=== PATIENT | male | born 1940 | race Caucasian/White ===

== ENCOUNTER 2018-11-19 20:01 | Outpatient (CLI) | payer MEDICARE, OTHER | END 2018-11-20 07:32 | disposition home or self-care (01) | LOC: SLEEP 20:01 | PROVIDERS: ATTEND Nurse Practitioner Family | DX: G47.10 Hypersomnia, unspecified (principal); M79.606 Pain in leg, unspecified; R06.00 Dyspnea, unspecified; R09.02 Hypoxemia | CPT/HCPCS: 95810 ==

== ENCOUNTER → 2018-11-28 | Outpatient (CLI) | payer MEDICARE, OTHER ==
[~2018-11-28] MED LIST: HOLD METFORMIN - RECEIVED CONTRAST 20 ML VIAL IV SCH; IOHEXOL 350 MG/ML 100 ML (OMNIPAQUE 350) VIAL IV ONE
[2018-11-28 14:39] LABS: CREATININE SERUM 1.18 MG/DL (0.60-1.30)
[2018-11-28 14:45] LABS: ABG BASE EXCESS 2.6 MMOL/L (-2.5-2.5); ABG OXYGEN SATURATION 98 % (94-100); ABG PCO2 44 MMHG (35-45); ABG PO2 84 MMHG (79-93); ABG TCO2 28.6 MMOL/L (21.0-31.0); ALLENS TEST YES-POS; INSPIRED O2 2L; PATIENT TEMP 96.8; VENTILATOR NO
--- NOTE | 2018-11-28 15:28 | Diagnostic Imaging Report ---
PROCEDURE: CT angiography of the chest with contrast. TECHNIQUE: Multiple contiguous axial images were obtained through the chest after uneventful bolus administration of intravenous contrast. 2D reconstructed CTA MIP acquisitions were also performed. Auto Exposure Controls were utilized during the CT exam to meet ALARA standards for radiation dose reduction. INDICATION: Shortness of air and cough as well as right-sided chest pain. No prior studies are available for comparison. Evaluation of the pulmonary arterial system is without evidence of thromboembolism. No filling defects are seen within the central, lobar or segmental branches. Thoracic aorta is normal caliber. No dissection is identified. There is a right chest wall cardiac pacemaker. The heart is enlarged. No pericardial fluid is seen. There is a very small left pleural effusion. No axillary lymphadenopathy is seen. No definite hilar or mediastinal lymphadenopathy is detected. The thyroid does appear to be enlarged but no discrete thyroid mass is detected. The lungs appear to be clear apart from minimal atelectasis or infiltrate in the lingula and left lower lobe. No discrete mass is identified. The upper abdomen is unremarkable. IMPRESSION: 1. Cardiomegaly and trace left pleural effusion. There is some minimal lingular and left lower lobe infiltrate/atelectasis. 2. No evidence of pulmonary embolism or thoracic aortic dissection. Dictated by: Dictated on workstation # [id number]
== END ==
LOC: RAD 13:54 → EDUNIT# 12-09 14:15
PROVIDERS: ATTEND Nurse Practitioner Family
DX: G47.10 Hypersomnia, unspecified (principal); R09.02 Hypoxemia; R06.02 Shortness of breath; I51.7 Cardiomegaly; M79.606 Pain in leg, unspecified; Z95.0 Presence of cardiac pacemaker
CPT/HCPCS: 36415; 36600; 71275; 82565; 82805; 84520

== ENCOUNTER → 2019-01-13 | Outpatient (CLI) | payer MEDICARE, OTHER ==
[~2019-01-13] MED LIST changes: -HOLD METFORMIN - RECEIVED CONTRAST 20 ML VIAL IV SCH; -IOHEXOL 350 MG/ML 100 ML (OMNIPAQUE 350) VIAL IV ONE; +RT-ALBUTEROL SULF 2.5 MG/3 ML PRE-MIX VIAL INH ONE; +RT-ALBUTEROL SULF 2.5 MG/3 ML PRE-MIX VIAL ONE
== END ==
LOC: RT 12:24
PROVIDERS: ATTEND Nurse Practitioner Family
DX: M79.606 Pain in leg, unspecified (principal); R06.00 Dyspnea, unspecified; G47.10 Hypersomnia, unspecified; R09.02 Hypoxemia
CPT/HCPCS: 94060; 94726; 94729

== ENCOUNTER 2019-03-13 10:25 | Outpatient (CLI) | payer MEDICARE, OTHER ==
[~2019-03-13] VITALS: Ht 172.7 cm; Wt 87.5 kg
[2019-03-13 10:33] VITALS: BP 114/68
[2019-03-13 12:01] LABS: BASOPHILS % (AUTO) 0 % (0-10); EOSINOPHILS # (AUTO) 0.1 10^3/uL (0.0-0.3); EOSINOPHILS % (AUTO) 2 % (0-10); HEMATOCRIT 38 % (40-54); HEMOGLOBIN 13.3 G/DL (13.3-17.7); LYMPHOCYTES # (AUTO) 1.4 X 10^3 (1.0-4.0); LYMPHOCYTES % (AUTO) 28 % (12-44); MEAN CORPUSCULAR HEMOGLOBIN 32 PG (25-34); MEAN CORPUSCULAR HGB CONC 35 G/DL (32-36); MEAN CORPUSCULAR VOLUME 92 FL (80-99); MEAN PLATELET VOLUME 11.3 FL (7.4-10.4); MONOCYTES # (AUTO) 0.6 X 10^3 (0.0-1.0); MONOCYTES % (AUTO) 12 % (0-12); NEUTROPHILS % (AUTO) 59 % (42-75); PLATELET COUNT 115 10^3/uL (130-400); RED CELL DISTRIBUTION WIDTH 13.8 % (10.0-14.5); WHITE BLOOD COUNT 5.1 10^3/uL (4.3-11.0)
[2019-03-13 12:21] LABS: ALBUMIN 3.5 GM/DL (3.2-4.5); BILIRUBIN,TOTAL 0.9 MG/DL (0.1-1.0); CALCIUM 8.9 MG/DL (8.5-10.1); CREATININE SERUM 1.41 MG/DL (0.60-1.30); POTASSIUM 3.9 MMOL/L (3.6-5.0); TOTAL PROTEIN 5.8 GM/DL (6.4-8.2)
[2019-03-14] MEDS ORDERED: CARV6.252 PO (11:03)
[2019-03-14] MEDS ORDERED: VITA1CAP PO (11:03)
[2019-03-14] MEDS ORDERED: ASPI-983 PO (11:03)
[2019-03-14] MEDS ORDERED: METO5TAB2 PO (11:03)
[2019-03-14] MEDS ORDERED: NPPH15OP OD (11:03)
[2019-03-14] MEDS ORDERED: POTA-51 PO (11:03)
[2019-03-14] MEDS ORDERED: BACL10TA PO (11:03)
[2019-03-14] MEDS ORDERED: FLUT9.9S NS (11:03)
[2019-03-14] MEDS ORDERED: HYDR25TA4 PO (11:03)
[2019-03-14] MEDS ORDERED: ACET-2267 PO (11:03)
[2019-03-14] MEDS ORDERED: FURO40TA4 PO (11:03)
[2019-03-14] MEDS ORDERED: PANT40TA2 PO (11:03)
[2019-03-14] MEDS ORDERED: FINA5TAB6 PO (11:03)
[2019-03-14] MEDS ORDERED: MAGN400T29 PO (11:03)
[2019-03-14] MEDS ORDERED: GABA-488 PO (11:03)
[2019-03-14] MEDS ORDERED: FURO80TA3 PO (14:06)
[2019-03-14] MEDS ORDERED: HYDR-3812 PO (14:06)
[2019-03-14] MEDS ORDERED: [UNRECOGNIZED DRUG - OTHER] PC (14:18)
== END 2019-03-13 11:55 | disposition home or self-care (01) ==
LOC: PREOP 10:25
PROVIDERS: ATTEND Orthopaedic Surgery
DX: Z01.810 Encounter for preprocedural cardiovascular examination (principal); Z01.812 Encounter for preprocedural laboratory examination; M48.062 Spinal stenosis, lumbar region with neurogenic claudication
CPT/HCPCS: 36415; 80053; 85025; 86850; 86900; 86901; 87081; 93005

== ENCOUNTER 2019-03-20 08:33 | Inpatient (IN) | payer MEDICARE, OTHER ==
--- NOTE | 2019-03-14 14:21 | NUR ---
[facility] FAXED OVER A MEDICATION LIST FOR THE PATIENT HOWEVER THERE WERE SEVERAL CHANGES TO THAT LIST AFTER I CALLED AND SPOKE WITH THE PATIENT. I HAD A LIST FAXED OVER FROM [facility]. [facility] FILLED: 03-07-19 FINASTERIDE 5MG DAILY #90 03-07-19 PROTONIX 40MG DAILY #90 02-06-19 HYDROCODONE 5-325MG Q6H PRN #45 (ONLY TAKES BID SCHEDULED) 01-19-19 BACLOFEN 10MG TID PRN #270 (TAKES BID) 01-14-19 POTASSIUM 20MEQ BID #180 01-08-19 TYLENOL W/ CODEINE #3 BID #60(NO LONGER TAKING, TAKES HYDROCODONE) 12-14-18 COREG 6.25MG BID #180 12-14-18 GABAPENTIN 300MG DAILY #90 (TAKES AT HS) 12-14-18 FUROSEMIDE 80MG BID #180 HE ALSO STATES HE TAKES REGLAN 5MG HS (HE STATES HIS BOTTLE SAYS TID PRN HOWEVER HE TAKES ONE AT HS, HE ALSO STATES IT IS A MUSCLE RELAXER) OTC MEDS: ASPIRIN 81MG DAILY FLONASE PRN NAPHCON A PRN B COMPLEX DAILY PREVAGEN (FOR BRAIN) DAILY HE STATES HE IS NOT TAKING THE MAG-OX, HCTZ, OR TYLENOL THAT IS ON THE LIST THAT WAS FAXED OVER. ALREADY MARKED OUT ON THAT LIST WAS CELEBREX AND ANORO WHICH HE VERIFIED HE IS NOT TAKING.
[~2019-03-20] VITALS: Ht 172.7 cm; Wt 87.5 kg
[2019-03-20] VITALS (24 sets, daily range): BP systolic 68–147; BP diastolic 32–68
[~2019-03-20 08:33] MED LIST changes: +ACET-2267 PO; +ASPI-983 PO; +BACL10TA PO; +CARV6.252 PO; +FINA5TAB6 PO; +FLUT9.9S NS; +FURO40TA4 PO; +FURO80TA3 PO; +GABA-488 PO; +HYDR-3812 PO; +HYDR25TA4 PO; +MAGN400T29 PO; +METO5TAB2 PO; +NPPH15OP OD; +PANT40TA2 PO; +POTA-51 PO; -RT-ALBUTEROL SULF 2.5 MG/3 ML PRE-MIX VIAL INH ONE; -RT-ALBUTEROL SULF 2.5 MG/3 ML PRE-MIX VIAL ONE; +VITA1CAP PO; +[UNRECOGNIZED DRUG - OTHER] PC
--- OUTSIDE RECORDS SUMMARY | 2019-03-20 08:59 | XMS REPORT ---
Author Author Hernandez Arroyo [facility] Address [address] [place], [place] [id number] Care Team Providers Care Body Service Team Member Name Role Phone Hernandez Arroyo PCP Hernandez Arroyo PreferredProvider Allergies and Adverse Reactions Name Reaction Notes Demerol codeine sulfate Plan of Treatment Planned Activity Comments Planned Date Planned Time Plan/Goal Chest X-ray, PA and lateral 04/26/2012 12:00 AM BMP 09/02/2017 12:00 AM CBC With Auto Differential 09/02/2017 12:00 AM Magnesium level 09/02/2017 12:00 AM Medications Active Name Start Date Estimated Completion Date SIG Comments Aspir-81 81 mg oral tablet,delayed release (DR/EC) take 1 tablet (81 mg) by oral route once daily Centrum Silver 0.4-300-250 mg-mcg-mcg oral tablet take 1 tablet by oral route daily Naphcon-A 0.025-0.3 % ophthalmic drops instill 1 drop in affected eye daily carvedilol 6.25 mg oral tablet 06/11/2015 TAKE 1 TABLET TWICE A DAY WITH FOOD Prevagen oral take 1 tablet daily, OTC Anoro Ellipta 62.5-25 mcg/actuation inhalation blister with device 12/18/2015 inhale 1 puff by inhalation route once daily at the same time each day Breo Ellipta 200-25 mcg/dose inhalation blister with device 08/07/2016 inhale 1 puff by inhalation route once daily at the same time each day metoclopramide HCl 5 mg oral tablet portable oxygen 11/16/2017 2 litres per nc Zofran ODT 4 mg oral tablet,disintegrating 12/15/2017 dissolve 1-2 tablets by oral route every 8 hours as needed gabapentin 300 mg oral capsule 12/17/2017 03/12/2019 take 1 capsule by oral route daily for 90 days portable oxygen unit 12/20/2017 2 liters per NC potassium chloride 20 mEq oral tablet extended release 02/14/2018 TAKE 1 TABLET BY MOUTH TWICE A DAY WITH FOOD Uloric 40 mg oral tablet 05/28/2018 take 1 tablet (40 mg) by oral route once daily magnesium oxide 400 mg (241.3 mg magnesium) oral tablet 06/02/2018 TAKE 1 TABLET BY MOUTH EVERY DAY furosemide 80 mg oral tablet 06/14/2018 06/09/2019 TAKE 1 TABLET BY MOUTH TWICE A DAY for 90 days fluticasone 50 mcg/actuation nasal spray,suspension 07/14/2018 INHALE 1 SPRAY (50 MCG) IN EACH NOSTRIL BY INTRANASAL ROUTE ONCE DAILY clotrimazole-betamethasone 1-0.05 % topical cream 08/17/2018 APPLY TO AFFECTED AND SURROUNDING AREAS OF SKIN 2 TIMES PER DAY, MORNING AND EVENING FOR 2 WEEKS pantoprazole 40 mg oral tablet,delayed release (DR/EC) 12/01/2018 TAKE 1 TABLET DAILY Proscar 5 mg oral tablet 12/01/2018 02/24/2020 take 1 tablet (5 mg) by oral route once daily for 90 days acetaminophen-codeine 300-30 mg oral tablet 12/05/2018 TAKE 1 TABLET BY MOUTH TWICE A DAY Lewis 5-325 mg oral tablet 02/06/2019 take 1 tablet by oral route every 6 hours as needed for pain Name Start Date Expiration Date SIG Comments Lotrisone 1-0.05 % topical cream 02/16/2013 03/02/2013 apply to the affected and surrounding areas of skin by topical route 2 times per day in the morning and evening for 14 days prednisone 20 mg oral tablet 02/16/2013 02/23/2013 take 3 tablets by oral route daily for 7 days prednisone 20 mg oral tablet 10/05/2013 10/12/2013 take 3 tablets by oral route daily for 7 days amoxicillin 500 mg oral capsule 10/05/2013 10/12/2013 take 1 capsule (500 mg) by oral route every 8 hours for 7 days Lamisil 250 mg oral tablet 10/23/2013 11/22/2013 take 1 tablet (250 mg) by oral route once daily for 30 days Valtrex 1 gram oral tablet 10/23/2013 10/27/2013 take 1 tablet (1,000 mg) by oral route 2 times per day for 2 days Cipro 500 mg oral tablet 10/30/2013 11/04/2013 take 1 tablet (500 mg) by oral route every 12 hours for 5 days albuterol sulfate 90 mcg/actuation inhalation HFA aerosol inhaler 10/30/2013 11/09/2013 inhale 2 puffs by inhalation route every 6 hours as needed for 10 days cyclobenzaprine 10 mg oral tablet 01/08/2014 03/09/2014 take 1 tablet by oral route every 12 hours as needed for 30 days muscle pain Augmentin 875-125 mg oral tablet 03/06/2014 03/13/2014 take 1 tablet by oral route every 12 hours for 7 days Levaquin 500 mg oral tablet 10/03/2014 10/10/2014 take 1 tablet (500 mg) by oral route once daily for 7 days amoxicillin 500 mg oral capsule 10/17/2014 10/27/2014 take 2 capsules by oral route 3 times a day for 5 days Zofran ODT 4 mg oral tablet,disintegrating 09/10/2015 09/22/2015 dissolve 1 tablet by oral route every 8 hours for 3 days amoxicillin 500 mg oral capsule 10/07/2015 10/17/2015 take 2 capsules by oral route 3 times a day for 5 days nitroglycerin 0.4 mg sublingual tablet, sublingual 10/21/2015 10/22/2015 place 1 tablet under tongue by translingual route once NEEDED FOR ESOPHAGEAL SPASM Myrbetriq 25 mg oral tablet extended release 24 hr 12/18/2015 12/12/2016 take 1 tablet (25 mg) by oral route once daily swallowing whole with water. Do not crush, chew and/or divide. for 30 days Lasix 40 mg oral tablet 12/18/2015 01/17/2016 take 1 tablet by oral route daily as needed for 30 days Lewis 10-325 mg oral tablet 01/29/2016 02/28/2016 take 1 tablet by oral route 4 times a day as needed for 30 days back pain propranolol 40 mg oral tablet 03/03/2016 07/01/2016 take 1 tablet (40 mg) by oral route 2 times per day for 30 days terbinafine HCl 250 mg oral tablet 06/26/2016 07/26/2016 take 1 tablet (250 mg) by oral route once daily for 30 days Lotrisone 1-0.05 % topical cream 07/23/2016 08/06/2016 apply to the affected and surrounding areas of skin by topical route 2 times per day in the morning and evening for 2 weeks Levaquin 500 mg oral tablet 10/05/2016 10/12/2016 take 1 tablet (500 mg) by oral route once daily for 7 days Reglan 5 mg oral tablet 12/01/2016 11/26/2017 take 1 tablet by oral route 3 times a for 90 days MagOx 400 mg oral tablet 12/10/2016 03/05/2018 take 1 tablet by oral route daily for 90 days amoxicillin 500 mg oral capsule 02/18/2017 02/28/2017 take 2 capsules by oral route 3 times a day for 5 days Zofran ODT 4 mg oral tablet,disintegrating 07/12/2017 07/18/2017 DISSOLVE 1 TABLET BY ORAL ROUTE 3 TIMES A DAY NEEDED celecoxib 200 mg oral capsule 07/21/2017 07/16/2018 take 1 capsule (200 mg) by oral route once daily for 90 days Lotrisone 1-0.05 % topical cream 08/04/2017 08/18/2017 APPLY TO AFFECTED AND SURROUNDING AREAS OF SKIN 2 TIMES PER DAY, MORNING AND EVENING FOR 2 WEEKS Lasix 40 mg oral tablet 09/02/2017 08/28/2018 take 1 tablet (40 mg) by oral route once daily for 90 days Cipro 500 mg oral tablet 12/15/2017 12/22/2017 take 1 tablet (500 mg) by oral route every 12 hours for 7 days prednisone 20 mg oral tablet 12/15/2017 12/22/2017 take 1 tablet (20 mg) by oral route once daily for 7 days Bactrim DS 800-160 mg oral tablet 03/07/2018 03/17/2018 take 1 tablet by oral route every 12 hours for 10 days ciprofloxacin HCl 500 mg oral tablet 05/24/2018 05/31/2018 take 1 tablet (500 mg) by oral route every 12 hours for 7 days metronidazole 500 mg oral tablet 05/24/2018 05/31/2018 take 1 tablet by oral route 2 times a day for 7 days Tylenol-Codeine #3 300-30 mg oral tablet 05/24/2018 02/18/2019 take 1 tablet by oral route 2 times a day for 90 days Medrol (Thong) 4 mg oral tablets,dose pack 02/06/2019 02/18/2019 take as directed for 6 days Discontinued Name Start Date Discontinued Date SIG Comments acetaminophen 500 mg oral tablet 11/30/2012 takes 2 tab bid finasteride 5 mg oral tablet 03/10/2012 05/30/2012 take 1 tablet (5 mg) by oral route once daily lisinopril 10 mg oral tablet 05/30/2012 09/05/2012 take 1 tablet (10 mg) by oral route once daily for 90 days Medrol (Thong) 4 mg oral tablets,dose pack 07/01/2012 07/12/2012 take as directed for 6 days meloxicam 7.5 mg oral tablet 05/17/2013 01/08/2014 take 1 tablet (7.5 mg) by oral route once daily for 90 days Tylenol-Codeine #3 300-30 mg oral tablet 08/01/2013 01/08/2014 take 1 - 2 tablets by oral route every 6 hours as needed Medrol (Thong) 4 mg oral tablets,dose pack 10/23/2013 01/08/2014 take as directed for 6 days Medrol (Thong) 4 mg oral tablets,dose pack 03/06/2014 05/29/2014 take as directed WelChol 625 mg oral tablet 07/16/2014 12/24/2014 take 3 tablets by oral route 2 times a day for 30 days not taking cephalexin 500 mg oral capsule 08/07/2015 take 1 capsule (500 mg) by oral route every 6 hours meloxicam 7.5 mg oral tablet 06/11/2015 08/06/2015 TAKE 1 TABLET ONCE DAILY Lyrica 75 mg oral capsule 06/24/2015 08/06/2015 take 1 capsule (75 mg) by oral route 2 times per day for 7 days Celebrex 100 mg oral capsule 08/06/2015 08/07/2015 take 1 capsule by oral route daily for 30 days meloxicam 7.5 mg oral tablet 09/10/2015 take 1 tablet (7.5 mg) by oral route once daily Lyrica 75 mg oral capsule 09/10/2015 take 1 cap daily Viibryd 10 mg (7)- 20 mg (23) oral tablets,dose pack 08/07/2015 08/07/2015 take as directed ondansetron 4 mg oral tablet,disintegrating 11/03/2017 take 1 tab every 8hr prn nausea hydrocodone-acetaminophen 7.5-325 mg oral tablet 10/08/2015 take 1 tablet every 8hr for pain Tylenol-Codeine #3 300-30 mg oral tablet 12/18/2015 02/26/2016 take 1 tablet by oral route every 6 hours as needed primidone 50 mg oral tablet 02/26/2016 07/06/2016 take 1 tablet by oral route daily for 90 days Lyrica 150 mg oral capsule 06/26/2016 07/06/2016 take 1 capsule (150 mg) by oral route 2 times per day for 30 days hydrochlorothiazide 25 mg oral tablet 12/10/2016 07/21/2017 TAKE 1 TABLET BY MOUTH ONCE DAILY amoxicillin 875 mg oral tablet 07/08/2017 08/05/2017 take 1 tablet (875 mg) by oral route every 12 hours for 7 days baclofen 10 mg oral tablet 01/27/2018 03/03/2019 TAKE 1 TABLET BY ORAL ROUTE 3 TIMES A DAY NEEDED Problem List Description Status Onset Gastroesophageal Reflux Active Hypertension Active pacemaker Active Back pain Active Traumatic Injury Active age 8 yrs old Cervical Whiplash/Strain Active 07/04/2014 Lumbar spondylolysis Active 07/04/2014 Trochanteric bursitis Active 10/15/2014 Trochanteric bursitis, right hip Active 07/01/2015 Vital Signs Date Time BP-Sys(mm[Hg] BP-Aysha(mm[Hg]) HR(bpm) RR(rpm) Temp WT HT HC BMI BSA BMI Percentile O2 Sat(%) 03/03/2019 10:45:00 AM 130 mmHg 64 mmHg 83 bpm 16 rpm 98.1 F 193 lbs 68 in 29.3452 kg/m 2.0494 m 97 % 02/06/2019 10:32:00 AM 146 mmHg 82 mmHg 16 rpm 97.8 F 194 lbs 68 in 29.50 kg/m2 2.05 m2 98 % 12/01/2018 10:59:00 AM 122 mmHg 70 mmHg 83 bpm 18 rpm 97.9 F 192.25 lbs 68 in 29.2312 kg/m 2.0454 m 96 % 08/17/2018 10:25:00 AM 110 mmHg 74 mmHg 75 bpm 16 rpm 98.8 F 191 lbs 68 in 29.04 kg/m2 2.04 m2 95 % 05/28/2018 11:44:00 AM 120 mmHg 70 mmHg 78 bpm 20 rpm 97.9 F 189.25 lbs 68 in 28.7751 kg/m 2.0294 m 98 % 05/24/2018 1:54:00 PM 108 mmHg 64 mmHg 95 bpm 20 rpm 98.1 F 180.25 lbs 68 in 27.41 kg/m2 1.98 m2 97 % 04/12/2018 10:00:00 AM 122 mmHg 78 mmHg 82 bpm 18 rpm 98.1 F 188.375 lbs 68 in 28.642 kg/m 2.0247 m 97 % 03/23/2018 9:48:00 AM 122 mmHg 64 mmHg 78 bpm 16 rpm 98.1 F 190 lbs 68 in 28.89 kg/m2 2.03 m2 96 % 03/14/2018 10:46:00 AM 88 mmHg 50 mmHg 81 bpm 18 rpm 97.7 F 191.375 lbs 68 in 29.0982 kg/m 2.0408 m 95 % 03/07/2018 2:41:00 PM 116 mmHg 64 mmHg 82 bpm 18 rpm 98.6 F 189.5 lbs 68 in 28.81 kg/m2 2.03 m2 95 % 01/07/2018 10:45:00 AM 88 bpm 18 rpm 97.5 F 197.375 lbs 68 in 30.0105 kg/m 2.0725 m 94 % 12/20/2017 10:22:00 AM 120 mmHg 66 mmHg 80 bpm 16 rpm 98.1 F 188 lbs 68 in 28.59 kg/m2 2.02 m2 88 % 12/15/2017 9:57:00 AM 102 mmHg 68 mmHg 82 bpm 18 rpm 97.5 F 182.125 lbs 68 in 27.6917 kg/m 1.9909 m 95 % 11/16/2017 2:25:00 PM 113 mmHg 74 mmHg 68 bpm 20 rpm 98 F 189.25 lbs 68 in 28.78 kg/m2 2.03 m2 95 % 11/03/2017 10:46:00 AM 108 mmHg 62 mmHg 72 bpm 16 rpm 97.1 F 197 lbs 68 in 29.9534 kg/m 2.0706 m 96 % 09/13/2017 9:35:00 AM 110 mmHg 64 mmHg 80 bpm 16 rpm 96.7 F 192 lbs 68 in 29.19 kg/m2 2.04 m2 96 % 09/02/2017 10:56:00 AM 130 mmHg 84 mmHg 80 bpm 20 rpm 98 F 190.5 lbs 68 in 28.9651 kg/m 2.0361 m 96 % 08/05/2017 10:54:00 AM 110 mmHg 62 mmHg 88 bpm 16 rpm 96.9 F 185 lbs 68 in 28.13 kg/m2 2.01 m2 96 % 07/21/2017 10:00:00 AM 104 mmHg 62 mmHg 88 bpm 20 rpm 97.8 F 185.375 lbs 68 in 28.1859 kg/m 2.0085 m 94 % 07/08/2017 10:00:00 AM 122 mmHg 74 mmHg 86 bpm 20 rpm 97.8 F 189.375 lbs 68 in 28.79 kg/m2 2.03 m2 95 % 07/05/2017 3:11:00 PM 120 mmHg 74 mmHg 79 bpm 20 rpm 98 F 198 lbs 68 in 30.1055 kg/m 2.0758 m 95 % 05/20/2017 11:05:00 AM 132 mmHg 74 mmHg 82 bpm 18 rpm 97.3 F 193.25 lbs 68 in 29.38 kg/m2 2.05 m2 96 % 05/04/2017 10:17:00 AM 132 mmHg 78 mmHg 56 bpm 14 rpm 96.2 F 194 lbs 68 in 29.4973 kg/m 2.0547 m 96 % 04/27/2017 9:57:00 AM 126 mmHg 68 mmHg 84 bpm 18 rpm 97.6 F 196.187 lbs 68 in 29.83 kg/m2 2.07 m2 95 % 02/18/2017 10:43:00 AM 126 mmHg 67 mmHg 82 bpm 18 rpm 97.2 F 192 lbs 68 in 29.1932 kg/m 2.0441 m 95 % 12/10/2016 11:23:00 AM 123 mmHg 63 mmHg 78 bpm 18 rpm 98.2 F 190.25 lbs 68 in 28.93 kg/m2 2.03 m2 94 % 12/01/2016 1:51:00 PM 141 mmHg 74 mmHg 91 bpm 18 rpm 97.5 F 197.125 lbs 68 in 29.9724 kg/m 2.0712 m 95 % 10/26/2016 9:57:00 AM 150 mmHg 86 mmHg 87 bpm 16 rpm 97.2 F 186 lbs 68 in 28.28 kg/m2 2.01 m2 96 % 10/05/2016 9:30:00 AM 138 mmHg 74 mmHg 80 bpm 18 rpm 96.6 F 183 lbs 68 in 27.8248 kg/m 1.9956 m 94 % 08/10/2016 10:59:00 AM 162 mmHg 86 mmHg 85 bpm 20 rpm 96.5 F 193 lbs 68 in 29.35 kg/m2 2.05 m2 97 % 08/04/2016 10:22:00 AM 124 mmHg 80 mmHg 85 bpm 18 rpm 98.2 F 194.5 lbs 68 in 29.5733 kg/m 2.0574 m 96 % 07/23/2016 11:04:00 AM 128 mmHg 74 mmHg 81 bpm 18 rpm 98.2 F 191.4 lbs 68 in 29.10 kg/m2 2.04 m2 95 % 07/06/2016 10:06:00 AM 138 mmHg 80 mmHg 90 bpm 18 rpm 98.2 F 197.125 lbs 68 in 29.9724 kg/m 2.0712 m 94 % 06/26/2016 10:31:00 AM 112 mmHg 74 mmHg 86 bpm 18 rpm 97.4 F 191.25 lbs 68 in 29.08 kg/m2 2.04 m2 96 % 04/06/2016 2:03:00 PM 110 mmHg 70 mmHg 84 bpm 16 rpm 97.6 F 195.5 lbs 68 in 29.7254 kg/m 2.0627 m 95 % 03/03/2016 10:32:00 AM 118 mmHg 76 mmHg 83 bpm 18 rpm 96.6 F 191 lbs 68 in 29.04 kg/m2 2.04 m2 96 % 02/26/2016 9:42:00 AM 130 mmHg 80 mmHg 72 bpm 18 rpm 97.3 F 190 lbs 68 in 28.8891 kg/m 2.0334 m 97 % 01/30/2016 2:26:00 PM 142 mmHg 82 mmHg 82 bpm 18 rpm 97.9 F 194.125 lbs 68 in 29.52 kg/m2 2.06 m2 95 % 01/29/2016 10:51:00 AM 120 mmHg 72 mmHg 79 bpm 16 rpm 97.5 F 194 lbs 68 in 29.4973 kg/m 2.0547 m 98 % 12/18/2015 10:44:00 AM 130 mmHg 74 mmHg 85 bpm 16 rpm 96.1 F 197 lbs 68 in 29.95 kg/m2 2.07 m2 96 % 11/05/2015 3:26:00 PM 120 mmHg 84 mmHg 79 bpm 19 rpm 98.4 F 193 lbs 68 in 29.3452 kg/m 2.0494 m 95 % 10/16/2015 11:22:00 AM 126 mmHg 82 mmHg 81 bpm 17 rpm 98 F 195 lbs 68 in 29.65 kg/m2 2.06 m2 96 % 10/07/2015 10:41:00 AM 114 mmHg 72 mmHg 84 bpm 18 rpm 97.8 F 191 lbs 68 in 29.0412 kg/m 2.0388 m 96 % 09/25/2015 10:52:00 AM 134 mmHg 82 mmHg 84 bpm 18 rpm 99.8 F 188 lbs 68 in 28.59 kg/m2 2.02 m2 96 % 09/10/2015 1:27:00 PM 134 mmHg 86 mmHg 80 bpm 18 rpm 97.4 F 197 lbs 68 in 29.9534 kg/m 2.0706 m 96 % 08/07/2015 10:33:00 AM 124 mmHg 76 mmHg 78 bpm 18 rpm 98.1 F 197 lbs 68 in 29.95 kg/m2 2.07 m2 08/06/2015 3:18:00 PM 118 mmHg 64 mmHg 84 bpm 16 rpm 99.1 F 196 lbs 07/01/2015 10:03:00 AM 112 mmHg 58 mmHg 88 bpm 18 rpm 97.1 F 199 lbs 68 in 30.2575 kg/m 2.081 m 06/24/2015 10:43:00 AM 116 mmHg 82 mmHg 80 bpm 16 rpm 97.5 F 195 lbs 68 in 29.65 kg/m2 2.06 m2 06/14/2015 5:07:00 PM 76 bpm 20 rpm 97.4 F 193 lbs 96 % 06/10/2015 1:53:00 PM 114 mmHg 62 mmHg 93 bpm 18 rpm 98.5 F 197.125 lbs 68 in 29.9724 kg/m 2.0712 m 66 % 05/07/2015 9:31:00 AM 132 mmHg 80 mmHg 80 bpm 18 rpm 97.7 F 198.25 lbs 68 in 30.14 kg/m2 2.08 m2 03/28/2015 3:19:00 PM 110 mmHg 66 mmHg 76 bpm 18 rpm 97.9 F 195 lbs 68 in 29.6493 kg/m 2.06 m 12/31/2014 9:47:00 AM 148 mmHg 90 mmHg 88 bpm 18 rpm 97.7 F 193 lbs 68 in 29.35 kg/m2 2.05 m2 12/24/2014 1:45:00 PM 136 mmHg 82 mmHg 65 bpm 20 rpm 96.8 F 191 lbs 68 in 29.0412 kg/m 2.0388 m 12/12/2014 8:26:00 AM 128 mmHg 82 mmHg 82 bpm 18 rpm 97.3 F 188 lbs 68 in 28.59 kg/m2 2.02 m2 12/10/2014 1:08:00 PM 138 mmHg 84 mmHg 80 bpm 18 rpm 98.4 F 189 lbs 68 in 28.7371 kg/m 2.0281 m 10/17/2014 10:03:00 AM 154 mmHg 82 mmHg 72 bpm 18 rpm 98.9 F 190 lbs 68 in 28.89 kg/m2 2.03 m2 10/15/2014 11:02:00 AM 132 mmHg 84 mmHg 73 bpm 18 rpm 97 F 192 lbs 68 in 29.1932 kg/m 2.0441 m 10/03/2014 10:39:00 AM 132 mmHg 78 mmHg 88 bpm 18 rpm 97.5 F 190 lbs 68 in 28.89 kg/m2 2.03 m2 10/01/2014 4:05:00 PM 122 mmHg 64 mmHg 90 bpm 16 rpm 97.6 F 189 lbs 08/23/2014 9:20:00 AM 148 mmHg 88 mmHg 84 bpm 16 rpm 98.9 F 197 lbs 68 in 29.9534 kg/m 2.0706 m 07/27/2014 9:32:00 AM 124 mmHg 74 mmHg 74 bpm 16 rpm 98.5 F 199 lbs 68 in 30.26 kg/m2 2.08 m2 07/16/2014 10:08:00 AM 140 mmHg 78 mmHg 82 bpm 18 rpm 98.7 F 198.5 lbs 68 in 30.1815 kg/m 2.0784 m 97 % 06/25/2014 10:16:00 AM 150 mmHg 88 mmHg 80 bpm 18 rpm 96.9 F 197 lbs 68 in 29.95 kg/m2 2.07 m2 96 % 05/29/2014 9:52:00 AM 142 mmHg 80 mmHg 88 bpm 18 rpm 97.4 F 197 lbs 68 in 29.9534 kg/m 2.0706 m 04/23/2014 10:49:00 AM 110 mmHg 70 mmHg 70 bpm 16 rpm 97.8 F 192 lbs 68 in 29.19 kg/m2 2.04 m2 03/26/2014 4:04:00 PM 108 mmHg 70 mmHg 66 bpm 16 rpm 98.2 F 195 lbs 68 in 29.6493 kg/m 2.06 m 03/06/2014 11:02:00 AM 140 mmHg 80 mmHg 70 bpm 16 rpm 97.9 F 195 lbs 68 in 29.65 kg/m2 2.06 m2 02/06/2014 10:24:00 AM 122 mmHg 70 mmHg 72 bpm 16 rpm 97.6 F 193.25 lbs 68 in 29.3833 kg/m 2.0508 m 01/08/2014 2:20:00 PM 124 mmHg 82 mmHg 66 bpm 16 rpm 97.2 F 193.375 lbs 68 in 29.40 kg/m2 2.05 m2 12/18/2013 9:24:00 AM 140 mmHg 90 mmHg 78 bpm 18 rpm 97.1 F 199 lbs 65 in 33.115 kg/m 2.0346 m 10/30/2013 8:30:00 AM 131 mmHg 67 mmHg 61 bpm 20 rpm 97.6 F 195.2 lbs 65 in 32.48 kg/m2 2.02 m2 96 % 10/23/2013 8:44:00 AM 144 mmHg 78 mmHg 82 bpm 18 rpm 98 F 195.375 lbs 65 in 32.5118 kg/m 2.016 m 96 % 10/05/2013 3:00:00 PM 156 mmHg 82 mmHg 80 bpm 18 rpm 97.5 F 199 lbs 68 in 30.26 kg/m2 2.08 m2 08/01/2013 10:30:00 AM 152 mmHg 90 mmHg 80 bpm 18 rpm 98.1 F 193 lbs 68 in 29.3452 kg/m 2.0494 m 07/26/2013 10:42:00 AM 138 mmHg 70 mmHg 84 bpm 18 rpm 98.6 F 191 lbs 68 in 29.04 kg/m2 2.04 m2 07/17/2013 2:08:00 PM 136 mmHg 80 mmHg 74 bpm 20 rpm 96.3 F 194 lbs 68 in 29.4973 kg/m 2.0547 m 97 % 05/17/2013 11:17:00 AM 146 mmHg 82 mmHg 80 bpm 18 rpm 97.4 F 187 lbs 68 in 28.43 kg/m2 2.02 m2 05/02/2013 11:37:00 AM 144 mmHg 80 mmHg 70 bpm 16 rpm 96 F 188 lbs 68 in 28.585 kg/m 2.0227 m 98 % 04/26/2013 10:56:00 AM 140 mmHg 80 mmHg 68 bpm 18 rpm 97.2 F 185 lbs 68 in 28.13 kg/m2 2.01 m2 03/01/2013 9:43:00 AM 136 mmHg 90 mmHg 82 bpm 16 rpm 97.4 F 187 lbs 68 in 28.433 kg/m 2.0173 m 02/16/2013 10:59:00 AM 138 mmHg 76 mmHg 78 bpm 18 rpm 97.8 F 187 lbs 68 in 28.43 kg/m2 2.02 m2 01/27/2013 9:35:00 AM 142 mmHg 84 mmHg 72 bpm 18 rpm 97.4 F 186.375 lbs 68 in 28.3379 kg/m 2.0139 m 12/15/2012 3:57:00 PM 130 mmHg 82 mmHg 74 bpm 18 rpm 98.6 F 188.375 lbs 68 in 28.64 kg/m2 2.02 m2 12/07/2012 9:07:00 AM 142 mmHg 72 mmHg 70 bpm 18 rpm 97.1 F 190 lbs 68 in 28.8891 kg/m 2.0334 m 11/30/2012 9:12:00 AM 132 mmHg 70 mmHg 64 bpm 16 rpm 98.7 F 189 lbs 68 in 28.74 kg/m2 2.03 m2 11/18/2012 9:40:00 AM 138 mmHg 80 mmHg 80 bpm 18 rpm 97.6 F 192 lbs 09/02/2012 10:32:00 AM 114 mmHg 72 mmHg 84 bpm 18 rpm 98.2 F 183 lbs 68 in 27.8248 kg/m 1.9956 m 08/10/2012 1:40:00 PM 130 mmHg 80 mmHg 80 bpm 18 rpm 98.2 F 184 lbs 68 in 27.98 kg/m2 2.00 m2 95 % 07/12/2012 1:45:00 PM 130 mmHg 80 mmHg 72 bpm 18 rpm 96.8 F 184 lbs 68 in 27.9768 kg/m 2.0011 m 97 % 07/01/2012 10:12:00 AM 136 mmHg 82 mmHg 82 bpm 18 rpm 97.4 F 184 lbs 68 in 27.98 kg/m2 2.00 m2 05/30/2012 9:49:00 AM 132 mmHg 88 mmHg 80 bpm 18 rpm 97 F 184 lbs 68 in 27.9768 kg/m 2.0011 m 05/10/2012 10:34:00 AM 110 mmHg 60 mmHg 67 bpm 18 rpm 96 F 182 lbs 68 in 27.67 kg/m2 1.99 m2 97 % 04/26/2012 11:43:00 AM 130 mmHg 78 mmHg 80 bpm 18 rpm 97.1 F 182 lbs 68 in 27.6727 kg/m 1.9902 m 04/26/2012 10:55:00 AM 130 mmHg 78 mmHg 80 bpm 18 rpm 97.1 F 182 lbs 68 in 27.67 kg/m2 1.99 m2 03/10/2012 10:59:00 AM 128 mmHg 72 mmHg 80 bpm 18 rpm 97.2 F 180 lbs 68 in 27.3686 kg/m 1.9792 m Social History Name Description Comments Tobacco Never smoker lives with family member 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 Children x2 Alcohol Use - Rare Denies illicit substance abuse History of Procedures Date Ordered Description Order Status 06/14/2015 12:00 AM RADEX ABDOMEN COMPL W/DCBTS&/ERC VIEWS Reviewed 07/01/2015 12:00 AM DRAIN/INJ JOINT/BURSA W/O US Reviewed 07/01/2015 12:00 AM Kenalog, Per 10 Mg [facility]#1392-6327-81 Reviewed 10/07/2015 12:00 AM CHEST X-RAY 2VW FRONTAL&LATL Reviewed 10/08/2015 12:00 AM CONTRAST X-RAY ESOPHAGUS Reviewed 10/16/2015 12:00 AM Decadron, Per 1 Mg [facility]# [address]-47 Reviewed 10/16/2015 12:00 AM Depo-Medrol, Per 80 Mg [facility]#[address]-55 Reviewed 12/18/2015 12:00 AM BIOPSY SKIN LESION Reviewed 01/29/2016 12:00 AM Decadron, Per 1 Mg [facility]# [address]-37 Reviewed 01/29/2016 12:00 AM Depo-Medrol, Per 80 Mg [facility]#[address]-88 Reviewed 02/26/2016 12:00 AM COMPLETE CBC W/AUTO DIFF WBC Reviewed 02/26/2016 12:00 AM COMPREHEN METABOLIC PANEL Reviewed 07/06/2016 12:00 AM COMPLETE CBC W/AUTO DIFF WBC Reviewed 07/06/2016 12:00 AM COMPREHEN METABOLIC PANEL Reviewed 07/06/2016 12:00 AM ASSAY OF MAGNESIUM Reviewed 04/27/2017 12:00 AM COMPLETE CBC W/AUTO DIFF WBC Returned 04/27/2017 12:00 AM COMPREHEN METABOLIC PANEL Returned 04/27/2017 12:00 AM CHEST X-RAY 2VW FRONTAL&LATL Returned 05/20/2017 12:00 AM RADEX FOOT COMPLETE MINIMUM 3 VIEWS Returned 07/01/2012 12:00 AM X-RAY EXAM L-S SPINE 2/3 VWS Reviewed 07/12/2012 12:00 AM COMPLETE CBC W/AUTO DIFF WBC Reviewed 07/12/2012 12:00 AM COMPREHEN METABOLIC PANEL Reviewed 07/12/2012 12:00 AM ELECTROCARDIOGRAM COMPLETE Reviewed 07/12/2012 5:35 PM COMPREHEN METABOLIC PANEL Reviewed 07/12/2012 5:35 PM COMPLETE CBC W/AUTO DIFF WBC Reviewed 09/13/2017 12:00 AM Rocephin 1 gram Injection Reviewed 09/13/2017 12:00 AM Depo Medrol 40mg Injection, [facility] Medicare Reviewed 09/13/2017 12:00 AM Decadron 4mg Injection, [facility] Medicaid Reviewed 11/03/2017 12:00 AM Rocephin 1 gram Injection Reviewed 11/03/2017 12:00 AM Depo Medrol 40mg Injection, [facility] Medicare Reviewed 11/03/2017 12:00 AM Decadron 4mg Injection, [facility] Medicaid Reviewed 12/15/2017 12:00 AM COMPLETE CBC W/AUTO DIFF WBC Returned 12/15/2017 12:00 AM COMPREHEN METABOLIC PANEL Returned 12/20/2017 12:00 AM Decadron 8mg Injection Reviewed 12/20/2017 12:00 AM Depo-Medrol 80mg Injection Reviewed 01/07/2018 12:00 AM Rocephin 1 gram Injection Reviewed 11/18/2012 12:00 AM METABOLIC PANEL TOTAL CA Reviewed 11/18/2012 12:00 AM COMPLETE CBC W/AUTO DIFF WBC Reviewed 11/18/2012 12:00 AM GLYCOSYLATED HEMOGLOBIN TEST Reviewed 11/18/2012 12:00 AM ASSAY OF BLOOD/URIC ACID Reviewed 11/18/2012 12:00 AM Prostate Cancer Screening Reviewed 12/07/2012 12:00 AM GLUCOSE BLOOD TEST Reviewed 11/30/2012 12:00 AM DRAIN/INJ JOINT/BURSA W/O US Reviewed 11/30/2012 12:00 AM Kenalog, Per 10 Mg [facility]#7010-4243-25 Reviewed 12/15/2012 12:00 AM DRAIN/INJ JOINT/BURSA W/O US Reviewed 12/15/2012 12:00 AM Kenalog, Per 10 Mg [facility]#9893-4909-22 Reviewed 03/14/2018 12:00 AM COMPLETE CBC W/AUTO DIFF WBC Returned 03/14/2018 12:00 AM COMPREHEN METABOLIC PANEL Returned 03/14/2018 12:00 AM ASSAY OF BLOOD/URIC ACID Returned 03/14/2018 12:00 AM ASSAY OF URINE/URIC ACID Returned 03/14/2018 12:00 AM C-REACTIVE PROTEIN Returned 03/14/2018 12:00 AM X-RAY EXAM OF ELBOW Returned 03/23/2018 12:00 AM Decadron 8mg Injection Reviewed 03/23/2018 12:00 AM Depo-Medrol 80mg Injection Reviewed 01/27/2013 12:00 AM INJ TRIGGER POINT 1/2 MUSCL Reviewed 01/27/2013 12:00 AM Kenalog, Per 10 Mg [facility]#[id number] Reviewed 04/26/2013 12:00 AM Depo-Medrol, Per 80 Mg [facility]#[id number] Reviewed 04/26/2013 12:00 AM Decadron, Per 1 Mg [facility]# [id number] Reviewed 12/01/2018 12:00 AM BIOPSY SKIN LESION Reviewed 12/01/2018 12:00 AM SPECIMEN HANDLING OFFICE-LAB Reviewed 12/01/2018 12:00 AM EXTRACRANIAL BILAT STUDY Returned 07/26/2013 12:00 AM X-RAY EXAM OF HIP Reviewed 07/26/2013 12:00 AM Depo-Medrol, Per 80 Mg [facility]#[id number] Reviewed 07/26/2013 12:00 AM Decadron, Per 1 Mg [facility]# [address]-69 Reviewed 10/05/2013 12:00 AM Depo-Medrol 80 Mg Im/C'padmini Reviewed 10/05/2013 12:00 AM Decadron, Per 1 Mg [facility]# [address]-36 Reviewed 12/18/2013 12:00 AM X-RAY EXAM NECK SPINE 2-3 VW Reviewed 02/06/2014 12:[address] HEAD/BRAIN W/O & W/DYE Reviewed 02/06/2014 12:[address] NECK SPINE W/O DYE Reviewed 02/06/2014 12:00 AM COMPREHEN METABOLIC PANEL Reviewed 02/06/2014 12:00 AM COMPLETE CBC W/AUTO DIFF WBC Reviewed 02/06/2014 12:00 AM RBC SED RATE AUTOMATED Reviewed 06/25/2014 12:00 AM COMPLETE CBC W/AUTO DIFF WBC Reviewed 06/25/2014 12:00 AM COMPREHEN METABOLIC PANEL Reviewed 06/25/2014 12:00 AM LIPID PANEL Reviewed 06/25/2014 12:00 AM GLYCOSYLATED HEMOGLOBIN TEST Reviewed 06/25/2014 12:00 AM Prostate Cancer Screening Reviewed 10/15/2014 12:00 AM DRAIN/INJ JOINT/BURSA W/O US Reviewed 10/15/2014 12:00 AM Kenalog, Per 10 Mg [facility]#5101-9452-65 Reviewed 12/12/2014 12:00 AM COMPLETE CBC W/AUTO DIFF WBC Reviewed 12/12/2014 12:00 AM COMPREHEN METABOLIC PANEL Reviewed 12/12/2014 12:00 AM LIPID PANEL Reviewed 12/12/2014 12:00 AM GLYCOSYLATED HEMOGLOBIN TEST Reviewed 12/24/2014 12:00 AM DRAIN/INJ JOINT/BURSA W/O US Reviewed 12/24/2014 12:00 AM Kenalog, Per 10 Mg [facility]#2885-4711-63 Reviewed 03/28/2015 12:00 AM DRAIN/INJ JOINT/BURSA W/O US Reviewed 03/28/2015 12:00 AM Kenalog, Per 10 Mg [facility]#4093-1879-36 Reviewed Results Summary Date and Description Results 07/12/2012 2:45 PM WBC 5.1 RBC 4.62 HGB 14.60 g/dLHCT 40.80 %MCV 88.0 fLMCH 31.60 pgMCHC 35.80 g/dLRDW SD 43 RDW CV 13.50 %MPV 12.80 fLPLT 109 NRBC# 0.00 NRBC% 0.0 %NEUT 56.20 %%LYMP 31.40 %%MONO 9.80 %%EOS 2.0 %%BASO 0.60 %#NEUT 2.87 #LYMP 1.60 #MONO 0.50 #EOS 0.10 #BASO 0.03 MANUAL DIFF NOT IND GLUCOSE 118.0 mg/dLSODIUM 138.0 mmol/LPOTASSIUM 4.0 mmol/LCHLORIDE 107.0 mmol/LCO2 24.0 mmol/LBUN 17.0 mg/dLCREATININE 1.10 mg/dLSGOT/AST 13.0 IU/LSGPT/ALT 7.0 IU/LALK PHOS 64.0 IU/LTOTAL PROTEIN 6.90 g/dLALBUMIN 3.60 g/dLTOTAL BILI 0.60 mg/dLCALCIUM 9.0 mg/dLAGE 71 GFR NonAA 66 GFR AA 80 eGFR 60 eGFR AA* 60 11/18/2012 10:30 AM WBC 4.7 RBC 4.96 HGB 15.50 g/dLHCT 42.60 %MCV 86.0 fLMCH 31.30 pgMCHC 36.40 g/dLRDW SD 42 RDW CV 13.40 %MPV 11.50 fLPLT 117 NRBC# 0.00 NRBC% 0.0 %NEUT 58.80 %%LYMP 30.20 %%MONO 8.50 %%EOS 2.30 %%BASO 0.20 %#NEUT 2.78 #LYMP 1.43 #MONO 0.40 #EOS 0.11 #BASO 0.01 MANUAL DIFF NOT IND GLUCOSE 93.0 mg/dLSODIUM 142.0 mmol/LPOTASSIUM 3.90 mmol/LCHLORIDE 107.0 mmol/LCO2 27.0 mmol/LBUN 14.0 mg/dLCREATININE 1.0 mg/dLCALCIUM 9.30 mg/dLAGE 72 GFR NonAA 74 GFR AA 90 eGFR 60 eGFR AA* 60 URIC ACID 7.4 mg/dLPSA TOTAL 1.870 ng/mLGLYCOHEMOGLOBIN A1C 5.30 % 02/06/2014 12:15 PM GLUCOSE 93.0 mg/dLSODIUM 142.0 mmol/LPOTASSIUM 4.20 mmol/LCHLORIDE 107.0 mmol/LCO2 28.0 mmol/LBUN 10.0 mg/dLCREATININE 1.0 mg/dLSGOT/AST 16.0 IU/LSGPT/ALT 9.0 IU/LALK PHOS 72.0 IU/LTOTAL PROTEIN 6.0 g/dLALBUMIN 3.60 g/dLTOTAL BILI 0.90 mg/dLCALCIUM 9.0 mg/dLAGE 73 GFR NonAA 73 GFR AA 88 eGFR 60 eGFR AA* 60 SEDRATE 15.0 mm/hrWBC 6.4 RBC 4.81 HGB 14.50 g/dLHCT 41.30 %MCV 86.0 fLMCH 30.10 pgMCHC 35.10 g/dLRDW SD 40 RDW CV 12.60 %MPV 11.20 fLPLT 136 NRBC# 0.00 NRBC% 0.0 %NEUT 54.60 %%LYMP 34.30 %%MONO 9.40 %%EOS 1.20 %%BASO 0.50 %#NEUT 3.50 #LYMP 2.20 #MONO 0.60 #EOS 0.08 #BASO 0.03 MANUAL DIFF NOT IND 06/04/2014 12:00 AM Treatment/Therapy LESI - L4-5 paramedial translaminar Response to treatment effective 06/25/2014 11:48 AM WBC 5.9 RBC 5.01 HGB 16.0 g/dLHCT 44.40 %MCV 89.0 fLMCH 31.90 pgMCHC 36.0 g/dLRDW SD 43 RDW CV 13.40 %MPV 12.20 fLPLT 94 NRBC# 0.00 NRBC% 0.0 %NEUT 54.30 %%LYMP 34.50 %%MONO 8.70 %%EOS 2.20 %%BASO 0.30 %#NEUT 3.19 #LYMP 2.03 #MONO 0.51 #EOS 0.13 #BASO 0.02 MANUAL DIFF NOT IND PSA TOTAL 3.620 ng/mLGLUCOSE 98.0 mg/dLSODIUM 143.0 mmol/LPOTASSIUM 4.0 mmol/LCHLORIDE 103.0 mmol/LCO2 29.0 mmol/LBUN 13.0 mg/dLCREATININE 1.20 mg/dLSGOT/AST 20.0 IU/LSGPT/ALT 27.0 IU/LALK PHOS 77.0 IU/LTOTAL PROTEIN 6.70 g/dLALBUMIN 3.90 g/dLTOTAL BILI 1.60 mg/dLCALCIUM 9.70 mg/dLAGE 73 GFR NonAA 60 GFR AA 73 eGFR 60 eGFR AA* 60 TRIGLYCERIDES 138.0 mg/dLCHOLESTEROL 241.0 mg/dLHDL 50.0 mg/dLTOT CHOL/HDL 4.8 LDL (CALC) 163.0 mg/dLHGB A1C 5.40 %Est Avg Glucose 108.3 mg/dL 08/01/2014 12:00 AM Treatment/Therapy LESI - L4-5 paramedial translaminar Response to treatment effective 10/01/2014 12:00 AM Treatment/Therapy Right greater troch bursa injection Response to treatment Effective 12/12/2014 9:38 AM WBC 4.8 RBC 4.89 HGB 15.60 g/dLHCT 44.10 %MCV 90.0 fLMCH 31.90 pgMCHC 35.40 g/dLRDW SD 47 RDW CV 14.20 %MPV 11.70 fLPLT 117 NRBC# 0.00 NRBC% 0.0 %NEUT 54.10 %%LYMP 34.90 %%MONO 7.90 %%EOS 2.70 %%BASO 0.40 %#NEUT 2.62 #LYMP 1.69 #MONO 0.38 #EOS 0.13 #BASO 0.02 MANUAL DIFF NOT IND GLUCOSE 98.0 mg/dLSODIUM 147.0 mmol/LPOTASSIUM 4.30 mmol/LCHLORIDE 109.0 mmol/LCO2 29.0 mmol/LBUN 15.0 mg/dLCREATININE 1.0 mg/dLSGOT/AST 17.0 IU/LSGPT/ALT 12.0 IU/LALK PHOS 72.0 IU/LTOTAL PROTEIN 6.40 g/dLALBUMIN 4.10 g/dLTOTAL BILI 1.10 mg/dLCALCIUM 9.40 mg/dLAGE 74 GFR NonAA 73 GFR AA 88 eGFR >60 mL/min/1.73 m2eGFR AA* >60 TRIGLYCERIDES 145.0 mg/dLCHOLESTEROL 208.0 mg/dLHDL 37.0 mg/dLTOT CHOL/HDL 5.6 LDL (CALC) 142.0 mg/dLHGB A1C 5.0 %Est Avg Glucose 96.8 mg/dL 02/26/2016 10:50 AM WBC 5.3 RBC 4.95 HGB 15.90 g/dLHCT 45.30 %MCV 92.0 fLMCH 32.10 pgMCHC 35.10 g/dLRDW SD 43 RDW CV 12.70 %MPV 10.80 fLPLT 107 NRBC# 0.00 NRBC% 0.0 %NEUT 53.30 %%LYMP 34.80 %%MONO 8.70 %%EOS 2.60 %%BASO 0.40 %#NEUT 2.82 #LYMP 1.84 #MONO 0.46 #EOS 0.14 #BASO 0.02 MANUAL DIFF NOT IND GLUCOSE 100.0 mg/dLSODIUM 142.0 mmol/LPOTASSIUM 3.90 mmol/LCHLORIDE 105.0 mmol/LCO2 31.0 mmol/LBUN 20.0 mg/dLCREATININE 1.20 mg/dLSGOT/AST 19.0 IU/LSGPT/ALT 23.0 IU/LALK PHOS 74.0 IU/LTOTAL PROTEIN 5.90 g/dLALBUMIN 3.90 g/dLTOTAL BILI 0.90 mg/dLCALCIUM 9.30 mg/dLAGE 75 GFR NonAA 59 GFR AA 72 eGFR 59 eGFR AA* >60 07/06/2016 10:42 AM WBC 4.5 RBC 4.62 HGB 14.70 g/dLHCT 42.0 %MCV 91.0 fLMCH 31.80 pgMCHC 35.0 g/dLRDW SD 44 RDW CV 13.40 %MPV 10.90 fLPLT 120 NRBC# 0.00 NRBC% 0.0 %NEUT 56.80 %%LYMP 30.0 %%MONO 8.50 %%EOS 3.60 %%BASO 0.90 %#NEUT 2.53 #LYMP 1.34 #MONO 0.38 #EOS 0.16 #BASO 0.04 MANUAL DIFF NOT IND GLUCOSE 89.0 mg/dLSODIUM 145.0 mmol/LPOTASSIUM 4.20 mmol/LCHLORIDE 107.0 mmol/LCO2 30.0 mmol/LBUN 14.0 mg/dLCREATININE 1.10 mg/dLSGOT/AST 17.0 IU/LSGPT/ALT 16.0 IU/LALK PHOS 75.0 IU/LTOTAL PROTEIN 5.70 g/dLALBUMIN 3.70 g/dLTOTAL BILI 0.80 mg/dLCALCIUM 9.0 mg/dLAGE 75 GFR NonAA 65 GFR AA 79 eGFR >60 mL/min/1.73meGFR AA* >60 MAGNESIUM 1.90 mg/dL History Of Immunizations Not available. History of Past Illness Name Date of Onset Comments pacemaker Hypertension Gastroesophageal Reflux BPH Back pain Traumatic Injury age 8 yrs old fractured skull Cervical Whiplash/Strain 07/04/2014 Lumbar spondylolysis 07/04/2014 Trochanteric bursitis 10/15/2014 Trochanteric bursitis, right hip 07/01/2015 Hypertension Mar 10 2012 11:09AM Low Back Pain Mar 10 2012 11:09AM Dysphagia Apr 26 2012 11:02AM Cough Apr 26 2012 11:02AM Dysphagia Apr 26 2012 11:47AM Esophageal Reflux May 10 2012 10:38AM Hypertension May 30 2012 9:54AM Low Back Pain Jul 01 2012 10:14AM pre-operative examination, unspecified Jul 12 2012 2:04PM Cholelithiasis Jul 12 2012 1:49PM Chronic Cholecystitis Jul 12 2012 1:49PM Postoperative Follow-up: Cholecystectomy Aug 10 2012 1:43PM Low Back Pain Sep 02 2012 10:36AM Hypertension Nov 18 2012 9:44AM Esophageal Reflux Nov 18 2012 9:44AM Low Back Pain Nov 18 2012 9:44AM Hyperglycemia Nov 18 2012 9:44AM Pain in joint; Nov 18 2012 9:44AM Spondylosis, lumbar Nov 30 2012 9:15AM Pain in joint; shoulder region Nov 30 2012 9:15AM Trochanteric bursitis Nov 30 2012 9:15AM Resolved Gastroenteritis Dec 07 2012 9:09AM Trochanteric Bursitis Nov 30 2012 10:22AM Subacromial Bursitis Dec 15 2012 4:45PM Spondylosis, lumbar Dec 15 2012 4:03PM Pain in joint; shoulder region Dec 15 2012 4:03PM Trochanteric bursitis Dec 15 2012 4:03PM Spondylosis, lumbar Jan 27 2013 9:48AM Pain in joint; shoulder region Jan 27 2013 9:48AM Trochanteric bursitis Jan 27 2013 9:48AM Tinea Pedis Feb 16 2013 11:04AM Pain in foot Feb 16 2013 11:04AM Myofascial pain Jan 27 2013 10:10AM Spondylosis, lumbar Mar 01 2013 9:45AM Pain in joint; shoulder region Mar 01 2013 9:45AM Trochanteric bursitis Mar 01 2013 9:45AM Hernia, Umibilical May 02 2013 11:41AM Abdominal pain; epigastric May 02 2013 11:41AM Eczema Apr 26 2013 11:01AM Diarrhea May 17 2013 11:20AM Hypertension May 17 2013 11:20AM Colon Cancer Screening Jul 17 2013 2:13PM Personal history of colonic polyps Jul 17 2013 2:13PM Pain in joint; Hip Jul 26 2013 10:48AM Osteoarthritis Aug 01 2013 10:34AM Psoriasis Oct 05 2013 3:06PM Tinea Corporis Oct 23 2013 8:49AM Stomatitis and mucositis, unspecified Oct 23 2013 8:49AM Sinusitis, Acute Oct 30 2013 8:32AM Neck Sprain/Strain Dec 18 2013 9:31AM Fall on same level Dec 18 2013 9:31AM Cervical spondylosis without myelopathy Jan 08 2014 2:22PM Cervical Whiplash/Strain Jan 08 2014 2:22PM Cervical Radiculitis Feb 06 2014 10:30AM Cervical spondylosis without myelopathy Feb 06 2014 10:30AM Cervical Whiplash/Strain Feb 06 2014 10:30AM Headache Feb 06 2014 10:30AM Cervical Whiplash/Strain Mar 06 2014 11:04AM Headache Mar 06 2014 11:04AM Cervical Whiplash/Strain Mar 26 2014 4:10PM Headache Mar 26 2014 4:10PM Hypertension May 29 2014 9:58AM Hyperglycemia Jun 25 2014 10:22AM Hypertension Jun 25 2014 10:22AM Screening For Prostate Cancer Jun 25 2014 10:22AM Resolved Headache Apr 23 2014 11:01AM Lumbar spondylolysis Apr 23 2014 11:01AM Hypertension Jul 16 2014 10:10AM Hyperlipidemia, unspecified Jul 16 2014 10:10AM Irritable bowel syndrome Jul 16 2014 10:10AM Sinusitis Oct 03 2014 10:41AM Spondylosis, lumbar Jul 27 2014 9:34AM Spondylosis, lumbar Aug 23 2014 9:26AM Trochanteric bursitis Aug 23 2014 9:26AM Spondylosis, lumbar Oct 01 2014 4:10PM Trochanteric bursitis Oct 01 2014 4:10PM Trochanteric Bursitis Oct 15 2014 11:04AM Spondylosis, lumbar Oct 15 2014 4:29PM Trochanteric bursitis Oct 15 2014 4:29PM Hypertension Oct 17 2014 10:10AM Sinusitis Oct 17 2014 10:10AM BPH (benign prostatic hyperplasia) Oct 17 2014 10:10AM Hypertension Dec 12 2014 8:29AM Hyperglycemia Dec 12 2014 8:29AM Chronic Right Trochanteric Bursitis Dec 24 2014 1:48PM Hyperlipidemia, unspecified Dec 31 2014 9:52AM Vision changes Dec 31 2014 9:52AM Spondylosis, lumbar Dec 10 2014 1:11PM Trochanteric bursitis Dec 10 2014 1:11PM Chronic Right Trochanteric Bursitis Mar 28 2015 3:21PM Spondylosis, lumbar May 07 2015 9:36AM Trochanteric bursitis May 07 2015 9:36AM BPH (benign prostatic hyperplasia) Jun 10 2015 1:55PM Essential tremor Jun 10 2015 1:55PM Myalgia Jun 10 2015 1:55PM Nausea Jun 14 2015 5:08PM Essential tremor Jun 24 2015 10:47AM Trochanteric bursitis, right hip Jul 01 2015 10:59AM Trochanteric bursitis, right hip Jul 01 2015 10:06AM Mood disorder Aug 07 2015 10:41AM BPH (benign prostatic hypertrophy) Aug 07 2015 10:41AM Spondylosis, lumbar Jul 01 2015 10:06AM Spondylosis, lumbar Aug 06 2015 3:24PM Trochanteric bursitis, right hip Aug 06 2015 3:24PM Low Back Pain Sep 10 2015 1:41PM Sinusitis Sep 25 2015 10:56AM Esophageal abnormality Sep 25 2015 10:56AM Bronchitis, Acute Oct 07 2015 10:45AM Dysphagia Oct 08 2015 10:35AM Hip pain, chronic, right Feb 2015 11:25AM Hip pain, chronic, left Feb 2015 11:25AM Lumbar spondylolysis Fe2015 11:25AM BPH (benign prostatic hyperplasia) Nov 05 2015 3:29PM Cough Nov 05 2015 3:29PM Dysphagia, cricopharyngeal b 2015 11:03AM Presbyesophagus Feb 2015 11:03AM Seborrheic keratoses, inflamed Dec 18 2015 11:50AM Chronic Obstructive Pulmonary Disease Dec 18 2015 10:51AM Low Back Pain Dec 18 2015 10:51AM OAB (overactive bladder) Dec 18 2015 10:51AM Spinal stenosis, lumbar region Jan 29 2016 10:56AM Esophageal Reflux Jan 30 2016 2:30PM Low Back Pain Feb 26 2016 9:53AM Abdominal distention Feb 26 2016 9:53AM Hypertension Feb 26 2016 9:53AM Essential tremor Feb 26 2016 9:53AM Essential tremor Mar 03 2016 10:36AM Hypertension Apr 06 2016 2:09PM Low Back Pain Apr 06 2016 2:09PM Tinea Jun 26 2016 10:33AM Hypertension Jul 06 2016 10:10AM Myalgia Jul 06 2016 10:10AM Tinea cruris Jul 23 2016 11:09AM Edema Jul 23 2016 11:09AM BPH (benign prostatic hyperplasia) Jul 23 2016 11:09AM Chronic Obstructive Pulmonary Disease Aug 04 2016 10:26AM Tremor Aug 04 2016 10:26AM Gastroesophageal Reflux Aug 10 2016 11:00AM Bronchitis Oct 05 2016 9:37AM Myalgia Oct 26 2016 10:03AM Low Back Pain Oct 26 2016 10:03AM Essential Hypertension Dec 01 2016 1:53PM Lumbago Dec 01 2016 1:53PM Hypertension Dec 10 2016 11:23AM Low Back Pain Dec 10 2016 11:23AM BPH (benign prostatic hyperplasia) Dec 10 2016 11:23AM Sinusitis Feb 18 2017 10:45AM Tinea cruris Feb 18 2017 10:45AM Tremor Feb 18 2017 10:45AM Hypertension Apr 27 2017 9:59AM Right upper quadrant abdominal pain Apr 27 2017 9:59AM Chronic Obstructive Pulmonary Disease Apr 27 2017 9:59AM Dysphagia Apr 27 2017 9:59AM Dyspnea Apr 27 2017 9:59AM Chronic Obstructive Pulmonary Disease May 04 2017 10:20AM Skin tear of left lower leg without complication, sequela May 04 2017 10:20AM Foot pain, left May 20 2017 11:07AM Constipation, slow transit Jul 05 2017 3:12PM Cellulitis of right lower extremity Jul 08 2017 10:01AM Low Back Pain Jul 21 2017 10:02AM Hypokalemia Jul 21 2017 10:02AM Low Back Pain Aug 05 2017 10:59AM Edema Sep 02 2017 10:58AM Hypokalemia Sep 02 2017 10:58AM Sinusitis Sep 13 2017 9:38AM Sinusitis Nov 03 2017 10:49AM Chronic Obstructive Pulmonary Disease Nov 16 2017 2:30PM Hypoxia Nov 16 2017 2:30PM Gastroenteritis Dec 15 2017 10:03AM Nausea & vomiting Dec 15 2017 10:03AM Chronic Obstructive Pulmonary Disease Dec 20 2017 10:36AM Low Back Pain Dec 20 2017 10:36AM Bronchitis Jan 07 2018 10:47AM Cellulitis Mar 07 2018 2:43PM Elbow swelling, left Mar 14 2018 10:51AM Cellulitis Mar 14 2018 10:51AM Olecranon bursitis of left elbow Mar 23 2018 9:53AM Gout Mar 23 2018 9:53AM Low Back Pain Apr 12 2018 10:02AM Allergic rhinitis Apr 12 2018 10:02AM Gastroenteritis May 24 2018 2:00PM Gout attack May 28 2018 11:47AM Chronic Obstructive Pulmonary Disease Aug 17 2018 10:30AM Hypoxia Aug 17 2018 10:30AM Near syncope Dec 01 2018 11:02AM Skin lesion of chest wall Dec 01 2018 12:04PM BPH (benign prostatic hyperplasia) Dec 01 2018 11:02AM Low Back Pain Feb 06 2019 10:38AM Chronic Obstructive Pulmonary Disease Mar 03 2019 10:49AM Skull deformity Mar 03 2019 10:49AM Payers Insurance Name Company Name Plan Name Plan Number Policy Number Policy Group Number Start Date Medicare RHC Medicare RHC [id number] N/A Chris Perez [id number] N/A Medicare Part B Medicare Of [place] [id number] November Medicare Part A Medicare Part A [id number] N/A Medicare RHC Medicare RHC [id number] N/A Medicare Part A Medicare - Lab/Xray [id number] N/A History of Encounters Visit Date Visit Type Provider 03/03/2019 Office visit Hernandez Arroyo MD 02/06/2019 Office visit Hernandez Arroyo MD 12/01/2018 Office visit Hernandez Arroyo MD 08/17/2018 Office visit Hernandez Arroyo MD 05/28/2018 Office visit Melia Franco APRN 05/24/2018 Office visit Hernandez Arroyo MD 04/12/2018 Office visit Hernandez Arroyo MD 03/23/2018 Office visit Hernanedz Arroyo MD 03/14/2018 Office visit Hernandez Arroyo MD 03/07/2018 Office visit Hernandez Arroyo MD 01/07/2018 Office visit Hernandez Arroyo MD 12/20/2017 Office visit Hernandez Arroyo MD 12/15/2017 Office visit Hernandez Arroyo MD 11/16/2017 Office visit Hernandez Arroyo MD 11/03/2017 Office visit Hernandez Arroyo MD 09/13/2017 Office visit Hernandez Arroyo MD 09/02/2017 Office visit Hernandez Arroyo MD 08/05/2017 Office visit Hernandez Arroyo MD 07/21/2017 Office visit Hernandez Arroyo MD 07/16/2017 Hospital Jo Paris MD 07/16/2017 Hospital Luis Mcgovern DO 07/08/2017 Office visit Hernandez Arroyo MD 07/05/2017 Office visit Refugio Austin MD 05/20/2017 Office visit Hernandez Arroyo MD 05/04/2017 Office visit Hernandez Arroyo MD 04/27/2017 Office visit Hernandez Arroyo MD 02/18/2017 Office visit Hernandez Arroyo MD 12/10/2016 Office visit Hernandez Arroyo MD 12/01/2016 Office visit Hernandez Arroyo MD 10/26/2016 Office visit Hernandez Arroyo MD 10/05/2016 Office visit Hernandez Arroyo MD 08/10/2016 Office visit Refugio Austin MD 08/04/2016 Office visit Hernandez Arroyo MD 07/23/2016 Office visit Hernandez Arroyo MD 07/06/2016 Office visit Hernandez Arroyo MD 06/26/2016 Office visit Hernandez Arroyo MD 04/06/2016 Office visit Hernandez Arroyo MD 03/05/2016 Hospital Jo Paris MD 03/03/2016 Office visit Hernandez Arroyo MD 02/26/2016 Office visit Hernandez Arroyo MD 01/30/2016 Office visit Hernandez Arroyo MD 01/29/2016 Office visit Hernandez Arroyo MD 12/18/2015 Office visit Hernandez Arroyo MD 11/05/2015 Office visit Hernandez Arroyo MD 10/21/2015 Office visit Refugio Austin MD 10/16/2015 Office visit Hernandez Arroyo MD 10/11/2015 Hospital Refugio Austin MD 10/08/2015 Office visit Refugio Austin MD 10/07/2015 Office visit Hernandez Arroyo MD 09/25/2015 Office visit Hernandez Arroyo MD 09/10/2015 Office visit Hernandez Arroyo MD 08/07/2015 Office visit Hernandez Arroyo MD 08/06/2015 Office visit Camryn JOSHI 07/01/2015 Office visit Camryn JOSHI 06/24/2015 Office visit Hernandez Arroyo MD 06/14/2015 Office visit Salinas Gamble APRN 06/10/2015 Office visit Hernandez Arroyo MD 05/07/2015 Office visit Camryn JOSHI 03/28/2015 Office visit Camryn JOSHI 12/31/2014 Office visit Hernandez Arryoo MD 12/24/2014 Procedures Camryn JOSHI 12/12/2014 Office visit Hernandez Arroyo MD 12/10/2014 Office visit Camryn JOSHI 10/17/2014 Office visit Hernandez Arroyo MD 10/15/2014 Office visit Camryn JOSHI 10/03/2014 Office visit Hernandez Arroyo MD 10/01/2014 Office visit Camryn JOSHI 08/23/2014 Office visit Camryn JOSHI 07/27/2014 Office visit Camryn JOSHI 07/16/2014 Office visit Hernandez Arroyo MD 06/25/2014 Office visit Hernandez Arroyo MD 05/29/2014 Office visit Hernandez Arroyo MD 04/23/2014 Office visit Camryn MitzyMaricarmen BAKERP 03/26/2014 Office visit Camryn MMaricarmen Miguel Ángel RN INFORMATICS 03/06/2014 Office visit Camryn MitzyMaricarmen JOSHI 02/06/2014 Office visit Camryn JOSHI 01/08/2014 Office visit Camryn JOSHI 12/18/2013 Office visit Hernandez Arroyo MD 10/30/2013 Office visit RAJMIRLANDE ZARATE MADELYN 10/23/2013 Office visit Hernandez Arryoo MD 10/05/2013 Office visit Hernandez Arroyo MD 08/01/2013 Office visit Hernandez Arroyo MD 07/26/2013 Office visit Hernandez Arroyo MD 07/21/2013 [facility] Refugio Austin MD 07/17/2013 Office visit Refugio Austin MD 05/17/2013 Office visit Hernandez Arroyo MD 05/02/2013 Office visit Refugio Austin MD 04/26/2013 Office visit Hernandez Arroyo MD 03/16/2013 Hospital Chapincito Steele MD 03/01/2013 Office visit Chapincito Steele MD 02/16/2013 Office visit Hernandez Arroyo MD 01/27/2013 Office visit Chapincito Steele MD 01/13/2013 Hospital Chapincito Steele MD 12/15/2012 Office visit Chapincito Steele MD 12/07/2012 Office visit Nica Cratwright APRN 11/30/2012 Office visit Chapincito Steele MD 11/18/2012 Office visit Hernandez Arroyo MD 09/02/2012 Office visit Hernandez Arroyo MD 08/10/2012 Office visit Refugio Austin MD 08/04/2012 Hospital Refugio Austin MD 07/12/2012 Office visit Refugio Austin MD 07/12/2012 Hospital Jo Paris MD 07/01/2012 Office visit Hernandez Arroyo MD 05/30/2012 Office visit Hernandez Arroyo MD 05/10/2012 Office visit Refugio Austin MD 05/02/2012 Hospital Refugio Austin MD 04/26/2012 Office visit Refugio Austin MD 04/26/2012 Office visit Hernandez Arroyo MD 03/10/2012 Office visit Hernandez Arroyo MD
[2019-03-20] MEDS ORDERED: BACITRACIN 100,000 UNIT/NS 1000 ML POUR BOTTLE IR ONE ×2 (09:00)
--- OUTSIDE RECORDS SUMMARY | 2019-03-20 09:01 | XMS REPORT ---
Author Author Hernandez Arroyo [facility] Address [address] [place], [place] [id number] Care Team Providers Care Teleservices Representative Name Role Phone Hernandez Arroyo PCP Hernandez [...] oxygen unit 12/20/2017 2 liters per [place] baclofen 10 mg oral tablet 01/27/2018 TAKE 1 TABLET BY ORAL ROUTE 3 TIMES A DAY NEEDED potassium chloride 20 mEq oral tablet extended release 02/14/2018 TAKE 1 TABLET BY MOUTH TWICE A DAY WITH FOOD Tylenol-Codeine #3 300-30 mg oral tablet 05/24/2018 02/18/2019 take 1 tablet by oral route 2 times a day for 90 days Uloric 40 mg oral tablet 05/28/2018 take [...] 1 TABLET BY MOUTH TWICE A DAY Medrol (Thong) 4 mg oral tablets,dose pack 02/06/2019 02/18/2019 take as directed for 6 days [place] 5-325 mg oral tablet 02/06/2019 take 1 [...] route daily as needed for 30 days [place] 10-325 mg oral tablet 01/29/2016 02/28/2016 take [...] 2 times a day for 7 days Discontinued Name Start Date Discontinued Date [...] route every 12 hours for 7 days Problem List Description Status Onset Gastroesophageal Reflux Active Hypertension Active pacemaker Active Back pain Active Traumatic Injury Active age 8 yrs old Cervical Whiplash/Strain Active 07/04/2014 Lumbar spondylolysis Active 07/04/2014 Trochanteric bursitis Active 10/15/2014 Trochanteric bursitis, right hip Active 07/01/2015 Vital Signs Date Time BP-Sys(mm[Hg] BP-Aysha(mm[Hg]) HR(bpm) RR(rpm) Temp WT HT HC BMI BSA BMI Percentile O2 Sat(%) 02/06/2019 10:32:00 AM 146 mmHg 82 mmHg 16 rpm 97.8 F 194 lbs 68 in 29.4973 kg/m 2.0547 m 98 % 12/01/2018 10:59:00 AM 122 mmHg 70 mmHg 83 bpm 18 rpm 97.9 F 192.25 lbs 68 in 29.23 kg/m2 2.05 m2 96 % 08/17/2018 10:25:00 AM 110 mmHg 74 mmHg 75 bpm 16 rpm 98.8 F 191 lbs 68 in 29.0412 kg/m 2.0388 m 95 % 05/28/2018 11:44:00 AM 120 mmHg 70 mmHg 78 bpm 20 rpm 97.9 F 189.25 lbs 68 in 28.78 kg/m2 2.03 m2 98 % 05/24/2018 1:54:00 PM 108 mmHg 64 mmHg 95 bpm 20 rpm 98.1 F 180.25 lbs 68 in 27.4066 kg/m 1.9806 m 97 % 04/12/2018 10:00:00 AM 122 mmHg 78 mmHg 82 bpm 18 rpm 98.1 F 188.375 lbs 68 in 28.64 kg/m2 2.02 m2 97 % 03/23/2018 9:48:00 AM 122 mmHg 64 mmHg 78 bpm 16 rpm 98.1 F 190 lbs 68 in 28.8891 kg/m 2.0334 m 96 % 03/14/2018 10:46:00 AM 88 mmHg 50 mmHg 81 bpm 18 rpm 97.7 F 191.375 lbs 68 in 29.10 kg/m2 2.04 m2 95 % 03/07/2018 2:41:00 PM 116 mmHg 64 mmHg 82 bpm 18 rpm 98.6 F 189.5 lbs 68 in 28.8131 kg/m 2.0308 m 95 % 01/07/2018 10:45:00 AM 88 bpm 18 rpm 97.5 F 197.375 lbs 68 in 30.01 kg/m2 2.07 m2 94 % 12/20/2017 10:22:00 AM 120 mmHg 66 mmHg 80 bpm 16 rpm 98.1 F 188 lbs 68 in 28.585 kg/m 2.0227 m 88 % 12/15/2017 9:57:00 AM 102 mmHg 68 mmHg 82 bpm 18 rpm 97.5 F 182.125 lbs 68 in 27.69 kg/m2 1.99 m2 95 % 11/16/2017 2:25:00 PM 113 mmHg 74 mmHg 68 bpm 20 rpm 98 F 189.25 lbs 68 in 28.7751 kg/m 2.0294 m 95 % 11/03/2017 10:46:00 AM 108 mmHg 62 mmHg 72 bpm 16 rpm 97.1 F 197 lbs 68 in 29.95 kg/m2 2.07 m2 96 % 09/13/2017 9:35:00 AM 110 mmHg 64 mmHg 80 bpm 16 rpm 96.7 F 192 lbs 68 in 29.1932 kg/m 2.0441 m 96 % 09/02/2017 10:56:00 AM 130 mmHg 84 mmHg 80 bpm 20 rpm 98 F 190.5 lbs 68 in 28.97 kg/m2 2.04 m2 96 % 08/05/2017 10:54:00 AM 110 mmHg 62 mmHg 88 bpm 16 rpm 96.9 F 185 lbs 68 in 28.1289 kg/m 2.0065 m 96 % 07/21/2017 10:00:00 AM 104 mmHg 62 mmHg 88 bpm 20 rpm 97.8 F 185.375 lbs 68 in 28.19 kg/m2 2.01 m2 94 % 07/08/2017 10:00:00 AM 122 mmHg 74 mmHg 86 bpm 20 rpm 97.8 F 189.375 lbs 68 in 28.7941 kg/m 2.0301 m 95 % 07/05/2017 3:11:00 PM 120 mmHg 74 mmHg 79 bpm 20 rpm 98 F 198 lbs 68 in 30.11 kg/m2 2.08 m2 95 % 05/20/2017 11:05:00 AM 132 mmHg 74 mmHg 82 bpm 18 rpm 97.3 F 193.25 lbs 68 in 29.3833 kg/m 2.0508 m 96 % 05/04/2017 10:17:00 AM 132 mmHg 78 mmHg 56 bpm 14 rpm 96.2 F 194 lbs 68 in 29.50 kg/m2 2.05 m2 96 % 04/27/2017 9:57:00 AM 126 mmHg 68 mmHg 84 bpm 18 rpm 97.6 F 196.187 lbs 68 in 29.8299 kg/m 2.0663 m 95 % 02/18/2017 10:43:00 AM 126 mmHg 67 mmHg 82 bpm 18 rpm 97.2 F 192 lbs 68 in 29.19 kg/m2 2.04 m2 95 % 12/10/2016 11:23:00 AM 123 mmHg 63 mmHg 78 bpm 18 rpm 98.2 F 190.25 lbs 68 in 28.9271 kg/m 2.0348 m 94 % 12/01/2016 1:51:00 PM 141 mmHg 74 mmHg 91 bpm 18 rpm 97.5 F 197.125 lbs 68 in 29.97 kg/m2 2.07 m2 95 % 10/26/2016 9:57:00 AM 150 mmHg 86 mmHg 87 bpm 16 rpm 97.2 F 186 lbs 68 in 28.2809 kg/m 2.0119 m 96 % 10/05/2016 9:30:00 AM 138 mmHg 74 mmHg 80 bpm 18 rpm 96.6 F 183 lbs 68 in 27.82 kg/m2 2.00 m2 94 % 08/10/2016 10:59:00 AM 162 mmHg 86 mmHg 85 bpm 20 rpm 96.5 F 193 lbs 68 in 29.3452 kg/m 2.0494 m 97 % 08/04/2016 10:22:00 AM 124 mmHg 80 mmHg 85 bpm 18 rpm 98.2 F 194.5 lbs 68 in 29.57 kg/m2 2.06 m2 96 % 07/23/2016 11:04:00 AM 128 mmHg [...] 07/01/2015 12:00 AM Kenalog, Per 10 Mg [facility]#6066-6759-10 Reviewed 10/07/2015 12:00 AM CHEST X-RAY 2VW FRONTAL&LATL Reviewed 10/08/2015 12:00 AM CONTRAST X-RAY ESOPHAGUS Reviewed 10/16/2015 12:00 AM Decadron, Per 1 Mg [facility]# [address]-99 Reviewed 10/16/2015 12:00 AM Depo-Medrol, Per 80 Mg [facility]#[address]-20 Reviewed 12/18/2015 12:00 AM BIOPSY SKIN LESION Reviewed 01/29/2016 12:00 AM Decadron, Per 1 Mg [facility]# [address]-86 Reviewed 01/29/2016 12:00 AM Depo-Medrol, Per 80 Mg [facility]#[address]-71 Reviewed 02/26/2016 12:00 AM COMPLETE CBC W/AUTO [...] 09/13/2017 12:00 AM Depo Medrol 40mg Injection, [facility] Medicare Reviewed 09/13/2017 12:00 AM Decadron 4mg Injection, [facility] Medicaid Reviewed 11/03/2017 12:00 AM Rocephin 1 gram Injection Reviewed 11/03/2017 12:00 AM Depo Medrol 40mg Injection, [facility] Medicare Reviewed 11/03/2017 12:00 AM Decadron 4mg Injection, [facility] Medicaid Reviewed 12/15/2017 12:00 AM COMPLETE CBC [...] 11/30/2012 12:00 AM Kenalog, Per 10 Mg [facility]#6761-2447-85 Reviewed 12/15/2012 12:00 AM DRAIN/INJ JOINT/BURSA W/O US Reviewed 12/15/2012 12:00 AM Kenalog, Per 10 Mg [facility]#3421-9992-61 Reviewed 03/14/2018 12:00 AM COMPLETE CBC W/AUTO [...] 01/27/2013 12:00 AM Kenalog, Per 10 Mg [facility]#0349-4890-25 Reviewed 04/26/2013 12:00 AM Depo-Medrol, Per 80 Mg [facility]#5497-6751-91 Reviewed 04/26/2013 12:00 AM Decadron, Per 1 Mg [facility]# [address]-77 Reviewed 12/01/2018 12:00 AM BIOPSY SKIN LESION Reviewed 12/01/2018 12:00 AM SPECIMEN HANDLING OFFICE-LAB Reviewed 12/01/2018 12:00 AM EXTRACRANIAL BILAT STUDY Returned 07/26/2013 12:00 AM X-RAY EXAM OF HIP Reviewed 07/26/2013 12:00 AM Depo-Medrol, Per 80 Mg [facility]#9577-9364-91 Reviewed 07/26/2013 12:00 AM Decadron, Per 1 Mg [facility]# [address]-87 Reviewed 10/05/2013 12:00 AM Depo-Medrol 80 Mg Im/C'padmini Reviewed 10/05/2013 12:00 AM Decadron, Per 1 Mg [facility]# [address]-49 Reviewed 12/18/2013 12:00 AM X-RAY EXAM NECK [...] 10/15/2014 12:00 AM Kenalog, Per 10 Mg [facility]#5521-7142-91 Reviewed 12/12/2014 12:00 AM COMPLETE CBC W/AUTO DIFF WBC Reviewed 12/12/2014 12:00 AM COMPREHEN METABOLIC PANEL Reviewed 12/12/2014 12:00 AM LIPID PANEL Reviewed 12/12/2014 12:00 AM GLYCOSYLATED HEMOGLOBIN TEST Reviewed 12/24/2014 12:00 AM DRAIN/INJ JOINT/BURSA W/O US Reviewed 12/24/2014 12:00 AM Kenalog, Per 10 Mg [facility]#7779-5932-70 Reviewed 03/28/2015 12:00 AM DRAIN/INJ JOINT/BURSA W/O US Reviewed 03/28/2015 12:00 AM Kenalog, Per 10 Mg [facility]#4861-1531-08 Reviewed Results Summary Date and Description Results [...] bursitis Oct 01 2014 4:10PM Trochanteric Bursitis Feb 2014 11:04AM Spondylosis, lumbar Oct 15 2014 4:29PM Trochanteric bursitis b 2014 4:29PM Hypertension Oct 17 2014 10:10AM [...] chronic, left Feb 2015 11:25AM Lumbar spondylolysis Oct 16 2015 11:25AM BPH (benign prostatic hyperplasia) Nov 05 2015 3:29PM Cough Nov 05 2015 3:29PM Dysphagia, cricopharyngeal Oct 21 2015 11:03AM Presbyesophagus Oct 21 2015 11:03AM Seborrheic keratoses, inflamed Dec 18 [...] Low Back Pain Feb 06 2019 10:38AM Payers Insurance Name Company Name Plan Name Plan Number Policy Number Policy Group Number Start Date Medicare [facility] Medicare [facility] [id number] N/A Cigna Cigna [id number] N/A Medicare Part B Medicare Of [place] [id number] November Medicare Part A Medicare Part A [id number] N/A Medicare RHC Medicare RHC [id number] N/A Medicare Part A Medicare - Lab/Xray [id number] N/A History of Encounters Visit Date Visit Type Provider 02/06/2019 Office visit Hernandez Arroyo MD 12/01/2018 Office visit Hernandez Arroyo MD 08/17/2018 Office visit Hernandez Arroyo MD 05/28/2018 Office visit Melia Franco OFFICIAL COURT REPORTER 05/24/2018 Office visit Hernandez Arroyo MD 04/12/2018 Office visit Hernandez Arroyo MD 03/23/2018 Office visit Hernandez Arroyo MD 03/14/2018 Office visit Hernandez Arroyo MD 03/07/2018 Office visit Hernandez Arroyo MD 01/07/2018 Office visit Hernandez Arroyo MD 12/20/2017 Office visit Hernandez Arroyo MD 12/15/2017 Office visit Hernandez Arroyo MD 11/16/2017 Office visit Hernandez Arroyo MD 11/03/2017 Office visit Hernandez Arroyo MD 09/13/2017 Office visit Hernandez Arroyo MD 09/02/2017 Office visit eHrnandez Arroyo MD 08/05/2017 Office visit Hernandez Arroyo MD 07/21/2017 Office visit Hernandez Arroyo MD 07/16/2017 Hospital Jo Paris MD 07/16/2017 [facility] Luis Mcgovern DO 07/08/2017 Office visit Hernandez [...] visit Camryn JOSHI 12/31/2014 Office visit Hernandez Arroyo MD 12/24/2014 Procedures Camryn JOSHI 12/12/2014 Office [...] Hernandez Arroyo MD 04/23/2014 Office visit Camryn JOSHI 03/26/2014 Office visit Camryn JOSHI 03/06/2014 Office visit Camryn JOSHI 02/06/2014 Office visit Camryn JOSHI 01/08/2014 Office visit Camryn JOSHI 12/18/2013 Office visit Hernandez Arroyo MD 10/30/2013 Office visit RAJMIRLANDE ZARATE MADELYN 10/23/2013 Office visit Hernandez Arroyo MD 10/05/2013 Office visit Hernandez Arroyo MD 08/01/2013 Office visit Hernandez Arroyo MD 07/26/2013 Office visit Hernandez Arroyo MD 07/21/2013 Hospital Refugio Austin MD 07/17/2013 Office visit Refugio Austin MD 05/17/2013 Office visit Hernandez Arroyo MD 05/02/2013 Office visit Refugio Austin MD 04/26/2013 Office visit Hernandez Arroyo MD 03/16/2013 Hospital Chapincito Steele MD 03/01/2013 Office visit Chapincito Steele MD 02/16/2013 Office visit Hernandez Arroyo MD 01/27/2013 Office visit Chapincito Steele MD 01/13/2013 [facility] Chapincito Steele MD 12/15/2012 Office visit Chapincito Steele MD 12/07/2012 Office visit Nica Cartwright APRN 11/30/2012 Office visit Chapincito Steele MD 11/18/2012 Office visit Hernandez Arroyo MD 09/02/2012 Office visit Hernandez Arroyo MD 08/10/2012 Office visit Refugio Austin MD 08/04/2012 [facility] Refugio Austin MD 07/12/2012 Office visit Refugio Austin MD 07/12/2012 [facility] Jo Paris MD 07/01/2012 Office visit Hernandez Arroyo MD 05/30/2012 Office visit Hernandez Arroyo MD 05/10/2012 Office visit Refugio Austin MD 05/02/2012 [facility] Refugio Austin MD 04/26/2012 Office visit Refugio Austin MD 04/26/2012 Office visit Hernandez Arroyo MD 03/10/2012 Office visit Hernandez Arroyo MD
--- OUTSIDE RECORDS SUMMARY | 2019-03-20 09:04 | XMS REPORT ---
Author Author Hernandez Arroyo [facility] Address [address] [place], [place] [id number] Care Team Providers Care Auto Mechanic Name Role Phone Hernandez Arroyo PCP Hernandez Arroyo PreferredProvider Allergies and Adverse Reactions Name Reaction Notes Demerol codeine sulfate Plan of Treatment Planned Activity Comments Planned Date Planned Time Plan/Goal Chest X-ray, PA and lateral 04/26/2012 12:00 AM BMP 09/02/2017 12:00 AM CBC With Auto Differential 09/02/2017 12:00 AM Magnesium level 09/02/2017 12:00 AM US CAROTID DUPLEX COMP/DANI 12/01/2018 12:00 AM Medications Active Name Start Date [...] oral route once daily for 90 days Name Start Date Expiration Date SIG Comments [...] route daily as needed for 30 days [place] 10-325 mg oral tablet 01/29/2016 02/28/2016 take [...] HC BMI BSA BMI Percentile O2 Sat(%) 12/01/2018 10:59:00 AM 122 mmHg 70 mmHg [...] 07/01/2015 12:00 AM Kenalog, Per 10 Mg [facility]#7300-4113-83 Reviewed 10/07/2015 12:00 AM CHEST X-RAY 2VW FRONTAL&LATL Reviewed 10/08/2015 12:00 AM CONTRAST X-RAY ESOPHAGUS Reviewed 10/16/2015 12:00 AM Decadron, Per 1 Mg [facility]# [address]-39 Reviewed 10/16/2015 12:00 AM Depo-Medrol, Per 80 Mg [facility]#[address]-31 Reviewed 12/18/2015 12:00 AM BIOPSY SKIN LESION Reviewed 01/29/2016 12:00 AM Decadron, Per 1 Mg [facility]# [address]-80 Reviewed 01/29/2016 12:00 AM Depo-Medrol, Per 80 Mg [facility]#[address]-71 Reviewed 02/26/2016 12:00 AM COMPLETE CBC W/AUTO [...] 09/13/2017 12:00 AM Depo Medrol 40mg Injection, [facility] Medicare Reviewed 09/13/2017 12:00 AM Decadron 4mg Injection, [facility] Medicaid Reviewed 11/03/2017 12:00 AM Rocephin 1 gram Injection Reviewed 11/03/2017 12:00 AM Depo Medrol 40mg Injection, [facility] Medicare Reviewed 11/03/2017 12:00 AM Decadron 4mg Injection, [facility] Medicaid Reviewed 12/15/2017 12:00 AM COMPLETE [...] 11/30/2012 12:00 AM Kenalog, Per 10 Mg [facility]#4373-4366-06 Reviewed 12/15/2012 12:00 AM DRAIN/INJ JOINT/BURSA W/O US Reviewed 12/15/2012 12:00 AM Kenalog, Per 10 Mg [facility]#1795-5210-27 Reviewed 03/14/2018 12:00 AM COMPLETE CBC W/AUTO [...] 01/27/2013 12:00 AM Kenalog, Per 10 Mg [facility]#5740-9081-19 Reviewed 04/26/2013 12:00 AM Depo-Medrol, Per 80 Mg [facility]#9875-8808-50 Reviewed 04/26/2013 12:00 AM Decadron, Per 1 Mg [facility]# [address]-72 Reviewed 12/01/2018 12:00 AM SPECIMEN HANDLING OFFICE-LAB Reviewed 07/26/2013 12:00 AM X-RAY EXAM OF HIP Reviewed 07/26/2013 12:00 AM Depo-Medrol, Per 80 Mg [facility]#8070-3660-93 Reviewed 07/26/2013 12:00 AM Decadron, Per 1 Mg [facility]# [address]-36 Reviewed 10/05/2013 12:00 AM Depo-Medrol 80 Mg Im/C'padmini Reviewed 10/05/2013 12:00 AM Decadron, Per 1 Mg [facility]# [address]-66 Reviewed 12/18/2013 12:00 AM X-RAY EXAM NECK [...] 10/15/2014 12:00 AM Kenalog, Per 10 Mg [facility]#4662-9798-63 Reviewed 12/12/2014 12:00 AM COMPLETE CBC W/AUTO DIFF WBC Reviewed 12/12/2014 12:00 AM COMPREHEN METABOLIC PANEL Reviewed 12/12/2014 12:00 AM LIPID PANEL Reviewed 12/12/2014 12:00 AM GLYCOSYLATED HEMOGLOBIN TEST Reviewed 12/24/2014 12:00 AM DRAIN/INJ JOINT/BURSA W/O US Reviewed 12/24/2014 12:00 AM Kenalog, Per 10 Mg [facility]#7693-2983-95 Reviewed 03/28/2015 12:00 AM DRAIN/INJ JOINT/BURSA W/O US Reviewed 03/28/2015 12:00 AM Kenalog, Per 10 Mg [facility]#4223-3116-47 Reviewed Results Summary Date and Description Results [...] Feb 2015 11:25AM Hip pain, chronic, left b 2015 11:25AM Lumbar spondylolysis Oct 16 2015 [...] (benign prostatic hyperplasia) Dec 01 2018 11:02AM Payers Insurance Name Company Name Plan Name Plan Number Policy Number Policy Group Number Start Date Medicare RHC Medicare RHC [id number] N/A Cigna Cigna [id number] N/A Medicare Part B Medicare Of [place] [id number] November Medicare Part A Medicare Part A [id number] N/A Medicare RHC Medicare RHC [id number] N/A Medicare Part A Medicare - Lab/Xray [id number] N/A History of Encounters Visit Date Visit Type Provider 12/01/2018 Office visit Hernandez Arroyo MD 08/17/2018 Office visit Hernandez Arroyo MD 05/28/2018 Office visit Melia Franco [employer] SALES DIRECTOR 05/24/2018 Office visit Hernandez Arroyo MD 04/12/2018 [...] visit Hernandez Arroyo MD 03/05/2016 Hospital Jo Parsi MD 03/03/2016 Office visit Hernandez Arroyo MD [...] Hernandez Arroyo MD 08/06/2015 Office visit Camryn BAKERP 07/01/2015 Office visit Camryn BAKERP 06/24/2015 Office visit Hernandez Arroyo MD 06/14/2015 Office visit Salinas Gamble APRN 06/10/2015 Office visit Hernandez Arroyo MD 05/07/2015 Office visit Camryn BAKERP 03/28/2015 Office visit Camryn BAKERP 12/31/2014 Office visit Hernandez Arroyo MD 12/24/2014 Procedures Camryn BAKERP 12/12/2014 Office visit Hernandez Arroyo MD 12/10/2014 Office visit Camryn BAKERP 10/17/2014 Office visit Hernandez Arroyo MD 10/15/2014 Office visit Camryn BAKERP 10/03/2014 Office visit Hernandez Arroyo MD 10/01/2014 Office visit Camryn BAKERP 08/23/2014 Office visit Camryn BAKERP 07/27/2014 Office visit Camryn BAKERP 07/16/2014 Office visit Hernandez Arroyo MD 06/25/2014 Office visit Hernandez Arroyo MD 05/29/2014 Office visit Hernandez Arroyo MD 04/23/2014 Office visit Camryn BAKERP 03/26/2014 Office visit Camryn BAKERP 03/06/2014 Office visit Camryn JOSHI 02/06/2014 Office visit Camryn JOSHI 01/08/2014 Office visit Camryn BAKERP 12/18/2013 Office visit Hernandez Arroyo MD 10/30/2013 Office visit RAJ JOSHI 10/23/2013 Office visit Hernandez Arroyo MD 10/05/2013 Office visit Hernandez Arroyo MD 08/01/2013 Office visit Hernandez Arroyo MD 07/26/2013 Office visit Hernandez Arroyo MD 07/21/2013 [facility] Refugio Austin MD 07/17/2013 Office visit Refugio Austin MD 05/17/2013 Office visit Hernandez Arroyo MD 05/02/2013 Office visit Refugio Austin MD 04/26/2013 Office visit Hernandez Arroyo MD 03/16/2013 Hospital Chapincito Steele MD 03/01/2013 Office visit Chapincito Steele MD 02/16/2013 Office visit Hernandez Arroyo MD 01/27/2013 Office visit Chapincito Steele MD 01/13/2013 [facility] Chapincito Steele MD 12/15/2012 Office visit Chapincito Steele MD 12/07/2012 Office visit Nica Cartwright APRN 11/30/2012 Office visit Chapincito Steele MD 11/18/2012 Office visit Hernandez Arroyo MD 09/02/2012 Office visit Hernandez Arroyo MD 08/10/2012 Office visit Refugio Austin MD 08/04/2012 [facility] Refugio Austin MD 07/12/2012 Office visit Refugio Austin MD 07/12/2012 [facility] Jo Paris MD 07/01/2012 Office visit Hernandez Arroyo MD 05/30/2012 Office visit Hernandez Arroyo MD 05/10/2012 Office visit Refugio Austin MD 05/02/2012 [facility] Refugio Austin MD 04/26/2012 Office visit Refugio Austin MD 04/26/2012 Office visit Hernandez Arroyo MD 03/10/2012 Office visit Hernandez Arroyo MD
--- OUTSIDE RECORDS SUMMARY | 2019-03-20 09:06 | XMS REPORT ---
Author Author Hernandez Arroyo [facility] Address [address] [place], [place] [id number] Care Team Providers Care Director Enterprise Sales Name Role Phone Hernandez Arroyo PCP Hernandez [...] daily at the same time each day pantoprazole 40 mg oral tablet,delayed release (DR/EC) 12/10/2016 TAKE 1 TABLET DAILY metoclopramide HCl 5 mg oral tablet Lasix 40 mg oral tablet 09/02/2017 08/28/2018 take 1 tablet (40 mg) by oral route once daily for 90 days portable oxygen 11/16/2017 2 litres per nc [...] DAY, MORNING AND EVENING FOR 2 WEEKS Name Start Date Expiration Date SIG Comments Lotrisone 1-0.05 % topical cream 02/16/2013 03/02/2013 apply to the affected and surrounding areas of skin by topical route 2 times per day in the morning and evening for 14 days prednisone 20 mg oral tablet 02/16/2013 02/23/2013 take 3 tablets by oral route daily for 7 days carvedilol 6.25 mg oral tablet 05/17/2013 05/12/2014 take 1 tablet (6.25 mg) by oral route 2 times per day with food for 90 days pantoprazole 40 mg oral tablet,delayed release (DR/EC) 05/17/2013 05/12/2014 take 1 tablet by oral route daily for 90 days prednisone 20 mg oral tablet 10/05/2013 [...] oral route once daily for 7 days hydrochlorothiazide 25 mg oral tablet 10/17/2014 10/12/2015 take 1 tablet (25 mg) by oral route once daily for 90 days amoxicillin 500 mg oral capsule 10/17/2014 10/27/2014 take 2 capsules by oral route 3 times a day for 5 days celecoxib 100 mg oral capsule 09/10/2015 12/03/2016 take 1 cap daily for 90 days Zofran ODT 4 mg oral tablet,disintegrating [...] route daily as needed for 30 days Talihina 10-325 mg oral tablet 01/29/2016 02/28/2016 take [...] DAY, MORNING AND EVENING FOR 2 WEEKS Cipro 500 mg oral tablet 12/15/2017 12/22/2017 take 1 tablet (500 mg) by oral route every 12 hours for 7 days prednisone 20 mg oral tablet 12/15/2017 12/22/2017 take 1 tablet (20 mg) by oral route once daily for 7 days Proscar 5 mg oral tablet 01/27/2018 04/27/2018 take 1 tablet (5 mg) by oral route once daily for 90 days Bactrim DS 800-160 mg oral tablet [...] daily Viibryd 10 mg (7)- 20 mg () oral tablets,dose pack 08/07/2015 08/07/2015 take as [...] HC BMI BSA BMI Percentile O2 Sat(%) 08/17/2018 10:25:00 AM 110 mmHg 74 mmHg [...] 07/01/2015 12:00 AM Kenalog, Per 10 Mg [facility]#8277-3493-27 Reviewed 10/07/2015 12:00 AM CHEST X-RAY 2VW FRONTAL&LATL Reviewed 10/08/2015 12:00 AM CONTRAST X-RAY ESOPHAGUS Reviewed 10/16/2015 12:00 AM Decadron, Per 1 Mg [facility]# [address]-12 Reviewed 10/16/2015 12:00 AM Depo-Medrol, Per 80 Mg [facility]#[address]-73 Reviewed 12/18/2015 12:00 AM BIOPSY SKIN LESION Reviewed 01/29/2016 12:00 AM Decadron, Per 1 Mg [facility]# [address]-05 Reviewed 01/29/2016 12:00 AM Depo-Medrol, Per 80 Mg [facility]#[address]-84 Reviewed 02/26/2016 12:00 AM COMPLETE CBC W/AUTO [...] 09/13/2017 12:00 AM Depo Medrol 40mg Injection, [facility] Medicare Reviewed 09/13/2017 12:00 AM Decadron 4mg Injection, [facility] Medicaid Reviewed 11/03/2017 12:00 AM Rocephin 1 gram Injection Reviewed 11/03/2017 12:00 AM Depo Medrol 40mg Injection, [facility] Medicare Reviewed 11/03/2017 12:00 AM Decadron 4mg Injection, [facility] Medicaid Reviewed 12/15/2017 12:00 AM COMPLETE CBC [...] 11/30/2012 12:00 AM Kenalog, Per 10 Mg [facility]#1640-0754-73 Reviewed 12/15/2012 12:00 AM DRAIN/INJ JOINT/BURSA W/O US Reviewed 12/15/2012 12:00 AM Kenalog, Per 10 Mg [place]#5851-8925-24 Reviewed 03/14/2018 12:00 AM COMPLETE CBC W/AUTO [...] 01/27/2013 12:00 AM Kenalog, Per 10 Mg [facility]#9064-8124-58 Reviewed 04/26/2013 12:00 AM Depo-Medrol, Per 80 Mg [facility]#5260-9993-54 Reviewed 04/26/2013 12:00 AM Decadron, Per 1 Mg [facility]# [address]-50 Reviewed 07/26/2013 12:00 AM X-RAY EXAM OF HIP Reviewed 07/26/2013 12:00 AM Depo-Medrol, Per 80 Mg [facility]#7247-9640-14 Reviewed 07/26/2013 12:00 AM Decadron, Per 1 Mg [facility]# [address]-52 Reviewed 10/05/2013 12:00 AM Depo-Medrol 80 Mg Im/C'padmini Reviewed 10/05/2013 12:00 AM Decadron, Per 1 Mg [facility]# [address]-93 Reviewed 12/18/2013 12:00 AM X-RAY EXAM NECK [...] 06/25/2014 12:00 AM Prostate Cancer Screening Reviewed 12/12/2014 12:00 AM COMPLETE CBC W/AUTO DIFF WBC Reviewed 12/12/2014 12:00 AM COMPREHEN METABOLIC PANEL Reviewed 12/12/2014 12:00 AM LIPID PANEL Reviewed 12/12/2014 12:00 AM GLYCOSYLATED HEMOGLOBIN TEST Reviewed 03/28/2015 12:00 AM DRAIN/INJ JOINT/BURSA W/O US Reviewed 03/28/2015 12:00 AM Kenalog, Per 10 Mg [facility]#8618-1983-07 Reviewed Results Summary Date and Description Results [...] bursitis Oct 01 2014 4:10PM Trochanteric Bursitis b 2014 11:04AM Spondylosis, lumbar b 2014 4:29PM Trochanteric bursitis b 2014 4:29PM [...] Feb 2015 11:25AM Hip pain, chronic, left Oct 16 2015 11:25AM Lumbar spondylolysis Oct 16 2015 [...] 2018 10:30AM Hypoxia Aug 17 2018 10:30AM Payers Insurance Name Company Name Plan Name Plan Number Policy Number Policy Group Number Start Date Medicare RHC Medicare RHC [id number] N/A Cigna Cigna [id number] N/A Medicare Part B Medicare Of [place] [id number] November Medicare Part A Medicare Part A [id number] N/A Medicare RHC Medicare RHC [id number] N/A Medicare Part A Medicare - Lab/Xray [id number] N/A History of Encounters Visit Date Visit Type Provider 08/17/2018 Office visit Hernandez Arroyo MD 05/28/2018 Office visit Melia Khloe Franco METER MAINTENANCE PERSON 05/24/2018 Office visit Hernandez Arroyo MD 04/12/2018 [...] Jo Paris MD 07/16/2017 Hospital Luis Mcgovern MD 07/08/2017 Office visit Hernandez Arroyo MD 07/05/2017 [...] visit Camryn BAKERP 08/23/2014 Office visit Camryn JOSHI 07/27/2014 Office visit Camryn JOSHI 07/16/2014 Office visit Hernandez Arroyo MD 06/25/2014 Office visit Hernandez Arroyo MD 05/29/2014 Office visit Hernandez Arryoo MD 04/23/2014 Office visit Camryn JOSHI 03/26/2014 Office visit Camryn JOSHI 03/06/2014 Office visit Camryn JOSHI 02/06/2014 Office visit Camryn JOSHI 01/08/2014 Office visit Camryn JOSHI 12/18/2013 Office visit Hernandez Arroyo MD 10/30/2013 Office visit RAJ JOSHI 10/23/2013 Office visit Hernandez Arroyo MD 10/05/2013 Office visit Hernandez Arroyo MD 08/01/2013 Office visit Hernandez Arroyo MD 07/26/2013 Office visit Hernandez Arroyo MD 07/21/2013 [facility] Refugio Austin MD 07/17/2013 Office visit Refugio Austin MD 05/17/2013 Office visit Hernandez Arroyo MD 05/02/2013 Office visit Refugio Austin MD 04/26/2013 Office visit Hernandez Arroyo MD 03/16/2013 [facility] Chapincito Steele MD 03/01/2013 Office visit Chapincito Steele MD 02/16/2013 Office visit Hernandez Arroyo MD 01/27/2013 Office visit Chapincito Steele MD 01/13/2013 [facility] Chapincito Steele MD 12/15/2012 Office visit Chapincito Steele MD 12/07/2012 Office visit Nica Cartwright LEONARD 11/30/2012 Office visit Chapincito Steele MD 11/18/2012 Office visit Hernandez Arroyo MD 09/02/2012 Office visit Hernandez Arroyo MD 08/10/2012 Office visit Refugio Austin MD 08/04/2012 [facility] Refugio Austin MD 07/12/2012 Office visit Refugio Austin MD 07/12/2012 [facility] Jo Paris MD 07/01/2012 Office visit Hernandez Arroyo MD 05/30/2012 Office visit Hernandez Arroyo MD 05/10/2012 Office visit Refugio Austin MD 05/02/2012 [facility] Refugio Austin MD 04/26/2012 Office visit Refugio Austin MD 04/26/2012 Office visit Hernandez Arroyo MD 03/10/2012 Office visit Hernandez Arroyo MD
--- OUTSIDE RECORDS SUMMARY | 2019-03-20 09:09 | XMS REPORT ---
Author Author Melia Franco Organization [facility] Address [address] [place], [place] [id number] Care Team Providers Care Bead Picker Name Role Phone Melia Franco PCP Hernandez Arroyo PreferredProvider Allergies and Adverse [...] EACH NOSTRIL BY INTRANASAL ROUTE ONCE DAILY Name Start Date Expiration Date SIG Comments [...] route daily as needed for 30 days Ferguson 10-325 mg oral tablet 01/29/2016 02/28/2016 take [...] Active 07/04/2014 Lumbar spondylolysis Active 07/04/2014 Trochanteric Bursitis Active 10/15/2014 Trochanteric bursitis, right hip Active 07/01/2015 Vital Signs Date Time BP-Sys(mm[Hg] BP-Aysha(mm[Hg]) HR(bpm) RR(rpm) Temp WT HT HC BMI BSA BMI Percentile O2 Sat(%) 05/28/2018 11:44:00 AM 120 mmHg 70 mmHg [...] 07/01/2015 12:00 AM Kenalog, Per 10 Mg [facility]#0986-4695-07 Reviewed 10/07/2015 12:00 AM CHEST X-RAY 2VW FRONTAL&LATL Reviewed 10/08/2015 12:00 AM CONTRAST X-RAY ESOPHAGUS Reviewed 10/16/2015 12:00 AM Decadron, Per 1 Mg [facility]# [address]-01 Reviewed 10/16/2015 12:00 AM Depo-Medrol, Per 80 Mg [facility]#[address]-26 Reviewed 12/18/2015 12:00 AM BIOPSY SKIN LESION Reviewed 01/29/2016 12:00 AM Decadron, Per 1 Mg [facility]# [address]-19 Reviewed 01/29/2016 12:00 AM Depo-Medrol, Per 80 Mg [facility]#[address]-86 Reviewed 02/26/2016 12:00 AM COMPLETE CBC W/AUTO [...] 09/13/2017 12:00 AM Depo Medrol 40mg Injection, [facility] Medicare Reviewed 09/13/2017 12:00 AM Decadron 4mg Injection, [facility] Medicaid Reviewed 11/03/2017 12:00 AM Rocephin 1 gram Injection Reviewed 11/03/2017 12:00 AM Depo Medrol 40mg Injection, [facility] Medicare Reviewed 11/03/2017 12:00 AM Decadron 4mg Injection, [facility] Medicaid Reviewed 12/15/2017 12:00 AM COMPLETE [...] 11/30/2012 12:00 AM Kenalog, Per 10 Mg [facility]#5809-8562-19 Reviewed 12/15/2012 12:00 AM DRAIN/INJ JOINT/BURSA W/O US Reviewed 12/15/2012 12:00 AM Kenalog, Per 10 Mg [facility]#2735-2283-75 Reviewed 03/14/2018 12:00 AM COMPLETE CBC W/AUTO [...] 01/27/2013 12:00 AM Kenalog, Per 10 Mg [facility]#2444-0047-76 Reviewed 04/26/2013 12:00 AM Depo-Medrol, Per 80 Mg [facility]#2895-4539-66 Reviewed 04/26/2013 12:00 AM Decadron, Per 1 Mg [facility]# [address]-73 Reviewed 07/26/2013 12:00 AM X-RAY EXAM OF HIP Reviewed 07/26/2013 12:00 AM Depo-Medrol, Per 80 Mg [facility]#0408-0006-30 Reviewed 07/26/2013 12:00 AM Decadron, Per 1 Mg [facility]# [address]-48 Reviewed 10/05/2013 12:00 AM Depo-Medrol 80 Mg Im/C'padmini Reviewed 10/05/2013 12:00 AM Decadron, Per 1 Mg [facility]# [address]-62 Reviewed 12/18/2013 12:00 AM X-RAY EXAM NECK [...] 03/28/2015 12:00 AM Kenalog, Per 10 Mg [facility]#3151-3189-69 Reviewed Results Summary Date and Description Results [...] Cervical Whiplash/Strain 07/04/2014 Lumbar spondylolysis 07/04/2014 Trochanteric Bursitis 10/15/2014 Trochanteric bursitis, right hip 07/01/2015 Hypertension [...] lumbar Oct 15 2014 4:29PM Trochanteric bursitis Feb 2014 4:29PM Hypertension Oct 17 2014 10:10AM [...] 2:00PM Gout attack May 28 2018 11:47AM Payers Insurance Name Company Name Plan Name Plan Number Policy Number Policy Group Number Start Date Medicare RHC Medicare RHC [id number] N/A Cigna Cigna [id number] N/A Medicare Part B Medicare Of [place] [id number] November Medicare Part A Medicare Part A [id number] N/A Medicare RHC Medicare RHC [id number] N/A Medicare Part A Medicare - Lab/Xray [id number] N/A History of Encounters Visit Date Visit Type Provider 05/28/2018 Office visit Melia CardozoMaricarmen Franco DRAGLINE OPERATOR HELPER 05/24/2018 Office visit Hernandez Arroyo MD 04/12/2018 [...] 07/21/2017 Office visit Hernandez Arroyo MD 07/16/2017 [facility] Jo Paris MD 07/16/2017 [facility] Luis Mcgovern MD 07/08/2017 Office visit Hernandez [...] Office visit Hernandez Arroyo MD 03/05/2016 Hospital Vitaly Paris MD 03/03/2016 Office visit Hernandez Arroyo [...] visit Camryn BAKERP 03/06/2014 Office visit Camryn BAKERP 02/06/2014 Office visit Camryn JOSHI 01/08/2014 Office [...] Hospital Jo Paris MD 07/01/2012 Office visit Hrenandez Arroyo MD 05/30/2012 Office visit Hernandez Arroyo MD 05/10/2012 Office visit Refugio Austin MD 05/02/2012 [facility] Refugio Austin MD 04/26/2012 Office visit Refugio Austin MD 04/26/2012 Office visit Hernandez Arroyo MD 03/10/2012 Office visit Hernandez Arroyo MD
--- OUTSIDE RECORDS SUMMARY | 2019-03-20 09:11 | XMS REPORT ---
Author Author Hernandez Arroyo [facility] Address [address] [place], [place] [address] Care Team Providers Care Coding Manager Name Role Phone Hernandez Arroyo PCP Hernandez [...] DAILY metoclopramide HCl 5 mg oral tablet celecoxib 200 mg oral capsule 07/21/2017 07/16/2018 take 1 capsule (200 mg) by oral route once daily for 90 days Lasix 40 mg oral tablet 09/02/2017 08/28/2018 [...] BY MOUTH TWICE A DAY WITH FOOD furosemide 80 mg oral tablet 04/04/2018 TAKE 1 TABLET BY MOUTH TWICE A DAY fluticasone 50 mcg/actuation nasal spray,suspension 04/12/2018 inhale 1 spray (50 mcg) in each nostril by intranasal route once daily ciprofloxacin HCl 500 mg oral tablet 05/24/2018 05/31/2018 take 1 tablet (500 mg) by oral route every 12 hours for 7 days metronidazole 500 mg oral tablet 05/24/2018 05/31/2018 take 1 tablet by oral route 2 times a day for 7 days Tylenol-Codeine #3 300-30 mg oral tablet 05/24/2018 02/18/2019 take 1 tablet by oral route 2 times a day for 90 days Name Start Date Expiration [...] route daily as needed for 30 days [place] 10-325 mg oral tablet 01/29/2016 02/28/2016 take [...] ORAL ROUTE 3 TIMES A DAY NEEDED Lotrisone 1-0.05 % topical cream 08/04/2017 08/18/2017 [...] route every 12 hours for 10 days Discontinued Name Start Date Discontinued Date [...] HC BMI BSA BMI Percentile O2 Sat(%) 05/24/2018 1:54:00 PM 108 mmHg 64 mmHg [...] 12:00 AM Kenalog, Per [address] [facility]#7221-3570-25 Reviewed 10/07/2015 12:00 AM CHEST X-RAY 2VW FRONTAL&LATL Reviewed 10/08/2015 12:00 AM CONTRAST X-RAY ESOPHAGUS Reviewed 10/16/2015 12:00 AM Decadron, Per [address] [facility]# [address]-35 Reviewed 10/16/2015 12:00 AM Depo-Medrol, Per [address] [facility]#[address]-82 Reviewed 12/18/2015 12:00 AM BIOPSY SKIN LESION Reviewed 01/29/2016 12:00 AM Decadron, Per [address] [facility]# [address]-19 Reviewed 01/29/2016 12:00 AM Depo-Medrol, Per [address] [facility]#[address]-85 Reviewed 02/26/2016 12:00 AM COMPLETE CBC W/AUTO [...] 09/13/2017 12:00 AM Depo Medrol 40mg Injection, [facility] Medicare Reviewed 09/13/2017 12:00 AM Decadron 4mg Injection, [facility] Medicaid Reviewed 11/03/2017 12:00 AM Rocephin 1 gram Injection Reviewed 11/03/2017 12:00 AM Depo Medrol 40mg Injection, [facility] Medicare Reviewed 11/03/2017 12:00 AM Decadron 4mg Injection, [facility] Medicaid Reviewed 12/15/2017 12:00 AM COMPLETE [...] 12:00 AM Kenalog, Per [address] [facility]#6113-0927-51 Reviewed 12/15/2012 12:00 AM DRAIN/INJ JOINT/BURSA W/O US Reviewed 12/15/2012 12:00 AM Kenalog, Per [address] [facility]#5783-3085-09 Reviewed 03/14/2018 12:00 AM COMPLETE CBC W/AUTO [...] 12:00 AM Kenalog, Per [address] [facility]#9969-3197-43 Reviewed 04/26/2013 12:00 AM Depo-Medrol, Per [address] [facility]#6710-9535-96 Reviewed 04/26/2013 12:00 AM Decadron, Per [address] [facility]# [address]-08 Reviewed 07/26/2013 12:00 AM X-RAY EXAM OF HIP Reviewed 07/26/2013 12:00 AM Depo-Medrol, Per [address] [facility]#9881-7287-96 Reviewed 07/26/2013 12:00 AM Decadron, Per [address] [facility]# [address]-86 Reviewed 10/05/2013 12:00 AM Depo-Medrol 80 Mg Im/C'padmini Reviewed 10/05/2013 12:00 AM Decadron, Per [address] [facility]# [address]-35 Reviewed 12/18/2013 12:00 AM X-RAY EXAM NECK [...] 12:00 AM Kenalog, Per [address] [facility]#9189-0145-52 Reviewed Results Summary Date and Description Results [...] 2018 10:02AM Gastroenteritis May 24 2018 2:00PM Payers Insurance Name Company Name Plan Name Plan Number Policy Number Policy Group Number Start Date Medicare RHC Medicare RHC [id number] N/A Cigna Cigna [id number] N/A Medicare Part B Medicare Of [place] [id number] November Medicare Part A Medicare Part A [id number] N/A Medicare RHC Medicare RHC [id number] N/A Medicare Part A Medicare - Lab/Xray [id number] N/A History of Encounters Visit Date Visit Type Provider 05/24/2018 Office visit Hernandez Arroyo MD 04/12/2018 [...] MD 07/16/2017 Hospital Jo Paris MD 07/16/2017 [facility] Luis Mcgovern MD 07/08/2017 Office visit Hernandez [...] visit Camryn JOSHI 03/26/2014 Office visit Camryn MMaricarmen JOSHI 03/06/2014 Office visit Camryn MMaricarmen JOSHI 02/06/2014 Office visit Camryn JOSHI 01/08/2014 [...] 04/26/2013 Office visit Hernandez Arroyo MD 03/16/2013 [facility] Chapincito Steele MD 03/01/2013 Office visit Chapincito Steele MD 02/16/2013 Office visit Hernandez Arroyo MD 01/27/2013 Office visit Chapincito Steele MD 01/13/2013 [facility] Chapincito Steele MD 12/15/2012 Office visit Chapincito Steele MD 12/07/2012 Office visit Nica Cartwright APRN 11/30/2012 Office visit Chapincito Steele MD 11/18/2012 Office visit Hernandez Arroyo MD 09/02/2012 Office visit Hernandez Arroyo MD 08/10/2012 Office visit Refugio Austin MD 08/04/2012 Hospital Refugio Austin MD 07/12/2012 Office visit Refugio Austin MD 07/12/2012 [facility] Jo Paris MD 07/01/2012 Office visit Hernandez Arroyo MD 05/30/2012 Office visit Hernandez Arroyo MD 05/10/2012 Office visit Refugio Austin MD 05/02/2012 Hospital Refugio Austin MD 04/26/2012 Office visit Refugio Austin MD 04/26/2012 Office visit Hernandez Arroyo MD 03/10/2012 Office visit Hernandez Arroyo MD
--- OUTSIDE RECORDS SUMMARY | 2019-03-20 09:13 | XMS REPORT ---
Author Author Hernandez Arroyo [facility] Address [address] [place], [place] [id number] Care Team Providers Care Inspector Floor Sub Assembly Name Role Phone Hernandez Arroyo PCP Hernandez [...] ORAL ROUTE 3 TIMES A DAY NEEDED Proscar 5 mg oral tablet 01/27/2018 04/27/2018 take 1 tablet (5 mg) by oral route once daily for 90 days potassium chloride 20 mEq oral tablet extended release 02/14/2018 TAKE 1 TABLET BY MOUTH TWICE A DAY WITH FOOD furosemide 80 mg oral tablet 04/04/2018 TAKE 1 TABLET BY MOUTH TWICE A DAY fluticasone 50 mcg/actuation nasal spray,suspension 04/12/2018 inhale 1 spray (50 mcg) in each nostril by intranasal route once daily Tylenol-Codeine #3 300-30 mg oral tablet 04/12/2018 01/07/2019 take 1 tablet by oral route 2 [...] route daily as needed for 30 days [place] 10-325 mg oral tablet 01/29/2016 02/28/2016 take [...] route once daily for 90 days Medrol (Htong) 4 mg oral tablets,dose pack 07/01/2012 07/12/2012 [...] HC BMI BSA BMI Percentile O2 Sat(%) 04/12/2018 10:00:00 AM 122 mmHg 78 mmHg [...] 07/01/2015 12:00 AM Kenalog, Per 10 Mg [facility]#8192-8077-91 Reviewed 10/07/2015 12:00 AM CHEST X-RAY 2VW FRONTAL&LATL Reviewed 10/08/2015 12:00 AM CONTRAST X-RAY ESOPHAGUS Reviewed 10/16/2015 12:00 AM Decadron, Per 1 Mg ND# [address]-13 Reviewed 10/16/2015 12:00 AM Depo-Medrol, Per 80 Mg [facility]#[address]-68 Reviewed 12/18/2015 12:00 AM BIOPSY SKIN LESION Reviewed 01/29/2016 12:00 AM Decadron, Per 1 Mg [facility]# [address]-51 Reviewed 01/29/2016 12:00 AM Depo-Medrol, Per 80 Mg [facility]#[address]-01 Reviewed 02/26/2016 12:00 AM COMPLETE CBC W/AUTO [...] 09/13/2017 12:00 AM Depo Medrol 40mg Injection, [facility] Medicare Reviewed 09/13/2017 12:00 AM Decadron 4mg Injection, [facility] Medicaid Reviewed 11/03/2017 12:00 AM Rocephin 1 gram Injection Reviewed 11/03/2017 12:00 AM Depo Medrol 40mg Injection, [facility] Medicare Reviewed 11/03/2017 12:00 AM Decadron 4mg Injection, [facility] Medicaid Reviewed 12/15/2017 12:00 AM COMPLETE [...] 11/30/2012 12:00 AM Kenalog, Per 10 Mg [facility]#8122-3800-77 Reviewed 12/15/2012 12:00 AM DRAIN/INJ JOINT/BURSA W/O US Reviewed 12/15/2012 12:00 AM Kenalog, Per 10 Mg [place]#0843-7125-08 Reviewed 03/14/2018 12:00 AM COMPLETE CBC W/AUTO [...] 01/27/2013 12:00 AM Kenalog, Per 10 Mg [facility]#3027-2257-78 Reviewed 04/26/2013 12:00 AM Depo-Medrol, Per 80 Mg [facility]#4127-7524-22 Reviewed 04/26/2013 12:00 AM Decadron, Per 1 Mg [facility]# [address]-90 Reviewed 07/26/2013 12:00 AM X-RAY EXAM OF HIP Reviewed 07/26/2013 12:00 AM Depo-Medrol, Per 80 Mg [facility]#0923-7265-70 Reviewed 07/26/2013 12:00 AM Decadron, Per 1 Mg [facility]# [address]-90 Reviewed 10/05/2013 12:00 AM Depo-Medrol 80 Mg Im/C'padmini Reviewed 10/05/2013 12:00 AM Decadron, Per 1 Mg [facility]# [address]-87 Reviewed 12/18/2013 12:00 AM X-RAY EXAM NECK [...] 03/28/2015 12:00 AM Kenalog, Per 10 Mg [facility]#3912-1147-92 Reviewed Results Summary Date and Description Results [...] abnormality Sep 25 2015 10:56AM Bronchitis, Acute b 2015 10:45AM Dysphagia b 2015 10:35AM Hip pain, chronic, right Feb 10 2015 11:25AM Hip pain, chronic, left Feb 10 2015 11:25AM Lumbar spondylolysis Feb 2015 11:25AM BPH (benign prostatic hyperplasia) Nov 05 2015 3:29PM Cough Nov 05 2015 3:29PM Dysphagia, cricopharyngeal Feb 2015 11:03AM Presbyesophagus Feb 2015 11:03AM Seborrheic [...] 10:02AM Allergic rhinitis Apr 12 2018 10:02AM Payers Insurance Name Company Name Plan Name Plan Number Policy Number Policy Group Number Start Date Medicare RHC Medicare [facility] [id number] N/A Cigna Cigna [id number] N/A Medicare Part B Medicare Of [place] [id number] November Medicare Part A Medicare Part A [id number] N/A Medicare RHC Medicare RHC [id number] N/A Medicare Part A Medicare - Lab/Xray [id number] N/A History of Encounters Visit Date Visit Type Provider 04/12/2018 Office visit Hernandez Arroyo MD 03/23/2018 [...] 10/16/2015 Office visit Hernandez Arroyo MD 10/11/2015 [facility] Refugio Austin MD 10/08/2015 Office visit Refugio Austin MD 10/07/2015 Office visit Hernandez Arroyo MD 09/25/2015 Office visit Hernandez Arroyo MD 09/10/2015 Office visit Hernandez Arroyo MD 08/07/2015 Office visit Hernandez Arroyo MD 08/06/2015 Office visit Camryn BAKERP 07/01/2015 Office visit Camryn BAKREP 06/24/2015 Office visit Hernandez Arroyo MD 06/14/2015 Office visit Salinas Gamble APRN 06/10/2015 Office visit Hernandez Arroyo MD 05/07/2015 Office visit Camryn BAKERP 03/28/2015 Office visit Camryn BAKERP 12/31/2014 Office visit Hernandez Arroyo MD 12/24/2014 Procedures Cmaryn BAKERP 12/12/2014 Office visit Hernandez Arroyo MD [...] visit Camryn JOSHI 03/26/2014 Office visit Camryn BAKERP 03/06/2014 Office visit Camryn JOSHI 02/06/2014 Office visit Camryn JOSHI 01/08/2014 Office visit Camryn BAKERP 12/18/2013 Office visit Hernandez Arroyo MD 10/30/2013 Office visit RAJ BAKERP 10/23/2013 Office visit Hernandez Arroyo MD 10/05/2013 Office visit Hernandez Arroyo MD 08/01/2013 Office visit Hernandez Arroyo MD 07/26/2013 Office visit Hernandez Arroyo MD 07/21/2013 [facility] Refugio Austin MD 07/17/2013 Office visit Refugio Austin MD 05/17/2013 Office visit Hernandez Arroyo MD 05/02/2013 Office visit Refugio Austin MD 04/26/2013 Office visit Hernandez Arroyo MD 03/16/2013 [facility] Chapincito Steele MD 03/01/2013 Office visit Chapincito Steele MD 02/16/2013 Office visit Hernandez Arroyo MD 01/27/2013 Office visit Chapincito Steele MD 01/13/2013 [facility] Chapincito Steele MD 12/15/2012 Office visit Chapincito Steele MD 12/07/2012 Office visit Nica Cartwright APRN 11/30/2012 Office visit Chapincito Steele MD 11/18/2012 Office visit Hernandez Arroyo MD 09/02/2012 Office visit Hernandez Arroyo MD 08/10/2012 Office visit Refugio Austin MD 08/04/2012 [facility] Refugio Austin MD 07/12/2012 Office visit Reufgio Austin MD 07/12/2012 [facility] Jo Paris MD 07/01/2012 Office visit Hernandez Arroyo MD 05/30/2012 Office visit Hernandez Arroyo MD 05/10/2012 Office visit Refugio Austin MD 05/02/2012 [facility] Refugio Austin MD 04/26/2012 Office visit Refugio Austin MD 04/26/2012 Office visit Hernandez Arroyo MD 03/10/2012 Office visit Hernandez Arroyo MD
[2019-03-20] MEDS ORDERED: ceFAZolin 2 GM/50 ML NS 50 ML IV ONE (09:15)
--- OUTSIDE RECORDS SUMMARY | 2019-03-20 09:15 | XMS REPORT ---
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 Name Role Phone Hernandez Arroyo PCP Hernandez [...] (81 mg) by oral route once daily Flonase 50 mcg/actuation nasal spray,suspension 10/17/2014 inhale 1 spray (50 mcg) in each nostril by intranasal route once daily Centrum Silver 0.4-300-250 mg-mcg-mcg [...] oral route once daily for 90 days furosemide 80 mg oral tablet 10/04/2017 06/26/2019 TAKE 1 TABLET BY MOUTH TWICE A DAY portable oxygen 11/16/2017 2 litres per nc Tylenol-Codeine #3 300-30 mg oral tablet 12/09/2017 take 1 tablet by oral route every 6 hours as needed Zofran ODT 4 mg oral tablet,disintegrating 12/15/2017 [...] BY MOUTH TWICE A DAY WITH FOOD Name Start Date Expiration Date SIG Comments [...] route daily as needed for 30 days [place] 10-325 mg oral tablet 01/29/2016 02/28/2016 take [...] HC BMI BSA BMI Percentile O2 Sat(%) 03/23/2018 9:48:00 AM 122 mmHg 64 mmHg [...] F 183 lbs 68 in 27.8248 kg/m 2.00 m2 94 % 08/10/2016 10:59:00 AM 162 mmHg 86 mmHg 85 bpm 20 rpm 96.5 F 193 lbs 68 in 29.35 kg/m2 2.0494 m 97 % 08/04/2016 10:22:00 AM 124 mmHg 80 mmHg 85 bpm 18 rpm 98.2 F 194.5 lbs 68 in 29.5733 kg/m 2.06 m2 96 % 07/23/2016 11:04:00 AM [...] 07/01/2015 12:00 AM Kenalog, Per 10 Mg [facility]#9262-4463-24 Reviewed 10/07/2015 12:00 AM CHEST X-RAY 2VW FRONTAL&LATL Reviewed 10/08/2015 12:00 AM CONTRAST X-RAY ESOPHAGUS Reviewed 10/16/2015 12:00 AM Decadron, Per 1 Mg ND# [address]-23 Reviewed 10/16/2015 12:00 AM Depo-Medrol, Per 80 Mg [facility]#[address]-99 Reviewed 12/18/2015 12:00 AM BIOPSY SKIN LESION Reviewed 01/29/2016 12:00 AM Decadron, Per 1 Mg ND# [address]-52 Reviewed 01/29/2016 12:00 AM Depo-Medrol, Per 80 Mg [facility]#[address]-86 Reviewed 02/26/2016 12:00 AM COMPLETE CBC W/AUTO [...] 09/13/2017 12:00 AM Depo Medrol 40mg Injection, [facility] Medicare Reviewed 09/13/2017 12:00 AM Decadron 4mg Injection, [facility] Medicaid Reviewed 11/03/2017 12:00 AM Rocephin 1 gram Injection Reviewed 11/03/2017 12:00 AM Depo Medrol 40mg Injection, [facility] Medicare Reviewed 11/03/2017 12:00 AM Decadron 4mg Injection, [facility] Medicaid Reviewed 12/15/2017 12:00 AM COMPLETE [...] 11/30/2012 12:00 AM Kenalog, Per 10 Mg [facility]#5625-3123-40 Reviewed 12/15/2012 12:00 AM DRAIN/INJ JOINT/BURSA W/O US Reviewed 12/15/2012 12:00 AM Kenalog, Per 10 Mg [facility]#9874-9956-65 Reviewed 03/14/2018 12:00 AM COMPLETE CBC W/AUTO DIFF WBC Returned 03/14/2018 12:00 AM COMPREHEN METABOLIC PANEL Returned 03/14/2018 12:00 AM ASSAY OF BLOOD/URIC ACID Returned 03/14/2018 12:00 AM ASSAY OF URINE/URIC ACID Returned 03/14/2018 12:00 AM C-REACTIVE PROTEIN Returned 03/14/2018 12:00 AM X-RAY EXAM OF ELBOW Returned 01/27/2013 12:00 AM INJ TRIGGER POINT 1/2 MUSCL Reviewed 01/27/2013 12:00 AM Kenalog, Per 10 Mg [facility]#4351-4328-66 Reviewed 04/26/2013 12:00 AM Depo-Medrol, Per 80 Mg [facility]#9618-2218-15 Reviewed 04/26/2013 12:00 AM Decadron, Per 1 Mg [facility]# [address]-37 Reviewed 07/26/2013 12:00 AM X-RAY EXAM OF HIP Reviewed 07/26/2013 12:00 AM Depo-Medrol, Per 80 Mg [facility]#0747-3437-69 Reviewed 07/26/2013 12:00 AM Decadron, Per 1 Mg [facility]# [address]-72 Reviewed 10/05/2013 12:00 AM Depo-Medrol 80 Mg Im/C'padmini Reviewed 10/05/2013 12:00 AM Decadron, Per 1 Mg [facility]# [address]-87 Reviewed 12/18/2013 12:00 AM X-RAY EXAM NECK [...] 03/28/2015 12:00 AM Kenalog, Per 10 Mg [facility]#5495-7546-19 Reviewed Results Summary Date and Description Results [...] 15.90 g/dLHCT 45.30 %MCV 92.0 fLMCH 32.10 pgHC 35.10 g/dLRDW SD 43 RDW CV 12.70 [...] Oct 01 2014 4:10PM Trochanteric Bursitis Feb 9 2014 11:04AM Spondylosis, lumbar Feb 2014 4:29PM Trochanteric bursitis Feb 2014 4:29PM [...] 2018 9:53AM Gout Mar 23 2018 9:53AM Payers Insurance Name Company Name Plan Name Plan Number Policy Number Policy Group Number Start Date Medicare [facility] Medicare [facility] [id number] N/A Cigna Cigna [id number] N/A Medicare Part B Medicare Of [place] [id number] November Medicare Part A Medicare Part A [id number] N/A Medicare Part A Medicare - Lab/Xray [id number] N/A History of Encounters Visit Date Visit Type Provider 03/23/2018 Office visit Hernandez Arroyo MD 03/14/2018 [...] visit Hernandez Arroyo MD 06/26/2016 Office visit Hernnadez Arroyo MD 04/06/2016 Office visit Hernandez Arroyo MD 03/05/2016 [facility] Jo Paris MD 03/03/2016 Office visit Hernandez [...] visit Camryn JOSHI 07/01/2015 Office visit Camryn BAKERP 06/24/2015 Office [...] Office visit Camryn BAKERP 07/27/2014 Office visit Camyrn BAKERP 07/16/2014 Office visit Hernandez Arroyo MD [...] 04/26/2013 Office visit Hernandez Arroyo MD 03/16/2013 [facility] Chapincito Steele MD 03/01/2013 Office [...] 08/10/2012 Office visit Refugio Austin MD 08/04/2012 [facility] Refugio Austin MD 07/12/2012 Office visit Refugio Austin MD 07/12/2012 [facility] Jo Paris MD 07/01/2012 Office visit Hernandez Arroyo MD 05/30/2012 Office visit Hernandez Arroyo MD 05/10/2012 Office visit Refugio Austin MD 05/02/2012 [facility] Refugio Austin MD 04/26/2012 Office visit Refugio Austin MD 04/26/2012 Office visit Hernandez Arroyo MD 03/10/2012 Office visit Hernandez Arroyo MD
--- OUTSIDE RECORDS SUMMARY | 2019-03-20 09:16 | XMS REPORT ---
Author Author Hernandez Arroyo [facility] Address [address] [place], [place] [id number] Care Team Providers Care Nursing Services Manager Name Role Phone Hernandez Arroyo PCP Unavailable Allergies and Adverse Reactions Name Reaction Notes Demerol codeine sulfate Plan of Treatment Planned Activity Comments Planned Date Planned Time Plan/Goal CHEST X-RAY 2VW FRONTAL&LATL 04/26/2012 12:00 AM Medications Active Name Start Date [...] instill 1 drop in affected eye daily Proscar 5 mg oral tablet 06/10/2015 06/04/2016 take 1 tablet (5 mg) by oral route once daily for 90 days pantoprazole 40 mg oral tablet,delayed release (DR/EC) 07/18/2015 TAKE 1 TABLET DAILY carvedilol 6.25 mg oral tablet 06/11/2015 TAKE 1 TABLET TWICE A DAY WITH FOOD Prevagen oral take 1 tablet daily, OTC ondansetron 4 mg oral tablet,disintegrating take 1 tab every 8hr prn nausea celecoxib 100 mg oral capsule 09/10/2015 12/03/2016 take 1 cap daily for 90 days MagOx 400 mg oral tablet 09/10/2015 12/03/2016 take 1 tablet by oral route daily for 90 days Lyrica 150 mg oral capsule 09/10/2015 01/08/2016 take 1 capsule (150 mg) by oral route 2 times per day for 30 days Reglan 5 mg oral tablet take 1 tablet by oral route 3 times a day (before meals) Anoro Ellipta 62.5-25 mcg/actuation inhalation blister with device 11/05/2015 inhale 1 puff by inhalation route once daily at the same time each day Myrbetriq 25 mg oral tablet extended release 24 hr 11/05/2015 take 1 tablet (25 mg) by oral route once daily swallowing whole with water. Do not crush, chew and/or divide. Name Start Date Expiration Date SIG Comments [...] route every 8 hours for 3 days Combes 10-325 mg oral tablet 09/10/2015 10/10/2015 take 1 tablet by oral route 4 times a day as needed for 30 days back pain amoxicillin 500 mg oral capsule 10/07/2015 10/17/2015 take 2 capsules by oral route 3 times a day for 5 days nitroglycerin 0.4 mg sublingual tablet, sublingual 10/21/2015 10/22/2015 place 1 tablet under tongue by translingual route once NEEDED FOR ESOPHAGEAL SPASM Discontinued Name Start Date Discontinued Date SIG [...] tablets,dose pack 08/07/2015 08/07/2015 take as directed hydrocodone-acetaminophen 7.5-325 mg oral tablet 10/08/2015 take 1 tablet every 8hr for pain Problem List Description Status Onset Gastroesophageal Reflux Active Hypertension Active pacemaker Active Back pain Active Traumatic Injury Active age 8 yrs old Cervical Whiplash/Strain Active 07/04/2014 Lumbar spondylolysis Active 07/04/2014 Trochanteric Bursitis Active 10/15/2014 Trochanteric bursitis, right hip Active 07/01/2015 Vital Signs Date Time BP-Sys(mm[Hg] BP-Aysha(mm[Hg]) HR(bpm) RR(rpm) Temp WT HT HC BMI BSA BMI Percentile O2 Sat(%) 11/05/2015 3:26:00 PM 120 mmHg 84 mmHg 79 bpm 19 rpm 98.4 F 193 lbs 68 in 29.35 kg/m2 2.05 m2 95 % 10/16/2015 11:22:00 AM 126 mmHg 82 mmHg 81 bpm 17 rpm 98 F 195 lbs 68 in 29.6493 kg/m 2.06 m 96 % 10/07/2015 10:41:00 AM 114 mmHg 72 mmHg 84 bpm 18 rpm 97.8 F 191 lbs 68 in 29.04 kg/m2 2.04 m2 96 % 09/25/2015 10:52:00 AM 134 mmHg 82 mmHg 84 bpm 18 rpm 99.8 F 188 lbs 68 in 28.585 kg/m 2.0227 m 96 % 09/10/2015 1:27:00 PM 134 mmHg 86 mmHg 80 bpm 18 rpm 97.4 F 197 lbs 68 in 29.95 kg/m2 2.07 m2 96 % 08/07/2015 10:33:00 AM 124 mmHg 76 mmHg 78 bpm 18 rpm 98.1 F 197 lbs 68 in 29.9534 kg/m 2.0706 m 08/06/2015 3:18:00 PM 118 mmHg 64 mmHg [...] F 197 lbs 68 in 29.9534 kg/m 2.07 m2 07/27/2014 9:32:00 AM 124 mmHg 74 mmHg 74 bpm 16 rpm 98.5 F 199 lbs 68 in 30.26 kg/m2 2.081 m 07/16/2014 10:08:00 AM 140 mmHg 78 mmHg 82 bpm 18 rpm 98.7 F 198.5 lbs 68 in 30.1815 kg/m 2.08 m2 97 % 06/25/2014 10:16:00 AM 150 mmHg 88 mmHg 80 bpm 18 rpm 96.9 F 197 lbs 68 in 29.95 kg/m2 2.0706 m 96 % 05/29/2014 9:52:00 AM 142 mmHg 80 mmHg 88 bpm 18 rpm 97.4 F 197 lbs 68 in 29.9534 kg/m 2.07 m2 04/23/2014 10:49:00 AM 110 mmHg 70 mmHg 70 bpm 16 rpm 97.8 F 192 lbs 68 in 29.19 kg/m2 2.0441 m 03/26/2014 4:04:00 PM 108 mmHg 70 mmHg 66 bpm 16 rpm 98.2 F 195 lbs 68 in 29.6493 kg/m 2.06 m2 03/06/2014 11:02:00 AM 140 mmHg 80 mmHg 70 bpm 16 rpm 97.9 F 195 lbs 68 in 29.65 kg/m2 2.06 m 02/06/2014 10:24:00 AM 122 mmHg 70 mmHg 72 bpm 16 rpm 97.6 F 193.25 lbs 68 in 29.3833 kg/m 2.05 m2 01/08/2014 2:20:00 PM 124 mmHg 82 mmHg 66 bpm 16 rpm 97.2 F 193.375 lbs 68 in 29.40 kg/m2 2.0514 m 12/18/2013 9:24:00 AM 140 mmHg 90 mmHg 78 bpm 18 rpm 97.1 F 199 lbs 65 in 33.115 kg/m 2.03 m2 10/30/2013 8:30:00 AM 131 mmHg 67 mmHg 61 bpm 20 rpm 97.6 F 195.2 lbs 65 in 32.48 kg/m2 2.0151 m 96 % 10/23/2013 8:44:00 AM 144 mmHg 78 mmHg 82 bpm 18 rpm 98 F 195.375 lbs 65 in 32.5118 kg/m 2.02 m2 96 % 10/05/2013 3:00:00 PM 156 mmHg 82 mmHg 80 bpm 18 rpm 97.5 F 199 lbs 68 in 30.26 kg/m2 2.081 m 08/01/2013 10:30:00 AM 152 mmHg 90 mmHg 80 bpm 18 rpm 98.1 F 193 lbs 68 in 29.3452 kg/m 2.05 m2 07/26/2013 10:42:00 AM 138 mmHg 70 mmHg 84 bpm 18 rpm 98.6 F 191 lbs 68 in 29.04 kg/m2 2.0388 m 07/17/2013 2:08:00 PM 136 mmHg 80 mmHg 74 bpm 20 rpm 96.3 F 194 lbs 68 in 29.4973 kg/m 2.05 m2 97 % 05/17/2013 11:17:00 AM 146 mmHg 82 mmHg 80 bpm 18 rpm 97.4 F 187 lbs 68 in 28.43 kg/m2 2.0173 m 05/02/2013 11:37:00 AM 144 mmHg 80 mmHg 70 bpm 16 rpm 96 F 188 lbs 68 in 28.585 kg/m 2.02 m2 98 % 04/26/2013 10:56:00 AM 140 mmHg 80 mmHg 68 bpm 18 rpm 97.2 F 185 lbs 68 in 28.13 kg/m2 2.0065 m 03/01/2013 9:43:00 AM 136 mmHg 90 mmHg 82 bpm 16 rpm 97.4 F 187 lbs 68 in 28.433 kg/m 2.02 m2 02/16/2013 10:59:00 AM 138 mmHg 76 mmHg 78 bpm 18 rpm 97.8 F 187 lbs 68 in 28.43 kg/m2 2.0173 m 01/27/2013 9:35:00 AM 142 mmHg 84 mmHg 72 bpm 18 rpm 97.4 F 186.375 lbs 68 in 28.3379 kg/m 2.01 m2 12/15/2012 3:57:00 PM 130 mmHg 82 mmHg 74 bpm 18 rpm 98.6 F 188.375 lbs 68 in 28.64 kg/m2 2.0247 m 12/07/2012 9:07:00 AM 142 mmHg 72 mmHg 70 bpm 18 rpm 97.1 F 190 lbs 68 in 28.8891 kg/m 2.03 m2 11/30/2012 9:12:00 AM 132 mmHg 70 mmHg 64 bpm 16 rpm 98.7 F 189 lbs 68 in 28.74 kg/m2 2.0281 m 11/18/2012 9:40:00 AM 138 mmHg 80 mmHg 80 bpm 18 rpm 97.6 F 192 lbs 09/02/2012 10:32:00 AM 114 mmHg 72 mmHg 84 bpm 18 rpm 98.2 F 183 lbs 68 in 27.82 kg/m2 1.9956 m 08/10/2012 1:40:00 PM 130 mmHg 80 mmHg 80 bpm 18 rpm 98.2 F 184 lbs 68 in 27.9768 kg/m 2.00 m2 95 % 07/12/2012 1:45:00 PM 130 mmHg 80 mmHg 72 bpm 18 rpm 96.8 F 184 lbs 68 in 27.98 kg/m2 2.0011 m 97 % 07/01/2012 10:12:00 AM 136 mmHg 82 mmHg 82 bpm 18 rpm 97.4 F 184 lbs 68 in 27.9768 kg/m 2.00 m2 05/30/2012 9:49:00 AM 132 mmHg 88 mmHg 80 bpm 18 rpm 97 F 184 lbs 68 in 27.98 kg/m2 2.0011 m 05/10/2012 10:34:00 AM 110 mmHg 60 mmHg 67 bpm 18 rpm 96 F 182 lbs 68 in 27.6727 kg/m 1.99 m2 97 % 04/26/2012 11:43:00 AM 130 mmHg 78 mmHg 80 bpm 18 rpm 97.1 F 182 lbs 68 in 27.67 kg/m2 1.9902 m 04/26/2012 10:55:00 AM 130 mmHg 78 mmHg 80 bpm 18 rpm 97.1 F 182 lbs 68 in 27.6727 kg/m 1.99 m2 03/10/2012 10:59:00 AM 128 mmHg 72 mmHg 80 bpm 18 rpm 97.2 F 180 lbs 68 in 27.37 kg/m2 1.9792 m Social History Name Description Comments Tobacco Never smoker lives with family member 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 Children x2 Alcohol Use - Rare Denies illicit substance abuse History of Procedures Date Ordered Description Order Status 06/14/2015 12:00 AM RADEX ABDOMEN COMPL W/DCBTS&/ERC VIEWS Returned 07/01/2015 12:00 AM DRAIN/INJ JOINT/BURSA W/O US Reviewed 07/01/2015 12:00 AM Kenalog, Per 10 Mg [facility]#0991-7299-94 Reviewed 10/07/2015 12:00 AM CHEST X-RAY 2VW FRONTAL&LATL Reviewed 10/08/2015 12:00 AM CONTRAST X-RAY ESOPHAGUS Returned 10/16/2015 12:00 AM Decadron, Per 1 Mg [facility]# [address]-95 Reviewed 10/16/2015 12:00 AM Depo-Medrol, Per 80 Mg [facility]#[address]-52 Reviewed 07/01/2012 12:00 AM X-RAY EXAM L-S SPINE 2/3 VWS Reviewed 07/12/2012 12:00 AM COMPLETE CBC W/AUTO DIFF WBC Reviewed 07/12/2012 12:00 AM COMPREHEN METABOLIC PANEL Reviewed 07/12/2012 12:00 AM ELECTROCARDIOGRAM COMPLETE Reviewed 07/12/2012 5:35 PM COMPREHEN METABOLIC PANEL Reviewed 07/12/2012 5:35 PM COMPLETE CBC W/AUTO DIFF WBC Reviewed 11/18/2012 12:00 AM METABOLIC PANEL TOTAL CA Reviewed 11/18/2012 12:00 AM COMPLETE CBC W/AUTO DIFF WBC Reviewed 11/18/2012 12:00 AM GLYCOSYLATED HEMOGLOBIN TEST Reviewed 11/18/2012 12:00 AM ASSAY OF BLOOD/URIC ACID Reviewed 11/18/2012 12:00 AM Prostate Cancer Screening Reviewed 12/07/2012 12:00 AM GLUCOSE BLOOD TEST Reviewed 11/30/2012 12:00 AM DRAIN/INJ JOINT/BURSA W/O US Reviewed 11/30/2012 12:00 AM Kenalog, Per 10 Mg [facility]#4015-3701-47 Reviewed 12/15/2012 12:00 AM DRAIN/INJ JOINT/BURSA W/O US Reviewed 12/15/2012 12:00 AM Kenalog, Per 10 Mg [facility]#1712-0869-77 Reviewed 01/27/2013 12:00 AM INJ TRIGGER POINT 1/2 MUSCL Reviewed 01/27/2013 12:00 AM Kenalog, Per 10 Mg [facility]#7082-6689-20 Reviewed 04/26/2013 12:00 AM Depo-Medrol, Per 80 Mg [facility]#2960-6996-39 Reviewed 04/26/2013 12:00 AM Decadron, Per 1 Mg [facility]# [address]-69 Reviewed 07/26/2013 12:00 AM X-RAY EXAM OF HIP Reviewed 07/26/2013 12:00 AM Depo-Medrol, Per 80 Mg [facility]#9745-6111-69 Reviewed 07/26/2013 12:00 AM Decadron, Per 1 Mg [facility]# [address]-21 Reviewed 10/05/2013 12:00 AM Depo-Medrol 80 Mg Im/C'padmini Reviewed 10/05/2013 12:00 AM Decadron, Per 1 Mg [facility]# [address]-44 Reviewed 12/18/2013 12:00 AM X-RAY EXAM NECK SPINE 2-3 VW Reviewed 02/06/2014 12:[address] HEAD/BRAIN W/O & W/DYE Returned 02/06/2014 12:[address] NECK SPINE W/O DYE Reviewed 02/06/2014 12:00 AM COMPREHEN METABOLIC PANEL Returned 02/06/2014 12:00 AM COMPLETE CBC W/AUTO DIFF WBC Returned 02/06/2014 12:00 AM RBC SED RATE AUTOMATED Returned 06/25/2014 12:00 AM COMPLETE CBC W/AUTO DIFF [...] 03/28/2015 12:00 AM Kenalog, Per 10 Mg [facility]#3873-8557-20 Reviewed Results Summary Data and Description Results 07/12/2012 2:45 PM WBC 5.1 RBC 4.62 HGB 14.60 g/dLHCT 40.80 %MCV 88.0 fLMCH 31.60 pgMCHC 35.80 g/dLRDW CV 13.50 %MPV 12.80 fLPLT 109 %NEUT 56.20 %%LYMP 31.40 %%MONO 9.80 %%EOS 2.0 %%BASO 0.60 %#NEUT 2.87 #LYMP 1.60 #MONO 0.50 #EOS 0.10 #BASO 0.03 GLUCOSE 118.0 mg/dLSODIUM 138.0 mmol/LPOTASSIUM 4.0 mmol/LCHLORIDE 107.0 mmol/LCO2 24.0 mmol/LBUN 17.0 mg/dLCREATININE 1.10 mg/dLSGOT/AST 13.0 IU/LSGPT/ALT 7.0 IU/LALK PHOS 64.0 IU/LTOTAL PROTEIN 6.90 g/dLALBUMIN 3.60 g/dLTOTAL BILI 0.60 mg/dLCALCIUM 9.0 mg/dLeGFR 60 11/18/2012 10:30 AM WBC 4.7 RBC 4.96 HGB 15.50 g/dLHCT 42.60 %MCV 86.0 fLMCH 31.30 pgMCHC 36.40 g/dLRDW CV 13.40 %MPV 11.50 fLPLT 117 %NEUT 58.80 %%LYMP 30.20 %%MONO 8.50 %%EOS 2.30 %%BASO 0.20 %#NEUT 2.78 #LYMP 1.43 #MONO 0.40 #EOS 0.11 #BASO 0.01 GLUCOSE 93.0 mg/dLSODIUM 142.0 mmol/LPOTASSIUM 3.90 mmol/LCHLORIDE 107.0 mmol/LCO2 27.0 mmol/LBUN 14.0 mg/dLCREATININE 1.0 mg/dLCALCIUM 9.30 mg/dLeGFR 60 URIC ACID 7.4 mg/dLPSA TOTAL 1.870 ng/mL 02/06/2014 12:15 PM GLUCOSE 93.0 mg/dLSODIUM 142.0 mmol/LPOTASSIUM 4.20 mmol/LCHLORIDE 107.0 mmol/LCO2 28.0 mmol/LBUN 10.0 mg/dLCREATININE 1.0 mg/dLSGOT/AST 16.0 IU/LSGPT/ALT 9.0 IU/LALK PHOS 72.0 IU/LTOTAL PROTEIN 6.0 g/dLALBUMIN 3.60 g/dLTOTAL BILI 0.90 mg/dLCALCIUM 9.0 mg/dLeGFR 60 SEDRATE 15.0 mm/hrWBC 6.4 RBC 4.81 HGB 14.50 g/dLHCT 41.30 %MCV 86.0 fLMCH 30.10 pgMCHC 35.10 g/dLRDW CV 12.60 %MPV 11.20 fLPLT 136 %NEUT 54.60 %%LYMP 34.30 %%MONO 9.40 %%EOS 1.20 %%BASO 0.50 %#NEUT 3.50 #LYMP 2.20 #MONO 0.60 #EOS 0.08 #BASO 0.03 06/04/2014 12:00 AM Treatment/Therapy LESI - L4-5 paramedial translaminar Response to treatment effective 06/25/2014 11:48 AM WBC 5.9 RBC 5.01 HGB 16.0 g/dLHCT 44.40 %MCV 89.0 fLMCH 31.90 pgMCHC 36.0 g/dLRDW CV 13.40 %MPV 12.20 fLPLT 94 %NEUT 54.30 %%LYMP 34.50 %%MONO 8.70 %%EOS 2.20 %%BASO 0.30 %#NEUT 3.19 #LYMP 2.03 #MONO 0.51 #EOS 0.13 #BASO 0.02 PSA TOTAL 3.620 ng/mLGLUCOSE 98.0 mg/dLSODIUM 143.0 mmol/LPOTASSIUM 4.0 mmol/LCHLORIDE 103.0 mmol/LCO2 29.0 mmol/LBUN 13.0 mg/dLCREATININE 1.20 mg/dLSGOT/AST 20.0 IU/LSGPT/ALT 27.0 IU/LALK PHOS 77.0 IU/LTOTAL PROTEIN 6.70 g/dLALBUMIN 3.90 g/dLTOTAL BILI 1.60 mg/dLCALCIUM 9.70 mg/dLeGFR 60 TRIGLYCERIDES 138.0 mg/dLCHOLESTEROL 241.0 mg/dLHDL 50.0 mg/dLLDL (CALC) 163.0 mg/dLEst Avg Glucose 108.3 mg/dL 08/01/2014 12:00 AM Treatment/Therapy LESI - L4-5 paramedial translaminar Response to treatment effective 10/01/2014 12:00 AM Treatment/Therapy Right greater troch bursa injection Response to treatment Effective 12/12/2014 9:38 AM WBC 4.8 RBC 4.89 HGB 15.60 g/dLHCT 44.10 %MCV 90.0 fLMCH 31.90 pgMCHC 35.40 g/dLRDW CV 14.20 %MPV 11.70 fLPLT 117 %NEUT 54.10 %%LYMP 34.90 %%MONO 7.90 %%EOS 2.70 %%BASO 0.40 %#NEUT 2.62 #LYMP 1.69 #MONO 0.38 #EOS 0.13 #BASO 0.02 GLUCOSE 98.0 mg/dLSODIUM 147.0 mmol/LPOTASSIUM 4.30 mmol/LCHLORIDE 109.0 mmol/LCO2 29.0 mmol/LBUN 15.0 mg/dLCREATININE 1.0 mg/dLSGOT/AST 17.0 IU/LSGPT/ALT 12.0 IU/LALK PHOS 72.0 IU/LTOTAL PROTEIN 6.40 g/dLALBUMIN 4.10 g/dLTOTAL BILI 1.10 mg/dLCALCIUM 9.40 mg/dLeGFR >60 mL/min/1.73 [id number] 145.0 mg/dLCHOLESTEROL 208.0 mg/dLHDL 37.0 mg/dLLDL (CALC) 142.0 mg/dLEst Avg Glucose 96.8 mg/dL History Of Immunizations Not available. History [...] Trochanteric Bursitis Feb 2014 11:04AM Spondylosis, lumbar Feb 2014 4:29PM Trochanteric bursitis b 2014 4:29PM [...] 2015 11:03AM Presbyesophagus Oct 21 2015 11:03AM Payers Insurance Name Company Name Plan Name Plan Number Policy Number Policy Group Number Start Date Medicare Part A Medicare Part A [id number] N/A [employer] C[employer]a [id number] N/A Medicare Part B Medicare Of [place] [id number] November History of Encounters Visit Date Visit Type Provider 11/05/2015 Office visit Hernandez Arroyo MD 10/21/2015 Office visit Refugio Austin MD 10/16/2015 Office visit Hernandez Arroyo MD 10/11/2015 [facility] Refugio Austin MD 10/08/2015 Office visit Refugio Austni MD 10/07/2015 Office visit Hernandez Arroyo MD [...] 07/26/2013 Office visit Hernandez Arroyo MD 07/21/2013 [facility] Refugio Austin MD 07/17/2013 Office visit Refugio Austin MD 05/17/2013 Office visit Hernandez Arroyo MD 05/02/2013 Office visit Refugio Austin MD 04/26/2013 Office visit Hernandez Arroyo MD 03/16/2013 [facility] Chapincito Steele MD 03/01/2013 Office visit Chapincito Steele MD 02/16/2013 Office visit Hernandez Arroyo MD 01/27/2013 Office visit Chapincito Steele MD 01/13/2013 [facility] Chap[facility]ito Steele MD 12/15/2012 Office visit Chapincito Steele MD 12/07/2012 Office visit Nica Cartwright APRN 11/30/2012 Office visit Chapincito Steele MD 11/18/2012 Office visit Hernandez Arroyo MD 09/02/2012 Office visit Hernandez Arroyo MD 08/10/2012 Office visit Refugio Austin MD 08/04/2012 [facility] Refugio Austin MD 07/12/2012 Office visit Refugio Austin MD 07/12/2012 [facility] Jo Paris MD 07/01/2012 Office visit Hernandez Arroyo MD 05/30/2012 Office visit Hernandez Arroyo MD 05/10/2012 Office visit Refugio Austin MD 05/02/2012 [facility] Refugio Austin MD 04/26/2012 Office visit Refugio Austin MD 04/26/2012 Office visit Hernandez Arroyo MD 03/10/2012 Office visit Hernandez Arroyo MD
--- OUTSIDE RECORDS SUMMARY | 2019-03-20 09:18 | XMS REPORT ---
Author Author Hernandez Arroyo [facility] Address [address] [facility] [address] [place], [place] [id number] Care Team Providers Care Seismology Teacher Name Role Phone Hernandez Arroyo PCP Unavailable Allergies and Adverse Reactions Name Reaction Notes Demerol codeine sulfate Plan of Treatment Planned Activity Comments Planned Date Planned Time Plan/Goal CHEST X-RAY 2VW FRONTAL&LATL 04/26/2012 12:00 AM Medications Active Name Start Date Estimated Completion Date SIG Comments Aspir-81 Oral tablet,delayed release (DR/EC) 81 mg take 1 tablet (81 mg) by oral route once daily meloxicam oral tablet 7.5 mg take 1 tablet (7.5 mg) by oral route once daily Flonase nasal spray,suspension 50 mcg/actuation 10/17/2014 inhale 1 spray (50 mcg) in each nostril by intranasal route once daily Flomax oral capsule,extended release 24hr 0.4 mg 10/17/2014 10/12/2015 take 1 capsule (0.4 mg) by oral route once daily 1/2 hour following the same meal each day for 90 days hydrochlorothiazide oral tablet 25 mg 10/17/2014 10/12/2015 take 1 tablet (25 mg) by oral route once daily for 90 days Name Start Date Expiration Date SIG Comments Lotrisone Topical Cream 1-0.05 % 02/16/2013 03/02/2013 apply to the affected and surrounding areas of skin by topical route 2 times per day in the morning and evening for 14 days prednisone Oral tablet 20 mg 02/16/2013 02/23/2013 take 3 tablets by oral route daily for 7 days carvedilol Oral tablet 6.25 mg 05/17/2013 05/12/2014 take 1 tablet (6.25 mg) by oral route 2 times per day with food for 90 days pantoprazole Oral tablet,delayed release (DR/EC) 40 mg 05/17/2013 05/12/2014 take 1 tablet by oral route daily for 90 days prednisone oral tablet 20 mg 10/05/2013 10/12/2013 take 3 tablets by oral route daily for 7 days amoxicillin oral capsule 500 mg 10/05/2013 10/12/2013 take 1 capsule (500 mg) by oral route every 8 hours for 7 days Lamisil oral tablet 250 mg 10/23/2013 11/22/2013 take 1 tablet (250 mg) by oral route once daily for 30 days Valtrex oral tablet 1 g 10/23/2013 10/27/2013 take 1 tablet (1,000 mg) by oral route 2 times per day for 2 days Cipro oral tablet 500 mg 10/30/2013 11/04/2013 take 1 tablet (500 mg) by oral route every 12 hours for 5 days albuterol sulfate inhalation HFA aerosol inhaler 90 mcg/actuation 10/30/2013 11/09/2013 inhale 2 puffs by inhalation route every 6 hours as needed for 10 days cyclobenzaprine oral tablet 10 mg 01/08/2014 03/09/2014 take 1 tablet by oral route every 12 hours as needed for 30 days muscle pain Augmentin oral tablet 875-125 mg 03/06/2014 03/13/2014 take 1 tablet by oral route every 12 hours for 7 days Levaquin oral tablet 500 mg 10/03/2014 10/10/2014 take 1 tablet (500 mg) by oral route once daily for 7 days [place] oral tablet 5-325 mg 10/15/2014 11/14/2014 take 1 tablet by oral route every 8 hours as needed for 30 days back pain amoxicillin oral capsule 500 mg 10/17/2014 10/27/2014 take 2 capsules by oral route 3 times a day for 5 days Discontinued Name Start Date Discontinued Date SIG Comments acetaminophen Oral Tablet 500 mg 11/30/2012 takes 2 tab bid finasteride Oral Tablet 5 mg 03/10/2012 05/30/2012 take 1 tablet (5 mg) by oral route once daily lisinopril Oral tablet 10 mg 05/30/2012 09/05/2012 take 1 tablet (10 mg) by oral route once daily for 90 days Medrol (Thong) Oral tablets,dose pack 4 mg 07/01/2012 07/12/2012 take as directed for 6 days meloxicam Oral tablet 7.5 mg 05/17/2013 01/08/2014 take 1 tablet (7.5 mg) by oral route once daily for 90 days Tylenol-Codeine #3 oral tablet 300-30 mg 08/01/2013 01/08/2014 take 1 - 2 tablets by oral route every 6 hours as needed Medrol (Thong) Oral tablets,dose pack 4 mg 10/23/2013 01/08/2014 take as directed for 6 days Medrol (Thong) oral tablets,dose pack 4 mg 03/06/2014 05/29/2014 take as directed WelChol oral tablet 625 mg 07/16/2014 12/24/2014 take 3 tablets by oral route 2 times a day for 30 days not taking Problem List Description Status Onset Gastroesophageal Reflux Active Hypertension Active pacemaker Active Back Pain Active Traumatic Injury Active age 8 yrs old Cervical Whiplash/Strain Active 07/04/2014 Lumbar spondylolysis Active 07/04/2014 Trochanteric Bursitis Active 10/15/2014 Vital Signs Date Time BP-Sys(mm[Hg] BP-Aysha(mm[Hg]) HR(bpm) RR(rpm) Temp WT HT HC BMI BSA BMI Percentile O2 Sat(%) 03/28/2015 3:19:00 PM 110 mmHg 66 mmHg 76 bpm 18 rpm 97.9 F 195 lbs 68 in 29.65 kg/m2 2.06 m2 12/31/2014 9:47:00 AM 148 mmHg 90 mmHg 88 bpm 18 rpm 97.7 F 193 lbs 68 in 29.3452 kg/m 2.0494 m 12/24/2014 1:45:00 PM 136 mmHg 82 mmHg 65 bpm 20 rpm 96.8 F 191 lbs 68 in 29.04 kg/m2 2.04 m2 12/12/2014 8:26:00 AM 128 mmHg 82 mmHg 82 bpm 18 rpm 97.3 F 188 lbs 68 in 28.585 kg/m 2.0227 m 12/10/2014 1:08:00 PM 138 mmHg 84 mmHg 80 bpm 18 rpm 98.4 F 189 lbs 68 in 28.74 kg/m2 2.03 m2 10/17/2014 10:03:00 AM 154 mmHg 82 mmHg 72 bpm 18 rpm 98.9 F 190 lbs 68 in 28.8891 kg/m 2.0334 m 10/15/2014 11:02:00 AM 132 mmHg 84 mmHg 73 bpm 18 rpm 97 F 192 lbs 68 in 29.19 kg/m2 2.04 m2 10/03/2014 10:39:00 AM 132 mmHg 78 mmHg 88 bpm 18 rpm 97.5 F 190 lbs 68 in 28.8891 kg/m 2.0334 m 10/01/2014 4:05:00 PM 122 mmHg 64 mmHg [...] lbs 68 in 27.82 kg/m2 2.00 m2 08/10/2012 1:40:00 PM 130 mmHg 80 mmHg 80 bpm 18 rpm 98.2 F 184 lbs 68 in 27.9768 kg/m 2.0011 m 95 % 07/12/2012 1:45:00 PM 130 mmHg 80 mmHg 72 bpm 18 rpm 96.8 F 184 lbs 68 in 27.98 kg/m2 2.00 m2 97 % 07/01/2012 10:12:00 AM 136 mmHg 82 mmHg 82 bpm 18 rpm 97.4 F 184 lbs 68 in 27.9768 kg/m 2.0011 m 05/30/2012 9:49:00 AM 132 mmHg 88 mmHg 80 bpm 18 rpm 97 F 184 lbs 68 in 27.98 kg/m2 2.00 m2 05/10/2012 10:34:00 AM 110 mmHg 60 mmHg 67 bpm 18 rpm 96 F 182 lbs 68 in 27.6727 kg/m 1.9902 m 97 % 04/26/2012 11:43:00 AM 130 mmHg 78 mmHg 80 bpm 18 rpm 97.1 F 182 lbs 68 in 27.67 kg/m2 1.99 m2 04/26/2012 10:55:00 AM 130 mmHg 78 mmHg 80 bpm 18 rpm 97.1 F 182 lbs 68 in 27.6727 kg/m 1.9902 m 03/10/2012 10:59:00 AM 128 mmHg 72 mmHg 80 bpm 18 rpm 97.2 F 180 lbs 68 in 27.37 kg/m2 1.98 m2 Social History Name Description Comments Tobacco Never smoker lives with family member 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 Children x2 Alcohol Use - Rare Denies illicit substance abuse History of Procedures Date Ordered Description Order Status 07/01/2012 12:00 AM X-RAY EXAM L-S SPINE [...] 12:00 AM ASSAY OF BLOOD/URIC ACID Reviewed 12/07/2012 12:00 AM GLUCOSE BLOOD TEST Reviewed 11/30/2012 12:00 AM DRAIN/INJ JOINT/BURSA W/O US Reviewed 12/15/2012 12:00 AM DRAIN/INJ JOINT/BURSA W/O US Reviewed 01/27/2013 12:00 AM INJ TRIGGER POINT 1/2 MUSCL Reviewed 07/26/2013 12:00 AM X-RAY EXAM OF HIP Reviewed 12/18/2013 12:00 AM X-RAY EXAM NECK [...] 06/25/2014 12:00 AM GLYCOSYLATED HEMOGLOBIN TEST Reviewed 12/12/2014 12:00 AM COMPLETE CBC W/AUTO DIFF WBC Reviewed 12/12/2014 12:00 AM COMPREHEN METABOLIC PANEL Reviewed 12/12/2014 12:00 AM LIPID PANEL Reviewed 12/12/2014 12:00 AM GLYCOSYLATED HEMOGLOBIN TEST Reviewed Results Summary Data and Description Results [...] mg/dLCHOLESTEROL 241.0 mg/dLHDL 50.0 mg/dLLDL (CALC) 163.0 mg/dLHGB A1C 5.40 %Est Avg [...] BILI 1.10 mg/dLCALCIUM 9.40 mg/dLeGFR >60 mL/min/1.73 [id number] 145.0 mg/dLCHOLESTEROL 208.0 mg/dLHDL 37.0 mg/dLLDL (CALC) 142.0 mg/dLHGB A1C 5.0 %Est Avg Glucose 96.8 mg/dL History Of Immunizations Not available. History of Past Illness Name Date of Onset Comments pacemaker Hypertension Gastroesophageal Reflux BPH Back Pain Traumatic Injury age 8 yrs old fractured skull Cervical Whiplash/Strain 07/04/2014 Lumbar spondylolysis 07/04/2014 Trochanteric Bursitis 10/15/2014 Hypertension Mar 10 2012 11:09AM Low Back [...] Right Trochanteric Bursitis Mar 28 2015 3:21PM Payers Insurance Name Company Name Plan Name Plan Number Policy Number Policy Group Number Start Date Medicare Part A Medicare Part A [id number] N/A Cigna Cigna [id number] N/A Medicare Part B Medicare Of [place] [id number] November History of Encounters Visit Date Visit Type Provider 03/28/2015 Office visit Camryn JOSHI 12/31/2014 Office [...] 07/26/2013 Office visit Hernandez Arroyo MD 07/21/2013 [facility] Refugio Austin MD 07/17/2013 Office visit Refugio Austin MD 05/17/2013 Office visit Hernandez Arroyo MD 05/02/2013 Office visit Refugio Austin MD 04/26/2013 Office visit Hernandez Arroyo MD 03/16/2013 [facility] Chapincito Steele MD 03/01/2013 Office visit Chapincito Steele MD 02/16/2013 Office visit Hernandez Arroyo MD 01/27/2013 Office visit Chapincito Steele MD 01/13/2013 Hospital Chapincito Steele MD 12/15/2012 Office visit Chapincito Steele MD 12/07/2012 Office visit Nica Cartwright APRN 11/30/2012 Office visit Chapincito Steele MD 11/18/2012 Office visit Hernandez Arroyo MD 09/02/2012 Office visit Hernandez Arroyo MD 08/10/2012 Office visit Refugio Austin MD 08/04/2012 [facility] Refugio Austin MD 07/12/2012 Office visit Refugio Austin MD 07/12/2012 [facility] Jo Paris MD 07/01/2012 Office visit Hernandez Arroyo MD 05/30/2012 Office visit Hernandez Arroyo MD 05/10/2012 Office visit Refugio Austin MD 05/02/2012 [facility] Refugio Austin MD 04/26/2012 Office visit Hernandez Arroyo MD 04/26/2012 Office visit Refugio Austin MD 03/10/2012 Office visit Hernandez Arroyo MD
--- OUTSIDE RECORDS SUMMARY | 2019-03-20 09:19 | XMS REPORT ---
Author Author Hernandez Arroyo [facility] Address [address] [facility] [address] [place], [place] [id number] Care Team Providers Care Sander Portable Machine Name Role Phone Hernandez Arroyo PCP Unavailable Hernandez Arroyo PreferredProvider Unavailable Allergies and Adverse Reactions Name Reaction Notes Demerol codeine sulfate Plan of Treatment Planned Activity Comments Planned Date Planned Time Plan/Goal Chest X-ray, PA and lateral 04/26/2012 12:00 AM Medications Active Name Start [...] take 1 tab every 8hr prn nausea Anoro Ellipta 62.5-25 mcg/actuation inhalation blister with device 12/18/2015 inhale 1 puff by inhalation route once daily at the same time each day Breo Ellipta 200-25 mcg/dose inhalation blister with device 08/07/2016 inhale 1 puff by inhalation route once daily at the same time each day Reglan 5 mg oral tablet 12/01/2016 11/26/2017 take 1 tablet by oral route 3 times a for 90 days celecoxib 100 mg oral capsule 12/10/2016 TAKE 1 CAP DAILY FOR 90 DAYS hydrochlorothiazide 25 mg oral tablet 12/10/2016 TAKE 1 TABLET BY MOUTH ONCE DAILY MagOx 400 mg oral tablet 12/10/2016 03/05/2018 take 1 tablet by oral route daily for 90 days pantoprazole 40 mg oral tablet,delayed release (DR/EC) 12/10/2016 TAKE 1 TABLET DAILY Proscar 5 mg oral tablet 12/10/2016 12/05/2017 take 1 tablet (5 mg) by oral route once daily for 90 days baclofen 10 mg oral tablet 12/15/2016 take 1 tablet by oral route 3 times a day as needed metoclopramide HCl 5 mg oral tablet Tylenol-Codeine #3 300-30 mg oral tablet 06/15/2017 take 1 tablet by oral route every 6 hours as needed Lasix 80 mg oral tablet 07/08/2017 take 1 tablet (80 mg) by oral route 2 times per day for 30 days amoxicillin 875 mg oral tablet 07/08/2017 take 1 tablet (875 mg) by oral route every 12 hours for 7 days Name Start Date Expiration Date SIG [...] route daily as needed for 30 days [place] 10-325 mg oral tablet 01/29/2016 02/28/2016 take [...] oral route once daily for 7 days Lotrisone 1-0.05 % topical cream 02/18/2017 04/15/2017 apply to the affected and surrounding areas of skin by topical route 2 times per day in the morning and evening for 2 weeks amoxicillin 500 mg oral capsule 02/18/2017 02/28/2017 take 2 capsules by oral route 3 times a day for 5 days Zofran ODT 4 mg oral tablet,disintegrating 07/12/2017 07/18/2017 DISSOLVE 1 TABLET BY ORAL ROUTE 3 TIMES A DAY NEEDED Discontinued Name Start Date Discontinued Date SIG [...] 2 times per day for 30 days Problem List Description Status Onset Gastroesophageal Reflux Active Hypertension Active pacemaker Active Back pain Active Traumatic Injury Active age 8 yrs old Cervical Whiplash/Strain Active 07/04/2014 Lumbar spondylolysis Active 07/04/2014 Trochanteric Bursitis Active 10/15/2014 Trochanteric bursitis, right hip Active 07/01/2015 Vital Signs Date Time BP-Sys(mm[Hg] BP-Aysha(mm[Hg]) HR(bpm) RR(rpm) Temp WT HT HC BMI BSA BMI Percentile O2 Sat(%) 07/21/2017 10:00:00 AM 104 mmHg 62 mmHg [...] rpm 98.2 F 191.4 lbs 68 in 29.102 kg/m 2.0409 m 95 % 07/06/2016 10:06:00 AM 138 mmHg 80 mmHg 90 bpm 18 rpm 98.2 F 197.125 lbs 68 in 29.97 kg/m2 2.07 m2 94 % 06/26/2016 10:31:00 AM 112 mmHg 74 mmHg 86 bpm 18 rpm 97.4 F 191.25 lbs 68 in 29.0792 kg/m 2.0401 m 96 % 04/06/2016 2:03:00 PM 110 mmHg 70 mmHg 84 bpm 16 rpm 97.6 F 195.5 lbs 68 in 29.73 kg/m2 2.06 m2 95 % 03/03/2016 10:32:00 AM 118 mmHg 76 mmHg 83 bpm 18 rpm 96.6 F 191 lbs 68 in 29.0412 kg/m 2.0388 m 96 % 02/26/2016 9:42:00 AM 130 mmHg 80 mmHg 72 bpm 18 rpm 97.3 F 190 lbs 68 in 28.89 kg/m2 2.03 m2 97 % 01/30/2016 2:26:00 PM 142 mmHg 82 mmHg 82 bpm 18 rpm 97.9 F 194.125 lbs 68 in 29.5163 kg/m 2.0554 m 95 % 01/29/2016 10:51:00 AM 120 mmHg 72 mmHg 79 bpm 16 rpm 97.5 F 194 lbs 68 in 29.50 kg/m2 2.05 m2 98 % 12/18/2015 10:44:00 AM 130 mmHg 74 mmHg 85 bpm 16 rpm 96.1 F 197 lbs 68 in 29.9534 kg/m 2.0706 m 96 % 11/05/2015 3:26:00 PM 120 mmHg [...] rpm 98.9 F 197 lbs 68 in 29.95 kg/m2 2.07 m2 07/27/2014 9:32:00 AM 124 mmHg 74 mmHg 74 bpm 16 rpm 98.5 F 199 lbs 68 in 30.2575 kg/m 2.081 m 07/16/2014 10:08:00 AM 140 mmHg 78 mmHg 82 bpm 18 rpm 98.7 F 198.5 lbs 68 in 30.18 kg/m2 2.08 m2 97 % 06/25/2014 10:16:00 AM 150 mmHg 88 mmHg 80 bpm 18 rpm 96.9 F 197 lbs 68 in 29.9534 kg/m 2.0706 m 96 % 05/29/2014 9:52:00 AM 142 mmHg 80 mmHg 88 bpm 18 rpm 97.4 F 197 lbs 68 in 29.95 kg/m2 2.07 m2 04/23/2014 10:49:00 AM 110 mmHg 70 mmHg 70 bpm 16 rpm 97.8 F 192 lbs 68 in 29.1932 kg/m 2.0441 m 03/26/2014 4:04:00 PM 108 mmHg 70 mmHg 66 bpm 16 rpm 98.2 F 195 lbs 68 in 29.65 kg/m2 2.06 m2 03/06/2014 11:02:00 AM 140 mmHg 80 mmHg 70 bpm 16 rpm 97.9 F 195 lbs 68 in 29.6493 kg/m 2.06 m 02/06/2014 10:24:00 AM 122 mmHg 70 mmHg 72 bpm 16 rpm 97.6 F 193.25 lbs 68 in 29.38 kg/m2 2.05 m2 01/08/2014 2:20:00 PM 124 mmHg 82 mmHg 66 bpm 16 rpm 97.2 F 193.375 lbs 68 in 29.4023 kg/m 2.0514 m 12/18/2013 9:24:00 AM 140 mmHg 90 mmHg 78 bpm 18 rpm 97.1 F 199 lbs 65 in 33.11 kg/m2 2.03 m2 10/30/2013 8:30:00 AM 131 mmHg 67 mmHg 61 bpm 20 rpm 97.6 F 195.2 lbs 65 in 32.4826 kg/m 2.0151 m 96 % 10/23/2013 8:44:00 AM 144 mmHg 78 mmHg 82 bpm 18 rpm 98 F 195.375 lbs 65 in 32.51 kg/m2 2.02 m2 96 % 10/05/2013 3:00:00 PM 156 mmHg 82 mmHg 80 bpm 18 rpm 97.5 F 199 lbs 68 in 30.2575 kg/m 2.081 m 08/01/2013 10:30:00 AM 152 mmHg 90 mmHg 80 bpm 18 rpm 98.1 F 193 lbs 68 in 29.35 kg/m2 2.05 m2 07/26/2013 10:42:00 AM 138 mmHg 70 mmHg 84 bpm 18 rpm 98.6 F 191 lbs 68 in 29.0412 kg/m 2.0388 m 07/17/2013 2:08:00 PM 136 mmHg 80 mmHg 74 bpm 20 rpm 96.3 F 194 lbs 68 in 29.50 kg/m2 2.05 m2 97 % 05/17/2013 11:17:00 AM 146 mmHg 82 mmHg 80 bpm 18 rpm 97.4 F 187 lbs 68 in 28.433 kg/m 2.0173 m 05/02/2013 11:37:00 AM 144 mmHg 80 mmHg 70 bpm 16 rpm 96 F 188 lbs 68 in 28.59 kg/m2 2.02 m2 98 % 04/26/2013 10:56:00 AM 140 mmHg 80 mmHg 68 bpm 18 rpm 97.2 F 185 lbs 68 in 28.1289 kg/m 2.0065 m 03/01/2013 9:43:00 AM 136 mmHg 90 mmHg 82 bpm 16 rpm 97.4 F 187 lbs 68 in 28.43 kg/m2 2.02 m2 02/16/2013 10:59:00 AM 138 mmHg 76 mmHg 78 bpm 18 rpm 97.8 F 187 lbs 68 in 28.433 kg/m 2.0173 m 01/27/2013 9:35:00 AM 142 mmHg 84 mmHg 72 bpm 18 rpm 97.4 F 186.375 lbs 68 in 28.34 kg/m2 2.01 m2 12/15/2012 3:57:00 PM 130 mmHg 82 mmHg 74 bpm 18 rpm 98.6 F 188.375 lbs 68 in 28.642 kg/m 2.0247 m 12/07/2012 9:07:00 AM 142 mmHg 72 mmHg 70 bpm 18 rpm 97.1 F 190 lbs 68 in 28.89 kg/m2 2.03 m2 11/30/2012 9:12:00 AM 132 mmHg 70 mmHg 64 bpm 16 rpm 98.7 F 189 lbs 68 in 28.7371 kg/m 2.0281 m 11/18/2012 9:40:00 AM 138 mmHg [...] Per 10 Mg [facility]#1946-6361-32 Reviewed 10/07/2015 12:00 AM CHEST X-RAY 2VW FRONTAL&LATL Reviewed 10/08/2015 12:00 AM CONTRAST X-RAY ESOPHAGUS Reviewed 10/16/2015 12:00 AM Decadron, Per 1 Mg [facility]# [address]-65 Reviewed 10/16/2015 12:00 AM Depo-Medrol, Per 80 Mg [facility]#[address]-66 Reviewed 12/18/2015 12:00 AM BIOPSY SKIN LESION Reviewed 01/29/2016 12:00 AM Decadron, Per 1 Mg [facility]# [address]-65 Reviewed 01/29/2016 12:00 AM Depo-Medrol, Per 80 Mg [facility]#[address]-69 Reviewed 02/26/2016 12:00 AM COMPLETE CBC W/AUTO [...] 11/30/2012 12:00 AM Kenalog, Per 10 Mg [facility]#3766-0691-66 Reviewed 12/15/2012 12:00 AM DRAIN/INJ JOINT/BURSA W/O US Reviewed 12/15/2012 12:00 AM Kenalog, Per 10 Mg [facility]#5822-4665-23 Reviewed 01/27/2013 12:00 AM INJ TRIGGER POINT 1/2 MUSCL Reviewed 01/27/2013 12:00 AM Kenalog, Per 10 Mg [facility]#8188-4335-83 Reviewed 04/26/2013 12:00 AM Depo-Medrol, Per 80 Mg [facility]#4127-7196-58 Reviewed 04/26/2013 12:00 AM Decadron, Per 1 Mg [facility]# [address]-58 Reviewed 07/26/2013 12:00 AM X-RAY EXAM OF HIP Reviewed 07/26/2013 12:00 AM Depo-Medrol, Per 80 Mg [facility]#5762-6458-71 Reviewed 07/26/2013 12:00 AM Decadron, Per 1 Mg [facility]# [address]-74 Reviewed 10/05/2013 12:00 AM Depo-Medrol 80 Mg Im/C'padmini Reviewed 10/05/2013 12:00 AM Decadron, Per 1 Mg [facility]# [address]-80 Reviewed 12/18/2013 12:00 AM X-RAY EXAM NECK [...] Per 10 Mg [facility]#3071-8571-09 Reviewed Results Summary Date and Description Results [...] 0.08 #BASO 0.03 MANUAL DIFF NOT IND 06/25/2014 11:48 AM WBC 5.9 RBC 5.01 [...] A1C 5.40 %Est Avg Glucose 108.3 mg/dL 12/12/2014 9:38 AM WBC 4.8 RBC 4.89 [...] Spondylosis, lumbar Feb 2014 4:29PM Trochanteric bursitis Oct 15 2014 [...] 08 2015 10:35AM Hip pain, chronic, right b 2015 11:25AM Hip pain, chronic, left b [...] right lower extremity Jul 08 2017 10:01AM Payers Insurance Name Company Name Plan Name Plan Number Policy Number Policy Group Number Start Date Medicare RHC Medicare RHC [id number] N/A Chris Perez [id number] N/A Medicare Part B Medicare Of [place] [id number] November Medicare Part A Medicare Part A [id number] N/A Medicare Part A Medicare - Lab/Xray [id number] N/A History of Encounters Visit Date Visit Type Provider 07/21/2017 Office visit Hernandez Arroyo MD 07/08/2017 Office visit Hernandez Arroyo MD [...] 10/16/2015 Office visit Hernandez Arroyo MD 10/11/2015 [facility] Refugio Austin MD 10/08/2015 Office visit Refugio [...] Chapincito Steele MD 12/07/2012 Office visit Nica Chay VALLE 11/30/2012 Office visit Chapincito Steele MD 11/18/2012 Office visit Hernandez Arroyo MD 09/02/2012 Office visit Hernandez Arroyo MD 08/10/2012 Office visit Refugio Austin MD 08/04/2012 [facility] Refugio Austin MD 07/12/2012 Office visit Refugio Austin MD 07/12/2012 [facility] Jo Paris MD 07/01/2012 Office visit Hernandez Arroyo MD 05/30/2012 Office visit Hernandez Arroyo MD 05/10/2012 Office visit Refugio Austin MD 05/02/2012 [facility] Refugio Austin MD 04/26/2012 Office visit Refugio Austin MD 04/26/2012 Office visit Hernandez Arroyo MD 03/10/2012 Office visit Hernandez Arroyo MD
--- OUTSIDE RECORDS SUMMARY | 2019-03-20 09:22 | XMS REPORT ---
Author Author Hernandez Arroyo [facility] Address [address] [place], [place] [id number] Care Team Providers Care Labor Relations Consultant Name Role Phone Hernandez Arroyo PCP Hernandez [...] oral route once daily for 90 days metoclopramide HCl 5 mg oral tablet Tylenol-Codeine #3 300-30 mg oral tablet 06/15/2017 take 1 tablet by oral route every 6 hours as needed celecoxib 200 mg oral capsule 07/21/2017 07/16/2018 take 1 capsule (200 mg) by oral route once daily for 90 days potassium chloride 20 mEq oral tablet extended release 08/05/2017 take 1 tablet (20 meq) by oral route once daily with food for 90 days Lasix 40 mg oral tablet 09/02/2017 08/28/2018 take 1 tablet (40 mg) by oral route once daily for 90 days gabapentin 300 mg oral capsule 09/13/2017 take 1 capsule by oral route daily for 90 days furosemide 80 mg oral tablet 10/04/2017 06/26/2019 TAKE 1 TABLET BY MOUTH TWICE A DAY baclofen 10 mg oral tablet 10/22/2017 02/19/2018 TAKE 1 TABLET BY ORAL ROUTE 3 TIMES A DAY NEEDED Name Start Date Expiration Date SIG Comments [...] route daily as needed for 30 days [place] 10-325 mg oral tablet 01/29/2016 02/28/2016 take [...] 7 days amoxicillin 500 mg oral capsule 02/18/2017 [...] DAY, MORNING AND EVENING FOR 2 WEEKS Discontinued Name Start Date Discontinued Date SIG [...] HC BMI BSA BMI Percentile O2 Sat(%) 11/03/2017 10:46:00 AM 108 mmHg 62 mmHg [...] 07/01/2015 12:00 AM Kenalog, Per 10 Mg [facility] [place]#4070-4907-31 Reviewed 10/07/2015 12:00 AM CHEST X-RAY 2VW FRONTAL&LATL Reviewed 10/08/2015 12:00 AM CONTRAST X-RAY ESOPHAGUS Reviewed 10/16/2015 12:00 AM Decadron, Per 1 Mg ND# [address]-18 Reviewed 10/16/2015 12:00 AM Depo-Medrol, Per 80 Mg ND#[address]-94 Reviewed 12/18/2015 12:00 AM BIOPSY SKIN LESION Reviewed 01/29/2016 12:00 AM Decadron, Per 1 Mg [facility] [place]# [address]-47 Reviewed 01/29/2016 12:00 AM Depo-Medrol, Per 80 Mg [facility] [place]#[address]-68 Reviewed 02/26/2016 12:00 AM COMPLETE CBC W/AUTO [...] 12:00 AM Depo Medrol 40mg Injection, [facility] Medicare Reviewed 09/13/2017 12:00 AM Decadron 4mg Injection, [facility] Medicaid Reviewed 11/18/2012 12:00 AM METABOLIC PANEL TOTAL CA Reviewed 11/18/2012 12:00 AM COMPLETE CBC W/AUTO DIFF WBC Reviewed 11/18/2012 12:00 AM GLYCOSYLATED HEMOGLOBIN TEST Reviewed 11/18/2012 12:00 AM ASSAY OF BLOOD/URIC ACID Reviewed 11/18/2012 12:00 AM Prostate Cancer Screening Reviewed 12/07/2012 12:00 AM GLUCOSE BLOOD TEST Reviewed 11/30/2012 12:00 AM DRAIN/INJ JOINT/BURSA W/O US Reviewed 11/30/2012 12:00 AM Kenalog, Per 10 Mg [facility] [place]#2465-5922-67 Reviewed 12/15/2012 12:00 AM DRAIN/INJ JOINT/BURSA W/O US Reviewed 12/15/2012 12:00 AM Kenalog, Per 10 Mg [facility]#9611-5600-46 Reviewed 01/27/2013 12:00 AM INJ TRIGGER POINT 1/2 MUSCL Reviewed 01/27/2013 12:00 AM Kenalog, Per 10 Mg [facility]#5266-4267-74 Reviewed 04/26/2013 12:00 AM Depo-Medrol, Per 80 Mg [facility]#3667-1098-24 Reviewed 04/26/2013 12:00 AM Decadron, Per 1 Mg [facility]# [address]-63 Reviewed 07/26/2013 12:00 AM X-RAY EXAM OF HIP Reviewed 07/26/2013 12:00 AM Depo-Medrol, Per 80 Mg [facility]#3232-4930-17 Reviewed 07/26/2013 12:00 AM Decadron, Per 1 Mg [facility] [place]# [address]-62 Reviewed 10/05/2013 12:00 AM Depo-Medrol 80 Mg Im/C'padmini Reviewed 10/05/2013 12:00 AM Decadron, Per 1 Mg [facility] [place]# [address]-13 Reviewed 12/18/2013 12:00 AM X-RAY EXAM NECK [...] JOINT/BURSA W/O US Reviewed 03/28/2015 12:00 AM Yahir, Per 10 Mg [facility] [place]#8359-0855-30 Reviewed Results Summary Date and Description Results [...] Trochanteric Bursitis b 2014 11:04AM Spondylosis, lumbar Feb 2014 4:29PM [...] 2017 9:38AM Sinusitis Nov 03 2017 10:49AM Payers Insurance Name Company Name Plan Name Plan Number Policy Number Policy Group Number Start Date Medicare RHC Medicare RHC [id number] N/A Cigvelasquez Perez [id number] N/A Medicare Part B Medicare Of [place] [id number] November Medicare Part A Medicare Part A [id number] N/A Medicare Part A Medicare - Lab/Xray [id number] N/A History of Encounters Visit Date Visit Type Provider 11/03/2017 Office visit Hernandez Arroyo MD 09/13/2017 [...] Hernandez Arroyo MD 04/27/2017 Office visit Hernandez Arrooy MD 02/18/2017 Office visit Hernandez Arroyo MD [...] visit Camryn JOSHI 03/28/2015 Office visit Camryn BAKERP 12/31/2014 Office visit Hernandez Arroyo MD 12/24/2014 Procedures Camryn BAKERP 12/12/2014 Office visit Hernandez Arroyo MD 12/10/2014 Office visit Camryn JOSIH 10/17/2014 Office visit Hernandez Arroyo MD 10/15/2014 [...] 04/26/2013 Office visit Hernandez Arroyo MD 03/16/2013 [facility] Chapincito Steele MD 03/01/2013 Office visit Chapincito Steele MD 02/16/2013 Office visit Hernandez Arroyo MD 01/27/2013 Office visit Chapincito Steele MD 01/13/2013 [facility] Chapincito Steele MD 12/15/2012 Office visit Chapincito Steele MD 12/07/2012 Office visit Nica Cartwright LEONARD 11/30/2012 Office visit Chapincito Steele MD 11/18/2012 Office visit Hernandez Arroyo MD 09/02/2012 Office visit Hernandez Arroyo MD 08/10/2012 Office visit Refugio Austin MD 08/04/2012 [facility] Refugio Austin MD 07/12/2012 Office visit Refugio Austin MD 07/12/2012 [facility] Jo Paris MD 07/01/2012 Office visit Hernandez Arroyo MD 05/30/2012 Office visit Hernandez Arroyo MD 05/10/2012 Office visit Refugio Austin MD 05/02/2012 [facility] Refugio Austin MD 04/26/2012 Office visit Refugio Austin MD 04/26/2012 Office visit Hernandez Arroyo MD 03/10/2012 Office visit Hernandez Arroyo MD
--- OUTSIDE RECORDS SUMMARY | 2019-03-20 09:23 | XMS REPORT ---
Author Author Hernandez Arroyo [facility] Address [address] [place], [place] [id number] Care Team Providers Care Animal Biologist Name Role Phone Hernandez Arroyo PCP Unavailable [...] oral route once daily for 90 days carvedilol 6.25 mg oral tablet 06/11/2015 TAKE [...] by oral route daily for 90 days Reglan 5 mg oral tablet take [...] crush, chew and/or divide. for 30 days Tylenol-Codeine #3 300-30 mg oral tablet 12/18/2015 take 1 tablet by oral route every 6 hours as needed furosemide 40 mg oral tablet 01/16/2016 TAKE 1 TABLET BY ORAL ROUTE DAILY NEEDED FOR 30 DAYS [place] 10-325 mg oral tablet 01/29/2016 02/28/2016 take 1 tablet by oral route 4 times a day as needed for 30 days back pain pantoprazole 40 mg oral tablet,delayed release (DR/EC) 01/30/2016 TAKE 1 TABLET DAILY Name Start Date Expiration Date SIG [...] route every 8 hours for 3 days Lyrica 150 mg oral capsule 09/10/2015 01/08/2016 take 1 capsule (150 mg) by oral route 2 times per day for 30 days amoxicillin 500 mg oral capsule 10/07/2015 10/17/2015 take 2 capsules by oral route 3 times a day for 5 days nitroglycerin 0.4 mg sublingual tablet, sublingual 10/21/2015 10/22/2015 place 1 tablet under tongue by translingual route once NEEDED FOR ESOPHAGEAL SPASM Lasix 40 mg oral tablet 12/18/2015 01/17/2016 take 1 tablet by oral route daily as needed for 30 days Discontinued Name Start Date Discontinued Date [...] HC BMI BSA BMI Percentile O2 Sat(%) 01/30/2016 2:26:00 PM 142 mmHg 82 mmHg [...] rpm 97.1 F 199 lbs 68 in 30.26 kg/m2 2.08 m2 06/24/2015 10:43:00 AM 116 mmHg 82 mmHg 80 bpm 16 rpm 97.5 F 195 lbs 68 in 29.6493 kg/m 2.06 m 06/14/2015 5:07:00 PM 76 bpm 20 rpm [...] 07/01/2015 12:00 AM Kenalog, Per 10 Mg [facility]#2982-3540-96 Reviewed 10/07/2015 12:00 AM CHEST X-RAY 2VW FRONTAL&LATL Reviewed 10/08/2015 12:00 AM CONTRAST X-RAY ESOPHAGUS Returned 10/16/2015 12:00 AM Decadron, Per 1 Mg [facility]# [address]-22 Reviewed 10/16/2015 12:00 AM Depo-Medrol, Per 80 Mg [facility]#[address]-08 Reviewed 12/18/2015 12:00 AM BIOPSY SKIN LESION Reviewed 07/01/2012 12:00 AM X-RAY EXAM L-S [...] 11/30/2012 12:00 AM Kenalog, Per 10 Mg [facility]#3449-1877-35 Reviewed 12/15/2012 12:00 AM DRAIN/INJ JOINT/BURSA W/O US Reviewed 12/15/2012 12:00 AM Kenalog, Per 10 Mg [facility]#0634-8239-64 Reviewed 01/27/2013 12:00 AM INJ TRIGGER POINT 1/2 MUSCL Reviewed 01/27/2013 12:00 AM Kenalog, Per 10 Mg [facility]#0536-7719-38 Reviewed 04/26/2013 12:00 AM Depo-Medrol, Per 80 Mg [facility]#7148-5325-07 Reviewed 04/26/2013 12:00 AM Decadron, Per 1 Mg [facility]# [address]-51 Reviewed 07/26/2013 12:00 AM X-RAY EXAM OF HIP Reviewed 07/26/2013 12:00 AM Depo-Medrol, Per 80 Mg [facility]#6155-5381-38 Reviewed 07/26/2013 12:00 AM Decadron, Per 1 Mg [facility]# [address]-45 Reviewed 10/05/2013 12:00 AM Depo-Medrol 80 Mg Im/C'padmini Reviewed 10/05/2013 12:00 AM Decadron, Per 1 Mg [facility]# [address]-26 Reviewed 12/18/2013 12:00 AM X-RAY EXAM NECK [...] 03/28/2015 12:00 AM Kenalog, Per 10 Mg [facility]#6996-5427-08 Reviewed Results Summary Data and Description Results [...] BILI 1.10 mg/dLCALCIUM 9.40 mg/dLeGFR >60 mL/min/1.73 [id number] 145.0 mg/dLCHOLESTEROL 208.0 mg/dLHDL 37.0 mg/dLLDL (CALC) [...] 01 2014 4:10PM Trochanteric Bursitis Feb 9 2015 11:04AM Spondylosis, lumbar Feb 2014 4:29PM Trochanteric [...] 10:56AM Esophageal Reflux Jan 30 2016 2:30PM Payers Insurance Name Company Name Plan Name Plan Number Policy Number Policy Group Number Start Date Medicare Part A Medicare RHC [id number] N/A Cigvelasquez Perez [id number] N/A Medicare Part B Medicare Of [place] [id number] November Medicare Part A Medicare Part A [id number] N/A Medicare Part A Medicare - Lab/Xray [id number] N/A History of Encounters Visit Date Visit Type Provider 01/30/2016 Office visit Hernandez Arroyo MD 01/29/2016 Office visit Hernandez Arroyo MD 12/18/2015 Office visit Hernandez Arroyo MD 11/05/2015 Office visit Hernandez Arroyo MD 10/21/2015 Office visit Refugio Austin MD 10/16/2015 Office visit Hernandez Arroyo MD 10/11/2015 [facility] Refugio Austin MD 10/08/2015 Office [...] visit Hernandez Arroyo MD 10/30/2013 Office visit RAJShane JOSHI 10/23/2013 Office visit Hernandez Arroyo MD [...] 07/12/2012 Office visit Refugio Austin MD 07/12/2012 [facility] Jo Paris MD 07/01/2012 Office visit Hernandez Arroyo MD 05/30/2012 Office visit Hernandez Arroyo MD 05/10/2012 Office visit Refugio Austin MD 05/02/2012 Hospital Refugio Austin MD 04/26/2012 Office visit Refugio Austin MD 04/26/2012 Office visit Hernandez Arroyo MD 03/10/2012 Office visit Hernandez Arroyo MD
--- OUTSIDE RECORDS SUMMARY | 2019-03-20 09:26 | XMS REPORT ---
Author Author Hernandez Arroyo [facility] Address [address] [facility] [address] [place], [place] [address] Care Team Providers Care Underpresser Hand Name Role Phone Hernandez Arroyo PCP Unavailable [...] crush, chew and/or divide. for 30 days furosemide 40 mg oral tablet 07/23/2016 07/18/2017 take 1 tablet by oral route 2 times a day for 30 days Breo Ellipta 200-25 mcg/dose inhalation blister with device 08/07/2016 inhale 1 puff by inhalation route once daily at the same time each day Zofran ODT 4 mg oral tablet,disintegrating 10/05/2016 dissolve 1 tablet by oral route 3 times a day as needed Reglan 5 mg oral tablet 12/01/2016 11/26/2017 take 1 tablet by oral route 3 times a for 90 days baclofen 10 mg oral tablet 12/10/2016 take 1 tablet by oral route 3 times a day as needed celecoxib 100 mg oral capsule 12/10/2016 TAKE [...] days Tylenol-Codeine #3 300-30 mg oral tablet 12/10/2016 take 1 tablet by oral route every 6 hours as needed Name Start Date Expiration Date SIG Comments [...] route daily as needed for 30 days [place] 10-325 mg oral tablet 01/29/2016 02/28/2016 take [...] oral route once daily for 7 days Discontinued Name Start Date [...] HC BMI BSA BMI Percentile O2 Sat(%) 12/10/2016 11:23:00 AM 123 mmHg 63 mmHg [...] 07/01/2015 12:00 AM Kenalog, Per 10 Mg [facility]#1539-6561-98 Reviewed 10/07/2015 12:00 AM CHEST X-RAY 2VW FRONTAL&LATL Reviewed 10/08/2015 12:00 AM CONTRAST X-RAY ESOPHAGUS Reviewed 10/16/2015 12:00 AM Decadron, Per 1 Mg [facility]# [address]-28 Reviewed 10/16/2015 12:00 AM Depo-Medrol, Per 80 Mg [facility]#[address]-51 Reviewed 12/18/2015 12:00 AM BIOPSY SKIN LESION Reviewed 01/29/2016 12:00 AM Decadron, Per 1 Mg [facility]# [address]-77 Reviewed 01/29/2016 12:00 AM Depo-Medrol, Per 80 Mg [facility]#[address]-16 Reviewed 02/26/2016 12:00 AM COMPLETE CBC W/AUTO DIFF WBC Reviewed 02/26/2016 12:00 AM COMPREHEN METABOLIC PANEL Reviewed 07/06/2016 12:00 AM COMPLETE CBC W/AUTO DIFF WBC Reviewed 07/06/2016 12:00 AM COMPREHEN METABOLIC PANEL Reviewed 07/06/2016 12:00 AM ASSAY OF MAGNESIUM Reviewed 07/01/2012 12:00 AM X-RAY EXAM L-S [...] 11/30/2012 12:00 AM Kenalog, Per 10 Mg [facility]#1551-8879-12 Reviewed 12/15/2012 12:00 AM DRAIN/INJ JOINT/BURSA W/O US Reviewed 12/15/2012 12:00 AM Kenalog, Per 10 Mg [facility]#6883-8026-44 Reviewed 01/27/2013 12:00 AM INJ TRIGGER POINT 1/2 MUSCL Reviewed 01/27/2013 12:00 AM Kenalog, Per 10 Mg [facility]#9418-1236-94 Reviewed 04/26/2013 12:00 AM Depo-Medrol, Per 80 Mg [facility]#9581-0285-85 Reviewed 04/26/2013 12:00 AM Decadron, Per 1 Mg [facility]# [address]-96 Reviewed 07/26/2013 12:00 AM X-RAY EXAM OF HIP Reviewed 07/26/2013 12:00 AM Depo-Medrol, Per 80 Mg [facility]#3036-9640-58 Reviewed 07/26/2013 12:00 AM Decadron, Per 1 Mg [facility]# [address]-91 Reviewed 10/05/2013 12:00 AM Depo-Medrol 80 Mg Im/C'padmini Reviewed 10/05/2013 12:00 AM Decadron, Per 1 Mg [facility]# [address]-75 Reviewed 12/18/2013 12:00 AM X-RAY EXAM NECK [...] 03/28/2015 12:00 AM Kenalog, Per 10 Mg [facility]#0248-7747-12 Reviewed Results Summary Data and Description Results [...] (benign prostatic hyperplasia) Dec 10 2016 11:23AM Payers Insurance Name Company Name Plan Name Plan Number Policy Number Policy Group Number Start Date Medicare RHC Medicare RHC [id number] N/A Cigna Cigna [id number] N/A Medicare Part B Medicare Of [place] [id number] November Medicare Part A Medicare Part A [id number] N/A Medicare Part A Medicare - Lab/Xray [id number] N/A History of Encounters Visit Date Visit Type Provider 12/10/2016 Office visit Hernandez Arroyo MD 12/01/2016 [...] 07/26/2013 Office visit Hernandez Arroyo MD 07/21/2013 [facility] Refugio Austin MD 07/17/2013 Office visit Refugio Austin MD 05/17/2013 Office visit Hernandez Arroyo MD 05/02/2013 Office visit Refugio Austin MD 04/26/2013 Office visit Hernandez Arroyo MD 03/16/2013 [facility] Chapincito Steele MD 03/01/2013 Office visit Chapincito Steele MD 02/16/2013 Office visit Hernandez Arroyo MD 01/27/2013 Office visit Chapincito Steele MD 01/13/2013 Hospital Chapincito Steele MD 12/15/2012 Office visit Chapincito Steele MD 12/07/2012 Office visit Nica Cartwright APRN 11/30/2012 Office visit Chapincito Steele MD 11/18/2012 Office visit Hernandez Arroyo MD 09/02/2012 Office visit Hernandez Arroyo MD 08/10/2012 Office visit Refugio Austin MD 08/04/2012 [facility] Refugio Austin MD 07/12/2012 Office visit Refugio Austin MD 07/12/2012 Hospital Jo Paris MD 07/01/2012 Office visit Hernandez Arroyo MD 05/30/2012 Office visit Hernandez Arroyo MD 05/10/2012 Office visit Refugio Austin MD 05/02/2012 [facility] Refugio Austin MD 04/26/2012 Office visit Refugio Austin MD 04/26/2012 Office visit Hernandez Arroyo MD 03/10/2012 Office visit Hernandez Arroyo MD
--- OUTSIDE RECORDS SUMMARY | 2019-03-20 09:27 | XMS REPORT ---
Author Author Refugio Austin [facility] Address [address] [place], [place] [address] Care Team Providers Care Adobe Layer Name Role Phone Refugio Austin PCP Unavailable Allergies and Adverse Reactions Name Reaction Notes Demerol codeine sulfate Plan of Treatment Planned Activity Comments Planned Date Planned Time Plan/Goal CONTRAST X-RAY ESOPHAGUS 10/08/2015 12:00 AM CHEST X-RAY 2VW FRONTAL&LATL 04/26/2012 12:00 AM Medications Active Name Start Date Estimated Completion Date SIG Comments Aspir-81 81 mg oral tablet,delayed release (DR/EC) take 1 tablet (81 mg) by oral route once daily Flonase 50 mcg/actuation nasal spray,suspension 10/17/2014 inhale 1 spray (50 mcg) in each nostril by intranasal route once daily hydrochlorothiazide 25 mg oral tablet 10/17/2014 10/12/2015 take 1 tablet (25 mg) by oral route once daily for 90 days Centrum Silver 0.4-300-250 mg-mcg-mcg oral tablet take [...] by oral route daily for 90 days [place] 10-325 mg oral tablet 09/10/2015 10/10/2015 take 1 tablet by oral route 4 times a day as needed for 30 days back pain Lyrica 150 mg oral capsule 09/10/2015 01/08/2016 take 1 capsule (150 mg) by oral route 2 times per day for 30 days amoxicillin 500 mg oral capsule 10/07/2015 10/17/2015 take 2 capsules by oral route 3 times a day for 5 days Name Start Date Expiration Date SIG [...] route every 8 hours for 3 days Discontinued Name Start Date Discontinued Date [...] HC BMI BSA BMI Percentile O2 Sat(%) 10/07/2015 10:41:00 AM 114 mmHg 72 mmHg [...] 183 lbs 68 in 27.82 kg/m2 1.9956 08/10/2012 1:40:00 PM 130 mmHg 80 mmHg [...] 07/01/2015 12:00 AM Kenalog, Per 10 Mg [facility]#5001-6436-92 Reviewed 10/07/2015 12:00 AM CHEST X-RAY 2VW FRONTAL&LATL Returned 07/01/2012 12:00 AM X-RAY EXAM L-S [...] 11/30/2012 12:00 AM Kenalog, Per 10 Mg [facility]#8533-3027-56 Reviewed 12/15/2012 12:00 AM DRAIN/INJ JOINT/BURSA W/O US Reviewed 12/15/2012 12:00 AM Kenalog, Per 10 Mg [facility]#7900-8326-13 Reviewed 01/27/2013 12:00 AM INJ TRIGGER POINT 1/2 MUSCL Reviewed 01/27/2013 12:00 AM Kenalog, Per 10 Mg [facility]#5761-5637-82 Reviewed 04/26/2013 12:00 AM Depo-Medrol, Per 80 Mg [facility]#3505-2785-44 Reviewed 04/26/2013 12:00 AM Decadron, Per 1 Mg [facility]# [address]-22 Reviewed 07/26/2013 12:00 AM X-RAY EXAM OF HIP Reviewed 07/26/2013 12:00 AM Depo-Medrol, Per 80 Mg [facility]#8079-1164-02 Reviewed 07/26/2013 12:00 AM Decadron, Per 1 Mg [facility]# [address]-23 Reviewed 10/05/2013 12:00 AM Depo-Medrol 80 Mg Im/C'padmini Reviewed 10/05/2013 12:00 AM Decadron, Per 1 Mg ND# [address]-16 Reviewed 12/18/2013 12:00 AM X-RAY EXAM NECK [...] 03/28/2015 12:00 AM Yahir, Per 10 Mg [facility]#3997-3227-55 Reviewed Results Summary Data and Description Results [...] BILI 1.10 mg/dLCALCIUM 9.40 mg/dLeGFR >60 mL/min/1.73 [id number] 145.0 mg/dLCHOLESTEROL 208.0 mg/dLHDL 37.0 mg/dLLDL (CALC) [...] 2015 10:45AM Dysphagia Oct 08 2015 10:35AM Payers Insurance Name Company Name Plan Name Plan Number Policy Number Policy Group Number Start Date Medicare Part B Medicare Of [place] [id number] November Cigna Cigna [id number] N/A Medicare Part A Medicare Part A [id number] N/A History of Encounters Visit Date Visit Type Provider 10/08/2015 Office visit Refugio Austin MD 10/07/2015 [...] visit Camryn JOSHI 08/23/2014 Office visit Camryn BAKERP 07/27/2014 Office visit Camryn JOSHI 07/16/2014 Office [...] 07/26/2013 Office visit Hernandez Arroyo MD 07/21/2013 [facility] Refugio Austin MD 07/17/2013 Office visit Refugio Austin MD 05/17/2013 Office visit Hernandez Arroyo MD 05/02/2013 Office visit Refugio Austin MD 04/26/2013 Office visit Hernandez Arroyo MD 03/16/2013 [facility] Chapincito Steele MD 03/01/2013 Office visit Chapincito Steele MD 02/16/2013 Office visit Hernandez Arroyo MD 01/27/2013 Office visit Chapincito Steele MD 01/13/2013 [facility] Chapincito Steele MD 12/15/2012 Office visit Chapincito Steele MD 12/07/2012 Office visit Nica Cartwright LEONARD 11/30/2012 Office visit Chapincito Steele MD 11/18/2012 Office visit Hernandez Arroyo MD 09/02/2012 Office visit Hernandez Arroyo MD 08/10/2012 Office visit Refugio Austin MD 08/04/2012 [facility] Refugio Austin MD 07/12/2012 Office visit Refugio Austin MD 07/12/2012 [facility] Jo Paris MD 07/01/2012 Office visit Hernadnez Arroyo MD 05/30/2012 Office visit Hernandez Arroyo MD 05/10/2012 Office visit Refugio Austin MD 05/02/2012 [facility] Refugio Austin MD 04/26/2012 Office visit Refugio Austin MD 04/26/2012 Office visit Hernandez Arroyo MD 03/10/2012 Office visit Hernandez Arroyo MD
--- OUTSIDE RECORDS SUMMARY | 2019-03-20 09:29 | XMS REPORT ---
Author Author Hernandez Arroyo [facility] Address [address] [place], [place] [id number] Care Team Providers Care Slate Roofer Name Role Phone Hernandez Arroyo PCP Unavailable [...] by oral route daily for 90 days Anoro Ellipta 62.5-25 mcg/actuation inhalation blister with device 12/18/2015 inhale 1 puff by inhalation route once daily at the same time each day Myrbetriq 25 mg oral tablet extended release 24 hr 12/18/2015 12/12/2016 take 1 tablet (25 mg) by oral route once daily swallowing whole with water. Do not crush, chew and/or divide. for 30 days furosemide 40 mg oral tablet 01/16/2016 TAKE 1 TABLET BY ORAL ROUTE DAILY NEEDED FOR 30 DAYS pantoprazole 40 mg oral tablet,delayed release (DR/EC) 01/30/2016 TAKE 1 TABLET DAILY Reglan 5 mg oral tablet 02/11/2016 05/11/2016 take 1 tablet by oral route 3 times a for 30 days primidone 50 mg oral tablet 02/26/2016 02/20/2017 take 1 tablet by oral route daily for 90 days propranolol 40 mg oral tablet 03/03/2016 07/01/2016 take 1 tablet (40 mg) by oral route 2 times per day for 30 days Name Start Date Expiration Date SIG [...] route daily as needed for 30 days [place] 10-325 mg oral tablet 01/29/2016 02/28/2016 take 1 tablet by oral route 4 times a day as needed for 30 days back pain Discontinued Name Start Date Discontinued Date SIG [...] oral route every 6 hours as needed Problem List Description Status Onset Gastroesophageal Reflux Active Hypertension Active pacemaker Active Back pain Active Traumatic Injury Active age 8 yrs old Cervical Whiplash/Strain Active 07/04/2014 Lumbar spondylolysis Active 07/04/2014 Trochanteric Bursitis Active 10/15/2014 Trochanteric bursitis, right hip Active 07/01/2015 Vital Signs Date Time BP-Sys(mm[Hg] BP-Aysha(mm[Hg]) HR(bpm) RR(rpm) Temp WT HT HC BMI BSA BMI Percentile O2 Sat(%) 03/03/2016 10:32:00 AM 118 mmHg 76 mmHg [...] AM Kenalog, Per 10 Mg [facility]#4618-1930-89 Reviewed 10/07/2015 12:00 AM CHEST X-RAY 2VW FRONTAL&LATL Reviewed 10/08/2015 12:00 AM CONTRAST X-RAY ESOPHAGUS Returned 10/16/2015 12:00 AM Decadron, Per 1 Mg NDC# [address]-92 Reviewed 10/16/2015 12:00 AM Depo-Medrol, Per 80 Mg NDC#[address]-76 Reviewed 12/18/2015 12:00 AM BIOPSY SKIN LESION Reviewed 01/29/2016 12:00 AM Decadron, Per 1 Mg NDC# [address]-48 Reviewed 01/29/2016 12:00 AM Depo-Medrol, Per 80 Mg NDC#[address]-80 Reviewed 02/26/2016 12:00 AM COMPLETE CBC W/AUTO DIFF WBC Returned 02/26/2016 12:00 AM COMPREHEN METABOLIC PANEL Returned 07/01/2012 12:00 AM X-RAY EXAM L-S [...] 11/30/2012 12:00 AM Kenalog, Per 10 Mg NDC#6877-0837-29 Reviewed 12/15/2012 12:00 AM DRAIN/INJ JOINT/BURSA W/O US Reviewed 12/15/2012 12:00 AM Kenalog, Per 10 Mg NDC#6504-6022-75 Reviewed 01/27/2013 12:00 AM INJ TRIGGER POINT 1/2 MUSCL Reviewed 01/27/2013 12:00 AM Kenalog, Per 10 Mg NDC#4517-5251-93 Reviewed 04/26/2013 12:00 AM Depo-Medrol, Per 80 Mg [facility]#9133-2290-96 Reviewed 04/26/2013 12:00 AM Decadron, Per 1 Mg [facility]# [address]-33 Reviewed 07/26/2013 12:00 AM X-RAY EXAM OF HIP Reviewed 07/26/2013 12:00 AM Depo-Medrol, Per 80 Mg [facility]#3462-0338-42 Reviewed 07/26/2013 12:00 AM Decadron, Per 1 Mg [facility]# [address]-01 Reviewed 10/05/2013 12:00 AM Depo-Medrol 80 Mg Im/C'padmini Reviewed 10/05/2013 12:00 AM Decadron, Per 1 Mg [facility]# [address]-35 Reviewed 12/18/2013 12:00 AM X-RAY EXAM NECK [...] AM Kenalog, Per 10 Mg [facility]#4679-3031-34 Reviewed Results Summary Data and Description Results [...] 4.96 HGB 15.50 g/dLHCT 42.60 %MCV 86.0 [facility] 31.30 [facility] 36.[facility] g/dLRDW CV 13.40 %MPV 11.50 fLPLT [...] BILI 1.10 mg/dLCALCIUM 9.40 mg/dLeGFR >60 mL/min/1.73 [id number] 145.0 mg/dLCHOLESTEROL 208.0 mg/dLHDL 37.0 mg/dLLDL (CALC) 142.0 mg/dLHGB A1C 5.0 %Est Avg Glucose 96.8 mg/dL 02/26/2016 10:50 AM WBC 5.3 RBC 4.95 HGB 15.90 g/dLHCT 45.30 %MCV 92.0 fLMCH 32.10 pgMCHC 35.10 g/dLRDW CV 12.70 %MPV 10.80 fLPLT 107 %NEUT 53.30 %%LYMP 34.80 %%MONO 8.70 %%EOS 2.60 %%BASO 0.40 %#NEUT 2.82 #LYMP 1.84 #MONO 0.46 #EOS 0.14 #BASO 0.02 GLUCOSE 100.0 mg/dLSODIUM 142.0 mmol/LPOTASSIUM 3.90 mmol/LCHLORIDE 105.0 mmol/LCO2 31.0 mmol/LBUN 20.0 mg/dLCREATININE 1.20 mg/dLSGOT/AST 19.0 IU/LSGPT/ALT 23.0 IU/LALK PHOS 74.0 IU/LTOTAL PROTEIN 5.90 g/dLALBUMIN 3.90 g/dLTOTAL BILI 0.90 mg/dLCALCIUM 9.30 mg/dLeGFR 59 History Of Immunizations Not available. History of [...] Bursitis Oct 15 2014 11:04AM Spondylosis, lumbar Feb 2014 4:29PM [...] 9:53AM Essential tremor Mar 03 2016 10:36AM Payers Insurance Name Company Name Plan Name Plan Number Policy Number Policy Group Number Start Date Medicare Part A Medicare [facility] [id number] N/A Cigna Cigna [id number] N/A Medicare Part B Medicare Of [place] [id number] November Medicare Part A Medicare Part A [id number] N/A Medicare Part A Medicare - Lab/Xray [id number] N/A History of Encounters Visit Date Visit Type Provider 03/03/2016 Office visit Hernandez Arroyo MD 02/26/2016 [...] Office visit Chapincito Steele MD 01/13/2013 Hospital Chapicnito Steele MD 12/15/2012 Office visit Chapincito Steele MD 12/07/2012 Office visit Nica Cartwright DIRECTOR OF STUDENT AID 11/30/2012 Office visit Chapincito Steele MD 11/18/2012 Office visit Hernandez Arroyo MD 09/02/2012 Office visit Hernandez Arroyo MD 08/10/2012 Office visit Refugio Austin MD 08/04/2012 Hospital Refugio Austin MD 07/12/2012 Office visit Refugio Austin MD 07/12/2012 [facility] Jo Paris MD 07/01/2012 Office visit Hernandez Arroyo MD 05/30/2012 Office visit Hernandez Arroyo MD 05/10/2012 Office visit Refugio Austin MD 05/02/2012 [facility] Refugio Austin MD 04/26/2012 Office visit Refugio Austin MD 04/26/2012 Office visit Hernandez Arroyo MD 03/10/2012 Office visit Hernandez Arroyo MD
[2019-03-20] MEDS ORDERED: CATHETER FLUSH 10 ML SYR IV PRN (09:30)
--- OUTSIDE RECORDS SUMMARY | 2019-03-20 09:31 | XMS REPORT ---
Author Author Hernandez Arroyo [facility] Address [address] [place], [place] [address] Care Team Providers Care Special Education Resource Teacher Name Role Phone Hernandez Arroyo PCP [...] crush, chew and/or divide. for 30 days pantoprazole 40 mg oral tablet,delayed release (DR/EC) 01/30/2016 TAKE 1 TABLET DAILY hydrochlorothiazide 25 mg oral tablet 03/10/2016 TAKE 1 TABLET BY MOUTH ONCE DAILY Tylenol-Codeine #3 300-30 mg oral tablet 04/06/2016 take 1 tablet by oral route every 6 hours as needed terbinafine HCl 250 mg oral tablet 06/26/2016 07/26/2016 take 1 tablet (250 mg) by oral route once daily for 30 days Lotrisone 1-0.05 % topical cream 07/23/2016 08/06/2016 apply to the affected and surrounding areas of skin by topical route 2 times per day in the morning and evening for 2 weeks furosemide 40 mg oral tablet 07/23/2016 07/18/2017 take 1 tablet by oral route 2 times a day for 30 days Proscar 5 mg oral tablet 07/23/2016 07/18/2017 take 1 tablet (5 mg) by oral [...] route daily as needed for 30 days [place] 10-325 mg oral tablet 01/29/2016 02/28/2016 take 1 tablet by oral route 4 times a day as needed for 30 days back pain Reglan 5 mg oral tablet 02/11/2016 05/11/2016 take 1 tablet by oral route 3 times a for 30 days propranolol 40 mg oral tablet 03/03/2016 07/01/2016 take 1 tablet (40 mg) by oral route 2 times per day for 30 days Discontinued Name Start Date [...] HC BMI BSA BMI Percentile O2 Sat(%) 07/23/2016 11:04:00 AM 128 mmHg 74 mmHg [...] 07/01/2015 12:00 AM Kenalog, Per 10 Mg NDC#4440-4039-63 Reviewed 10/07/2015 12:00 AM CHEST X-RAY 2VW FRONTAL&LATL Reviewed 10/08/2015 12:00 AM CONTRAST X-RAY ESOPHAGUS Returned 10/16/2015 12:00 AM Decadron, Per 1 Mg ND# [address]-49 Reviewed 10/16/2015 12:00 AM Depo-Medrol, Per 80 Mg NDC#[address]-07 Reviewed 12/18/2015 12:00 AM BIOPSY SKIN LESION Reviewed 01/29/2016 12:00 AM Decadron, Per 1 Mg NDC# [address]-75 Reviewed 01/29/2016 12:00 AM Depo-Medrol, Per 80 Mg NDC#[address]-72 Reviewed 02/26/2016 12:00 AM COMPLETE CBC W/AUTO DIFF WBC Returned 02/26/2016 12:00 AM COMPREHEN METABOLIC PANEL Returned 07/06/2016 12:00 AM COMPLETE CBC W/AUTO DIFF WBC Returned 07/06/2016 12:00 AM COMPREHEN METABOLIC PANEL Returned 07/06/2016 12:00 AM ASSAY OF MAGNESIUM Returned 07/01/2012 12:00 AM X-RAY EXAM L-S [...] 11/30/2012 12:00 AM Kenalog, Per 10 Mg NDC#3994-5491-21 Reviewed 12/15/2012 12:00 AM DRAIN/INJ JOINT/BURSA W/O US Reviewed 12/15/2012 12:00 AM Kenalog, Per 10 Mg NDC#0885-3022-09 Reviewed 01/27/2013 12:00 AM INJ TRIGGER POINT 1/2 MUSCL Reviewed 01/27/2013 12:00 AM Kenalog, Per 10 Mg NDC#2480-6233-41 Reviewed 04/26/2013 12:00 AM Depo-Medrol, Per 80 Mg NDC#2726-1647-92 Reviewed 04/26/2013 12:00 AM Decadron, Per 1 Mg NDC# [address]-63 Reviewed 07/26/2013 12:00 AM X-RAY EXAM OF HIP Reviewed 07/26/2013 12:00 AM Depo-Medrol, Per 80 Mg NDC#0610-0019-53 Reviewed 07/26/2013 12:00 AM Decadron, Per 1 Mg NDC# [address]-71 Reviewed 10/05/2013 12:00 AM Depo-Medrol 80 Mg Im/C'padmini Reviewed 10/05/2013 12:00 AM Decadron, Per 1 Mg [facility]# [address]-43 Reviewed 12/18/2013 12:00 AM X-RAY EXAM NECK [...] 10 Mg [facility]#5955-2699-66 Reviewed Results Summary Data and Description Results [...] 3:29PM Dysphagia, cricopharyngeal Feb 2015 11:03AM Presbyesophagus b 2015 11:03AM Seborrheic keratoses, inflamed Dec 18 [...] (benign prostatic hyperplasia) Jul 23 2016 11:09AM Payers Insurance Name Company Name Plan Name Plan Number Policy Number Policy Group Number Start Date Medicare Part A Medicare [facility] [id number] N/A Cigna Chris [id number] N/A Medicare Part B Medicare Of [place] [id number] November Medicare Part A Medicare Part A [id number] N/A Medicare Part A Medicare - Lab/Xray [id number] N/A History of Encounters Visit Date Visit Type Provider 07/23/2016 Office visit Hernandez Arroyo MD 07/06/2016 [...] Refugio Austin MD 10/08/2015 Office visit Refugio uAstin MD 10/07/2015 Office visit Hernandez Arroyo MD [...] visit Camryn BAKERP 02/06/2014 Office visit Camryn BAKERP 01/08/2014 Office visit Camryn BAKERP 12/18/2013 Office [...] 07/12/2012 Office visit Refugio Austin MD 07/12/2012 [facility] Jo Paris MD 07/01/2012 Office visit Hernandez Arroyo MD 05/30/2012 Office visit Hernandez Arroyo MD 05/10/2012 Office visit Refugio Austin MD 05/02/2012 [facility] Refugio Austin MD 04/26/2012 Office visit Refugio Austin MD 04/26/2012 Office visit Hernandez Arroyo MD 03/10/2012 Office visit Hernandez Arroyo MD
--- OUTSIDE RECORDS SUMMARY | 2019-03-20 09:33 | XMS REPORT ---
Author Author Hernandez Arroyo [facility] Address [address] [place], [place] [address] Care Team Providers Care State Farm Agent Team Member Name Role Phone Hernandez Arroyo PCP Unavailable [...] route daily as needed for 30 days [place] 10-325 mg oral tablet 01/29/2016 02/28/2016 take [...] 10 Mg [facility]#9204-9047-72 Reviewed 10/07/2015 12:00 AM CHEST X-RAY 2VW FRONTAL&LATL Reviewed 10/08/2015 12:00 AM CONTRAST X-RAY ESOPHAGUS Returned 10/16/2015 12:00 AM Decadron, Per 1 Mg NDC# [address]-44 Reviewed 10/16/2015 12:00 AM Depo-Medrol, Per 80 Mg NDC#[address]-89 Reviewed 12/18/2015 12:00 AM BIOPSY SKIN LESION Reviewed 01/29/2016 12:00 AM Decadron, Per 1 Mg NDC# [address]-35 Reviewed 01/29/2016 12:00 AM Depo-Medrol, Per 80 Mg NDC#[address]-88 Reviewed 02/26/2016 12:00 AM COMPLETE CBC W/AUTO [...] 11/30/2012 12:00 AM Kenalog, Per 10 Mg NDC#3073-8721-36 Reviewed 12/15/2012 12:00 AM DRAIN/INJ JOINT/BURSA W/O US Reviewed 12/15/2012 12:00 AM Kenalog, Per 10 Mg NDC#4323-3510-04 Reviewed 01/27/2013 12:00 AM INJ TRIGGER POINT 1/2 MUSCL Reviewed 01/27/2013 12:00 AM Kenalog, Per 10 Mg NDC#4490-9614-87 Reviewed 04/26/2013 12:00 AM Depo-Medrol, Per 80 Mg [facility]#7502-1047-66 Reviewed 04/26/2013 12:00 AM Decadron, Per 1 Mg [facility]# [address]-12 Reviewed 07/26/2013 12:00 AM X-RAY EXAM OF HIP Reviewed 07/26/2013 12:00 AM Depo-Medrol, Per 80 Mg [facility]#4662-5202-97 Reviewed 07/26/2013 12:00 AM Decadron, Per 1 Mg [facility]# [address]-52 Reviewed 10/05/2013 12:00 AM Depo-Medrol 80 Mg Im/C'padmini Reviewed 10/05/2013 12:00 AM Decadron, Per 1 Mg [facility]# [address]-06 Reviewed 12/18/2013 12:00 AM X-RAY EXAM NECK [...] 03/28/2015 12:00 AM Kenalog, Per 10 Mg [facility]#3344-6457-79 Reviewed Results Summary Data and Description Results [...] 4.96 HGB 15.50 g/dLHCT 42.60 %MCV 86.0 [facility] 31.30 [facility] 36.40 g/dLRDW CV 13.40 [...] BILI 1.10 mg/dLCALCIUM 9.40 mg/dLeGFR >60 mL/min/1.73 [id number] 145.0 mg/dLCHOLESTEROL 208.0 mg/dLHDL 37.0 mg/dLLDL (CALC) [...] Number Start Date Medicare Part A Medicare [facility] [id number] N/A Cigna Cigna [id number] N/A Medicare Part B Medicare Of [place] [id number] November Medicare Part A Medicare Part A [id number] N/A Medicare Part A Medicare - Lab/Xray [id number] N/A History of Encounters Visit Date Visit Type Provider 03/03/2016 Office visit Hernandez Arroyo MD 02/26/2016 Office visit Hernandez Arroyo MD 01/30/2016 Office visit Hernandez Arroyo MD 01/29/2016 Office visit Hernandez Arroyo MD 12/18/2015 Office visit Hernandez Arroyo MD 11/05/2015 Office visit Hernandez Arroyo MD 10/21/2015 Office visit Refugio Austin MD 10/16/2015 Office visit Hernandez Arroyo MD 10/11/2015 [facility] Refugio Austin MD 10/08/2015 Office visit Refugio Austin MD 10/07/2015 Office visit Hernandez Arroyo MD 09/25/2015 Office visit Hernandez Arroyo MD 09/10/2015 Office visit Hernandez Arroyo MD 08/07/2015 Office visit Hernandez Arroyo MD 08/06/2015 Office visit Carmyn JOSHI 07/01/2015 Office visit Camryn JOSHI 06/24/2015 [...] Steele MD 12/07/2012 Office visit Nica Cartwright THROUGH OPERATOR 11/30/2012 Office visit Chapincito Steele MD 11/18/2012 Office visit Hernandez Arroyo MD 09/02/2012 Office visit Hernandez Arroyo MD 08/10/2012 Office visit Refugio Austin MD 08/04/2012 Hospital Refugio Austin MD 07/12/2012 Office visit Refugio Austin MD 07/12/2012 [facility] Jo Paris MD 07/01/2012 Office visit Hernandez Arroyo MD 05/30/2012 Office visit Hernandez Arroyo MD 05/10/2012 Office visit Refugio Austin MD 05/02/2012 [facility] Refugio Austin MD 04/26/2012 Office visit Refugio Austin MD 04/26/2012 Office visit Hernandez Arroyo MD 03/10/2012 Office visit Hernandez Arroyo MD
--- OUTSIDE RECORDS SUMMARY | 2019-03-20 09:34 | XMS REPORT ---
Author Author Hernandez Arroyo [facility] Address [address] [facility] [address] [place], [place] [address] Care Team Providers Care Mathematics Teacher Name Role Phone Hernandez Arroyo PCP [...] ORAL ROUTE DAILY NEEDED FOR 30 DAYS [place] 10-325 mg oral tablet 01/29/2016 02/28/2016 take 1 tablet by oral route 4 times a day as needed for 30 days back pain Name Start Date Expiration Date SIG [...] HC BMI BSA BMI Percentile O2 Sat(%) 01/29/2016 10:51:00 AM 120 mmHg 72 mmHg [...] 12:00 AM Kenalog, Per 10 Mg [facility]#7618-1096-77 Reviewed 10/07/2015 12:00 AM CHEST X-RAY 2VW FRONTAL&LATL Reviewed 10/08/2015 12:00 AM CONTRAST X-RAY ESOPHAGUS Returned 10/16/2015 12:00 AM Decadron, Per 1 Mg [facility]# [address]-49 Reviewed 10/16/2015 12:00 AM Depo-Medrol, Per 80 Mg [facility]#[address]-38 Reviewed 12/18/2015 12:00 AM BIOPSY SKIN LESION [...] 11/30/2012 12:00 AM Kenalog, Per 10 Mg NDC#0108-2095-32 Reviewed 12/15/2012 12:00 AM DRAIN/INJ JOINT/BURSA W/O US Reviewed 12/15/2012 12:00 AM Kenalog, Per 10 Mg NDC#3156-0248-70 Reviewed 01/27/2013 12:00 AM INJ TRIGGER POINT 1/2 MUSCL Reviewed 01/27/2013 12:00 AM Kenalog, Per 10 Mg NDC#2968-0507-16 Reviewed 04/26/2013 12:00 AM Depo-Medrol, Per 80 Mg NDC#0028-[address]-39 Reviewed 04/26/2013 12:00 AM Decadron, Per 1 Mg NDC# [address]-41 Reviewed 07/26/2013 12:00 AM X-RAY EXAM OF HIP Reviewed 07/26/2013 12:00 AM Depo-Medrol, Per 80 Mg NDC#0733-7059-12 Reviewed 07/26/2013 12:00 AM Decadron, Per 1 Mg NDC# [address]-02 Reviewed 10/05/2013 12:00 AM Depo-Medrol 80 Mg Im/C'padmini Reviewed 10/05/2013 12:00 AM Decadron, Per 1 Mg NDC# [address]-77 Reviewed 12/18/2013 12:00 AM X-RAY EXAM NECK [...] JOINT/BURSA W/O US Reviewed 03/28/2015 12:00 AM Kensha, Per 10 Mg [facility]#7895-8928-93 Reviewed Results Summary Data and Description Results [...] BILI 1.10 mg/dLCALCIUM 9.40 mg/dLeGFR >60 mL/min/1.73 [id number] 145.0 mg/dLCHOLESTEROL 208.0 mg/dLHDL 37.0 mg/dLLDL (CALC) [...] 08 2015 10:35AM Hip pain, chronic, right Oct 16 2015 11:25AM Hip pain, chronic, left Oct [...] stenosis, lumbar region Jan 29 2016 10:56AM Payers Insurance Name Company Name Plan Name Plan Number Policy Number Policy Group Number Start Date Medicare Part A Medicare RHC [id number] N/A Chris Perez [id number] N/A Medicare Part B Medicare Of [place] [id number] November Medicare Part A Medicare Part A [id number] N/A Medicare Part A Medicare - Lab/Xray [id number] N/A History of Encounters Visit Date Visit Type Provider 01/29/2016 Office visit Hernandez Arroyo MD 12/18/2015 Office visit Hernandez Arroyo MD 11/05/2015 Office visit Hernandez Arroyo MD 10/21/2015 Office visit Refugio Austin MD 10/16/2015 Office visit Hernandez Arroyo MD 10/11/2015 [facility] Refugio Austin MD 10/08/2015 Office visit Refugio [...] Hernandez Arroyo MD 10/30/2013 Office visit RAJ TESSA JOSHI 10/23/2013 Office visit Hernandez Arroyo MD 10/05/2013 Office visit Hernandez Arroyo MD 08/01/2013 Office visit Hernandez Arroyo MD 07/26/2013 Office visit Hernandez Arroyo MD 07/21/2013 Hospital Refugio Austin MD 07/17/2013 Office visit Refugio Autsin MD 05/17/2013 Office visit Hernandez Arroyo MD [...] 07/12/2012 Office visit Refugio Austin MD 07/12/2012 [facility] Jo Paris MD 07/01/2012 Office visit Hernandez Arroyo MD 05/30/2012 Office visit Hernandez Arroyo MD 05/10/2012 Office visit Refugio Austin MD 05/02/2012 Hospital Refugio Austin MD 04/26/2012 Office visit Refugio Austin MD 04/26/2012 Office visit Hernandez Arroyo MD 03/10/2012 Office visit Hernandez Arroyo MD
--- OUTSIDE RECORDS SUMMARY | 2019-03-20 09:35 | XMS REPORT ---
Author Author Hernandez Arroyo [facility] Address [address] [place], [place] [address] Care Team Providers Care Lumber Checker Name Role Phone Hernandez Arroyo PCP Unavailable Allergies and Adverse Reactions Name Reaction Notes Demerol codeine sulfate Plan of Treatment Planned Activity Comments Planned Date Planned Time Plan/Goal CHEST X-RAY 2VW FRONTAL&LATL 10/07/2015 12:00 AM CHEST X-RAY 2VW FRONTAL&LATL 04/26/2012 [...] prn nausea hydrocodone-acetaminophen 7.5-325 mg oral tablet take 1 tablet every 8hr for pain celecoxib 100 mg oral capsule 09/10/2015 12/03/2016 take 1 cap daily for 90 days MagOx 400 mg oral tablet 09/10/2015 12/03/2016 take 1 tablet by oral route daily for 90 days [place] 10-325 mg oral tablet 09/10/2015 10/10/2015 take [...] tablets,dose pack 08/07/2015 08/07/2015 take as directed Problem List Description Status Onset Gastroesophageal Reflux [...] AM Kenalog, Per 10 Mg [facility]#7200-6178-03 Reviewed 07/01/2012 12:00 AM X-RAY EXAM L-S [...] 11/30/2012 12:00 AM Kenalog, Per 10 Mg NDC#0616-1026-89 Reviewed 12/15/2012 12:00 AM DRAIN/INJ JOINT/BURSA W/O US Reviewed 12/15/2012 12:00 AM Kenalog, Per 10 Mg N[facility]#9986-7572-73 Reviewed 01/27/2013 12:00 AM INJ TRIGGER POINT 1/2 MUSCL Reviewed 01/27/2013 12:00 AM Kenalog, Per 10 Mg NDC#9966-7888-84 Reviewed 04/26/2013 12:00 AM Depo-Medrol, Per 80 Mg NDC#7410-8286-13 Reviewed 04/26/2013 12:00 AM Decadron, Per 1 Mg NDC# [address]-94 Reviewed 07/26/2013 12:00 AM X-RAY EXAM OF HIP Reviewed 07/26/2013 12:00 AM Depo-Medrol, Per 80 Mg NDC#1167-5891-85 Reviewed 07/26/2013 12:00 AM Decadron, Per 1 Mg NDC# [address]-46 Reviewed 10/05/2013 12:00 AM Depo-Medrol 80 Mg Im/C'padmini Reviewed 10/05/2013 12:00 AM Decadron, Per 1 Mg NDC# [address]-57 Reviewed 12/18/2013 12:00 AM X-RAY EXAM NECK [...] JOINT/BURSA W/O US Reviewed 03/28/2015 12:00 AM Yahir Per 10 Mg [facility]#[address]-55 Reviewed Results Summary Data and Description Results [...] BILI 1.10 mg/dLCALCIUM 9.40 mg/dLeGFR >60 mL/min/1.73 [id number] 145.0 mg/dLCHOLESTEROL 208.0 mg/dLHDL 37.0 mg/dLLDL (CALC) [...] 10:56AM Bronchitis, Acute Oct 07 2015 10:45AM Payers Insurance Name Company Name Plan Name Plan Number Policy Number Policy Group Number Start Date Medicare Part A Medicare Part A [id number] N/A Cigna Cigna [id number] N/A Medicare Part B Medicare Of [place] [id number] November History of Encounters Visit Date Visit Type Provider 10/07/2015 Office visit Hernandez Arroyo MD 09/25/2015 [...] 07/26/2013 Office visit Hernandez Arroyo MD 07/21/2013 [facility] Refugio Austin MD 07/17/2013 Office visit Refugio Austin MD 05/17/2013 Office visit Hernandez Arroyo MD 05/02/2013 Office visit Refugio Austin MD 04/26/2013 Office visit Hernandez Arroyo MD 03/16/2013 [facility] Chapincito Steele MD 03/01/2013 Office visit Chapincito Steele MD 02/16/2013 Office visit Hernandez Arroyo MD 01/27/2013 Office visit Chapincito Steele MD 01/13/2013 [facility] Chapincito Steele MD 12/15/2012 Office visit Chapincito Steele MD 12/07/2012 Office visit Nica Cartwright APRN 11/30/2012 Office visit Chapincito Steele MD 11/18/2012 Office visit Hernandez Arroyo MD 09/02/2012 Office visit Hernandez Arroyo MD 08/10/2012 Office visit Refugio Austin MD 08/04/2012 Hospital Refugio Austin MD 07/12/2012 Office visit Refugio Austin MD 07/12/2012 [facility] Jo Paris MD 07/01/2012 Office visit Hernandez Arroyo MD 05/30/2012 Office visit Hernandez Arroyo MD 05/10/2012 Office visit Refugio Austin MD 05/02/2012 [facility] Refugio Austin MD 04/26/2012 Office visit Refugio Austin MD 04/26/2012 Office visit Hernandez Arroyo MD 03/10/2012 Office visit Hernandez Arroyo MD
--- OUTSIDE RECORDS SUMMARY | 2019-03-20 09:38 | XMS REPORT ---
Author Author Hernandez Arroyo [facility] Address [address] [place], [place] [id number] Care Team Providers Care Binding Bench Worker Name Role Phone Hernandez Arroyo PCP Hernandez [...] 90 days Lasix 40 mg oral tablet 07/21/2017 11/18/2017 take 1 tablet (40 mg) by oral route once daily for 30 days Lotrisone 1-0.05 % topical cream 08/04/2017 08/18/2017 APPLY TO AFFECTED AND SURROUNDING AREAS OF SKIN 2 TIMES PER DAY, MORNING AND EVENING FOR 2 WEEKS potassium chloride 20 mEq oral tablet extended release 08/05/2017 take 1 tablet (20 meq) by oral route once daily with food for 90 days gabapentin 300 mg oral capsule 08/05/2017 11/03/2017 take 2 capsules by oral route 2 times a day [...] route daily as needed for 30 days [place] 10-325 mg oral tablet 01/29/2016 02/28/2016 take [...] HC BMI BSA BMI Percentile O2 Sat(%) 08/05/2017 10:54:00 AM 110 mmHg 62 mmHg [...] 12:00 AM Kenalog, Per 10 Mg [facility]#4986-7923-76 Reviewed 10/07/2015 12:00 AM CHEST X-RAY 2VW FRONTAL&LATL Reviewed 10/08/2015 12:00 AM CONTRAST X-RAY ESOPHAGUS Reviewed 10/16/2015 12:00 AM Decadron, Per 1 Mg [facility]# [address]-93 Reviewed 10/16/2015 12:00 AM Depo-Medrol, Per 80 Mg ND#[address]-44 Reviewed 12/18/2015 12:00 AM BIOPSY SKIN LESION Reviewed 01/29/2016 12:00 AM Decadron, Per 1 Mg [facility]# [address]-73 Reviewed 01/29/2016 12:00 AM Depo-Medrol, Per 80 Mg ND#[address]-70 Reviewed 02/26/2016 12:00 AM COMPLETE CBC W/AUTO [...] 11/30/2012 12:00 AM Kenalog, Per 10 Mg N[facility]#9157-5392-21 Reviewed 12/15/2012 12:00 AM DRAIN/INJ JOINT/BURSA W/O US Reviewed 12/15/2012 12:00 AM Kenalog, Per 10 Mg [facility]#0569-3976-26 Reviewed 01/27/2013 12:00 AM INJ TRIGGER POINT 1/2 MUSCL Reviewed 01/27/2013 12:00 AM Kenalog, Per 10 Mg [facility]#9065-5316-57 Reviewed 04/26/2013 12:00 AM Depo-Medrol, Per 80 Mg [facility]#7099-2805-06 Reviewed 04/26/2013 12:00 AM Decadron, Per 1 Mg [facility]# [address]-24 Reviewed 07/26/2013 12:00 AM X-RAY EXAM OF HIP Reviewed 07/26/2013 12:00 AM Depo-Medrol, Per 80 Mg [facility]#5680-9739-57 Reviewed 07/26/2013 12:00 AM Decadron, Per 1 Mg [facility]# [address]-73 Reviewed 10/05/2013 12:00 AM Depo-Medrol 80 Mg Im/C'padmini Reviewed 10/05/2013 12:00 AM Decadron, Per 1 Mg [facility]# [address]-25 Reviewed 12/18/2013 12:00 AM X-RAY EXAM NECK [...] 03/28/2015 12:00 AM Kenalog, Per 10 Mg [facility]#6302-9533-56 Reviewed Results Summary Date and Description Results [...] 4:29PM Hypertension Oct 17 2014 10:10AM Sinusitis b 2014 10:10AM BPH (benign prostatic hyperplasia) Oct [...] Low Back Pain Aug 05 2017 10:59AM Payers Insurance Name Company Name Plan Name Plan Number Policy Number Policy Group Number Start Date Medicare RHC Medicare RHC [id number] N/A Cigna Cigna [id number] N/A Medicare Part B Medicare Of [place] [id number] November Medicare Part A Medicare Part A [id number] N/A Medicare Part A Medicare - Lab/Xray [id number] N/A History of Encounters Visit Date Visit Type Provider 08/05/2017 Office visit Hernandez Arroyo MD 07/21/2017 Office visit Hernandez Arroyo MD 07/16/2017 Hospital Jo Paris MD 07/16/2017 [facility] Luis Mcgovern MD 07/08/2017 Office [...] 04/26/2013 Office visit Hernandez Arroyo MD 03/16/2013 [facility] Chapincito Steele MD 03/01/2013 [...]
--- OUTSIDE RECORDS SUMMARY | 2019-03-20 09:40 | XMS REPORT ---
Author Author Hernandez Arroyo [facility] Address [address] [place], [place] [id number] Care Team Providers Care Family And Consumer Sciences Professor Name Role Phone Hernandez Arroyo PCP Unavailable [...] crush, chew and/or divide. for 30 days hydrochlorothiazide 25 mg oral tablet 03/10/2016 TAKE 1 TABLET BY MOUTH ONCE DAILY Tylenol-Codeine #3 300-30 mg oral tablet 08/07/2016 take 1 tablet by oral route every 6 hours as needed furosemide 40 mg oral tablet 07/23/2016 07/18/2017 take 1 tablet by oral route 2 times a day for 30 days Proscar 5 mg oral tablet 07/23/2016 07/18/2017 take 1 tablet (5 mg) by oral route once daily for 90 days Breo Ellipta 200-25 mcg/dose inhalation blister with device 08/07/2016 inhale 1 puff by inhalation route once daily at the same time each day pantoprazole 40 mg oral tablet,delayed release (DR/EC) 08/10/2016 TAKE 1 TABLET DAILY Reglan 5 mg oral tablet 08/10/2016 12/08/2016 take 1 tablet by oral route 3 times a for 30 days celecoxib 100 mg oral capsule 09/21/2016 TAKE 1 CAP DAILY FOR 90 DAYS Zofran ODT 4 mg oral tablet,disintegrating 10/05/2016 dissolve 1 tablet by oral route 3 times a day as needed baclofen 10 mg oral tablet 10/26/2016 take 1 tablet by oral route 3 times a day as needed Name Start Date Expiration Date [...] route daily as needed for 30 days [place] 10-325 mg oral tablet 01/29/2016 02/28/2016 take [...] HC BMI BSA BMI Percentile O2 Sat(%) 10/26/2016 9:57:00 AM 150 mmHg 86 mmHg [...] Mg [facility]#3702-6658-60 Reviewed 10/07/2015 12:00 AM CHEST X-RAY 2VW FRONTAL&LATL Reviewed 10/08/2015 12:00 AM CONTRAST X-RAY ESOPHAGUS Reviewed 10/16/2015 12:00 AM Decadron, Per 1 Mg [facility]# [address]-09 Reviewed 10/16/2015 12:00 AM Depo-Medrol, Per 80 Mg [facility]#[address]-44 Reviewed 12/18/2015 12:00 AM BIOPSY SKIN LESION Reviewed 01/29/2016 12:00 AM Decadron, Per 1 Mg [facility]# [address]-50 Reviewed 01/29/2016 12:00 AM Depo-Medrol, Per 80 Mg [facility]#[address]-50 Reviewed 02/26/2016 12:00 AM COMPLETE CBC W/AUTO [...] 11/30/2012 12:00 AM Kenalog, Per 10 Mg NDC#6922-0532-60 Reviewed 12/15/2012 12:00 AM DRAIN/INJ JOINT/BURSA W/O US Reviewed 12/15/2012 12:00 AM Kenalog, Per 10 Mg [facility]#1283-5989-54 Reviewed 01/27/2013 12:00 AM INJ TRIGGER POINT 1/2 MUSCL Reviewed 01/27/2013 12:00 AM Kenalog, Per 10 Mg [facility]#9005-0836-76 Reviewed 04/26/2013 12:00 AM Depo-Medrol, Per 80 Mg [facility]#1457-4545-53 Reviewed 04/26/2013 12:00 AM Decadron, Per 1 Mg [facility]# [address]-14 Reviewed 07/26/2013 12:00 AM X-RAY EXAM OF HIP Reviewed 07/26/2013 12:00 AM Depo-Medrol, Per 80 Mg [facility]#4790-4992-75 Reviewed 07/26/2013 12:00 AM Decadron, Per 1 Mg ND# [address]-10 Reviewed 10/05/2013 12:00 AM Depo-Medrol 80 Mg Im/C'padmini Reviewed 10/05/2013 12:00 AM Decadron, Per 1 Mg [facility]# [address]-20 Reviewed 12/18/2013 12:00 AM X-RAY EXAM NECK [...] 03/28/2015 12:00 AM Kensha, Per 10 Mg [facility]#1492-2570-15 Reviewed Results Summary Data and Description Results [...] 4.89 HGB 15.60 g/dLHCT 44.10 %MCV 90.0 fLH 31.90 pgHC 35.40 g/dLRDW SD 47 RDW CV 14.20 [...] Low Back Pain Oct 26 2016 10:03AM Payers Insurance Name Company Name Plan Name Plan Number Policy Number Policy Group Number Start Date Medicare [facility] Medicare [facility] [id number] N/A Cigna Cigna [id number] N/A Medicare Part B Medicare Of [place] [id number] November Medicare Part A Medicare Part A [id number] N/A Medicare Part A Medicare - Lab/Xray [id number] N/A History of Encounters Visit Date Visit Type Provider 10/26/2016 Office visit Hernandez Arroyo MD 10/05/2016 [...] visit Hernandez Arroyo MD 12/24/2014 Procedures Camryn OJSHI 12/12/2014 Office visit Hernandez Arroyo MD 12/10/2014 [...] 04/26/2013 Office visit Hernandez Arroyo MD 03/16/2013 [facility] Chapincito Steele MD 03/01/2013 Office visit Chapincito Steele MD 02/16/2013 Office visit Hernandez Arroyo MD 01/27/2013 Office visit Chapincito Steele MD 01/13/2013 [facility] Chapincito Steele MD 12/15/2012 Office visit Chapincito Steele MD 12/07/2012 Office visit Nica Cartwright APRN 11/30/2012 Office visit Chapincito Steele MD 11/18/2012 Office visit Hernandez Arroyo MD 09/02/2012 Office visit Hernandez Arroyo MD 08/10/2012 Office visit Refugio Austin MD 08/04/2012 Hospital Refugio Austin MD 07/12/2012 Office visit Refugio Austin MD 07/12/2012 [facility] Jo Paris MD 07/01/2012 Office visit Hernandez Arroyo MD 05/30/2012 Office visit Hernandez Arroyo MD 05/10/2012 Office visit Refugio Austin MD 05/02/2012 Hospital Refugio Austin MD 04/26/2012 Office visit Refugio Austin MD 04/26/2012 Office visit Hernandez Arroyo MD 03/10/2012 Office visit Hernandez Arroyo MD
[2019-03-20] MEDS ORDERED: proPOfol 200 MG/20 ML (DIPRIVAN) VIAL IV ONE (09:41)
[2019-03-20] MEDS ORDERED: SUCCINYLCHOLINE INJ 100 MG/5 ML SYR ONE (09:41)
[2019-03-20] MEDS ORDERED: ROCURONIUM 10 MG/ML 5 ML SYRINGE IV ONE (09:41)
[2019-03-20] MEDS ORDERED: LIDOCAINE PF 2% 5 ML (XYLOCAINE) VIAL ONE (09:41)
[2019-03-20] MEDS ORDERED: fentaNYL INJECTION 100 MCG/2 ML AMP ONE (09:41)
[2019-03-20] MEDS ORDERED: ONDANSETRON 4 MG/2 ML (SDV) Z0FRAN ONE (09:41)
--- OUTSIDE RECORDS SUMMARY | 2019-03-20 09:41 | XMS REPORT ---
Author Author Camryn Del Rosario [facility] Address [address] [place], [place] [address] Care Team Providers Care Yard Switcher Name Role Phone Camryn Del Rosario PCP Allergies and Adverse Reactions Name Reaction Notes Demerol codeine sulfate Plan of Treatment Planned Activity Comments Planned Date Planned Time Plan/Goal CHEST X-RAY 2VW FRONTAL&LATL 04/26/2012 12:00 AM Medications Active Name Start Date Estimated Completion Date SIG Comments Aspir-81 81 mg oral tablet,delayed release (DR/EC) take 1 tablet (81 mg) by oral route once daily meloxicam 7.5 mg oral tablet take 1 tablet (7.5 mg) by oral route once daily Flonase 50 mcg/actuation nasal spray,suspension 10/17/2014 inhale 1 spray (50 mcg) in each nostril by intranasal route once daily hydrochlorothiazide 25 mg oral tablet 10/17/2014 10/12/2015 take 1 tablet (25 mg) by oral route once daily for 90 days cephalexin 500 mg oral capsule take 1 capsule (500 mg) by oral route every 6 hours Centrum Silver 0.4-300-250 mg-mcg-mcg oral tablet take 1 tablet by oral route daily Naphcon-A 0.025-0.3 % ophthalmic drops instill 1 drop in affected eye daily MagOx 400 mg oral tablet 06/10/2015 06/04/2016 take 1 tablet by oral route daily for 30 days Proscar 5 mg oral tablet 06/10/2015 06/04/2016 take 1 tablet (5 mg) by oral route once daily for 90 days pantoprazole 40 mg oral tablet,delayed release (DR/EC) 06/11/2015 TAKE 1 TABLET DAILY carvedilol 6.25 mg oral tablet 06/11/2015 TAKE 1 TABLET TWICE A DAY WITH FOOD meloxicam 7.5 mg oral tablet 06/11/2015 TAKE 1 TABLET ONCE DAILY Lyrica 75 mg oral capsule 06/24/2015 07/01/2015 take 1 capsule (75 mg) by oral route 2 times per day for 7 days Name Start Date Expiration [...] 3 times a day for 5 days [place] 7.5-325 mg oral tablet 05/07/2015 06/06/2015 take 1 tablet by oral route every 8 hours for 30 days back pain Zofran ODT 4 mg oral tablet,disintegrating 06/14/2015 06/17/2015 dissolve 1 tablet by oral route every [...] HC BMI BSA BMI Percentile O2 Sat(%) 07/01/2015 10:03:00 AM 112 mmHg 58 mmHg [...] rpm 98.5 F 197.125 lbs 68 in 29.97 kg/m2 2.0712 m 66 % 05/07/2015 9:31:00 AM 132 mmHg 80 mmHg 80 bpm 18 rpm 97.7 F 198.25 lbs 68 in 30.1435 kg/m 2.08 m2 03/28/2015 3:19:00 PM 110 mmHg 66 mmHg 76 bpm 18 rpm 97.9 F 195 lbs 68 in 29.65 kg/m2 2.06 m 12/31/2014 9:47:00 AM 148 mmHg 90 mmHg 88 bpm 18 rpm 97.7 F 193 lbs 68 in 29.3452 kg/m 2.05 m2 12/24/2014 1:45:00 PM 136 mmHg 82 mmHg 65 bpm 20 rpm 96.8 F 191 lbs 68 in 29.04 kg/m2 2.0388 m 12/12/2014 8:26:00 AM 128 mmHg 82 mmHg 82 bpm 18 rpm 97.3 F 188 lbs 68 in 28.585 kg/m 2.02 m2 12/10/2014 1:08:00 PM 138 mmHg 84 mmHg 80 bpm 18 rpm 98.4 F 189 lbs 68 in 28.74 kg/m2 2.0281 m 10/17/2014 10:03:00 AM 154 mmHg 82 mmHg 72 bpm 18 rpm 98.9 F 190 lbs 68 in 28.8891 kg/m 2.03 m2 10/15/2014 11:02:00 AM 132 mmHg 84 mmHg 73 bpm 18 rpm 97 F 192 lbs 68 in 29.19 kg/m2 2.0441 m 10/03/2014 10:39:00 AM 132 mmHg 78 mmHg 88 bpm 18 rpm 97.5 F 190 lbs 68 in 28.8891 kg/m 2.03 m2 10/01/2014 4:05:00 PM 122 mmHg [...] AM RADEX ABDOMEN COMPL W/DCBTS&/ERC VIEWS Returned 07/01/2012 12:00 AM X-RAY EXAM [...] 11/30/2012 12:00 AM Kenalog, Per 10 Mg [facility]#8152-7560-05 Reviewed 12/15/2012 12:00 AM DRAIN/INJ JOINT/BURSA W/O US Reviewed 12/15/2012 12:00 AM Kenalog, Per 10 Mg [facility]#9313-9305-23 Reviewed 01/27/2013 12:00 AM INJ TRIGGER POINT 1/2 MUSCL Reviewed 01/27/2013 12:00 AM Kenalog, Per 10 Mg [facility]#6948-8145-56 Reviewed 04/26/2013 12:00 AM Depo-Medrol, Per 80 Mg [facility]#7074-8227-44 Reviewed 04/26/2013 12:00 AM Decadron, Per 1 Mg [facility]# [address]-69 Reviewed 07/26/2013 12:00 AM X-RAY EXAM OF HIP Reviewed 07/26/2013 12:00 AM Depo-Medrol, Per 80 Mg N[facility]#9797-2308-35 Reviewed 07/26/2013 12:00 AM Decadron, Per 1 Mg [facility]# [address]-09 Reviewed 10/05/2013 12:00 AM Depo-Medrol 80 Mg Im/C'padmini Reviewed 10/05/2013 12:00 AM Decadron, Per 1 Mg NDC# [address]-29 Reviewed 12/18/2013 12:00 AM X-RAY EXAM NECK [...] 03/28/2015 12:00 AM Kenalog, Per 10 Mg [facility]#0414-4425-35 Reviewed Results Summary Data and Description Results [...] 4.89 HGB 15.60 g/dLHCT 44.10 %MCV 90.0 [facility] 31.90 [facility] 35.[facility] g/dLRDW CV 14.20 %MPV 11.70 fLPLT 117 %NEUT 54.10 %%LYMP 34.90 %%MONO 7.90 %%EOS 2.70 %%BASO 0.40 %#NEUT 2.62 #LYMP 1.69 #MONO 0.38 #EOS 0.13 #BASO 0.02 GLUCOSE 98.0 mg/dLSODIUM 147.0 mmol/LPOTASSIUM 4.30 mmol/LCHLORIDE 109.0 mmol/LCO2 29.0 mmol/LBUN 15.0 mg/dLCREATININE 1.0 mg/dLSGOT/AST 17.0 IU/LSGPT/ALT 12.0 IU/LALK PHOS 72.0 IU/LTOTAL PROTEIN 6.40 g/dLALBUMIN 4.10 g/dLTOTAL BILI 1.10 mg/dLCALCIUM 9.40 mg/dLeGFR >60 mL/min/1.73 [id number] 145.0 mg/dLCHOLESTEROL 208.0 mg/dLHDL 37.0 mg/dLLDL (CALC) [...] bursitis, right hip Jul 01 2015 10:06AM Payers Insurance Name Company Name Plan Name Plan Number Policy Number Policy Group Number Start Date Medicare Part A Medicare Part A [id number] N/A Cigna Cigna [id number] N/A Medicare Part B Medicare Of [place] [id number] November History of Encounters Visit Date Visit Type Provider 07/01/2015 Office visit Camryn JOSHI 06/24/2015 Office [...] visit Hernandez Arroyo MD 10/30/2013 Office visit RJA JOSHI 10/23/2013 Office visit Hernandez Arroyo MD [...]
[2019-03-20] MEDS ORDERED: MIDAZOLAM 2 MG/2 ML (VERSED) VIAL ONE (09:42)
[2019-03-20] MEDS ORDERED: SEVOFLURANE (ULTANE) 15 ML INHAL SOLN ONE ×13 (09:42→14:29)
--- OUTSIDE RECORDS SUMMARY | 2019-03-20 09:42 | XMS REPORT ---
Author Author Hernandez Arroyo [facility] Address [address] [place], [place] [address] Care Team Providers Care Welding Machine Tender Name Role Phone Hernandez Arroyo PCP Unavailable [...] oral route once daily for 7 days [place] oral tablet 5-325 mg 10/15/2014 11/14/2014 take [...] HC BMI BSA BMI Percentile O2 Sat(%) 12/31/2014 9:47:00 AM 148 mmHg 90 mmHg [...] 07/01/2012 12:00 AM X-RAY EXAM L-S SPINE /3 VWS Reviewed 07/12/2012 12:00 AM COMPLETE CBC [...] 50.0 mg/dLLDL (CALC) 163.0 mg/dLHGB A1C 5.40 % 08/01/2014 12:00 AM Treatment/Therapy LESI - L4-5 [...] BILI 1.10 mg/dLCALCIUM 9.40 mg/dLeGFR >60 mL/min/1.73 [id number] 145.0 mg/dLCHOLESTEROL 208.0 mg/dLHDL 37.0 mg/dLLDL (CALC) 142.0 mg/dLHGB A1C 5.0 % History Of Immunizations Not available. History of [...] Trochanteric Bursitis Feb 2014 11:04AM Spondylosis, lumbar b 2014 4:29PM Trochanteric bursitis Oct 15 2014 4:29PM Hypertension Oct 17 2014 10:10AM Sinusitis Oct 17 2014 10:10AM BPH (benign prostatic hyperplasia) Oct 17 2014 10:10AM Hypertension Dec 12 2014 8:29AM Hyperglycemia Dec 12 2014 8:29AM Chronic Right Trochanteric Bursitis Dec 24 2014 1:48PM Hyperlipidemia, unspecified Dec 31 2014 9:52AM Vision changes Dec 31 2014 9:52AM Payers Insurance Name Company Name Plan Name Plan Number Policy Number Policy Group Number Start Date Medicare Part A Medicare Part A [id number] N/A Cigna Cigna [id number] N/A Medicare Part B Medicare Of [place] [id number] November History of Encounters Visit Date Visit Type Provider 12/31/2014 Office visit Hernandez Arroyo MD 12/24/2014 Procedures Camryn JOSHI 12/12/2014 Office visit Hernandez Arroyo MD 12/10/2014 Office visit Camryn JOSHI 10/17/2014 Office visit Hernandez Arroyo MD 10/15/2014 Office visit Camryn JOSHI 10/03/2014 Office visit Hernandez Arroyo MD 10/01/2014 Office visit Camryn JOSHI 08/23/2014 Office visit Camryn BAKERP 07/27/2014 Office visit Camryn M. Miugel Ángel BAKERP 07/16/2014 Office visit Hernandez Arroyo MD 06/25/2014 Office visit Hernandez Arroyo MD 05/29/2014 Office visit Hernandez Arroyo MD 04/23/2014 Office visit Camryn M. Miguel Ángel BAKERP 03/26/2014 Office visit Camryn Del Rosario FITTING ROOM ATTENDANT 03/06/2014 Office visit Camryn MitzyMaricarmen BAKERP 02/06/2014 Office visit Camryn MitzyMaricarmen BAKERP 01/08/2014 Office visit Camryn M. Miguel Ángel BAKERP 12/18/2013 Office visit Hernandez Arroyo MD 10/30/2013 Office visit RAJ TESSA BAKERP 10/23/2013 Office visit Hernandez Arroyo MD [...] 01/27/2013 Office visit Chapincito Steele MD 01/13/2013 [facility] Chapincito Steele MD 12/15/2012 Office visit Chapincito Steele MD 12/07/2012 Office visit Ncia Cartwright APRN 11/30/2012 Office visit Chapincito Steele [...] Hospital Refugio Austin MD 04/26/2012 Office visit Hernandez Arroyo MD 04/26/2012 Office visit Refugio Austin MD 03/10/2012 Office visit Hernandez Arroyo MD
--- OUTSIDE RECORDS SUMMARY | 2019-03-20 09:44 | XMS REPORT ---
Author Author Hernandez Arroyo [facility] Address [address] [place], [place] [address] Care Team Providers Care Gunner'S Mate Name Role Phone Hernandez Arroyo PCP Unavailable Allergies and Adverse Reactions Name Reaction Notes Demerol codeine sulfate Plan of Treatment Planned Activity Comments Planned Date Planned Time Plan/Goal COMPLETE CBC W/AUTO DIFF WBC 02/26/2016 12:00 AM COMPREHEN METABOLIC PANEL 02/26/2016 12:00 AM CHEST X-RAY 2VW FRONTAL&LATL 04/26/2012 [...] ORAL ROUTE DAILY NEEDED FOR 30 DAYS [place] 10-325 mg oral tablet 01/29/2016 02/28/2016 take [...] by oral route daily for 90 days Name Start Date [...] HC BMI BSA BMI Percentile O2 Sat(%) 02/26/2016 9:42:00 AM 130 mmHg 80 mmHg [...] 07/01/2015 12:00 AM Kenalog, Per 10 Mg [facility]#8696-6294-07 Reviewed 10/07/2015 12:00 AM CHEST X-RAY 2VW FRONTAL&LATL Reviewed 10/08/2015 12:00 AM CONTRAST X-RAY ESOPHAGUS Returned 10/16/2015 12:00 AM Decadron, Per 1 Mg [facility]# [address]-91 Reviewed 10/16/2015 12:00 AM Depo-Medrol, Per 80 Mg [facility]#[address]-41 Reviewed 12/18/2015 12:00 AM BIOPSY SKIN LESION Reviewed 01/29/2016 12:00 AM Decadron, Per 1 Mg [facility]# [address]-21 Reviewed 01/29/2016 12:00 AM Depo-Medrol, Per 80 Mg [facility]#[address]-45 Reviewed 07/01/2012 12:00 AM X-RAY EXAM L-S [...] 11/30/2012 12:00 AM Kenalog, Per 10 Mg [facility]#6505-6695-70 Reviewed 12/15/2012 12:00 AM DRAIN/INJ JOINT/BURSA W/O US Reviewed 12/15/2012 12:00 AM Kenalog, Per 10 Mg [facility]#8268-3954-71 Reviewed 01/27/2013 12:00 AM INJ TRIGGER POINT 1/2 MUSCL Reviewed 01/27/2013 12:00 AM Kenalog, Per 10 Mg [facility]#6949-5421-41 Reviewed 04/26/2013 12:00 AM Depo-Medrol, Per 80 Mg [facility]#0582-1201-93 Reviewed 04/26/2013 12:00 AM Decadron, Per 1 Mg [facility]# [address]-30 Reviewed 07/26/2013 12:00 AM X-RAY EXAM OF HIP Reviewed 07/26/2013 12:00 AM Depo-Medrol, Per [address] [facility]#7633-5975-12 Reviewed 07/26/2013 12:00 AM Decadron, Per [address] [facility]# [address]-20 Reviewed 10/05/2013 12:00 AM Depo-Medrol 80 Mg Im/C'padmini Reviewed 10/05/2013 12:00 AM Decadron, Per [address] [facility]# [address]-08 Reviewed 12/18/2013 12:00 AM X-RAY EXAM NECK [...] 12:00 AM Kenalog, Per [address] [facility]#5461-6738-52 Reviewed Results Summary Data and Description Results [...] BILI 1.10 mg/dLCALCIUM 9.40 mg/dLeGFR >60 mL/min/1.73 [id number] 145.0 mg/dLCHOLESTEROL 208.0 mg/dLHDL 37.0 mg/dLLDL (CALC) [...] lumbar Feb 2014 4:29PM Trochanteric bursitis Feb 9 2014 4:29PM Hypertension Oct 17 2014 10:10AM [...] 9:53AM Essential tremor Feb 26 2016 9:53AM Payers Insurance Name Company Name Plan Name Plan Number Policy Number Policy Group Number Start Date Medicare Part A Medicare [facility] [id number] N/A Cigna Cigna [id number] N/A Medicare Part B Medicare Of [place] [id number] November Medicare Part A Medicare Part A [id number] N/A Medicare Part A Medicare - Lab/Xray [id number] N/A History of Encounters Visit Date Visit Type Provider 02/26/2016 Office visit Hernandez Arroyo MD 01/30/2016 Office visit Hernandez Arroyo MD 01/29/2016 Office visit Hernandez Arroyo MD 12/18/2015 Office visit Hernandez Arroyo MD 11/05/2015 Office visit Hernandez Arroyo MD 10/21/2015 Office visit Refugio Austin MD 10/16/2015 Office visit Hernandez Arroyo MD 10/11/2015 [facility] Refugio Austin MD 10/08/2015 Office visit [...] visit Camryn BAKERP 03/26/2014 Office visit Camryn JOSHI 03/06/2014 Office [...] 04/26/2013 Office visit Hernandez Arroyo MD 03/16/2013 [facility] Chapincito Steele MD 03/01/2013 Office visit Chapincito Steele MD 02/16/2013 Office visit Hernandez Arroyo MD 01/27/2013 Office visit Chapincito Steele MD 01/13/2013 [facility] Chapincito Steeel MD 12/15/2012 Office visit Chapincito Steele MD 12/07/2012 Office visit Nica Cartwright APRN 11/30/2012 Office visit Chapincito Steele MD 11/18/2012 Office visit Hernandez Arroyo MD 09/02/2012 Office visit Hernandez Arroyo MD 08/10/2012 Office visit Refugio Austin MD 08/04/2012 [facility] Refugio Austin MD 07/12/2012 Office visit Refugio Austin MD 07/12/2012 [facility] Jo Paris MD 07/01/2012 Office visit Hernandez Arroyo MD 05/30/2012 Office visit Hernandez Arroyo MD 05/10/2012 Office visit Refugio Austin MD 05/02/2012 [facility] Refugio Austin MD 04/26/2012 Office visit Refugio Austin MD 04/26/2012 Office visit Hernandez Arroyo MD 03/10/2012 Office visit Hernandez Arroyo MD
--- OUTSIDE RECORDS SUMMARY | 2019-03-20 09:46 | XMS REPORT ---
Author Author Hernandez Arroyo Organization [facility] Address [address] [place], [place] [address] Care Team Providers Care Linen Clerk Name Role Phone Hernandez Arroyo PCP Unavailable [...] daily at the same time each day furosemide 40 mg oral tablet 07/23/2016 07/18/2017 [...] oral route every 6 hours as needed baclofen 10 mg oral tablet 12/15/2016 take 1 tablet by oral route 3 times a day as needed Lotrisone 1-0.05 % topical cream 02/18/2017 04/15/2017 [...] route daily as needed for 30 days [place] 10-325 mg oral tablet 01/29/2016 02/28/2016 take [...] HC BMI BSA BMI Percentile O2 Sat(%) 02/18/2017 10:43:00 AM 126 mmHg 67 mmHg [...] AM Kenalog, Per 10 Mg [facility]#1232-2718-90 Reviewed 10/07/2015 12:00 AM CHEST X-RAY 2VW FRONTAL&LATL Reviewed 10/08/2015 12:00 AM CONTRAST X-RAY ESOPHAGUS Reviewed 10/16/2015 12:00 AM Decadron, Per 1 Mg ND# [address]-78 Reviewed 10/16/2015 12:00 AM Depo-Medrol, Per 80 Mg NDC#[address]-21 Reviewed 12/18/2015 12:00 AM BIOPSY SKIN LESION Reviewed 01/29/2016 12:00 AM Decadron, Per 1 Mg ND# [address]-57 Reviewed 01/29/2016 12:00 AM Depo-Medrol, Per 80 Mg NDC#[address]-54 Reviewed 02/26/2016 12:00 AM COMPLETE CBC W/AUTO [...] 11/30/2012 12:00 AM Kenalog, Per 10 Mg NDC#2162-0986-63 Reviewed 12/15/2012 12:00 AM DRAIN/INJ JOINT/BURSA W/O US Reviewed 12/15/2012 12:00 AM Kenalog, Per 10 Mg NDC#1184-2177-13 Reviewed 01/27/2013 12:00 AM INJ TRIGGER POINT 1/2 MUSCL Reviewed 01/27/2013 12:00 AM Kenalog, Per 10 Mg NDC#3280-5159-79 Reviewed 04/26/2013 12:00 AM Depo-Medrol, Per 80 Mg NDC#6070-9487-16 Reviewed 04/26/2013 12:00 AM Decadron, Per 1 Mg NDC# [address]-37 Reviewed 07/26/2013 12:00 AM X-RAY EXAM OF HIP Reviewed 07/26/2013 12:00 AM Depo-Medrol, Per 80 Mg NDC#9174-2942-97 Reviewed 07/26/2013 12:00 AM Decadron, Per 1 Mg NDC# [address]-96 Reviewed 10/05/2013 12:00 AM Depo-Medrol 80 Mg Im/C'padmini Reviewed 10/05/2013 12:00 AM Decadron, Per 1 Mg [facility]# [address]-48 Reviewed 12/18/2013 12:00 AM X-RAY EXAM NECK [...] AM Kenalog, Per 10 Mg [facility]#0914-2018-93 Reviewed Results Summary Date and Description Results [...] 2017 10:45AM Tremor Feb 18 2017 10:45AM Payers Insurance Name Company Name Plan Name Plan Number Policy Number Policy Group Number Start Date Medicare RHC Medicare RHC [id number] N/A Cigna Cigna [id number] N/A Medicare Part B Medicare Of [place] [id number] November Medicare Part A Medicare Part A [id number] N/A Medicare Part A Medicare - Lab/Xray [id number] N/A History of Encounters Visit Date Visit Type Provider 02/18/2017 Office visit Hernandez Arroyo MD 12/10/2016 [...] 04/06/2016 Office visit Hernandez Arroyo MD 03/05/2016 [facility] Jo Paris MD 03/03/2016 Office visit Hernandez Arroyo MD 02/26/2016 Office visit Hernandez Arroyo MD 01/30/2016 Office visit Hernandez Arroyo MD 01/29/2016 Office visit Hernandez Arroyo MD 12/18/2015 Office visit Hernandez Arryoo MD 11/05/2015 Office visit Hernandez Arroyo MD [...] 07/26/2013 Office visit Hernandez Arroyo MD 07/21/2013 [facility] Refugio Austin MD 07/17/2013 Office visit Refugio Austin MD 05/17/2013 Office visit Hernandez Arroyo MD 05/02/2013 Office visit Refugio Austin MD 04/26/2013 Office visit Hernandez Arroyo MD 03/16/2013 Hospital Chapincito Steele MD 03/01/2013 Office visit Chapincito Steele MD 02/16/2013 Office visit Hernandez Arroyo MD 01/27/2013 Office visit Chapincito Steele MD 01/13/2013 [facility] Chapincito Steele MD 12/15/2012 Office visit Chapincito Steele MD 12/07/2012 Office visit Nica Cartwright APRN 11/30/2012 Office visit Chapincito Steele MD 11/18/2012 Office visit Hernandez Arroyo MD 09/02/2012 Office visit Hernandez Arroyo MD 08/10/2012 Office visit Refugio Austin MD 08/04/2012 [facility] Refugio Austin MD 07/12/2012 Office visit Reufgio Austin MD 07/12/2012 [facility] Jo Paris MD 07/01/2012 Office visit Hernandez Arroyo MD 05/30/2012 Office visit Hernandez Arroyo MD 05/10/2012 Office visit Refugio Austin MD 05/02/2012 [facility] Refugio Austin MD 04/26/2012 Office visit Refugio Austin MD 04/26/2012 Office visit Hernandez Arroyo MD 03/10/2012 Office visit Hernandez Arrooy MD
[2019-03-20] MEDS ORDERED: NS (IVPB) 250 ML ONE (09:47)
--- OUTSIDE RECORDS SUMMARY | 2019-03-20 09:48 | XMS REPORT ---
Author Author Hernandez Arroyo [facility] Address [address] [facility] [address] [place], [place] [address] Care Team Providers Care Metal Fabricating Supervisor Name Role Phone Hernandez Arroyo PCP Unavailable [...] 3 times a day for 5 days [place] 7.5-325 mg oral tablet 05/07/2015 06/06/2015 take 1 tablet by oral route every 8 hours for 30 days back pain Zoalice ODT 4 mg oral tablet,disintegrating 06/14/2015 06/17/2015 [...] HC BMI BSA BMI Percentile O2 Sat(%) 06/24/2015 10:43:00 AM 116 mmHg 82 mmHg [...] 11/30/2012 12:00 AM Kenalog, Per 10 Mg NDC#0617-2324-74 Reviewed 12/15/2012 12:00 AM DRAIN/INJ JOINT/BURSA W/O US Reviewed 12/15/2012 12:00 AM Kenalog, Per 10 Mg NDC#1984-8884-16 Reviewed 01/27/2013 12:00 AM INJ TRIGGER POINT 1/2 MUSCL Reviewed 01/27/2013 12:00 AM Kenalog, Per 10 Mg NDC#0472-7577-61 Reviewed 04/26/2013 12:00 AM Depo-Medrol, Per 80 Mg NDC#4368-5208-95 Reviewed 04/26/2013 12:00 AM Decadron, Per 1 Mg NDC# [address]-40 Reviewed 07/26/2013 12:00 AM X-RAY EXAM OF HIP Reviewed 07/26/2013 12:00 AM Depo-Medrol, Per 80 Mg NDC#7117-0078-95 Reviewed 07/26/2013 12:00 AM Decadron, Per 1 Mg NDC# [address]-31 Reviewed 10/05/2013 12:00 AM Depo-Medrol 80 Mg Im/C'padmini Reviewed 10/05/2013 12:00 AM Decadron, Per 1 Mg NDC# [address]-31 Reviewed 12/18/2013 12:00 AM X-RAY EXAM NECK [...] AM Kenalog, Per 10 Mg [facility]#6235-4347-48 Reviewed Results Summary Data and Description Results [...] BILI 1.10 mg/dLCALCIUM 9.40 mg/dLeGFR >60 mL/min/1.73 [id number] 145.0 mg/dLCHOLESTEROL 208.0 mg/dLHDL 37.0 mg/dLLDL (CALC) [...] 5:08PM Essential tremor Jun 24 2015 10:47AM Payers Insurance Name Company Name Plan Name Plan Number Policy Number Policy Group Number Start Date Medicare Part A Medicare Part A [id number] N/A Cigna Cigna [id number] N/A Medicare Part B Medicare Of [place] [id number] November History of Encounters Visit Date Visit Type Provider 06/24/2015 Office visit Hernandez Arroyo MD 06/14/2015 [...] 01/27/2013 Office visit Chapincito Steele MD 01/13/2013 [facility] Chapincito Steele MD 12/15/2012 Office visit Chapincito Steele MD 12/07/2012 Office visit Nica Cartwright APRN 11/30/2012 Office visit Chapincito Steele MD 11/18/2012 Office visit Hernandez Arroyo MD 09/02/2012 Office visit Hernandez Arroyo MD 08/10/2012 Office visit Refugio Austin MD 08/04/2012 [facility] Refugio Austin MD 07/12/2012 Office visit Refugio Austin MD 07/12/2012 [facility] Jo Paris MD 07/01/2012 Office visit Hernandez Arroyo MD 05/30/2012 Office visit Hernandez Arroyo MD 05/10/2012 Office visit Refugio Austin MD 05/02/2012 Hospital Refugio Austin MD 04/26/2012 Office visit Refugio Austin MD 04/26/2012 Office visit Hernandez Arroyo MD 03/10/2012 Office visit Hernandez Arroyo MD
--- OUTSIDE RECORDS SUMMARY | 2019-03-20 09:49 | XMS REPORT ---
Author Author Hernandez Arroyo [facility] Address [address] [facility] [address] [place], [place] [address] Care Team Providers Care Reel Cutter Name Role Phone Hernandez Arroyo PCP Unavailable [...] WITH FOOD meloxicam 7.5 mg oral tablet take 1 tablet (7.5 mg) by oral route once daily Lyrica 75 mg oral capsule take 1 cap daily Name Start Date Expiration Date SIG Comments [...] 3 times a day for 5 days [place] 7.5-325 mg oral tablet 05/07/2015 06/06/2015 take [...] by oral route daily for 30 days Viibryd 10 mg (7)- 20 mg (23) [...] HC BMI BSA BMI Percentile O2 Sat(%) 08/07/2015 10:33:00 AM 124 mmHg 76 mmHg 78 bpm 18 rpm 98.1 F 197 lbs 68 in 29.95 kg/m2 2.07 m2 08/06/2015 3:18:00 PM 118 mmHg 64 mmHg 84 bpm 16 rpm 99.1 F 196 lbs 07/01/2015 10:03:00 AM 112 mmHg 58 mmHg 88 bpm 18 rpm 97.1 F 199 lbs 68 in 30.2575 kg/m 2.08 m2 06/24/2015 10:43:00 AM 116 mmHg 82 mmHg 80 bpm 16 rpm 97.5 F 195 lbs 68 in 29.65 kg/m2 2.06 m 06/14/2015 5:07:00 PM 76 bpm [...] 07/01/2015 12:00 AM Kenalog, Per 10 Mg ND#2032-3659-57 Reviewed 07/01/2012 12:00 AM X-RAY EXAM L-S [...] 11/30/2012 12:00 AM Kenalog, Per 10 Mg NDC#2987-5963-92 Reviewed 12/15/2012 12:00 AM DRAIN/INJ JOINT/BURSA W/O US Reviewed 12/15/2012 12:00 AM Kenalog, Per 10 Mg NDC#2532-8832-47 Reviewed 01/27/2013 12:00 AM INJ TRIGGER POINT 1/2 MUSCL Reviewed 01/27/2013 12:00 AM Kenalog, Per 10 Mg NDC#5657-4720-18 Reviewed 04/26/2013 12:00 AM Depo-Medrol, Per 80 Mg ND#2615-3026-99 Reviewed 04/26/2013 12:00 AM Decadron, Per 1 Mg [facility]# [address]-40 Reviewed 07/26/2013 12:00 AM X-RAY EXAM OF HIP Reviewed 07/26/2013 12:00 AM Depo-Medrol, Per 80 Mg [facility]#2584-3079-81 Reviewed 07/26/2013 12:00 AM Decadron, Per 1 Mg [facility]# [address]-02 Reviewed 10/05/2013 12:00 AM Depo-Medrol 80 Mg Im/C'padmini Reviewed 10/05/2013 12:00 AM Decadron, Per 1 Mg [facility]# [address]-64 Reviewed 12/18/2013 12:00 AM X-RAY EXAM NECK [...] 03/28/2015 12:00 AM Kenalog, Per 10 Mg [facility]#2475-8988-60 Reviewed Results Summary Data and Description Results [...] BILI 1.10 mg/dLCALCIUM 9.40 mg/dLeGFR >60 mL/min/1.73 [id number] 145.0 mg/dLCHOLESTEROL 208.0 mg/dLHDL 37.0 mg/dLLDL (CALC) [...] bursitis, right hip Aug 06 2015 3:24PM Payers Insurance Name Company Name Plan Name Plan Number Policy Number Policy Group Number Start Date Medicare Part A Medicare Part A [id number] N/A Chris Perez [id number] N/A Medicare Part B Medicare Of [place] [id number] November History of Encounters Visit Date Visit Type Provider 08/07/2015 Office visit Hernandez Arroyo MD 08/06/2015 [...] 08/10/2012 Office visit Refugio Austin MD 08/04/2012 [facility] Refugio Austin MD 07/12/2012 Office visit [...]
--- OUTSIDE RECORDS SUMMARY | 2019-03-20 09:51 | XMS REPORT ---
Author Author Hernandez Arroyo [facility] Address [address] [facility] [address] [place], [place] [address] Care Team Providers Care Cyber Security Analyst Name Role Phone Hernandez Arroyo PCP Unavailable [...] 3 times a day for 5 days [place] 7.5-325 mg oral tablet 05/07/2015 06/06/2015 take [...] 11/30/2012 12:00 AM Kenalog, Per 10 Mg NDC#5901-2527-84 Reviewed 12/15/2012 12:00 AM DRAIN/INJ JOINT/BURSA W/O US Reviewed 12/15/2012 12:00 AM Kenalog, Per 10 Mg NDC#6761-5469-18 Reviewed 01/27/2013 12:00 AM INJ TRIGGER POINT 1/2 MUSCL Reviewed 01/27/2013 12:00 AM Kenalog, Per 10 Mg NDC#3627-9855-90 Reviewed 04/26/2013 12:00 AM Depo-Medrol, Per 80 Mg NDC#4905-1871-06 Reviewed 04/26/2013 12:00 AM Decadron, Per 1 Mg NDC# [address]-29 Reviewed 07/26/2013 12:00 AM X-RAY EXAM OF HIP Reviewed 07/26/2013 12:00 AM Depo-Medrol, Per 80 Mg NDC#2190-0964-16 Reviewed 07/26/2013 12:00 AM Decadron, Per 1 Mg NDC# [address]-76 Reviewed 10/05/2013 12:00 AM Depo-Medrol 80 Mg Im/C'padmini Reviewed 10/05/2013 12:00 AM Decadron, Per 1 Mg NDC# [address]-75 Reviewed 12/18/2013 12:00 AM X-RAY EXAM NECK [...] 03/28/2015 12:00 AM Kenalog, Per 10 Mg [facility]#2262-3858-86 Reviewed Results Summary Data and Description Results [...] BILI 1.10 mg/dLCALCIUM 9.40 mg/dLeGFR >60 mL/min/1.73 [id number] 145.0 mg/dLCHOLESTEROL 208.0 mg/dLHDL 37.0 mg/dLLDL (CALC) [...] Date Medicare Part A Medicare Part A [id number] N/A Cigna Cigna [id number] N/A Medicare Part B Medicare Of [place] [id number] November History of Encounters Visit Date Visit [...] 01/27/2013 Office visit Chapincito Steele MD 01/13/2013 [facility] Chapincito Steele MD 12/15/2012 Office visit Chapincito Steele MD 12/07/2012 Office visit Nica Cartwright APRN 11/30/2012 Office visit Chapincito Steele MD 11/18/2012 Office visit Hernandez Arroyo MD 09/02/2012 Office visit Hernandez Arroyo MD 08/10/2012 Office visit Refugio Austin MD 08/04/2012 [facility] Refugio Austin MD 07/12/2012 Office visit Refugio Austin MD 07/12/2012 [facility] Jo Paris MD 07/01/2012 Office visit Hernandez Arroyo MD 05/30/2012 Office visit Hernandez Arroyo MD 05/10/2012 Office visit Refugio Austin MD 05/02/2012 Hospital Refugio Austin MD 04/26/2012 Office visit Refugio Austin MD 04/26/2012 Office visit Hernandez Arroyo MD 03/10/2012 Office visit Hernandez Arroyo MD
--- OUTSIDE RECORDS SUMMARY | 2019-03-20 09:53 | XMS REPORT ---
Author Author Hernandez Arroyo [facility] Address [address] [place], [place] [address] Care Team Providers Care Dispatch Supervisor Name Role Phone Hernandez Arroyo PCP Hernandez [...] daily at the same time each day MagOx 400 mg oral tablet 12/10/2016 03/05/2018 [...] ORAL ROUTE 3 TIMES A DAY NEEDED portable oxygen 11/16/2017 2 litres per nc Tylenol-Codeine #3 300-30 mg oral tablet 12/09/2017 take 1 tablet by oral route every 6 hours as needed Zofran ODT 4 mg oral tablet,disintegrating 12/15/2017 dissolve 1-2 tablets by oral route every 8 hours as needed gabapentin 300 mg oral capsule 12/17/2017 03/12/2019 take 1 capsule by oral route daily for 90 days potassium chloride 20 mEq oral tablet extended release 12/17/2017 12/12/2018 take 1 tablet (20 meq) by oral route 2 times per day with food for 90 days portable oxygen unit 12/20/2017 2 liters per NC Name Start Date Expiration Date SIG Comments [...] route daily as needed for 30 days [place] 10-325 mg oral tablet 01/29/2016 02/28/2016 take [...] route 3 times a for 90 days Proscar 5 mg oral tablet 12/10/2016 12/05/2017 [...] HC BMI BSA BMI Percentile O2 Sat(%) 01/07/2018 10:45:00 AM 88 bpm 18 rpm [...] Kenalog, Per 10 Mg [facility]#2287-5523-27 Reviewed 10/07/2015 12:00 AM CHEST X-RAY 2VW FRONTAL&LATL Reviewed 10/08/2015 12:00 AM CONTRAST X-RAY ESOPHAGUS Reviewed 10/16/2015 12:00 AM Decadron, Per 1 Mg [facility]# [address]-68 Reviewed 10/16/2015 12:00 AM Depo-Medrol, Per 80 Mg [facility]#[address]-50 Reviewed 12/18/2015 12:00 AM BIOPSY SKIN LESION Reviewed 01/29/2016 12:00 AM Decadron, Per 1 Mg [facility]# [address]-03 Reviewed 01/29/2016 12:00 AM Depo-Medrol, Per 80 Mg [facility]#[address]-43 Reviewed 02/26/2016 12:00 AM COMPLETE CBC W/AUTO [...] 09/13/2017 12:00 AM Depo Medrol 40mg Injection, [facility] Medicare Reviewed 09/13/2017 12:00 AM Decadron 4mg Injection, [facility] Medicaid Reviewed 11/03/2017 12:00 AM Rocephin 1 gram Injection Reviewed 11/03/2017 12:00 AM Depo Medrol 40mg Injection, [facility] Medicare Reviewed 11/03/2017 12:00 AM Decadron 4mg Injection, [facility] Medicaid Reviewed 12/15/2017 12:00 AM COMPLETE CBC W/AUTO DIFF WBC Returned 12/15/2017 12:00 AM COMPREHEN METABOLIC PANEL Returned 12/20/2017 12:00 AM Decadron 8mg Injection Reviewed 12/20/2017 12:00 AM Depo-Medrol 80mg Injection Reviewed 11/18/2012 12:00 AM METABOLIC PANEL [...] Kenalog, Per 10 Mg [facility]#6418-2768-79 Reviewed 12/15/2012 12:00 AM DRAIN/INJ JOINT/BURSA W/O US Reviewed 12/15/2012 12:00 AM Kenalog, Per 10 Mg [facility]#9884-9247-48 Reviewed 01/27/2013 12:00 AM INJ TRIGGER POINT 1/2 MUSCL Reviewed 01/27/2013 12:00 AM Kenalog, Per 10 Mg [facility]#1729-9747-91 Reviewed 04/26/2013 12:00 AM Depo-Medrol, Per 80 Mg [facility]#7852-1696-60 Reviewed 04/26/2013 12:00 AM Decadron, Per 1 Mg NDC# [address]-46 Reviewed 07/26/2013 12:00 AM X-RAY EXAM OF HIP Reviewed 07/26/2013 12:00 AM Depo-Medrol, Per 80 Mg N[facility]#5178-8210-94 Reviewed 07/26/2013 12:00 AM Decadron, Per 1 Mg N[facility]# [address]-69 Reviewed 10/05/2013 12:00 AM Depo-Medrol 80 Mg Im/C'padmini Reviewed 10/05/2013 12:00 AM Decadron, Per 1 Mg [facility]# [address]-96 Reviewed 12/18/2013 12:00 AM X-RAY EXAM NECK [...] Kenalog, Per 10 Mg [facility]#5593-7564-56 Reviewed Results Summary Date and Description Results [...] 2017 10:36AM Bronchitis Jan 07 2018 10:47AM Payers Insurance Name Company Name Plan Name Plan Number Policy Number Policy Group Number Start Date Medicare RHC Medicare RHC [id number] N/A Cigvelasquez Perez [id number] N/A Medicare Part B Medicare Of [place] [id number] November Medicare Part A Medicare Part A [id number] N/A Medicare Part A Medicare - Lab/Xray [id number] N/A History of Encounters Visit Date Visit Type Provider 01/07/2018 Office visit Hernandez Arroyo MD 12/20/2017 [...] 10/16/2015 Office visit Hernandez Arroyo MD 10/11/2015 [facility] Refugio Austin MD 10/08/2015 Office visit [...] 08/10/2012 Office visit Refugio Austin MD 08/04/2012 [facility] Refugio Austin MD 07/12/2012 Office visit Refugio Austin MD 07/12/2012 [facility] Jo Paris MD 07/01/2012 Office visit Hernandez Arroyo MD 05/30/2012 Office visit Hernandez Arroyo MD 05/10/2012 Office visit Refugio Austin MD 05/02/2012 [facility] Refugio Austin MD 04/26/2012 Office visit Refugio Austin MD 04/26/2012 Office visit Hernandez Arroyo MD 03/10/2012 Office visit Hernandez Arroyo MD
--- OUTSIDE RECORDS SUMMARY | 2019-03-20 09:55 | XMS REPORT ---
Author Author Hernandez Arroyo [facility] Address [address] [place], [place] [address] Care Team Providers Care Typing Teacher Name Role Phone Hernandez Arroyo PCP [...] by oral route daily for 90 days Zofran ODT 4 mg oral tablet,disintegrating 09/10/2015 09/22/2015 dissolve 1 tablet by oral route every 8 hours for 3 days [place] 10-325 mg oral tablet 09/10/2015 10/10/2015 take [...] HC BMI BSA BMI Percentile O2 Sat(%) 09/10/2015 1:27:00 PM 134 mmHg 86 mmHg [...] 12:00 AM Kenalog, Per 10 Mg [facility]#3870-0490-69 Reviewed 07/01/2012 12:00 AM X-RAY EXAM L-S SPINE 10/09 VWS Reviewed 07/12/2012 12:00 AM COMPLETE CBC [...] 11/30/2012 12:00 AM Kenalog, Per 10 Mg [facility]#4551-5342-17 Reviewed 12/15/2012 12:00 AM DRAIN/INJ JOINT/BURSA W/O US Reviewed 12/15/2012 12:00 AM Kenalog, Per 10 Mg [facility]#0731-6009-66 Reviewed 01/27/2013 12:00 AM INJ TRIGGER POINT 1/2 MUSCL Reviewed 01/27/2013 12:00 AM Kenalog, Per 10 Mg [facility]#2670-8790-90 Reviewed 04/26/2013 12:00 AM Depo-Medrol, Per 80 Mg [facility]#2643-9079-43 Reviewed 04/26/2013 12:00 AM Decadron, Per 1 Mg [facility]# [address]-48 Reviewed 07/26/2013 12:00 AM X-RAY EXAM OF HIP Reviewed 07/26/2013 12:00 AM Depo-Medrol, Per 80 Mg [facility]#8887-0708-08 Reviewed 07/26/2013 12:00 AM Decadron, Per 1 Mg [facility]# [address]-20 Reviewed 10/05/2013 12:00 AM Depo-Medrol 80 Mg Im/C'padmini Reviewed 10/05/2013 12:00 AM Decadron, Per 1 Mg [facility]# [address]-51 Reviewed 12/18/2013 12:00 AM X-RAY EXAM NECK [...] JOINT/BURSA W/O US Reviewed 03/28/2015 12:00 AM Jayro Sinclair 10 Mg [facility]#8902-9473-70 Reviewed Results Summary Data and Description Results [...] BILI 1.10 mg/dLCALCIUM 9.40 mg/dLeGFR >60 mL/min/1.73 [id number] 145.0 mg/dLCHOLESTEROL 208.0 mg/dLHDL 37.0 mg/dLLDL (CALC) [...] Low Back Pain Sep 10 2015 1:41PM Payers Insurance Name Company Name Plan Name Plan Number Policy Number Policy Group Number Start Date Medicare Part A Medicare Part A [id number] N/A Cigna Cigna [id number] N/A Medicare Part B Medicare Of [place] [id number] November History of Encounters Visit Date Visit Type Provider 09/10/2015 Office visit Hernandez Arroyo MD 08/07/2015 [...] 07/12/2012 Office visit Refugio Austin MD 07/12/2012 [facility] Jo Paris MD 07/01/2012 Office visit Hernandez Arroyo MD 05/30/2012 Office visit Hernandez Arroyo MD 05/10/2012 Office visit Refugio Austin MD 05/02/2012 Hospital Refugio Austin MD 04/26/2012 Office visit Refugio Austin MD 04/26/2012 Office visit Hernandez Arroyo MD 03/10/2012 Office visit Hernandez Arroyo MD
--- OUTSIDE RECORDS SUMMARY | 2019-03-20 09:57 | XMS REPORT ---
Author Author Hernandez Arroyo [facility] Address [address] [place], [place] [address] Care Team Providers Care Hemodialysis Charge Nurse Name Role Phone Hernandez Arroyo PCP Hernandez [...] route daily as needed for 30 days [place] 10-325 mg oral tablet 01/29/2016 02/28/2016 take [...] HC BMI BSA BMI Percentile O2 Sat(%) 09/13/2017 9:35:00 AM 110 mmHg 64 mmHg [...] lbs 68 in 29.97 kg/m2 2.07 m2 66 % 05/07/2015 9:31:00 AM 132 mmHg 80 mmHg 80 bpm 18 rpm 97.7 F 198.25 lbs 68 in 30.1435 kg/m 2.0771 m 03/28/2015 3:19:00 PM 110 mmHg 66 mmHg [...] 10 Mg [facility]#0218-5623-60 Reviewed 10/07/2015 12:00 AM CHEST X-RAY 2VW FRONTAL&LATL Reviewed 10/08/2015 12:00 AM CONTRAST X-RAY ESOPHAGUS Reviewed 10/16/2015 12:00 AM Decadron, Per 1 Mg ND# [address]-18 Reviewed 10/16/2015 12:00 AM Depo-Medrol, Per 80 Mg [facility]#[address]-07 Reviewed 12/18/2015 12:00 AM BIOPSY SKIN LESION Reviewed 01/29/2016 12:00 AM Decadron, Per 1 Mg [facility]# [address]-62 Reviewed 01/29/2016 12:00 AM Depo-Medrol, Per 80 Mg [facility]#[address]-41 Reviewed 02/26/2016 12:00 AM COMPLETE CBC W/AUTO [...] 10 Mg [facility]#9222-9578-07 Reviewed 12/15/2012 12:00 AM DRAIN/INJ JOINT/BURSA W/O US Reviewed 12/15/2012 12:00 AM Kenalog, Per 10 Mg [facility]#1403-6633-49 Reviewed 01/27/2013 12:00 AM INJ TRIGGER POINT 1/2 MUSCL Reviewed 01/27/2013 12:00 AM Kenalog, Per 10 Mg [facility]#6561-2131-94 Reviewed 04/26/2013 12:00 AM Depo-Medrol, Per 80 Mg [facility]#3309-7651-43 Reviewed 04/26/2013 12:00 AM Decadron, Per 1 Mg [facility]# [address]-71 Reviewed 07/26/2013 12:00 AM X-RAY EXAM OF HIP Reviewed 07/26/2013 12:00 AM Depo-Medrol, Per 80 Mg [facility]#4040-5523-05 Reviewed 07/26/2013 12:00 AM Decadron, Per 1 Mg [facility]# [address]-26 Reviewed 10/05/2013 12:00 AM Depo-Medrol 80 Mg Im/C'padmini Reviewed 10/05/2013 12:00 AM Decadron, Per 1 Mg [facility]# [address]-73 Reviewed 12/18/2013 12:00 AM X-RAY EXAM NECK [...] 10 Mg [facility]#2527-8764-95 Reviewed Results Summary Date and Description Results [...] Feb 10 2015 11:25AM Lumbar spondylolysis Feb 10 2015 11:25AM BPH (benign prostatic hyperplasia) Nov [...] 2017 10:58AM Sinusitis Sep 13 2017 9:38AM Payers Insurance Name Company Name Plan Name Plan Number Policy Number Policy Group Number Start Date Medicare RHC Medicare [facility] [id number] N/A Cigna Cigna [id number] N/A Medicare Part B Medicare Of [place] [id number] November Medicare Part A Medicare Part A [id number] N/A Medicare Part A Medicare - Lab/Xray [id number] N/A History of Encounters Visit Date Visit Type Provider 09/13/2017 Office visit Hernandez Arroyo MD 09/02/2017 Office visit Hernandez Arroyo MD 08/05/2017 Office visit Hernandez Arroyo MD 07/21/2017 Office visit Hernandez Arroyo MD 07/16/2017 [facility] Jo Paris MD 07/16/2017 [facility] Luis Mcgovern MD 07/08/2017 Office visit [...] 10/16/2015 Office visit Hernandez Arroyo MD 10/11/2015 [facility] Refugio Austin MD 10/08/2015 Office visit [...] Chapincito Steele MD 03/01/2013 Office visit Chapincito tSeele MD 02/16/2013 Office visit Hernandez Arroyo MD [...]
--- OUTSIDE RECORDS SUMMARY | 2019-03-20 10:00 | XMS REPORT ---
Author Author Hernandez Arroyo [facility] Address [address] [place], [place] [address] Care Team Providers Care Corrugator Name Role Phone Hernandez Arroyo PCP Hernandez [...] oral route every 6 hours as needed Cipro 500 mg oral tablet 12/15/2017 12/22/2017 take 1 tablet (500 mg) by oral route every 12 hours for 7 days prednisone 20 mg oral tablet 12/15/2017 12/22/2017 take 1 tablet (20 mg) by oral route once daily for 7 days Zofran ODT 4 mg oral tablet,disintegrating 12/15/2017 dissolve 1-2 tablets by oral route every 8 hours as needed gabapentin 300 mg oral capsule 12/17/2017 03/12/2019 take 1 capsule by oral route daily for 90 days potassium chloride 20 mEq oral tablet extended release 12/17/2017 12/12/2018 take 1 tablet (20 meq) by oral route 2 times per day with food for 90 days Name Start Date Expiration [...] route daily as needed for 30 days [place] 10-325 mg oral tablet 01/29/2016 02/28/2016 take [...] HC BMI BSA BMI Percentile O2 Sat(%) 12/20/2017 10:22:00 AM 120 mmHg 66 mmHg [...] lbs 68 in 29.19 kg/m2 2.0441 m 96 % 09/02/2017 10:56:00 AM 130 mmHg 84 mmHg 80 bpm 20 rpm 98 F 190.5 lbs 68 in 28.9651 kg/m 2.04 m2 96 % 08/05/2017 10:54:00 AM 110 mmHg 62 mmHg 88 bpm 16 rpm 96.9 F 185 lbs 68 in 28.13 kg/m2 2.0065 m 96 % 07/21/2017 10:00:00 AM 104 mmHg 62 mmHg 88 bpm 20 rpm 97.8 F 185.375 lbs 68 in 28.1859 kg/m 2.01 m2 94 % 07/08/2017 10:00:00 AM 122 mmHg 74 mmHg 86 bpm 20 rpm 97.8 F 189.375 lbs 68 in 28.79 kg/m2 2.0301 m 95 % 07/05/2017 3:11:00 PM 120 mmHg 74 mmHg 79 bpm 20 rpm 98 F 198 lbs 68 in 30.1055 kg/m 2.08 m2 95 % 05/20/2017 11:05:00 AM 132 mmHg 74 mmHg 82 bpm 18 rpm 97.3 F 193.25 lbs 68 in 29.38 kg/m2 2.0508 m 96 % 05/04/2017 10:17:00 AM 132 mmHg 78 mmHg 56 bpm 14 rpm 96.2 F 194 lbs 68 in 29.4973 kg/m 2.05 m2 96 % 04/27/2017 9:57:00 AM 126 mmHg 68 mmHg 84 bpm 18 rpm 97.6 F 196.187 lbs 68 in 29.83 kg/m2 2.0663 m 95 % 02/18/2017 10:43:00 AM 126 mmHg 67 mmHg 82 bpm 18 rpm 97.2 F 192 lbs 68 in 29.1932 kg/m 2.04 m2 95 % 12/10/2016 11:23:00 AM 123 mmHg 63 mmHg 78 bpm 18 rpm 98.2 F 190.25 lbs 68 in 28.93 kg/m2 2.0348 m 94 % 12/01/2016 1:51:00 PM 141 mmHg 74 mmHg 91 bpm 18 rpm 97.5 F 197.125 lbs 68 in 29.9724 kg/m 2.07 m2 95 % 10/26/2016 9:57:00 AM 150 mmHg 86 mmHg 87 bpm 16 rpm 97.2 F 186 lbs 68 in 28.28 kg/m2 2.0119 m 96 % 10/05/2016 9:30:00 AM [...] AM Kenalog, Per 10 Mg [facility]#1388-8858-36 Reviewed 10/07/2015 12:00 AM CHEST X-RAY 2VW FRONTAL&LATL Reviewed 10/08/2015 12:00 AM CONTRAST X-RAY ESOPHAGUS Reviewed 10/16/2015 12:00 AM Decadron, Per 1 Mg [facility]# [address]-27 Reviewed 10/16/2015 12:00 AM Depo-Medrol, Per 80 Mg [facility]#[address]-33 Reviewed 12/18/2015 12:00 AM BIOPSY SKIN LESION Reviewed 01/29/2016 12:00 AM Decadron, Per 1 Mg [facility]# [address]-72 Reviewed 01/29/2016 12:00 AM Depo-Medrol, Per 80 Mg [facility]#[address]-93 Reviewed 02/26/2016 12:00 AM COMPLETE CBC W/AUTO [...] 09/13/2017 12:00 AM Depo Medrol 40mg Injection, [facility] Medicare Reviewed 09/13/2017 12:00 AM Decadron 4mg Injection, [facility] Medicaid Reviewed 11/03/2017 12:00 AM Rocephin 1 gram Injection Reviewed 11/03/2017 12:00 AM Depo Medrol 40mg Injection, [facility] Medicare Reviewed 11/03/2017 12:00 AM Decadron 4mg Injection, [facility] Medicaid Reviewed 12/15/2017 12:00 AM COMPLETE CBC W/AUTO DIFF WBC Returned 12/15/2017 12:00 AM COMPREHEN METABOLIC PANEL Returned 11/18/2012 12:00 AM METABOLIC PANEL TOTAL CA Reviewed 11/18/2012 12:00 AM COMPLETE CBC W/AUTO DIFF WBC Reviewed 11/18/2012 12:00 AM GLYCOSYLATED HEMOGLOBIN TEST Reviewed 11/18/2012 12:00 AM ASSAY OF BLOOD/URIC ACID Reviewed 11/18/2012 12:00 AM Prostate Cancer Screening Reviewed 12/07/2012 12:00 AM GLUCOSE BLOOD TEST Reviewed 11/30/2012 12:00 AM DRAIN/INJ JOINT/BURSA W/O US Reviewed 11/30/2012 12:00 AM Kenalog, Per 10 Mg [facility]#3668-7881-35 Reviewed 12/15/2012 12:00 AM DRAIN/INJ JOINT/BURSA W/O US Reviewed 12/15/2012 12:00 AM Kenalog, Per 10 Mg [facility]#6525-1053-88 Reviewed 01/27/2013 12:00 AM INJ TRIGGER POINT 1/2 MUSCL Reviewed 01/27/2013 12:00 AM Kenalog, Per 10 Mg [facility]#3734-8838-60 Reviewed 04/26/2013 12:00 AM Depo-Medrol, Per 80 Mg [facility]#9280-8181-69 Reviewed 04/26/2013 12:00 AM Decadron, Per 1 Mg [facility]# [address]-30 Reviewed 07/26/2013 12:00 AM X-RAY EXAM OF HIP Reviewed 07/26/2013 12:00 AM Depo-Medrol, Per 80 Mg [facility]#1130-3957-50 Reviewed 07/26/2013 12:00 AM Decadron, Per 1 Mg [facility]# [address]-78 Reviewed 10/05/2013 12:00 AM Depo-Medrol 80 Mg Im/C'padmini Reviewed 10/05/2013 12:00 AM Decadron, Per 1 Mg [facility]# [address]-77 Reviewed 12/18/2013 12:00 AM X-RAY EXAM NECK [...] AM Kenalog, Per 10 Mg [facility]#0932-7583-38 Reviewed Results Summary Date and Description Results [...] Bronchitis, Acute Oct 07 2015 10:45AM Dysphagia b 2015 10:35AM Hip pain, chronic, right Feb 2015 11:25AM Hip pain, chronic, left Feb 2015 11:25AM Lumbar spondylolysis Feb 2015 11:25AM [...] Nausea & vomiting Dec 15 2017 10:03AM Payers Insurance Name Company Name Plan Name Plan Number Policy Number Policy Group Number Start Date Medicare RHC Medicare RHC [id number] N/A Cigna Cigna [id number] N/A Medicare Part B Medicare Of [place] [id number] November Medicare Part A Medicare Part A [id number] N/A Medicare Part A Medicare - Lab/Xray [id number] N/A History of Encounters Visit Date Visit Type Provider 12/20/2017 Office visit Hernandez Arroyo MD 12/15/2017 [...] 10/16/2015 Office visit Hernandez Arroyo MD 10/11/2015 [facility] Refugio Austin MD 10/08/2015 [...] Austin MD 08/04/2012 [facility] Refugio Austin MD 07/12/2012 Office visit Refugio Austin MD 07/12/2012 [facility] Jo Paris MD 07/01/2012 Office visit Hernandez Arroyo MD 05/30/2012 Office visit Hernandez Arroyo MD 05/10/2012 Office visit Refugio Austin MD 05/02/2012 [facility] Refugio Austin MD 04/26/2012 Office visit Refugio Austin MD 04/26/2012 Office visit Hernandez Arroyo MD 03/10/2012 Office visit Hernandez Arroyo MD
--- OUTSIDE RECORDS SUMMARY | 2019-03-20 10:03 | XMS REPORT ---
Author Author Hernandez Arroyo [facility] Address [address] [place], [place] [id number] Care Team Providers Care Ballet Soloist Name Role Phone Hernandez Arroyo PCP Unavailable Hernandez Arroyo PreferredProvider Unavailable Allergies and Adverse Reactions Name Reaction Notes Demerol codeine sulfate Plan of Treatment Planned Activity Comments Planned Date Planned Time Plan/Goal Chest X-ray, PA and lateral 04/26/2012 12:00 AM Foot 3Views - MOB 05/20/2017 12:00 AM Medications Active Name Start Date [...] needed metoclopramide HCl 5 mg oral tablet Name Start Date Expiration Date SIG Comments [...] route daily as needed for 30 days [place] 10-325 mg oral tablet 01/29/2016 02/28/2016 take [...] HC BMI BSA BMI Percentile O2 Sat(%) 05/20/2017 11:05:00 AM 132 mmHg 74 mmHg [...] 07/01/2015 12:00 AM Kenalog, Per 10 Mg [facility]#6152-8376-05 Reviewed 10/07/2015 12:00 AM CHEST X-RAY 2VW FRONTAL&LATL Reviewed 10/08/2015 12:00 AM CONTRAST X-RAY ESOPHAGUS Reviewed 10/16/2015 12:00 AM Decadron, Per 1 Mg [facility]# [address]-37 Reviewed 10/16/2015 12:00 AM Depo-Medrol, Per 80 Mg [facility]#[address]-22 Reviewed 12/18/2015 12:00 AM BIOPSY SKIN LESION Reviewed 01/29/2016 12:00 AM Decadron, Per 1 Mg [place]# [address]-96 Reviewed 01/29/2016 12:00 AM Depo-Medrol, Per 80 Mg [facility]#[address]-40 Reviewed 02/26/2016 12:00 AM COMPLETE CBC W/AUTO [...] 11/30/2012 12:00 AM Kenalog, Per 10 Mg [facility]#3820-5061-20 Reviewed 12/15/2012 12:00 AM DRAIN/INJ JOINT/BURSA W/O US Reviewed 12/15/2012 12:00 AM Kenalog, Per 10 Mg [facility]#5898-2513-32 Reviewed 01/27/2013 12:00 AM INJ TRIGGER POINT 1/2 MUSCL Reviewed 01/27/2013 12:00 AM Kenalog, Per 10 Mg [facility]#5429-9360-76 Reviewed 04/26/2013 12:00 AM Depo-Medrol, Per 80 Mg [facility]#3761-4200-51 Reviewed 04/26/2013 12:00 AM Decadron, Per 1 Mg [facility]# [address]-32 Reviewed 07/26/2013 12:00 AM X-RAY EXAM OF HIP Reviewed 07/26/2013 12:00 AM Depo-Medrol, Per 80 Mg [facility]#6069-3635-86 Reviewed 07/26/2013 12:00 AM Decadron, Per 1 Mg [facility]# [address]-43 Reviewed 10/05/2013 12:00 AM Depo-Medrol 80 Mg Im/C'padmini Reviewed 10/05/2013 12:00 AM Decadron, Per 1 Mg [facility]# [address]-85 Reviewed 12/18/2013 12:00 AM X-RAY EXAM NECK [...] 03/28/2015 12:00 AM Kenalog, Per 10 Mg [facility]#7399-0767-75 Reviewed Results Summary Date and Description Results [...] Foot pain, left May 20 2017 11:07AM Payers Insurance Name Company Name Plan Name Plan Number Policy Number Policy Group Number Start Date Medicare [facility] Medicare [facility] [id number] N/A Cigna Cigna [id number] N/A Medicare Part B Medicare Of [place] [id number] November Medicare Part A Medicare Part A [id number] N/A Medicare Part A Medicare - Lab/Xray [id number] N/A History of Encounters Visit Date Visit Type Provider 05/20/2017 Office visit Hernandez Arroyo MD 05/04/2017 [...] visit Camryn JOSHI 07/01/2015 Office visit Camryn JOSIH 06/24/2015 Office visit Hernandez Arroyo MD 06/14/2015 [...] 01/27/2013 Office visit Chapincito Steele MD 01/13/2013 [facility] Chapincito Steele MD 12/15/2012 Office visit Chapincito Steele MD 12/07/2012 Office visit Nica Cartwright APRN 11/30/2012 Office visit Chapincito Steele MD 11/18/2012 Office visit Hernandez Aroryo MD 09/02/2012 Office visit Hernandez Arroyo MD [...]
--- OUTSIDE RECORDS SUMMARY | 2019-03-20 10:04 | XMS REPORT ---
Author Author Hernandez Arroyo [facility] Address [address] [place], [place] [address] Care Team Providers Care Door Attendant Name Role Phone Hernandez Arroyo PCP Unavailable [...] route every 8 hours for 3 days [place] 10-325 mg oral tablet 09/10/2015 10/10/2015 take [...] HC BMI BSA BMI Percentile O2 Sat(%) 10/16/2015 11:22:00 AM 126 mmHg 82 mmHg [...] JOINT/BURSA W/O US Reviewed 07/01/2015 12:00 AM Yahir Per 10 Mg [facility]#7659-1950-99 Reviewed 10/07/2015 12:00 AM CHEST X-RAY 2VW FRONTAL&LATL Returned 10/08/2015 12:00 AM CONTRAST X-RAY ESOPHAGUS Returned 07/01/2012 12:00 AM X-RAY EXAM L-S [...] 11/30/2012 12:00 AM Kenalog, Per 10 Mg [facility]#3814-3524-04 Reviewed 12/15/2012 12:00 AM DRAIN/INJ JOINT/BURSA W/O US Reviewed 12/15/2012 12:00 AM Kenalog, Per 10 Mg [facility]#8839-3316-97 Reviewed 01/27/2013 12:00 AM INJ TRIGGER POINT 1/2 MUSCL Reviewed 01/27/2013 12:00 AM Kenalog, Per 10 Mg [facility]#2391-2968-07 Reviewed 04/26/2013 12:00 AM Depo-Medrol, Per 80 Mg [facility]#3916-1693-15 Reviewed 04/26/2013 12:00 AM Decadron, Per 1 Mg [facility]# [address]-28 Reviewed 07/26/2013 12:00 AM X-RAY EXAM OF HIP Reviewed 07/26/2013 12:00 AM Depo-Medrol, Per 80 Mg [facility]#3412-9264-88 Reviewed 07/26/2013 12:00 AM Decadron, Per 1 Mg [facility]# [address]-61 Reviewed 10/05/2013 12:00 AM Depo-Medrol 80 Mg Im/C'padmini Reviewed 10/05/2013 12:00 AM Decadron, Per 1 Mg [facility]# [address]-77 Reviewed 12/18/2013 12:00 AM X-RAY EXAM NECK [...] 12:00 AM Kensha, Per 10 Mg [facility]#6002-7608-64 Reviewed Results Summary Data and Description Results [...] BILI 1.10 mg/dLCALCIUM 9.40 mg/dLeGFR >60 mL/min/1.73 [id number] 145.0 mg/dLCHOLESTEROL 208.0 mg/dLHDL 37.0 mg/dLLDL (CALC) [...] Psoriasis Oct 05 2013 3:06PM Tinea Corporis b 2013 8:49AM Stomatitis and mucositis, unspecified Oct [...] Trochanteric Bursitis b 2014 11:04AM Spondylosis, lumbar Oct 15 2014 [...] 11:25AM Lumbar spondylolysis Oct 16 2015 11:25AM Payers Insurance Name Company Name Plan Name Plan Number Policy Number Policy Group Number Start Date Medicare Part B Medicare Of [place] [id number] November Chris Perez [id number] N/A Medicare Part A Medicare Part A [id number] N/A History of Encounters Visit Date Visit Type Provider 10/16/2015 Office visit Hernandez Arroyo MD 10/08/2015 Office visit Refugio Austin MD [...] 07/26/2013 Office visit Hernandez Arroyo MD 07/21/2013 [facility] Refugio Austin MD 07/17/2013 Office visit Refugio Austin MD 05/17/2013 Office visit Hernandez Arroyo MD 05/02/2013 Office visit Refugio Austin MD 04/26/2013 Office visit Hernandez Arroyo MD 03/16/2013 [facility] Chapincito Steele MD 03/01/2013 Office visit Chapincito Steele MD 02/16/2013 Office visit Hernandez Arroyo MD 01/27/2013 Office visit Chapincito Steele MD 01/13/2013 [facility] Chapincito Steele MD 12/15/2012 Office visit Chapincito Steele MD 12/07/2012 Office visit Nica Cartwright APRN 11/30/2012 Office visit Chapincito Steele MD 11/18/2012 Office visit Hernandez Arroyo MD 09/02/2012 Office visit Hernandez Aroryo MD 08/10/2012 Office visit Refugio Austin MD 08/04/2012 [facility] Refugio Austin MD 07/12/2012 Office visit Refugio Austin MD 07/12/2012 [facility] Jo Paris MD 07/01/2012 Office visit Hernandez Arroyo MD 05/30/2012 Office visit Hernandez Arroyo MD 05/10/2012 Office visit Refugio Austin MD 05/02/2012 [facility] Refugio Austin MD 04/26/2012 Office visit Refugio Austin MD 04/26/2012 Office visit Hernandez Arroyo MD 03/10/2012 Office visit Hernandez Arroyo MD
--- OUTSIDE RECORDS SUMMARY | 2019-03-20 10:06 | XMS REPORT ---
Author Author Hernandez Arroyo [facility] Address [address] [place], [place] [address] Care Team Providers Care Packer Denture Name Role Phone Hernandez Arroyo PCP Unavailable [...] 3 times a day for 5 days [place] 7.5-325 mg oral tablet 05/07/2015 06/06/2015 take [...] 11/30/2012 12:00 AM Kenalog, Per 10 Mg [facility]#9847-0503-11 Reviewed 12/15/2012 12:00 AM DRAIN/INJ JOINT/BURSA W/O US Reviewed 12/15/2012 12:00 AM Kenalog, Per 10 Mg [facility]#2970-7486-75 Reviewed 01/27/2013 12:00 AM INJ TRIGGER POINT 1/2 MUSCL Reviewed 01/27/2013 12:00 AM Kenalog, Per 10 Mg [facility]#3503-2373-87 Reviewed 04/26/2013 12:00 AM Depo-Medrol, Per 80 Mg [facility]#9977-2669-67 Reviewed 04/26/2013 12:00 AM Decadron, Per 1 Mg [facility]# [address]-69 Reviewed 07/26/2013 12:00 AM X-RAY EXAM OF HIP Reviewed 07/26/2013 12:00 AM Depo-Medrol, Per 80 Mg [facility]#8380-9858-73 Reviewed 07/26/2013 12:00 AM Decadron, Per 1 Mg [facility]# [address]-80 Reviewed 10/05/2013 12:00 AM Depo-Medrol 80 Mg Im/C'padmini Reviewed 10/05/2013 12:00 AM Decadron, Per 1 Mg [facility]# [address]-77 Reviewed 12/18/2013 12:00 AM X-RAY EXAM NECK [...] 03/28/2015 12:00 AM Kenalog, Per 10 Mg [facility]#8466-5493-58 Reviewed Results Summary Data and Description Results [...] BILI 1.10 mg/dLCALCIUM 9.40 mg/dLeGFR >60 mL/min/1.73 [id number] 145.0 mg/dLCHOLESTEROL 208.0 mg/dLHDL 37.0 mg/dLLDL (CALC) [...] (benign prostatic hypertrophy) Aug 07 2015 10:41AM Payers Insurance Name Company Name Plan Name Plan Number Policy Number Policy Group Number Start Date Medicare Part A Medicare Part A [id number] N/A Cigna Cigna [id number] N/A Medicare Part B Medicare Of [place] [id number] November History of Encounters Visit Date Visit [...] visit Camryn BAKERP 10/17/2014 Office visit Hernandez Arryoo MD 10/15/2014 Office visit Camryn BAKERP 10/03/2014 [...] 04/26/2013 Office visit Hernandez Arroyo MD 03/16/2013 [facility] Chapincito Steele MD 03/01/2013 Office visit [...] 05/10/2012 Office visit Refugio Austin MD 05/02/2012 [facility] Refugio Austin MD 04/26/2012 Office visit Refugio Austin MD 04/26/2012 Office visit Hernandez Arroyo MD 03/10/2012 Office visit Hernandez Arroyo MD
--- OUTSIDE RECORDS SUMMARY | 2019-03-20 10:08 | XMS REPORT ---
Author Author Hernandez Arroyo [facility] Address [address] [place], [place] [address] Care Team Providers Care Construction Analyst Name Role Phone Hernandez Arroyo PCP Hernandez [...] route daily as needed for 30 days [place] 10-325 mg oral tablet 01/29/2016 02/28/2016 take [...] 07/01/2015 12:00 AM Kenalog, Per 10 Mg [facility]#4549-9905-32 Reviewed 10/07/2015 12:00 AM CHEST X-RAY 2VW FRONTAL&LATL Reviewed 10/08/2015 12:00 AM CONTRAST X-RAY ESOPHAGUS Reviewed 10/16/2015 12:00 AM Decadron, Per 1 Mg [facility]# [address]-65 Reviewed 10/16/2015 12:00 AM Depo-Medrol, Per 80 Mg [facility]#[address]-20 Reviewed 12/18/2015 12:00 AM BIOPSY SKIN LESION Reviewed 01/29/2016 12:00 AM Decadron, Per 1 Mg [facility]# [address]-88 Reviewed 01/29/2016 12:00 AM Depo-Medrol, Per 80 Mg [facility]#[address]-56 Reviewed 02/26/2016 12:00 AM COMPLETE CBC W/AUTO [...] 09/13/2017 12:00 AM Depo Medrol 40mg Injection, [facility] Medicare Reviewed 09/13/2017 12:00 AM Decadron 4mg Injection, [facility] Medicaid Reviewed 11/03/2017 12:00 AM Rocephin 1 gram Injection Reviewed 11/03/2017 12:00 AM Depo Medrol 40mg Injection, [facility] Medicare Reviewed 11/03/2017 12:00 AM Decadron 4mg Injection, [facility] Medicaid Reviewed 12/15/2017 12:00 AM COMPLETE [...] 11/30/2012 12:00 AM Kenalog, Per 10 Mg [facility]#1566-1453-92 Reviewed 12/15/2012 12:00 AM DRAIN/INJ JOINT/BURSA W/O US Reviewed 12/15/2012 12:00 AM Kenalog, Per 10 Mg [facility]#5755-3131-17 Reviewed 01/27/2013 12:00 AM INJ TRIGGER POINT 1/2 MUSCL Reviewed 01/27/2013 12:00 AM Kenalog, Per 10 Mg [facility]#6558-9519-39 Reviewed 04/26/2013 12:00 AM Depo-Medrol, Per 80 Mg [facility]#3331-2620-82 Reviewed 04/26/2013 12:00 AM Decadron, Per 1 Mg [facility]# [address]-47 Reviewed 07/26/2013 12:00 AM X-RAY EXAM OF HIP Reviewed 07/26/2013 12:00 AM Depo-Medrol, Per 80 Mg [facility]#4402-5896-08 Reviewed 07/26/2013 12:00 AM Decadron, Per 1 Mg [facility]# [address]-31 Reviewed 10/05/2013 12:00 AM Depo-Medrol 80 Mg Im/C'padmini Reviewed 10/05/2013 12:00 AM Decadron, Per 1 Mg [facility]# [address]-15 Reviewed 12/18/2013 12:00 AM X-RAY EXAM NECK [...] 03/28/2015 12:00 AM Kenalog, Per 10 Mg [facility]#8898-6859-97 Reviewed Results Summary Date and Description Results [...] 3:29PM Dysphagia, cricopharyngeal b 2015 11:03AM Presbyesophagus b 2015 11:03AM Seborrheic [...] Low Back Pain Dec 20 2017 10:36AM Payers Insurance Name Company Name Plan Name Plan Number Policy Number Policy Group Number Start Date Medicare [facility] Medicare [facility] [id number] N/A Cigna Cigna [id number] N/A Medicare Part B Medicare Of [place] [id number] November Medicare Part A Medicare Part A [id number] N/A Medicare Part A Medicare - Lab/Xray [id number] N/A History of Encounters Visit Date Visit Type Provider 12/20/2017 Office visit Hernandez Arroyo MD 12/15/2017 Office visit Hernandez Aroryo MD 11/16/2017 Office visit Hernandez Arroyo MD [...] visit Hernandez Arroyo MD 04/27/2017 Office visit Hernnadez Arroyo MD 02/18/2017 Office visit Hernandez Arroyo [...] Hernandez Arroyo MD 06/14/2015 Office visit Salinas Gabmle APRN 06/10/2015 Office visit Hernandez Arroyo MD [...] 07/26/2013 Office visit Hernandez Arroyo MD 07/21/2013 [facility] Refugio Austin MD 07/17/2013 Office [...] 05/10/2012 Office visit Refugio Austin MD 05/02/2012 [facility] Refugio Austin MD 04/26/2012 Office visit Refugio Austin MD 04/26/2012 Office visit Hernandez Arroyo MD 03/10/2012 Office visit Hernandez Arroyo MD
--- OUTSIDE RECORDS SUMMARY | 2019-03-20 10:10 | XMS REPORT ---
Author Author Hernandez Arroyo [facility] Address [address] [place], [place] [address] Care Team Providers Care Stone Carriage Operator Name Role Phone Hernandez Arroyo PCP Unavailable [...] TAKE 1 CAP DAILY FOR 90 DAYS Levaquin 500 mg oral tablet 10/05/2016 10/12/2016 take 1 tablet (500 mg) by oral route once daily for 7 days Zofran ODT 4 mg oral tablet,disintegrating 10/05/2016 [...] route daily as needed for 30 days [place] 10-325 mg oral tablet 01/29/2016 02/28/2016 take [...] the morning and evening for 2 weeks Discontinued Name Start Date Discontinued Date SIG [...] HC BMI BSA BMI Percentile O2 Sat(%) 10/05/2016 9:30:00 AM 138 mmHg 74 mmHg [...] 12:00 AM Kenalog, Per 10 Mg [facility]#9995-3102-16 Reviewed 10/07/2015 12:00 AM CHEST X-RAY 2VW FRONTAL&LATL Reviewed 10/08/2015 12:00 AM CONTRAST X-RAY ESOPHAGUS Reviewed 10/16/2015 12:00 AM Decadron, Per 1 Mg [facility]# [address]-27 Reviewed 10/16/2015 12:00 AM Depo-Medrol, Per 80 Mg [facility]#[address]-10 Reviewed 12/18/2015 12:00 AM BIOPSY SKIN LESION Reviewed 01/29/2016 12:00 AM Decadron, Per 1 Mg [facility]# [address]-51 Reviewed 01/29/2016 12:00 AM Depo-Medrol, Per 80 Mg [facility]#[address]-39 Reviewed 02/26/2016 12:00 AM COMPLETE CBC W/AUTO [...] 11/30/2012 12:00 AM Kenalog, Per 10 Mg [facility]#1561-1863-08 Reviewed 12/15/2012 12:00 AM DRAIN/INJ JOINT/BURSA W/O US Reviewed 12/15/2012 12:00 AM Kenalog, Per 10 Mg [facility]#7633-3103-19 Reviewed 01/27/2013 12:00 AM INJ TRIGGER POINT 1/2 MUSCL Reviewed 01/27/2013 12:00 AM Kenalog, Per 10 Mg [facility]#8947-2334-68 Reviewed 04/26/2013 12:00 AM Depo-Medrol, Per 80 Mg [facility]#3982-1505-89 Reviewed 04/26/2013 12:00 AM Decadron, Per 1 Mg [facility]# [address]-04 Reviewed 07/26/2013 12:00 AM X-RAY EXAM OF HIP Reviewed 07/26/2013 12:00 AM Depo-Medrol, Per 80 Mg [facility]#8094-5041-03 Reviewed 07/26/2013 12:00 AM Decadron, Per 1 Mg [facility]# [address]-11 Reviewed 10/05/2013 12:00 AM Depo-Medrol 80 Mg Im/C'padmini Reviewed 10/05/2013 12:00 AM Decadron, Per 1 Mg [facility]# [address]-71 Reviewed 12/18/2013 12:00 AM X-RAY EXAM NECK [...] 03/28/2015 12:00 AM Yahir, Per 10 Mg [facility]#0057-0488-80 Reviewed Results Summary Data and Description Results [...] 2016 11:00AM Bronchitis Oct 05 2016 9:37AM Payers Insurance Name Company Name Plan Name Plan Number Policy Number Policy Group Number Start Date Medicare RH Medicare RHC [id number] N/A Cigna Cigna [id number] N/A Medicare Part B Medicare Of [place] [id number] November Medicare Part A Medicare Part A [id number] N/A Medicare Part A Medicare - Lab/Xray [id number] N/A History of Encounters Visit Date Visit Type Provider 10/05/2016 Office visit Hernandez Arroyo MD 08/10/2016 Office visit Refugio Austin MD 08/04/2016 Office visit Hernandez Arroyo MD 07/23/2016 Office visit Hernandez Arroyo MD 07/06/2016 Office visit Hernandez Arroyo MD 06/26/2016 Office visit Hernandez Arroyo MD 04/06/2016 Office visit Hernandez Arroyo MD 03/05/2016 [facility] Jo Paris MD 03/03/2016 Office visit Hernandez [...] 08/10/2012 Office visit Refugio Austin MD 08/04/2012 [facility] Refugio Austin MD 07/12/2012 Office visit [...]
--- OUTSIDE RECORDS SUMMARY | 2019-03-20 10:12 | XMS REPORT ---
Author Author Hernandez Arroyo [facility] Address [address] [place], [place] [address] Care Team Providers Care Wood Scaler Name Role Phone Hernandez Arroyo PCP Unavailable [...] TAKE 1 TABLET BY MOUTH ONCE DAILY furosemide 40 mg oral tablet 07/23/2016 07/18/2017 [...] release (DR/EC) 08/10/2016 TAKE 1 TABLET DAILY celecoxib 100 mg oral capsule 09/21/2016 TAKE 1 CAP DAILY FOR 90 DAYS Zofran ODT 4 mg oral tablet,disintegrating 10/05/2016 dissolve 1 tablet by oral route 3 times a day as needed baclofen 10 mg oral tablet 12/01/2016 take 1 tablet by oral route 3 times a day as needed Reglan 5 mg oral tablet 12/01/2016 11/26/2017 take 1 tablet by oral route 3 times a for 90 days Tylenol-Codeine #3 300-30 mg oral tablet 12/01/2016 take 1 tablet by oral route every [...] route daily as needed for 30 days [place] 10-325 mg oral tablet 01/29/2016 02/28/2016 take [...] HC BMI BSA BMI Percentile O2 Sat(%) 12/01/2016 1:51:00 PM 141 mmHg 74 mmHg [...] 10 Mg [facility]#9894-7804-31 Reviewed 10/07/2015 12:00 AM CHEST X-RAY 2VW FRONTAL&LATL Reviewed 10/08/2015 12:00 AM CONTRAST X-RAY ESOPHAGUS Reviewed 10/16/2015 12:00 AM Decadron, Per 1 Mg [facility]# [address]-83 Reviewed 10/16/2015 12:00 AM Depo-Medrol, Per 80 Mg [facility]#[address]-45 Reviewed 12/18/2015 12:00 AM BIOPSY SKIN LESION Reviewed 01/29/2016 12:00 AM Decadron, Per 1 Mg [facility]# [address]-55 Reviewed 01/29/2016 12:00 AM Depo-Medrol, Per 80 Mg [facility]#[address]-22 Reviewed 02/26/2016 12:00 AM COMPLETE CBC W/AUTO [...] 11/30/2012 12:00 AM Kenalog, Per 10 Mg [facility]#1229-8834-09 Reviewed 12/15/2012 12:00 AM DRAIN/INJ JOINT/BURSA W/O US Reviewed 12/15/2012 12:00 AM Kenalog, Per 10 Mg [facility]#6403-6656-99 Reviewed 01/27/2013 12:00 AM INJ TRIGGER POINT 1/2 MUSCL Reviewed 01/27/2013 12:00 AM Kenalog, Per 10 Mg [facility]#4739-4767-96 Reviewed 04/26/2013 12:00 AM Depo-Medrol, Per 80 Mg [facility]#1994-2294-84 Reviewed 04/26/2013 12:00 AM Decadron, Per 1 Mg [facility]# [address]-49 Reviewed 07/26/2013 12:00 AM X-RAY EXAM OF HIP Reviewed 07/26/2013 12:00 AM Depo-Medrol, Per 80 Mg [facility]#0223-5754-46 Reviewed 07/26/2013 12:00 AM Decadron, Per 1 Mg [facility]# [address]-09 Reviewed 10/05/2013 12:00 AM Depo-Medrol 80 Mg Im/C'padmini Reviewed 10/05/2013 12:00 AM Decadron, Per 1 Mg [facility]# [address]-70 Reviewed 12/18/2013 12:00 AM X-RAY EXAM NECK [...] 10 Mg [facility]#0598-4842-61 Reviewed Results Summary Data and Description Results [...] 4:29PM Trochanteric bursitis Feb 2014 4:29PM Hypertension b 2014 10:10AM Sinusitis b 2014 10:10AM BPH (benign prostatic hyperplasia) b 2014 10:10AM Hypertension Dec 12 2014 8:29AM [...] 2016 1:53PM Lumbago Dec 01 2016 1:53PM Payers Insurance Name Company Name Plan Name Plan Number Policy Number Policy Group Number Start Date Medicare [facility] Medicare [facility] [id number] N/A Cigna Cigvelasquez [id number] N/A Medicare Part B Medicare Of [place] [id number] November Medicare Part A Medicare Part A [id number] N/A Medicare Part A Medicare - Lab/Xray [id number] N/A History of Encounters Visit Date Visit Type Provider 12/01/2016 Office visit Hernandez Arroyo MD 10/26/2016 [...]
--- OUTSIDE RECORDS SUMMARY | 2019-03-20 10:14 | XMS REPORT ---
Author Author Hernandez Arroyo [facility] Address [address] [place], [place] [address] Care Team Providers Care Sessions Clerk Name Role Phone Hernandez Arroyo PCP [...] oral route every 6 hours as needed Lotrisone 1-0.05 % topical cream 07/23/2016 08/06/2016 [...] Ellipta 200-25 mcg/dose inhalation blister with device 08/04/2016 inhale 1 puff by inhalation route once daily at the same time each day Name Start Date Expiration Date SIG Comments [...] route daily as needed for 30 days [place] 10-325 mg oral tablet 01/29/2016 02/28/2016 take [...] oral route once daily for 30 days Discontinued Name Start Date [...] HC BMI BSA BMI Percentile O2 Sat(%) 08/04/2016 10:22:00 AM 124 mmHg 80 mmHg [...] 07/01/2015 12:00 AM Kenalog, Per 10 Mg [facility]#6630-9232-59 Reviewed 10/07/2015 12:00 AM CHEST X-RAY 2VW FRONTAL&LATL Reviewed 10/08/2015 12:00 AM CONTRAST X-RAY ESOPHAGUS Returned 10/16/2015 12:00 AM Decadron, Per 1 Mg [facility]# [address]-39 Reviewed 10/16/2015 12:00 AM Depo-Medrol, Per 80 Mg [facility]#[address]-42 Reviewed 12/18/2015 12:00 AM BIOPSY SKIN LESION Reviewed 01/29/2016 12:00 AM Decadron, Per 1 Mg [facility]# [address]-20 Reviewed 01/29/2016 12:00 AM Depo-Medrol, Per 80 Mg [facility]#[address]-75 Reviewed 02/26/2016 12:00 AM COMPLETE CBC W/AUTO [...] 11/30/2012 12:00 AM Kenalog, Per 10 Mg [facility]#3908-4705-76 Reviewed 12/15/2012 12:00 AM DRAIN/INJ JOINT/BURSA W/O US Reviewed 12/15/2012 12:00 AM Kenalog, Per 10 Mg [facility]#0234-0938-23 Reviewed 01/27/2013 12:00 AM INJ TRIGGER POINT 1/2 MUSCL Reviewed 01/27/2013 12:00 AM Kenalog, Per 10 Mg [facility]#8289-2880-74 Reviewed 04/26/2013 12:00 AM Depo-Medrol, Per 80 Mg [facility]#6863-6634-06 Reviewed 04/26/2013 12:00 AM Decadron, Per 1 Mg [facility]# [address]-98 Reviewed 07/26/2013 12:00 AM X-RAY EXAM OF HIP Reviewed 07/26/2013 12:00 AM Depo-Medrol, Per 80 Mg [facility]#2147-0447-89 Reviewed 07/26/2013 12:00 AM Decadron, Per 1 Mg [facility]# [address]-84 Reviewed 10/05/2013 12:00 AM Depo-Medrol 80 Mg Im/C'padmini Reviewed 10/05/2013 12:00 AM Decadron, Per 1 Mg [facility]# [address]-84 Reviewed 12/18/2013 12:00 AM X-RAY EXAM NECK [...] Per 10 Mg [facility]#8905-1943-99 Reviewed Results Summary Data and Description Results [...] 10:56AM Bronchitis, Acute b 2015 10:45AM Dysphagia Oct 08 2015 10:35AM Hip pain, chronic, right Feb 2015 11:25AM Hip pain, chronic, left Feb 10 2015 11:25AM Lumbar spondylolysis Oct 16 2015 [...] 2016 10:26AM Tremor Aug 04 2016 10:26AM Payers Insurance Name Company Name Plan Name Plan Number Policy Number Policy Group Number Start Date Medicare Part A Medicare RHC [id number] N/A Cigna Cigna [id number] N/A Medicare Part B Medicare Of [place] [id number] November Medicare Part A Medicare Part A [id number] N/A Medicare Part A Medicare - Lab/Xray [id number] N/A History of Encounters Visit Date Visit Type Provider 08/04/2016 Office visit Hernandez Arroyo MD 07/23/2016 Office visit Hernandez Arroyo MD 07/06/2016 Office visit Hernandez Arroyo MD 06/26/2016 Office visit Hernandez Arroyo MD 04/06/2016 Office visit Hernandez Arroyo MD 03/05/2016 Hospital Jo Paris MD 03/03/2016 Office visit Hernandez Arroyo MD 02/26/2016 Office visit Hrenandez Arroyo MD 01/30/2016 Office visit Hernandez Arroyo MD 01/29/2016 Office visit Hernandez Arroyo MD 12/18/2015 Office visit Hernandez Arroyo MD 11/05/2015 Office visit Hernandez Arroyo MD 10/21/2015 Office visit Refugio Austin MD 10/16/2015 Office visit Hernandez Arroyo MD 10/11/2015 [facility] Refugio Austin MD 10/08/2015 Office visit Refugio [...] 04/26/2013 Office visit Hernandez Arroyo MD 03/16/2013 [facility] Chapincito Steele MD 03/01/2013 Office visit Chapincito [...] 07/12/2012 Office visit Refugio Austin MD 07/12/2012 [facility] Jo Paris MD 07/01/2012 Office visit Hernandez Arroyo MD 05/30/2012 Office visit Hernandez Arroyo MD 05/10/2012 Office visit Refugio Austin MD 05/02/2012 [facility] Refugio Austin MD 04/26/2012 Office visit Refugio Austin MD 04/26/2012 Office visit Hernandez Arroyo MD 03/10/2012 Office visit Hernanedz Arroyo MD
--- OUTSIDE RECORDS SUMMARY | 2019-03-20 10:16 | XMS REPORT ---
Author Author Hernandez Arroyo [facility] Address [address] [place], [place] [address] Care Team Providers Care Tyre Finisher And Examiner Name Role Phone Hernandez Arroyo PCP Unavailable [...] route daily as needed for 30 days [place] 10-325 mg oral tablet 01/29/2016 02/28/2016 take [...] HC BMI BSA BMI Percentile O2 Sat(%) 04/06/2016 2:03:00 PM 110 mmHg 70 mmHg [...] 07/01/2015 12:00 AM Kenalog, Per 10 Mg [facility]#6453-6975-23 Reviewed 10/07/2015 12:00 AM CHEST X-RAY 2VW FRONTAL&LATL Reviewed 10/08/2015 12:00 AM CONTRAST X-RAY ESOPHAGUS Returned 10/16/2015 12:00 AM Decadron, Per 1 Mg [facility]# [address]-99 Reviewed 10/16/2015 12:00 AM Depo-Medrol, Per 80 Mg [facility]#[address]-01 Reviewed 12/18/2015 12:00 AM BIOPSY SKIN LESION Reviewed 01/29/2016 12:00 AM Decadron, Per 1 Mg [facility]# [address]-84 Reviewed 01/29/2016 12:00 AM Depo-Medrol, Per 80 Mg [facility]#[address]-98 Reviewed 02/26/2016 12:00 AM COMPLETE CBC W/AUTO [...] 11/30/2012 12:00 AM Kenalog, Per 10 Mg [facility]#8591-7703-58 Reviewed 12/15/2012 12:00 AM DRAIN/INJ JOINT/BURSA W/O US Reviewed 12/15/2012 12:00 AM Kenalog, Per 10 Mg [facility]#7398-9191-28 Reviewed 01/27/2013 12:00 AM INJ TRIGGER POINT 1/2 MUSCL Reviewed 01/27/2013 12:00 AM Kenalog, Per 10 Mg [facility]#2868-0576-75 Reviewed 04/26/2013 12:00 AM Depo-Medrol, Per 80 Mg [facility]#6128-5273-40 Reviewed 04/26/2013 12:00 AM Decadron, Per 1 Mg [facility]# [address]-70 Reviewed 07/26/2013 12:00 AM X-RAY EXAM OF HIP Reviewed 07/26/2013 12:00 AM Depo-Medrol, Per 80 Mg [facility]#9381-6336-64 Reviewed 07/26/2013 12:00 AM Decadron, Per 1 Mg [facility]# [address]-25 Reviewed 10/05/2013 12:00 AM Depo-Medrol 80 Mg Im/C'padmini Reviewed 10/05/2013 12:00 AM Decadron, Per 1 Mg [facility]# [address]-08 Reviewed 12/18/2013 12:00 AM X-RAY EXAM NECK [...] 03/28/2015 12:00 AM Jayro Sinclair 10 Mg [facility]#0997-3727-71 Reviewed Results Summary Data and Description Results [...] BILI 1.10 mg/dLCALCIUM 9.40 mg/dLeGFR >60 mL/min/1.73 [id number] 145.0 mg/dLCHOLESTEROL 208.0 mg/dLHDL 37.0 mg/dLLDL (CALC) [...] 08 2015 10:35AM Hip pain, chronic, right Fe2015 11:25AM Hip pain, chronic, left Oct 16 [...] Low Back Pain Apr 06 2016 2:09PM Payers Insurance Name Company Name Plan Name Plan Number Policy Number Policy Group Number Start Date Medicare Part A Medicare [facility] [id number] N/A Cigna Cigna [id number] N/A Medicare Part B Medicare Of [place] [id number] November Medicare Part A Medicare Part A [id number] N/A Medicare Part A Medicare - Lab/Xray [id number] N/A History of Encounters Visit Date Visit Type Provider 04/06/2016 Office visit Hernandez Arroyo MD 03/05/2016 [facility] Jo Paris MD 03/03/2016 Office visit Hernandez Arroyo MD 02/26/2016 Office visit Hernandez Arroyo MD 01/30/2016 Office visit Hernandez Arroyo MD 01/29/2016 Office visit Hernandez Arroyo MD 12/18/2015 Office visit Hernandez Arroyo MD 11/05/2015 Office visit Hernandez Arroyo MD 10/21/2015 Office visit Refugio Austin MD 10/16/2015 Office visit Hernandez Arroyo MD 10/11/2015 [facility] Refugio Austin MD 10/08/2015 Office visit [...] 07/26/2013 Office visit Hernandez Arroyo MD 07/21/2013 [facility] Refugio Austin MD 07/17/2013 Office visit Refugio Austin MD 05/17/2013 Office visit Hernandez Arroyo MD 05/02/2013 Office visit Refugio Austin MD 04/26/2013 Office visit Hernandez Arroyo MD 03/16/2013 [facility] Chapincito Steele MD 03/01/2013 Office visit Chapincito Steele MD 02/16/2013 Office visit Hernandez Arroyo MD 01/27/2013 Office visit Chapincito Steele MD 01/13/2013 [facility] Chapincito Steele MD 12/15/2012 Office visit Chapincito Steele MD 12/07/2012 Office visit Nica Cartwright LEONARD 11/30/2012 Office visit Chapincito Steele MD 11/18/2012 Office visit Hernandez Arroyo MD 09/02/2012 Office visit Hernandez Arroyo MD 08/10/2012 Office visit Refugio Austin MD 08/04/2012 [facility] Refugio Austin MD 07/12/2012 Office visit Refugio Austin MD 07/12/2012 [facility] Jo Paris MD 07/01/2012 Office visit Hernandez Arroyo MD 05/30/2012 Office visit Hernandez Arroyo MD 05/10/2012 Office visit Refugio Austin MD 05/02/2012 [facility] Refugio Austin MD 04/26/2012 Office visit Refugio Austin MD 04/26/2012 Office visit Hernandez Arroyo MD 03/10/2012 Office visit Hernandez Arroyo MD
[2019-03-20] MEDS ORDERED: VANCOMYCIN 1000 MG/VIAL ONE (10:17)
[2019-03-20] MEDS ORDERED: BACITRACIN OINTMENT 28 GM TUBE ONE (10:18)
--- OUTSIDE RECORDS SUMMARY | 2019-03-20 10:18 | XMS REPORT ---
Author Author Refugio Austin [facility] Address [address] [place], [place] [address] Care Team Providers Care Food Order Delivery Runner Name Role Phone Refugio Austin PCP Unavailable Hernandez Arroyo PreferredProvider Unavailable Allergies [...] route 3 times a for 30 days Name Start Date Expiration [...] route daily as needed for 30 days [place] 10-325 mg oral tablet 01/29/2016 02/28/2016 take [...] HC BMI BSA BMI Percentile O2 Sat(%) 08/10/2016 10:59:00 AM 162 mmHg 86 mmHg [...] 07/01/2015 12:00 AM Kenalog, Per 10 Mg [facility]#7277-6946-27 Reviewed 10/07/2015 12:00 AM CHEST X-RAY 2VW FRONTAL&LATL Reviewed 10/08/2015 12:00 AM CONTRAST X-RAY ESOPHAGUS Returned 10/16/2015 12:00 AM Decadron, Per 1 Mg [facility]# [address]-20 Reviewed 10/16/2015 12:00 AM Depo-Medrol, Per 80 Mg [facility]#[address]-92 Reviewed 12/18/2015 12:00 AM BIOPSY SKIN LESION Reviewed 01/29/2016 12:00 AM Decadron, Per 1 Mg [place]# [address]-24 Reviewed 01/29/2016 12:00 AM Depo-Medrol, Per 80 Mg [facility]#[address]-31 Reviewed 02/26/2016 12:00 AM COMPLETE CBC W/AUTO [...] 11/30/2012 12:00 AM Kenalog, Per 10 Mg [facility]#0166-5203-71 Reviewed 12/15/2012 12:00 AM DRAIN/INJ JOINT/BURSA W/O US Reviewed 12/15/2012 12:00 AM Kenalog, Per 10 Mg [facility]#8014-3124-59 Reviewed 01/27/2013 12:00 AM INJ TRIGGER POINT 1/2 MUSCL Reviewed 01/27/2013 12:00 AM Kenalog, Per 10 Mg [facility]#6265-1298-53 Reviewed 04/26/2013 12:00 AM Depo-Medrol, Per 80 Mg [facility]#5437-1976-48 Reviewed 04/26/2013 12:00 AM Decadron, Per 1 Mg [facility]# [address]-05 Reviewed 07/26/2013 12:00 AM X-RAY EXAM OF HIP Reviewed 07/26/2013 12:00 AM Depo-Medrol, Per 80 Mg [facility]#9930-1685-32 Reviewed 07/26/2013 12:00 AM Decadron, Per 1 Mg [facility]# [address]-95 Reviewed 10/05/2013 12:00 AM Depo-Medrol 80 Mg Im/C'padmini Reviewed 10/05/2013 12:00 AM Decadron, Per 1 Mg [facility]# [address]-56 Reviewed 12/18/2013 12:00 AM X-RAY EXAM NECK [...] 03/28/2015 12:00 AM Kenalog, Per 10 Mg [facility]#2133-2943-71 Reviewed Results Summary Data and Description Results [...] 10:26AM Gastroesophageal Reflux Aug 10 2016 11:00AM Payers Insurance Name Company Name Plan Name Plan Number Policy Number Policy Group Number Start Date Medicare Part A Medicare RHC [id number] N/A Cigna Cigna [id number] N/A Medicare Part B Medicare Of [place] [id number] November Medicare Part A Medicare Part A [id number] N/A Medicare Part A Medicare - Lab/Xray [id number] N/A History of Encounters Visit Date Visit Type Provider 08/10/2016 Office visit Refugio Austin MD 08/04/2016 Office visit Hernandez Arroyo MD 07/23/2016 Office visit Hernadnez Arroyo MD 07/06/2016 Office visit Hernandez Arroyo MD 06/26/2016 Office visit Hernandez Arroyo MD 04/06/2016 Office visit Hernandez Arroyo MD 03/05/2016 [facility] Jo Paris MD 03/03/2016 Office visit Hernandez Arroyo MD 02/26/2016 Office visit Hernadnez Arroyo MD 01/30/2016 Office visit Hernandez Arroyo MD 01/29/2016 Office visit Hernandez Arroyo MD 12/18/2015 Office visit Hernandez Arroyo MD 11/05/2015 Office visit Hernandez Arroyo MD 10/21/2015 Office visit Refugio Austin MD 10/16/2015 Office visit Hernandez Arroyo MD 10/11/2015 [facility] Refugio Austin MD 10/08/2015 Office visit Refugio [...] 04/26/2013 Office visit Hernandez Arroyo MD 03/16/2013 [facility] Chapincito Steele MD 03/01/2013 Office visit Chapincito [...]
--- OUTSIDE RECORDS SUMMARY | 2019-03-20 10:20 | XMS REPORT ---
Author Author Salinas Gamble [facility] Address [address] [place], [place] [address] Care Team Providers Care Lay Health Advocate Name Role Phone Salinas Gamble PCP Allergies and Adverse Reactions Name Reaction [...] instill 1 drop in affected eye daily primidone 50 mg oral tablet 06/10/2015 06/04/2016 take 1 tablet by oral route 2 times a day for 90 days MagOx 400 mg oral tablet 06/10/2015 06/04/2016 [...] tablet 06/11/2015 TAKE 1 TABLET ONCE DAILY Name Start Date Expiration Date [...] 3 times a day for 5 days [place] 7.5-325 mg oral tablet 05/07/2015 06/06/2015 take [...] HC BMI BSA BMI Percentile O2 Sat(%) 06/14/2015 5:07:00 PM 76 bpm 20 rpm [...] 11/30/2012 12:00 AM Kenalog, Per 10 Mg [facility]#6335-7220-41 Reviewed 12/15/2012 12:00 AM DRAIN/INJ JOINT/BURSA W/O US Reviewed 12/15/2012 12:00 AM Kenalog, Per 10 Mg [facility]#7274-3975-17 Reviewed 01/27/2013 12:00 AM INJ TRIGGER POINT 1/2 MUSCL Reviewed 01/27/2013 12:00 AM Kenalog, Per 10 Mg [facility]#1605-3237-54 Reviewed 04/26/2013 12:00 AM Depo-Medrol, Per 80 Mg [facility]#4826-7300-66 Reviewed 04/26/2013 12:00 AM Decadron, Per 1 Mg [facility]# [address]-14 Reviewed 07/26/2013 12:00 AM X-RAY EXAM OF HIP Reviewed 07/26/2013 12:00 AM Depo-Medrol, Per 80 Mg [facility]#0580-1736-78 Reviewed 07/26/2013 12:00 AM Decadron, Per 1 Mg [facility]# [address]-32 Reviewed 10/05/2013 12:00 AM Depo-Medrol 80 Mg Im/C'padmini Reviewed 10/05/2013 12:00 AM Decadron, Per 1 Mg [facility]# [address]-70 Reviewed 12/18/2013 12:00 AM X-RAY EXAM NECK [...] 03/28/2015 12:00 AM Kensha, Per 10 Mg [facility]#9020-6442-46 Reviewed Results Summary Data and Description Results [...] BILI 1.10 mg/dLCALCIUM 9.40 mg/dLeGFR >60 mL/min/1.73 [id number] 145.0 mg/dLCHOLESTEROL 208.0 mg/dLHDL 37.0 mg/dLLDL (CALC) [...] 2015 1:55PM Nausea Jun 14 2015 5:08PM Payers Insurance Name Company Name Plan Name Plan Number Policy Number Policy Group Number Start Date Medicare Part A Medicare Part A [id number] N/A Cigvelasquez Perez [id number] N/A Medicare Part B Medicare Of [place] [id number] November History of Encounters Visit Date Visit Type Provider 06/14/2015 Office visit Salinas Gamble APRN 06/10/2015 [...] 04/26/2013 Office visit Hernandez Arroyo MD 03/16/2013 [facility] Chapincito Steele MD 03/01/2013 Office visit Chapincito Steele MD 02/16/2013 Office visit Hernandez Arroyo MD 01/27/2013 Office visit Chapincito Steele MD 01/13/2013 [facility] Chapincito Steele MD 12/15/2012 Office visit Chapincito Steele MD 12/07/2012 Office visit Nica Cartwright APRN 11/30/2012 Office visit Chapincito Steele MD 11/18/2012 Office visit Hernandez Arroyo MD 09/02/2012 Office visit Hernandez Arroyo MD 08/10/2012 Office visit Refugio Austin MD 08/04/2012 [facility] Refugio Austin MD 07/12/2012 Office visit Refugio Austin MD 07/12/2012 [facility] Jo Paris MD 07/01/2012 Office visit Hernandez Arroyo MD 05/30/2012 Office visit Hernandez Arroyo MD 05/10/2012 Office visit Refugio Austin MD 05/02/2012 [facility] Refugio Austin MD 04/26/2012 Office visit Refugio Austin MD 04/26/2012 Office visit Hernandez Arroyo MD 03/10/2012 Office visit Hernandez Arroyo MD
--- OUTSIDE RECORDS SUMMARY | 2019-03-20 10:22 | XMS REPORT ---
Author Author Hernandez Arroyo [facility] Address [address] [place], [place] [address] Care Team Providers Care Chief Creative Officer Name Role Phone Hernandez Arroyo PCP Unavailable Allergies and Adverse Reactions Name Reaction Notes Demerol codeine sulfate Plan of Treatment Planned Activity Comments Planned Date Planned Time Plan/Goal COMPLETE CBC W/AUTO DIFF WBC 07/06/2016 12:00 AM COMPREHEN METABOLIC PANEL 07/06/2016 12:00 AM ASSAY OF MAGNESIUM 07/06/2016 12:00 AM CHEST X-RAY 2VW FRONTAL&LATL 04/26/2012 [...] oral route once daily for 30 days Name Start Date Expiration [...] 3 times a day for 5 days Proscar 5 mg oral tablet 06/10/2015 06/04/2016 take 1 tablet (5 mg) by oral route once daily for 90 days Zofran ODT 4 [...] route daily as needed for 30 days [place] 10-325 mg oral tablet 01/29/2016 02/28/2016 take [...] HC BMI BSA BMI Percentile O2 Sat(%) 07/06/2016 10:06:00 AM 138 mmHg 80 mmHg [...] 07/01/2015 12:00 AM Kenalog, Per 10 Mg [facility]#1351-8703-78 Reviewed 10/07/2015 12:00 AM CHEST X-RAY 2VW FRONTAL&LATL Reviewed 10/08/2015 12:00 AM CONTRAST X-RAY ESOPHAGUS Returned 10/16/2015 12:00 AM Decadron, Per 1 Mg [facility]# [address]-74 Reviewed 10/16/2015 12:00 AM Depo-Medrol, Per 80 Mg [facility]#[address]-95 Reviewed 12/18/2015 12:00 AM BIOPSY SKIN LESION Reviewed 01/29/2016 12:00 AM Decadron, Per 1 Mg [facility]# [address]-83 Reviewed 01/29/2016 12:00 AM Depo-Medrol, Per 80 Mg [facility]#[address]-24 Reviewed 02/26/2016 12:00 AM COMPLETE CBC W/AUTO [...] 11/30/2012 12:00 AM Kenalog, Per 10 Mg [facility]#4260-6306-83 Reviewed 12/15/2012 12:00 AM DRAIN/INJ JOINT/BURSA W/O US Reviewed 12/15/2012 12:00 AM Kenalog, Per 10 Mg [facility]#2137-4020-41 Reviewed 01/27/2013 12:00 AM INJ TRIGGER POINT 1/2 MUSCL Reviewed 01/27/2013 12:00 AM Kenalog, Per 10 Mg [facility]#0264-5988-90 Reviewed 04/26/2013 12:00 AM Depo-Medrol, Per 80 Mg [facility]#2652-0237-12 Reviewed 04/26/2013 12:00 AM Decadron, Per 1 Mg [facility]# [address]-12 Reviewed 07/26/2013 12:00 AM X-RAY EXAM OF HIP Reviewed 07/26/2013 12:00 AM Depo-Medrol, Per 80 Mg [facility]#3790-6633-96 Reviewed 07/26/2013 12:00 AM Decadron, Per 1 Mg [facility]# [address]-94 Reviewed 10/05/2013 12:00 AM Depo-Medrol 80 Mg Im/C'padmini Reviewed 10/05/2013 12:00 AM Decadron, Per 1 Mg [facility]# [address]-03 Reviewed 12/18/2013 12:00 AM X-RAY EXAM NECK [...] 03/28/2015 12:00 AM Kenalog, Per 10 Mg [facility]#2210-2461-52 Reviewed Results Summary Data and Description Results [...] BILI 1.10 mg/dLCALCIUM 9.40 mg/dLeGFR >60 mL/min/1.73 [id number] 145.0 mg/dLCHOLESTEROL 208.0 mg/dLHDL 37.0 mg/dLLDL (CALC) [...] 2016 10:10AM Myalgia Jul 06 2016 10:10AM Payers Insurance Name Company Name Plan Name Plan Number Policy Number Policy Group Number Start Date Medicare Part A Medicare [facility] [id number] N/A Cigna Cigna [id number] N/A Medicare Part B Medicare Of [place] [id number] November Medicare Part A Medicare Part A [id number] N/A Medicare Part A Medicare - Lab/Xray [id number] N/A History of Encounters Visit Date Visit Type Provider 07/06/2016 Office visit Hernandez Arroyo MD 06/26/2016 Office visit Hernandez Arroyo MD 04/06/2016 Office visit Hernandez Arroyo MD 03/05/2016 [facility] Vitaly Paris MD 03/03/2016 Office visit [...] Hernandez Arroyo MD 10/15/2014 Office visit Camryn JOHSI 10/03/2014 Office visit Hernandez Arroyo MD 10/01/2014 [...] Hernandez Arroyo MD 10/30/2013 Office visit RAJ ZARATE MADELYN 10/23/2013 Office visit Hernandez Arroyo [...] 01/27/2013 Office visit Chapincito Steele MD 01/13/2013 [facility] Chapincito Steele MD 12/15/2012 Office visit Chapincito [...] Hernandez Arroyo MD 05/30/2012 Office visit Hernandez Aroryo MD 05/10/2012 Office visit Refugio Austin MD 05/02/2012 Hospital Refugio Austin MD 04/26/2012 Office visit Refugio Austin MD 04/26/2012 Office visit Hernandez Arroyo MD 03/10/2012 Office visit Hernandez Arroyo MD
--- OUTSIDE RECORDS SUMMARY | 2019-03-20 10:24 | XMS REPORT ---
Author Author Hernandez Arroyo [facility] Address [address] [place], [place] [id number] Care Team Providers Care Paint Mixer Name Role Phone Hernandez Arroyo PCP Hernandez [...] 2 times a day for 90 days Lasix 40 mg oral [...] route daily as needed for 30 days [place] 10-325 mg oral tablet 01/29/2016 02/28/2016 take [...] HC BMI BSA BMI Percentile O2 Sat(%) 09/02/2017 10:56:00 AM 130 mmHg 84 mmHg [...] 10 Mg [facility]#8662-7835-03 Reviewed 10/07/2015 12:00 AM CHEST X-RAY 2VW FRONTAL&LATL Reviewed 10/08/2015 12:00 AM CONTRAST X-RAY ESOPHAGUS Reviewed 10/16/2015 12:00 AM Decadron, Per 1 Mg ND# [address]-04 Reviewed 10/16/2015 12:00 AM Depo-Medrol, Per 80 Mg NDC#[address]-44 Reviewed 12/18/2015 12:00 AM BIOPSY SKIN LESION Reviewed 01/29/2016 12:00 AM Decadron, Per 1 Mg ND# [address]-50 Reviewed 01/29/2016 12:00 AM Depo-Medrol, Per 80 Mg NDC#[address]-41 Reviewed 02/26/2016 12:00 AM COMPLETE CBC W/AUTO [...] 11/30/2012 12:00 AM Kenalog, Per 10 Mg NDC#0798-2096-72 Reviewed 12/15/2012 12:00 AM DRAIN/INJ JOINT/BURSA W/O US Reviewed 12/15/2012 12:00 AM Kenalog, Per 10 Mg N[facility]#2808-5395-70 Reviewed 01/27/2013 12:00 AM INJ TRIGGER POINT 1/2 MUSCL Reviewed 01/27/2013 12:00 AM Kenalog, Per 10 Mg N[facility]#8327-9959-25 Reviewed 04/26/2013 12:00 AM Depo-Medrol, Per 80 Mg NDC#6258-7454-21 Reviewed 04/26/2013 12:00 AM Decadron, Per 1 Mg ND# [address]-32 Reviewed 07/26/2013 12:00 AM X-RAY EXAM OF HIP Reviewed 07/26/2013 12:00 AM Depo-Medrol, Per 80 Mg [facility]#7735-8643-79 Reviewed 07/26/2013 12:00 AM Decadron, Per 1 Mg [facility]# [address]-66 Reviewed 10/05/2013 12:00 AM Depo-Medrol 80 Mg Im/C'padmini Reviewed 10/05/2013 12:00 AM Decadron, Per 1 Mg [facility]# [address]-12 Reviewed 12/18/2013 12:00 AM X-RAY EXAM NECK [...] 10 Mg [facility]#0388-9831-89 Reviewed Results Summary Date and Description Results [...] 2017 10:58AM Hypokalemia Sep 02 2017 10:58AM Payers Insurance Name Company Name Plan Name Plan Number Policy Number Policy Group Number Start Date Medicare RH Medicare RH [id number] N/A Cigna Cigna [id number] N/A Medicare Part B Medicare Of [place] [id number] November Medicare Part A Medicare Part A [id number] N/A Medicare Part A Medicare - Lab/Xray [id number] N/A History of Encounters Visit Date Visit Type Provider 09/02/2017 Office visit Hernandez Arroyo MD 08/05/2017 Office visit Hernandez Arroyo MD 07/21/2017 Office visit Hernandez Arroyo MD 07/16/2017 [facility] Jo Paris MD 07/16/2017 [facility] Luis Mcgovern MD 07/08/2017 Office visit [...] 07/12/2012 Office visit Refugio Austin MD 07/12/2012 [facility] Jo Paris MD 07/01/2012 Office visit Hernandez Arroyo MD 05/30/2012 Office visit Hernandez Arroyo MD 05/10/2012 Office visit Refugio Austin MD 05/02/2012 [facility] Refugio Austin MD 04/26/2012 Office visit Refugio Austin MD 04/26/2012 Office visit Hernandez Arroyo MD 03/10/2012 Office visit Hernandez Arroyo MD
--- OUTSIDE RECORDS SUMMARY | 2019-03-20 10:25 | XMS REPORT ---
Author Author Hernandez Arroyo [facility] Address [address] [place], [place] [phone] Care Team Providers Care Butt Trimmer Name Role Phone Hernandez Arroyo PCP Unavailable [...] route every 8 hours for 3 days [place] 10-325 mg oral tablet 09/10/2015 10/10/2015 take [...] Per [address] [facility]#9572-7968-50 Reviewed 10/07/2015 12:00 AM CHEST X-RAY 2VW FRONTAL&LATL Reviewed 10/08/2015 12:00 AM CONTRAST X-RAY ESOPHAGUS Returned 10/16/2015 12:00 AM Decadron, Per [address] [facility]# [address]-13 Reviewed 10/16/2015 12:00 AM Depo-Medrol, Per [address] [facility]#[address]-06 Reviewed 07/01/2012 12:00 AM X-RAY EXAM L-S [...] Per [address] [facility]#8474-5406-31 Reviewed 12/15/2012 12:00 AM DRAIN/INJ JOINT/BURSA W/O US Reviewed 12/15/2012 12:00 AM Kenalog, Per [address] [facility]#0616-9440-29 Reviewed 01/27/2013 12:00 AM INJ TRIGGER POINT 1/2 MUSCL Reviewed 01/27/2013 12:00 AM Kenalog, Per [address] [facility]#5145-4606-87 Reviewed 04/26/2013 12:00 AM Depo-Medrol, Per 80 Mg [facility]#2230-6359-61 Reviewed 04/26/2013 12:00 AM Decadron, Per [address] [facility]# [address]-63 Reviewed 07/26/2013 12:00 AM X-RAY EXAM OF HIP Reviewed 07/26/2013 12:00 AM Depo-Medrol, Per 80 Mg NDC#1230-8632-33 Reviewed 07/26/2013 12:00 AM Decadron, Per [address] [facility]# [address]-00 Reviewed 10/05/2013 12:00 AM Depo-Medrol 80 Mg Im/C'padmini Reviewed 10/05/2013 12:00 AM Decadron, Per [address] [facility]# [address]-74 Reviewed 12/18/2013 12:00 AM X-RAY EXAM NECK [...] Per [address] [facility]#7256-1513-48 Reviewed Results Summary Data and Description Results [...] BILI 1.10 mg/dLCALCIUM 9.40 mg/dLeGFR >60 mL/min/1.73 [id number] 145.0 mg/dLCHOLESTEROL 208.0 mg/dLHDL 37.0 mg/dLLDL (CALC) [...] 2015 3:29PM Cough Nov 05 2015 3:29PM Payers Insurance Name Company Name Plan Name Plan Number Policy Number Policy Group Number Start Date Medicare Part B Medicare Of [place] [id number] November Cigna Cigna [id number] N/A Medicare Part A Medicare Part A [id number] N/A History of Encounters Visit Date Visit [...] visit Hernandez Arroyo MD 05/02/2013 Office visit Refugoi Austin MD 04/26/2013 Office visit Hernandez Arroyo [...]
--- OUTSIDE RECORDS SUMMARY | 2019-03-20 10:27 | XMS REPORT ---
Author Author Hernandez Arroyo [facility] Address [address] [place], [place] [address] Care Team Providers Care Leather Parts Matcher Name Role Phone Hernandez Arroyo PCP Unavailable [...] route every 8 hours for 3 days [place] 10-325 mg oral tablet 09/10/2015 10/10/2015 take [...] [facility]#3061-7934-87 Reviewed 10/07/2015 12:00 AM CHEST X-RAY 2VW FRONTAL&LATL Reviewed 10/08/2015 12:00 AM CONTRAST X-RAY ESOPHAGUS Returned 10/16/2015 12:00 AM Decadron, Per 1 Mg [facility]# [address]-42 Reviewed 10/16/2015 12:00 AM Depo-Medrol, Per 80 Mg [facility]#[address]-53 Reviewed 07/01/2012 12:00 AM X-RAY EXAM L-S [...] 11/30/2012 12:00 AM Kenalog, Per 10 Mg [facility]#5369-0541-00 Reviewed 12/15/2012 12:00 AM DRAIN/INJ JOINT/BURSA W/O US Reviewed 12/15/2012 12:00 AM Kenalog, Per 10 Mg [facility]#6844-2813-70 Reviewed 01/27/2013 12:00 AM INJ TRIGGER POINT 1/2 MUSCL Reviewed 01/27/2013 12:00 AM Kenalog, Per 10 Mg [facility]#6760-9864-29 Reviewed 04/26/2013 12:00 AM Depo-Medrol, Per 80 Mg [facility]#1147-5497-70 Reviewed 04/26/2013 12:00 AM Decadron, Per 1 Mg [facility]# [address]-43 Reviewed 07/26/2013 12:00 AM X-RAY EXAM OF HIP Reviewed 07/26/2013 12:00 AM Depo-Medrol, Per 80 Mg [facility]#7214-5750-24 Reviewed 07/26/2013 12:00 AM Decadron, Per 1 Mg [facility]# [address]-22 Reviewed 10/05/2013 12:00 AM Depo-Medrol 80 Mg Im/C'padmini Reviewed 10/05/2013 12:00 AM Decadron, Per 1 Mg [facility]# [address]-64 Reviewed 12/18/2013 12:00 AM X-RAY EXAM NECK [...] [facility]#2920-7159-52 Reviewed Results Summary Data and Description Results [...] BILI 1.10 mg/dLCALCIUM 9.40 mg/dLeGFR >60 mL/min/1.73 [id number] 145.0 mg/dLCHOLESTEROL 208.0 mg/dLHDL 37.0 mg/dLLDL (CALC) [...] Date Medicare Part B Medicare Of [place] [id number] November Cigna Cigna [id number] N/A Medicare Part A Medicare Part A [id number] N/A History of Encounters Visit Date Visit Type Provider 11/05/2015 Office visit Hernandez Arroyo MD 10/21/2015 Office visit Refugio Austin MD 10/16/2015 Office visit Hernandez Arroyo MD 10/11/2015 [facility] Refugio Austin MD 10/08/2015 Office [...]
--- OUTSIDE RECORDS SUMMARY | 2019-03-20 10:29 | XMS REPORT ---
Author Author Hernandez Arroyo [facility] Address [address] [facility] [address] [place], [place] [phone] Care Team Providers Care Shooter Helper Name Role Phone Hernandez Arroyo PCP Unavailable Hernandez Arroyo PreferredProvider Unavailable Allergies and Adverse Reactions Name Reaction Notes Demerol codeine sulfate Plan of Treatment Planned Activity Comments Planned Date Planned Time Plan/Goal Chest X-ray, PA and lateral 04/26/2012 12:00 AM CBC With Auto Differential 04/27/2017 12:00 AM CMP 04/27/2017 12:00 AM Chest x-ray, PA and lateral 04/27/2017 12:00 AM Medications Active Name Start Date [...] route daily as needed for 30 days [place] 10-325 mg oral tablet 01/29/2016 02/28/2016 take [...] HC BMI BSA BMI Percentile O2 Sat(%) 04/27/2017 9:57:00 AM 126 mmHg 68 mmHg [...] 07/01/2015 12:00 AM Kenalog, Per 10 Mg [facility]#2059-9948-31 Reviewed 10/07/2015 12:00 AM CHEST X-RAY 2VW FRONTAL&LATL Reviewed 10/08/2015 12:00 AM CONTRAST X-RAY ESOPHAGUS Reviewed 10/16/2015 12:00 AM Decadron, Per 1 Mg [facility]# [address]-77 Reviewed 10/16/2015 12:00 AM Depo-Medrol, Per 80 Mg [facility]#[address]-32 Reviewed 12/18/2015 12:00 AM BIOPSY SKIN LESION Reviewed 01/29/2016 12:00 AM Decadron, Per 1 Mg [facility]# [address]-58 Reviewed 01/29/2016 12:00 AM Depo-Medrol, Per 80 Mg [facility]#[address]-11 Reviewed 02/26/2016 12:00 AM COMPLETE CBC W/AUTO [...] 11/30/2012 12:00 AM Kenalog, Per 10 Mg [facility]#8460-5934-59 Reviewed 12/15/2012 12:00 AM DRAIN/INJ JOINT/BURSA W/O US Reviewed 12/15/2012 12:00 AM Kenalog, Per 10 Mg [facility]#7610-5031-81 Reviewed 01/27/2013 12:00 AM INJ TRIGGER POINT 1/2 MUSCL Reviewed 01/27/2013 12:00 AM Kenalog, Per 10 Mg [facility]#5176-4026-81 Reviewed 04/26/2013 12:00 AM Depo-Medrol, Per 80 Mg [facility]#6354-3418-94 Reviewed 04/26/2013 12:00 AM Decadron, Per 1 Mg [facility]# [address]-15 Reviewed 07/26/2013 12:00 AM X-RAY EXAM OF HIP Reviewed 07/26/2013 12:00 AM Depo-Medrol, Per 80 Mg [facility]#4175-9562-68 Reviewed 07/26/2013 12:00 AM Decadron, Per 1 Mg [facility]# [address]-50 Reviewed 10/05/2013 12:00 AM Depo-Medrol 80 Mg Im/C'padmini Reviewed 10/05/2013 12:00 AM Decadron, Per 1 Mg [facility]# [address]-79 Reviewed 12/18/2013 12:00 AM X-RAY EXAM NECK [...] 03/28/2015 12:00 AM Kenalog, Per 10 Mg [facility]#6627-0891-46 Reviewed Results Summary Date and Description Results [...] 2017 9:59AM Dyspnea Apr 27 2017 9:59AM Payers Insurance Name Company Name Plan Name Plan Number Policy Number Policy Group Number Start Date Medicare [facility] Medicare [facility] [id number] N/A Cigna Cigna [id number] N/A Medicare Part B Medicare Of [place] [id number] November Medicare Part A Medicare Part A [id number] N/A Medicare Part A Medicare - Lab/Xray [id number] N/A History of Encounters Visit Date Visit Type Provider 04/27/2017 Office visit Hernandez Arroyo MD 02/18/2017 [...] Office visit Camryn JOSHI 02/06/2014 Office visit Carmyn JOSHI 01/08/2014 Office visit Camryn JOSHI 12/18/2013 Office visit Hernandez Arroyo MD 10/30/2013 Office visit RAJMIRLANDE CAICEDOZaid JOSHI 10/23/2013 Office visit Hernandez Arroyo MD [...] Ssd Refugio Austin MD 07/12/2012 Office visit Refugio [...]
--- OUTSIDE RECORDS SUMMARY | 2019-03-20 10:31 | XMS REPORT ---
Author Author Hernandez Arroyo [facility] Address [address] [place], [place] [address] Care Team Providers Care Pediatric Geneticist Name Role Phone Hernandez Arroyo PCP Hernandez [...] portable oxygen 11/16/2017 2 litres per nc Name Start Date Expiration Date SIG Comments [...] route daily as needed for 30 days [place] 10-325 mg oral tablet 01/29/2016 02/28/2016 take [...] HC BMI BSA BMI Percentile O2 Sat(%) 11/16/2017 2:25:00 PM 113 mmHg 74 mmHg [...] 07/01/2015 12:00 AM Kenalog, Per 10 Mg [facility]#2724-4071-20 Reviewed 10/07/2015 12:00 AM CHEST X-RAY 2VW FRONTAL&LATL Reviewed 10/08/2015 12:00 AM CONTRAST X-RAY ESOPHAGUS Reviewed 10/16/2015 12:00 AM Decadron, Per 1 Mg [facility]# [address]-80 Reviewed 10/16/2015 12:00 AM Depo-Medrol, Per 80 Mg [facility]#[address]-71 Reviewed 12/18/2015 12:00 AM BIOPSY SKIN LESION Reviewed 01/29/2016 12:00 AM Decadron, Per 1 Mg [facility]# [address]-00 Reviewed 01/29/2016 12:00 AM Depo-Medrol, Per 80 Mg [facility]#[address]-39 Reviewed 02/26/2016 12:00 AM COMPLETE CBC W/AUTO [...] 09/13/2017 12:00 AM Depo Medrol 40mg Injection, [facility] Medicare Reviewed 09/13/2017 12:00 AM Decadron 4mg Injection, [facility] Medicaid Reviewed 11/03/2017 12:00 AM Rocephin 1 gram Injection Reviewed 11/03/2017 12:00 AM Depo Medrol 40mg Injection, [facility] Medicare Reviewed 11/03/2017 12:00 AM Decadron 4mg Injection, [facility] Medicaid Reviewed 11/18/2012 12:00 AM METABOLIC PANEL TOTAL CA Reviewed 11/18/2012 12:00 AM COMPLETE CBC W/AUTO DIFF WBC Reviewed 11/18/2012 12:00 AM GLYCOSYLATED HEMOGLOBIN TEST Reviewed 11/18/2012 12:00 AM ASSAY OF BLOOD/URIC ACID Reviewed 11/18/2012 12:00 AM Prostate Cancer Screening Reviewed 12/07/2012 12:00 AM GLUCOSE BLOOD TEST Reviewed 11/30/2012 12:00 AM DRAIN/INJ JOINT/BURSA W/O US Reviewed 11/30/2012 12:00 AM Kenalog, Per 10 Mg [facility]#9779-5686-50 Reviewed 12/15/2012 12:00 AM DRAIN/INJ JOINT/BURSA W/O US Reviewed 12/15/2012 12:00 AM Kenalog, Per 10 Mg [facility]#5950-5714-86 Reviewed 01/27/2013 12:00 AM INJ TRIGGER POINT 1/2 MUSCL Reviewed 01/27/2013 12:00 AM Kenalog, Per 10 Mg [facility]#1815-1869-01 Reviewed 04/26/2013 12:00 AM Depo-Medrol, Per 80 Mg [facility]#8033-6102-55 Reviewed 04/26/2013 12:00 AM Decadron, Per 1 Mg [facility]# [address]-92 Reviewed 07/26/2013 12:00 AM X-RAY EXAM OF HIP Reviewed 07/26/2013 12:00 AM Depo-Medrol, Per 80 Mg [facility]#5393-4398-16 Reviewed 07/26/2013 12:00 AM Decadron, Per 1 Mg [facility]# [address]-88 Reviewed 10/05/2013 12:00 AM Depo-Medrol 80 Mg Im/C'padmini Reviewed 10/05/2013 12:00 AM Decadron, Per 1 Mg [facility]# [address]-55 Reviewed 12/18/2013 12:00 AM X-RAY EXAM NECK [...] 12:00 AM Kenalog, Per 10 Mg [facility]#4757-3050-11 Reviewed Results Summary Date and Description Results [...] Bursitis Oct 15 2014 11:04AM Spondylosis, lumbar b 2014 4:29PM [...] 2017 2:30PM Hypoxia Nov 16 2017 2:30PM Payers Insurance Name Company Name Plan Name Plan Number Policy Number Policy Group Number Start Date Medicare RHC Medicare RHC [id number] N/A Cigna Cigna [id number] N/A Medicare Part B Medicare Of [place] [id number] November Medicare Part A Medicare Part A [id number] N/A Medicare Part A Medicare - Lab/Xray [id number] N/A History of Encounters Visit Date Visit Type Provider 11/16/2017 Office visit Hernandez Arroyo MD 11/03/2017 Office visit Hernandez Arroyo MD 09/13/2017 Office visit Hernandez Arroyo MD 09/02/2017 Office visit Hernandez Arroyo MD 08/05/2017 Office visit Hernandez Arroyo MD 07/21/2017 Office visit Hernandez Arroyo MD 07/16/2017 Hospital Jo Paris MD 07/16/2017 [facility] Luis Mcgovern MD 07/08/2017 Office visit [...] 07/26/2013 Office visit Hernandez Arroyo MD 07/21/2013 [facility] Refugio Austin MD 07/17/2013 Office visit Refugio Austin MD 05/17/2013 Office visit Hernandez Arroyo MD 05/02/2013 Office visit Refugio Austin MD 04/26/2013 Office visit Hernandez Arroyo MD 03/16/2013 Hospital Chapincito Steele MD 03/01/2013 Office visit Chapincito Steele MD 02/16/2013 Office visit Hernandez Arroyo MD 01/27/2013 Office visit Chapincito Steele MD 01/13/2013 [facility] Chapincito Steele MD 12/15/2012 Office visit Chapincito Steele MD 12/07/2012 Office visit Nica Cartwright APRN 11/30/2012 Office visit Chapincito Steele MD 11/18/2012 Office visit Hernandez Arroyo MD 09/02/2012 Office visit Hernandez Arroyo MD 08/10/2012 Office visit Refugio Austin MD 08/04/2012 [facility] Refugio Austin MD 07/12/2012 Office visit Refugio Austin MD 07/12/2012 [facility] Jo Paris MD 07/01/2012 Office visit Hernandez Arroyo MD 05/30/2012 Office visit Hernandez Arroyo MD 05/10/2012 Office visit Refugio Austin MD 05/02/2012 Hospital Refugio Austin MD 04/26/2012 Office visit Refugio Austin MD 04/26/2012 Office visit Hernandez Arroyo MD 03/10/2012 Office visit Hernandez Arroyo MD
--- OUTSIDE RECORDS SUMMARY | 2019-03-20 10:33 | XMS REPORT ---
Author Author Hernandez Arroyo [facility] Address [address] [place], [place] [address] Care Team Providers Care Digital Marketing Assistant Name Role Phone Hernandez Arroyo PCP Unavailable [...] oral route every 6 hours as needed amoxicillin 875 mg oral tablet 07/08/2017 take 1 tablet (875 mg) by oral route every 12 hours for 7 days celecoxib 200 mg oral capsule 07/21/2017 07/16/2018 [...] route daily as needed for 30 days [place] 10-325 mg oral tablet 01/29/2016 02/28/2016 take [...] TAKE 1 TABLET BY MOUTH ONCE DAILY Problem List Description Status Onset Gastroesophageal Reflux [...] Per 10 Mg [facility]#9670-5647-70 Reviewed 10/07/2015 12:00 AM CHEST X-RAY 2VW FRONTAL&LATL Reviewed 10/08/2015 12:00 AM CONTRAST X-RAY ESOPHAGUS Reviewed 10/16/2015 12:00 AM Decadron, Per 1 Mg [facility]# [address]-42 Reviewed 10/16/2015 12:00 AM Depo-Medrol, Per 80 Mg [facility]#[address]-52 Reviewed 12/18/2015 12:00 AM BIOPSY SKIN LESION Reviewed 01/29/2016 12:00 AM Decadron, Per 1 Mg [facility]# [address]-45 Reviewed 01/29/2016 12:00 AM Depo-Medrol, Per 80 Mg [facility]#[address]-46 Reviewed 02/26/2016 12:00 AM COMPLETE CBC W/AUTO [...] 11/30/2012 12:00 AM Kenalog, Per 10 Mg [facility]#9549-8691-30 Reviewed 12/15/2012 12:00 AM DRAIN/INJ JOINT/BURSA W/O US Reviewed 12/15/2012 12:00 AM Kenalog, Per 10 Mg [facility]#1471-6351-64 Reviewed 01/27/2013 12:00 AM INJ TRIGGER POINT 1/2 MUSCL Reviewed 01/27/2013 12:00 AM Kenalog, Per 10 Mg [facility]#2664-4115-60 Reviewed 04/26/2013 12:00 AM Depo-Medrol, Per 80 Mg [facility]#3551-2562-68 Reviewed 04/26/2013 12:00 AM Decadron, Per 1 Mg [facility]# [address]-73 Reviewed 07/26/2013 12:00 AM X-RAY EXAM OF HIP Reviewed 07/26/2013 12:00 AM Depo-Medrol, Per 80 Mg [facility]#1697-8025-79 Reviewed 07/26/2013 12:00 AM Decadron, Per 1 Mg [facility]# [address]-97 Reviewed 10/05/2013 12:00 AM Depo-Medrol 80 Mg Im/C'padmini Reviewed 10/05/2013 12:00 AM Decadron, Per 1 Mg [facility]# [address]-93 Reviewed 12/18/2013 12:00 AM X-RAY EXAM NECK [...] Per 10 Mg [facility]#7983-9049-48 Reviewed Results Summary Date and Description Results [...] 2017 10:02AM Hypokalemia Jul 21 2017 10:02AM Payers Insurance Name Company Name Plan Name Plan Number Policy Number Policy Group Number Start Date Medicare RHC Medicare RHC [id number] N/A Cigna Cigna [id number] N/A Medicare Part B Medicare Of [place] [id number] November Medicare Part A Medicare Part A [id number] N/A Medicare Part A Medicare - Lab/Xray [id number] N/A History of Encounters Visit Date Visit [...] 04/06/2016 Office visit Hernandez Arroyo MD 03/05/2016 [facility] Jo Paris MD 03/03/2016 Office visit Hernandez [...]
--- OUTSIDE RECORDS SUMMARY | 2019-03-20 10:35 | XMS REPORT ---
Author Author Hernandez Arroyo [facility] Address [address] [place], [place] [address] Care Team Providers Care Brand Executive Name Role Phone Hernandez Arroyo PCP Unavailable [...] release (DR/EC) 01/30/2016 TAKE 1 TABLET DAILY primidone 50 mg oral tablet 02/26/2016 02/20/2017 take 1 tablet by oral route daily for 90 days hydrochlorothiazide 25 mg oral tablet 03/10/2016 TAKE 1 TABLET BY MOUTH ONCE DAILY Tylenol-Codeine #3 300-30 mg oral tablet 04/06/2016 take 1 tablet by oral route every 6 hours as needed terbinafine HCl 250 mg oral tablet 06/26/2016 07/26/2016 take 1 tablet (250 mg) by oral route once daily for 30 days Lyrica 150 mg oral capsule 06/26/2016 10/24/2016 take 1 capsule (150 mg) by oral [...] route daily as needed for 30 days [place] 10-325 mg oral tablet 01/29/2016 02/28/2016 take [...] 07/01/2015 12:00 AM Kenalog, Per 10 Mg ND#8873-8435-54 Reviewed 10/07/2015 12:00 AM CHEST X-RAY 2VW FRONTAL&LATL Reviewed 10/08/2015 12:00 AM CONTRAST X-RAY ESOPHAGUS Returned 10/16/2015 12:00 AM Decadron, Per 1 Mg ND# [address]-81 Reviewed 10/16/2015 12:00 AM Depo-Medrol, Per 80 Mg ND#[address]-02 Reviewed 12/18/2015 12:00 AM BIOPSY SKIN LESION Reviewed 01/29/2016 12:00 AM Decadron, Per 1 Mg ND# [address]-73 Reviewed 01/29/2016 12:00 AM Depo-Medrol, Per 80 Mg ND#[address]-73 Reviewed 02/26/2016 12:00 AM COMPLETE CBC W/AUTO [...] 11/30/2012 12:00 AM Kenalog, Per 10 Mg NDC#0430-4294-78 Reviewed 12/15/2012 12:00 AM DRAIN/INJ JOINT/BURSA W/O US Reviewed 12/15/2012 12:00 AM Kenalog, Per 10 Mg NDC#5260-2775-40 Reviewed 01/27/2013 12:00 AM INJ TRIGGER POINT 1/2 MUSCL Reviewed 01/27/2013 12:00 AM Kenalog, Per 10 Mg NDC#2161-6798-49 Reviewed 04/26/2013 12:00 AM Depo-Medrol, Per 80 Mg NDC#5380-5092-92 Reviewed 04/26/2013 12:00 AM Decadron, Per 1 Mg NDC# [address]-07 Reviewed 07/26/2013 12:00 AM X-RAY EXAM OF HIP Reviewed 07/26/2013 12:00 AM Depo-Medrol, Per 80 Mg NDC#4311-8000-93 Reviewed 07/26/2013 12:00 AM Decadron, Per 1 Mg NDC# [address]-66 Reviewed 10/05/2013 12:00 AM Depo-Medrol 80 Mg Im/C'padmini Reviewed 10/05/2013 12:00 AM Decadron, Per 1 Mg NDC# [address]-80 Reviewed 12/18/2013 12:00 AM X-RAY EXAM NECK [...] 12:00 AM Kenalog, Per 10 Mg [facility]#7728-4193-38 Reviewed Results Summary Data and Description Results [...] BILI 1.10 mg/dLCALCIUM 9.40 mg/dLeGFR >60 mL/min/1.73 [id number] 145.0 mg/dLCHOLESTEROL 208.0 mg/dLHDL 37.0 mg/dLLDL (CALC) [...] Trochanteric bursitis Feb 9 2014 4:29PM Hypertension b 2014 10:10AM Sinusitis [...] 16 2015 11:25AM Hip pain, chronic, left b [...] 2016 2:09PM Tinea Jun 26 2016 10:33AM Payers Insurance Name Company Name Plan Name Plan Number Policy Number Policy Group Number Start Date Medicare Part A Medicare RHC [id number] N/A Cigna Cigna [id number] N/A Medicare Part B Medicare Of [place] [id number] November Medicare Part A Medicare Part A [id number] N/A Medicare Part A Medicare - Lab/Xray [id number] N/A History of Encounters Visit Date Visit Type Provider 07/06/2016 Office visit Hernandez Arroyo MD 06/26/2016 Office visit Hernandez Arroyo MD 04/06/2016 Office visit Hernandez Arroyo MD 03/05/2016 [facility] Jo Paris MD 03/03/2016 Office visit Hernandez Arroyo MD 02/26/2016 Office visit Hernandez Arroyo MD 01/30/2016 Office visit Hernandez Arroyo MD 01/29/2016 Office visit Hernandez Arroyo MD 12/18/2015 Office visit Hernandez Arroyo MD 11/05/2015 Office visit Hernandez Arroyo MD 10/21/2015 Office visit Refugio Austin MD 10/16/2015 Office visit Hernandez Arroyo MD 10/11/2015 [facility] Refugio Austin MD 10/08/2015 Office visit [...] 07/26/2013 Office visit Hernandez Arroyo MD 07/21/2013 [facility] Refugio Austin MD 07/17/2013 Office visit Refugio Austin MD 05/17/2013 Office visit Hernandez Arroyo MD 05/02/2013 Office visit Refugio Austin MD 04/26/2013 Office visit Hernandez Arroyo MD 03/16/2013 [facility] Chapincito Steele MD 03/01/2013 Office visit Chapincito Steele MD 02/16/2013 Office visit Hernandez Arroyo MD 01/27/2013 Office visit Chapincito Steele MD 01/13/2013 [facility] Chapincito Steele MD 12/15/2012 Office visit Chapincito Steele MD 12/07/2012 Office visit Nica Cartwright APRN 11/30/2012 Office visit Chapincito Steele MD 11/18/2012 Office visit Hernandez Arroyo MD 09/02/2012 Office visit Hernandez Arroyo MD 08/10/2012 Office visit Refugio Austin MD 08/04/2012 [facility] Refugio Austin MD 07/12/2012 Office visit Refugio Austin MD 07/12/2012 [facility] Jo Paris MD 07/01/2012 Office visit Hernandez Arroyo MD 05/30/2012 Office visit Hernandez Arroyo MD 05/10/2012 Office visit Refugio Austin MD 05/02/2012 [facility] Refugio Austin MD 04/26/2012 Office visit Refugio Austin MD 04/26/2012 Office visit Hernandez Arroyo MD 03/10/2012 Office visit Hernandez Arroyo MD
[2019-03-20] MEDS ORDERED: THROMBIN 5,000 UNIT (RECOTHROM) VIAL ONE ×3 (10:36→13:11)
--- OUTSIDE RECORDS SUMMARY | 2019-03-20 10:37 | XMS REPORT ---
Author Author Hernandez Arroyo Organization [facility] Address [address] [place], [place] [address] Care Team Providers Care Senior Cost Estimator Name Role Phone Hernandez Arroyo PCP Unavailable [...] route daily as needed for 30 days [place] 10-325 mg oral tablet 01/29/2016 02/28/2016 take [...] HC BMI BSA BMI Percentile O2 Sat(%) 05/04/2017 10:17:00 AM 132 mmHg 78 mmHg [...] 10 Mg [facility]#2102-0589-43 Reviewed 10/07/2015 12:00 AM CHEST X-RAY 2VW FRONTAL&LATL Reviewed 10/08/2015 12:00 AM CONTRAST X-RAY ESOPHAGUS Reviewed 10/16/2015 12:00 AM Decadron, Per 1 Mg [facility]# [address]-36 Reviewed 10/16/2015 12:00 AM Depo-Medrol, Per 80 Mg [facility]#[address]-97 Reviewed 12/18/2015 12:00 AM BIOPSY SKIN LESION Reviewed 01/29/2016 12:00 AM Decadron, Per 1 Mg [facility]# [address]-77 Reviewed 01/29/2016 12:00 AM Depo-Medrol, Per 80 Mg [facility]#[address]-78 Reviewed 02/26/2016 12:00 AM COMPLETE CBC W/AUTO [...] 10 Mg [facility]#9206-5078-42 Reviewed 12/15/2012 12:00 AM DRAIN/INJ JOINT/BURSA W/O US Reviewed 12/15/2012 12:00 AM Kenalog, Per 10 Mg [facility]#3112-8577-66 Reviewed 01/27/2013 12:00 AM INJ TRIGGER POINT 1/2 MUSCL Reviewed 01/27/2013 12:00 AM Kenalog, Per 10 Mg [facility]#0664-8217-60 Reviewed 04/26/2013 12:00 AM Depo-Medrol, Per 80 Mg NDC#4395-3692-99 Reviewed 04/26/2013 12:00 AM Decadron, Per 1 Mg [facility]# [address]-40 Reviewed 07/26/2013 12:00 AM X-RAY EXAM OF HIP Reviewed 07/26/2013 12:00 AM Depo-Medrol, Per 80 Mg [facility]#6539-8583-99 Reviewed 07/26/2013 12:00 AM Decadron, Per 1 Mg [facility]# [address]-98 Reviewed 10/05/2013 12:00 AM Depo-Medrol 80 Mg Im/C'padmini Reviewed 10/05/2013 12:00 AM Decadron, Per 1 Mg [facility]# [address]-95 Reviewed 12/18/2013 12:00 AM X-RAY EXAM NECK [...] 10 Mg [facility]#1967[address]-05 Reviewed Results Summary Date and Description Results 07/12/2012 2:45 PM WBC 5.1 RBC 4.62 HGB 14.60 g/dLHCT 40.80 %MCV 88.0 fLMCH 31.60 pgHC 35.80 g/dLRDW SD 43 RDW CV 13.50 [...] 4.96 HGB 15.50 g/dLHCT 42.60 %MCV 86.0 fLH 31.30 pgHC 36.40 g/dLRDW SD 42 RDW CV 13.40 [...] without complication, sequela May 04 2017 10:20AM Payers Insurance Name Company Name Plan Name Plan Number Policy Number Policy Group Number Start Date Medicare [facility] Medicare [facility] [id number] N/A Cigna Cigna [id number] N/A Medicare Part B Medicare Of [place] [id number] November Medicare Part A Medicare Part A [id number] N/A Medicare Part A Medicare - Lab/Xray [id number] N/A History of Encounters Visit Date Visit Type Provider 05/04/2017 Office visit Hernandez Arroyo MD 04/27/2017 [...] visit Camryn JOSHI 03/06/2014 Office visit Camryn MitzyMaricarmen JOSHI 02/06/2014 Office visit Camryn JOSHI 01/08/2014 Office visit Camryn JOSHI 12/18/2013 Office visit Hernandez Arroyo MD 10/30/2013 Office visit RAJMIRLANDE ZARATE MADELYN 10/23/2013 Office visit Hernandez Arroyo MD 10/05/2013 Office visit Hernandez Arroyo MD 08/01/2013 Office visit Hernandez Arroyo MD 07/26/2013 Office visit Hernandez Arroyo MD 07/21/2013 [facility] Refugio Austin MD 07/17/2013 Office visit Refugio Austin MD 05/17/2013 Office visit Hernandez Arroyo MD 05/02/2013 Office visit Refugio Austin MD 04/26/2013 Office visit Hernandez Arroyo MD 03/16/2013 [facility] Chapincito Steele MD 03/01/2013 Office visit Chapincito Steele MD 02/16/2013 Office visit Hernandez Arroyo MD 01/27/2013 Office visit Chapincito Steele MD 01/13/2013 Hospital Chapincito Steele MD 12/15/2012 Office visit Chapincito Steele MD 12/07/2012 Office visit Nica Cartwright APRN 11/30/2012 Office visit Chapincito Steele MD 11/18/2012 Office visit Hernandez Arroyo MD 09/02/2012 Office visit Hernandez Arroyo MD 08/10/2012 Office visit Refugio Austin MD 08/04/2012 [facility] Refugio Austin MD 07/12/2012 Office visit Refugio Austin MD 07/12/2012 Hospital Jo Paris MD 07/01/2012 Office visit Hernandez Arroyo MD 05/30/2012 Office visit Hernandez Arroyo MD 05/10/2012 Office visit Refugio Austin MD 05/02/2012 Hospital Refugio Austin MD 04/26/2012 Office visit Refugio Austin MD 04/26/2012 Office visit Hernandez Arroyo MD 03/10/2012 Office visit Hernandez Arroyo MD
--- OUTSIDE RECORDS SUMMARY | 2019-03-20 10:39 | XMS REPORT ---
Author Author Hernandez Arroyo Organization [facility] Address [address] [place], [place] [address] Care Team Providers Care Mechanical Technical Service Specialist Name Role Phone Hernandez Arroyo PCP Unavailable [...] route daily as needed for 30 days [place] 10-325 mg oral tablet 01/29/2016 02/28/2016 take [...] 07/01/2015 12:00 AM Kenalog, Per 10 Mg [facility]#6437-7242-93 Reviewed 10/07/2015 12:00 AM CHEST X-RAY 2VW FRONTAL&LATL Reviewed 10/08/2015 12:00 AM CONTRAST X-RAY ESOPHAGUS Reviewed 10/16/2015 12:00 AM Decadron, Per 1 Mg [facility]# [address]-97 Reviewed 10/16/2015 12:00 AM Depo-Medrol, Per 80 Mg ND#[address]-17 Reviewed 12/18/2015 12:00 AM BIOPSY SKIN LESION Reviewed 01/29/2016 12:00 AM Decadron, Per 1 Mg [facility]# [address]-77 Reviewed 01/29/2016 12:00 AM Depo-Medrol, Per 80 Mg NDC#[address]-02 Reviewed 02/26/2016 12:00 AM COMPLETE CBC W/AUTO [...] 11/30/2012 12:00 AM Kenalog, Per 10 Mg NDC#2082-3047-42 Reviewed 12/15/2012 12:00 AM DRAIN/INJ JOINT/BURSA W/O US Reviewed 12/15/2012 12:00 AM Kenalog, Per 10 Mg NDC#1030-6158-81 Reviewed 01/27/2013 12:00 AM INJ TRIGGER POINT 1/2 MUSCL Reviewed 01/27/2013 12:00 AM Kenalog, Per 10 Mg NDC#0034-1420-75 Reviewed 04/26/2013 12:00 AM Depo-Medrol, Per 80 Mg NDC#4306-2723-94 Reviewed 04/26/2013 12:00 AM Decadron, Per 1 Mg [facility]# [address]-70 Reviewed 07/26/2013 12:00 AM X-RAY EXAM OF HIP Reviewed 07/26/2013 12:00 AM Depo-Medrol, Per 80 Mg [facility]#4821-2528-01 Reviewed 07/26/2013 12:00 AM Decadron, Per 1 Mg [facility]# [address]-91 Reviewed 10/05/2013 12:00 AM Depo-Medrol 80 Mg Im/C'padmini Reviewed 10/05/2013 12:00 AM Decadron, Per 1 Mg [facility]# [address]-62 Reviewed 12/18/2013 12:00 AM X-RAY EXAM NECK [...] 03/28/2015 12:00 AM Kenalog, Per 10 Mg [facility]#8291-4926-49 Reviewed Results Summary Date and Description Results [...] >60 mL/min/1.73meGFR AA* >60 MAGNESIUM 1.90 mg/dL 04/27/2017 10:42 AM GLUCOSE 109.0 mg/dLSODIUM 142.0 mmol/LPOTASSIUM 3.80 mmol/LCHLORIDE 104.0 mmol/LCO2 32.0 mmol/LBUN 24.0 mg/dLCREATININE 1.10 mg/dLSGOT/AST 16.0 IU/LSGPT/ALT 20.0 IU/LALK PHOS 67.0 IU/LTOTAL PROTEIN 5.80 g/dLALBUMIN 3.60 g/dLTOTAL BILI 0.80 mg/dLCALCIUM 9.10 mg/dLAGE 76 GFR NonAA 65 GFR AA 79 eGFR >60 mL/min/1.73meGFR AA* >60 WBC 6.1 RBC 4.94 HGB 16.10 g/dLHCT 46.20 %MCV 94.0 fLMCH 32.60 pgMCHC 34.80 g/dLRDW SD 46 RDW CV 13.60 %MPV 10.80 fLPLT 95 NRBC# 0.00 NRBC% 0.0 %NEUT 70.20 %%LYMP 20.80 %%MONO 7.50 %%EOS 1.0 %%BASO 0.20 %#NEUT 4.29 #LYMP 1.27 #MONO 0.46 #EOS 0.06 #BASO 0.01 MANUAL DIFF NOT IND History Of Immunizations Not available. History of [...] Spondylosis, lumbar b 2014 4:29PM Trochanteric bursitis Feb 2014 4:29PM [...] Number Start Date Medicare RHC Medicare RHC [id number] N/A Cigna Cigna [id number] N/A Medicare Part B Medicare Of [place] [id number] November Medicare Part A Medicare Part A [id number] N/A Medicare Part A Medicare - Lab/Xray [id number] N/A History of Encounters Visit Date Visit [...] 04/06/2016 Office visit Hernandez Arroyo MD 03/05/2016 [facility] Jo Paris MD 03/03/2016 Office visit Hernandez Arroyo MD 02/26/2016 Office visit Hernandez Arroyo MD 01/30/2016 Office visit Hernandez Arroyo MD 01/29/2016 Office visit Hernandez Arroyo MD 12/18/2015 Office visit Hernandez Arrooy MD 11/05/2015 Office visit Hernandez Arroyo MD 10/21/2015 Office visit Refugio Austin MD 10/16/2015 Office visit Hernandez Arroyo MD 10/11/2015 [facility] Refugio Austin MD 10/08/2015 Office [...] 04/26/2013 Office visit Hernandez Arroyo MD 03/16/2013 [facility] Chapincito Steele MD 03/01/2013 Office [...] 08/10/2012 Office visit Refugio Austin MD 08/04/2012 [facility] Refugio Austin MD 07/12/2012 Office visit Refugio Austin MD 07/12/2012 [facility] Jo Paris MD 07/01/2012 Office visit Hernandez Arroyo MD 05/30/2012 Office visit Hernandez Arroyo MD 05/10/2012 Office visit Refugio Austin MD 05/02/2012 [facility] Refugio Austin MD 04/26/2012 Office visit Refugio Austin MD 04/26/2012 Office visit Hernandez Arroyo MD 03/10/2012 Office visit Hernandez Arroyo MD
--- OUTSIDE RECORDS SUMMARY | 2019-03-20 10:41 | XMS REPORT ---
Author Author Hernandez Arroyo [facility] Address [address] [place], [place] [address] Care Team Providers Care Senior Materials Planner Name Role Phone Hernandez Arroyo PCP Unavailable [...] 3 times a day for 5 days [place] 7.5-325 mg oral tablet 05/07/2015 06/06/2015 take [...] 07/01/2015 12:00 AM Kenalog, Per 10 Mg ND#6496-3057-12 Reviewed 07/01/2012 12:00 AM X-RAY EXAM L-S [...] 11/30/2012 12:00 AM Kenalog, Per 10 Mg NDC#1877-3553-49 Reviewed 12/15/2012 12:00 AM DRAIN/INJ JOINT/BURSA W/O US Reviewed 12/15/2012 12:00 AM Kenalog, Per 10 Mg [facility]#8662-7514-10 Reviewed 01/27/2013 12:00 AM INJ TRIGGER POINT 1/2 MUSCL Reviewed 01/27/2013 12:00 AM Kenalog, Per 10 Mg [facility]#3481-8303-86 Reviewed 04/26/2013 12:00 AM Depo-Medrol, Per 80 Mg ND#2860-2002-91 Reviewed 04/26/2013 12:00 AM Decadron, Per 1 Mg [facility]# [address]-16 Reviewed 07/26/2013 12:00 AM X-RAY EXAM OF HIP Reviewed 07/26/2013 12:00 AM Depo-Medrol, Per 80 Mg [facility]#7967-2607-11 Reviewed 07/26/2013 12:00 AM Decadron, Per 1 Mg [facility]# [address]-53 Reviewed 10/05/2013 12:00 AM Depo-Medrol 80 Mg Im/C'padmini Reviewed 10/05/2013 12:00 AM Decadron, Per 1 Mg [facility]# [address]-67 Reviewed 12/18/2013 12:00 AM X-RAY EXAM NECK [...] 12:00 AM Kenalog, Per 10 Mg [facility]#9303-2623-08 Reviewed Results Summary Data and Description Results [...] BILI 1.10 mg/dLCALCIUM 9.40 mg/dLeGFR >60 mL/min/1.73 [id number] 145.0 mg/dLCHOLESTEROL 208.0 mg/dLHDL 37.0 mg/dLLDL (CALC) [...] 10:41AM Spondylosis, lumbar Jul 01 2015 10:06AM Payers Insurance Name Company Name Plan Name Plan Number Policy Number Policy Group Number Start Date Medicare Part A Medicare Part A [id number] N/A Cigna Cigna [id number] N/A Medicare Part B Medicare Of [place] [id number] November History of Encounters Visit Date Visit [...] 07/26/2013 Office visit Hernandez Arroyo MD 07/21/2013 [facility] Refugio Austin MD 07/17/2013 Office visit Refugio Austin MD 05/17/2013 Office visit Hernandez Arroyo MD 05/02/2013 Office visit Refugio Austin MD 04/26/2013 Office visit Hernandez Arroyo MD 03/16/2013 Hospital Chapincito Steele MD 03/01/2013 Office visit Chapincito Steele MD 02/16/2013 Office visit Hernandez Arroyo MD 01/27/2013 Office visit Chapincito Steele MD 01/13/2013 [facility] Chapincito Steele MD 12/15/2012 Office [...]
--- OUTSIDE RECORDS SUMMARY | 2019-03-20 10:42 | XMS REPORT ---
Author Author Hernandez Arroyo [facility] Address [address] [place], [place] [address] Care Team Providers Care Technical Healthcare Consultant Name Role Phone Hernandez Arroyo PCP Unavailable [...] oral route once daily for 7 days [place] oral tablet 5-325 mg 10/15/2014 11/14/2014 take [...] BILI 1.10 mg/dLCALCIUM 9.40 mg/dLeGFR >60 mL/min/1.73 [id number] 145.0 mg/dLCHOLESTEROL 208.0 mg/dLHDL 37.0 mg/dLLDL (CALC) [...] 1:11PM Trochanteric bursitis Dec 10 2014 1:11PM Payers Insurance Name Company Name Plan Name Plan Number Policy Number Policy Group Number Start Date Medicare Part A Medicare Part A [id number] N/A Cigna Cigna [id number] N/A Medicare Part B Medicare Of [place] [id number] November History of Encounters Visit Date Visit [...]
--- OUTSIDE RECORDS SUMMARY | 2019-03-20 10:42 | XMS REPORT | CCD ---
Author Author PAUL SNOW Unknown Address [address] [address] [place], [place] [address] Care Team Providers Care Account Information Clerk Name Role Phone KRISTIN CEE MD Attphys KRISTIN CEE MD Prisurg Vital Signs Unknown or Not Available. Allergies Allergy Code Allergy Type Reaction Status CODEINE 2670 Drug allergy Active DEMEROL 540757 Drug allergy Active TYLENOL 006224 Drug allergy Active Procedures Procedure Code Procedure Type Date CX CHEST [address] 03/05/2016 TROPONIN-I ADV 881677474 SNOMED CT 03/05/2016 COMPREHENSIVE METABOLIC PANEL 255259716 SNOMED CT 03/05/2016 CBC W/ AUTO DIFF (RFLX MAN DIFF IF IND) 1871303 SNOMED CT 03/05/2016 ^CBC W/AUTO DIFF 4306221 SNOMED CT 03/05/2016 History of Immunizations Unknown or Not Available. Problems Unknown or Not Available. Results COMPREHENSIVE METABOLIC PANEL - Collect Date/Time: 03/05/2016 02:40 Test Name Code Test Result Test Units Test Ref Range GLUCOSE 2345-7 112 MG/DL L=70 H=100 SODIUM 2951-2 141 MEQ/L L=135 H=148 POTASSIUM 2823-3 3.6 MEQ/L L=3.5 H=5.3 CHLORIDE 2075-0 105 MEQ/L L=96 H=110 CO2 2028-9 30 MEQ/L L=22 H=29 BUN 3094-0 13 MG/DL L=8 H=22 CREATININE 2160-0 1.1 MG/DL L=0.6 H=1.6 SGOT/AST 1920-8 17 IU/L L=10 H=40 SGPT/ALT 1742-6 15 IU/L L=8 H=54 ALK PHOS 6768-6 73 IU/L L=35 H=115 TOTAL PROTEIN 2885-2 5.7 G/DL L=5.5 H=8.5 ALBUMIN 1751-7 3.6 G/DL L=3.1 H=5.4 TOTAL BILI 1975-2 0.7 MG/DL L=0.0 H=1.5 CALCIUM 62171-4 8.8 MG/DL L=8.2 H=10.6 AGE 75 yrs GFR NonAA 65 GFR AA 79 eGFR >60 N/A eGFR AA* >60 N/A CBC W/ AUTO DIFF (RFLX MAN DIFF IF IND) - Collect Date/Time: 03/05/2016 02:40 Test Name Code Test Result Test Units Test Ref Range WBC 12547-3 5.1 TH/CMM L=4.5 H=10.8 RBC 789-8 4.56 ML/CMM L=4.70 H=6.10 HGB 718-7 14.6 G/DL L=14.0 H=18.0 HCT 4544-3 40.9 % L=42.0 H=52.0 MCV 90 FL L=81 H=99 MCH 32.0 PG L=27.0 H=33.0 MCHC 35.7 G/DL L=31.0 H=36.0 RDW SD 42 FL L=36 H=50 RDW CV 12.8 % L=0.0 H=14.8 MPV 10.8 FL L=9.3 H=12.5 PLT 777-3 117 TH/CMM L=130 H=440 NRBC# 0.00 TH/CMM L=0.00 H=0.00 NRBC% 0.0 /100WBC L=0.0 H=2.0 %NEUT 53.6 % %LYMP 35.4 % %MONO 8.6 % %EOS 1.6 % %BASO 0.6 % #NEUT 2.76 TH/CMM L=2.10 H=8.20 #LYMP 1.82 TH/CMM L=0.90 H=5.20 #MONO 0.44 TH/CMM L=0.16 H=1.00 #EOS 0.08 TH/CMM L=0.00 H=0.80 #BASO 0.03 TH/CMM L=0.00 H=0.20 MANUAL DIFF NOT IND N/A TROPONIN-I ADV - Collect Date/Time: 03/05/2016 02:40 Test Name Code Test Result Test Units [place] [address]-9 <0.04 ng/mL L=0.04 H=0.40 Active Medications Medication Code Dose Units Frequency Route Modification Start Date/Time Aspir 81 81MG Oral Tablet, Enteric Coated [id number] 81 MILLIGRAMS DAILY ORAL 08/15/2013 15:53 Prescription Detail 81 MILLIGRAMS ORAL DAILY Carvedilol 6.25MG Oral Tablet 19991105 6.25 MILLIGRAMS TWO TIMES A DAY ORAL 08/15/2013 15:53 Prescription Detail 6.25 MILLIGRAMS ORAL TWO TIMES A DAY Lasix 20MG Oral Tablet 20 MILLIGRAMS DAILY ORAL 08/15/2013 15:53 Prescription Detail 20 MILLIGRAMS ORAL DAILY Meloxicam 7.5MG Oral Tablet 671557 7.5 MILLIGRAMS NEEDED ORAL 08/15/2013 15:53 Prescription Detail 7.5 MILLIGRAMS ORAL NEEDED Meloxicam 7.5MG Oral Tablet 936062 7.5 MILLIGRAMS DAILY ORAL 08/15/2013 15:53 Prescription Detail 7.5 MILLIGRAMS ORAL DAILY Naphcon A 0.025%-0.3% Ophthalmic Solution 6222065 1 EACH NEEDED OPTHALMIC 08/15/2013 15:53 Prescription Detail 1 EACH OPTHALMIC NEEDED Pantoprazole Sodium 40MG Oral Tablet, Enteric Coated 818049 40 MILLIGRAMS DAILY ORAL 08/15/2013 15:53 Prescription Detail 40 MILLIGRAMS ORAL DAILY Potassium Chloride 20MEQ Oral Tablet, Extended Release [id number] 20 MEQ DAILY ORAL 08/15/2013 15:53 Prescription Detail 20 MEQ ORAL DAILY Tamsulosin Hydrochloride 0.4MG Oral Capsule 836455 0.4 MILLIGRAMS DAILY ORAL 08/15/2013 15:53 Prescription Detail 0.4 MILLIGRAMS ORAL DAILY Tylenol w/Codeine #3 300MG-30MG Oral Tablet 641014 1 EACH NEEDED EVERY 8 HR ORAL 08/15/2013 15:53 Prescription Detail 1 EACH ORAL NEEDED EVERY 8 HR Welchol 625MG Oral Tablet [id number] 625 MILLIGRAMS ORAL 08/15/2013 15:53 Prescription Detail 625 MILLIGRAMS ORAL Medications Administered During Visit Unknown or Not Available. Encounters Encounter Diagnosis Diagnosis Code Start Date Dysphagia, pharyngoesophageal phase R1314 03/05/2016 Social History Smoking Status Code Start Date End Date Never smoker [id number] Patient Decision Aids Unknown or Not Available. Discharge Instructions You were admitted to [facility] on 03/05/2016 01:37 with a principal diagnosis of Dysphagia, pharyngoesophageal phase You had the following tests done: CBC W/ AUTO DIFF (RFLX MAN DIFF IF IND) COMPREHENSIVE METABOLIC PANEL TROPONIN-I ADV You were discharged from [facility] on 03/05/2016 03:48 Should you have any questions prior to discharge, please contact a member of your healthcare team. If you have left the hospital and have any questions, please contact your primary care physician. Chief Complaint and Reason For Visit Chief Complaint Date of Onset DIFFICULTY SWALLING Function Status Unknown or Not Available. Plan of Care Unknown or Not Available. Referral/Transition of Care Unknown or Not Available.
--- OUTSIDE RECORDS SUMMARY | 2019-03-20 10:43 | XMS REPORT | CCD ---
Author Author HUMERA GARCIA Organization Unknown Address [address] [facility] [address] [place], [place] [id number] Care Team Providers Care [employer] Melt Supervisor Name Role Phone HANDSHY ERLEROY MD Attphys HANDSHY ER, LEROY BAKER Prisurg Vital Signs Unknown. Allergies Allergy Code Allergy Type Reaction Status DEMEROL 0 Drug allergy (disorder) Active CODEINE 0 Drug allergy (disorder) Active TYLENOL 0 Drug allergy (disorder) Active Procedures Procedure Code Procedure Type Date CT HEAD W/O CONTRAST 154486526 SNOMED CT 09/17/2013 ^CBC W/AUTO DIFF 4120557 SNOMED CT 09/17/2013 RAPID DRUG SCREEN 737763069 SNOMED CT 09/17/2013 URINALYSIS C&S IF IND 907987466 SNOMED CT 09/17/2013 TROPONIN-I ADV 998591401 SNOMED CT 09/17/2013 COMPREHENSIVE METABOLIC PANEL 221862143 SNOMED CT 09/17/2013 CBC W/ AUTO DIFF (RFLX MAN DIFF IF IND) 5998110 SNOMED CT 09/17/2013 History of Immunizations Unknown. Problems Unknown. Results COMPREHENSIVE METABOLIC PANEL Test Name Code Test Result Test Units Test Date/Time GLUCOSE 2345-7 121.0000 MG/DL 09/17/2013 22:20 SODIUM 2951-2 142.0000 MEQ/L 09/17/2013 22:20 POTASSIUM 2823-3 3.7000 MEQ/L 09/17/2013 22:20 CHLORIDE 2075-0 104.0000 MEQ/L 09/17/2013 22:20 CO2 2028-9 28.0000 MEQ/L 09/17/2013 22:20 BUN 3094-0 19.0000 MG/DL 09/17/2013 22:20 CREATININE 2160-0 1.4000 MG/DL 09/17/2013 22:20 SGOT/AST 1920-8 13.0000 IU/L 09/17/2013 22:20 SGPT/ALT 1742-6 9.0000 IU/L 09/17/2013 22:20 ALK PHOS 6768-6 68.0000 IU/L 09/17/2013 22:20 TOTAL PROTEIN 2885-2 5.9000 G/DL 09/17/2013 22:20 ALBUMIN 1751-7 3.2000 G/DL 09/17/2013 22:20 TOTAL BILI 1975-2 0.9000 MG/DL 09/17/2013 22:20 CALCIUM 66209-1 9.2000 MG/DL 09/17/2013 22:21 AGE 72.0000 yrs 09/17/2013 22:20 GFR NonAA 50.0000 09/17/2013 22:20 GFR AA 61.0000 09/17/2013 22:20 eGFR 50.0000 mL/min/1.7 09/17/2013 22:20 eGFR AA* 60.0000 mL/min/1.7 09/17/2013 22:20 TROPONIN-I ADV Test Name Code Test Result Test Units Test Date[place] [address]-7 0.0400 ng/mL 09/17/2013 22:20 URINALYSIS C&S IF IND Test Name Code Test Result Test Units Test Date/Time COLOR YELLOW N/A 09/17/2013 23:51 APPEARANCE CLEAR N/A 09/17/2013 23:51 SPEC GRAV >=1.030 N/A 09/17/2013 23:51 pH 5.5 N/A 09/17/2013 23:51 PROTEIN NEGATIVE N/A 09/17/2013 23:51 GLUCOSE NEGATIVE N/A 09/17/2013 23:51 KETONE NEGATIVE N/A 09/17/2013 23:51 BILIRUBIN NEGATIVE N/A 09/17/2013 23:51 BLOOD NEGATIVE N/A 09/17/2013 23:51 NITRITE NEGATIVE N/A 09/17/2013 23:51 LEUK SCREEN NEGATIVE N/A 09/17/2013 23:51 WBC/HPF NEGATIVE N/A 09/17/2013 23:51 RBC/HPF NEGATIVE N/A 09/17/2013 23:51 CASTS/LPF NEGATIVE N/A 09/17/2013 23:51 CRYSTALS NEGATIVE N/A 09/17/2013 23:51 MUCOUS THRDS NEGATIVE N/A 09/17/2013 23:51 BACTERIA NEGATIVE N/A 09/17/2013 23:51 EPITH CELLS FEW SQUAMOUS N/A 09/17/2013 23:51 TRICHOMONAS NEGATIVE N/A 09/17/2013 23:51 YEAST NEGATIVE N/A 09/17/2013 23:51 CULT SET UP? NO N/A 09/17/2013 23:51 CBC W/ AUTO DIFF (RFLX MAN DIFF IF IND) Test Name Code Test Result Test Units Test Date/Time WBC 49845-8 6.8000 TH/CMM 09/17/2013 22:20 RBC 789-8 4.5200 ML/CMM 09/17/2013 22:20 HGB 718-7 14.1000 G/DL 09/17/2013 22:20 HCT 4544-3 40.8000 % 09/17/2013 22:20 MCV 90.0000 FL 09/17/2013 22:20 MCH 31.2000 PG 09/17/2013 22:20 MCHC 34.6000 G/DL 09/17/2013 22:20 RDW SD 48.0000 FL 09/17/2013 22:20 RDW CV 14.5000 % 09/17/2013 22:20 MPV 11.3000 FL 09/17/2013 22:20 PLT 777-3 92.0000 TH/CMM 09/17/2013 22:20 NRBC# 0.0000 TH/CMM 09/17/2013 22:20 NRBC% 0.0000 /100WBC 09/17/2013 22:20 %NEUT 68.8000 % 09/17/2013 22:20 %LYMP 20.5000 % 09/17/2013 22:20 %MONO 9.1000 % 09/17/2013 22:20 %EOS 1.5000 % 09/17/2013 22:20 %BASO 0.1000 % 09/17/2013 22:20 #NEUT 4.7100 TH/CMM 09/17/2013 22:20 #LYMP 1.4000 TH/CMM 09/17/2013 22:20 #MONO 0.6200 TH/CMM 09/17/2013 22:20 #EOS 0.1000 TH/CMM 09/17/2013 22:20 #BASO 0.0100 TH/CMM 09/17/2013 22:20 MANUAL DIFF NOT IND N/A 09/17/2013 22:20 RAPID DRUG SCREEN Test Name Code Test Result Test Units Test Date/Time Cannabinoids (THC) NEGATIVE N/A 09/18/2013 00:07 Phencyclidine (PCP) NEGATIVE N/A 09/18/2013 00:07 Cocaine NEGATIVE N/A 09/18/2013 00:07 Methamphetamine NEGATIVE N/A 09/18/2013 00:07 Opiates NON-NEGATIVE N/A 09/18/2013 00:07 Amphetamine NEGATIVE N/A 09/18/2013 00:07 Benzodiazepines NEGATIVE N/A 09/18/2013 00:07 Tricyclic Antidepres NEGATIVE N/A 09/18/2013 00:07 Methadone NEGATIVE N/A 09/18/2013 00:07 Barbiturates NEGATIVE N/A 09/18/2013 00:07 Oxycodone NEGATIVE N/A 09/18/2013 00:07 Propoxyphene (PPX) NEGATIVE N/A 09/18/2013 00:07 Medications Medication Code Dose Units Frequency Route Modification Start Date/Time Stop Date/Time Welchol 625MG Oral Tablet 063748 625 MILLIGRAMS ORAL 08/15/2013 15:53 Tylenol w/Codeine #3 300MG-30MG Oral Tablet 168508 1 EACH NEEDED EVERY 8 HR ORAL 08/15/2013 15:53 Potassium Chloride 20MEQ Oral Tablet, Extended Release 644154 20 MEQ DAILY ORAL 08/15/2013 15:53 Pantoprazole Sodium 40MG Oral Tablet, Enteric Coated 745285 40 MILLIGRAMS DAILY ORAL 08/15/2013 15:53 Naphcon A 0.025%-0.3% Ophthalmic Solution 0735745 1 EACH NEEDED OPTHALMIC 08/15/2013 15:53 Meloxicam 7.5MG Oral Tablet 161686 7.5 MILLIGRAMS NEEDED ORAL 08/15/2013 15:53 Meloxicam 7.5MG Oral Tablet 311108 7.5 MILLIGRAMS DAILY ORAL 08/15/2013 15:53 Lasix 20MG Oral Tablet 359321 20 MILLIGRAMS DAILY ORAL 08/15/2013 15:53 Carvedilol 6.25MG Oral Tablet 464795 6.25 MILLIGRAMS TWO TIMES A DAY ORAL 08/15/2013 15:53 Aspir 81 81MG Oral Tablet, Enteric Coated 914015 81 MILLIGRAMS DAILY ORAL 08/15/2013 15:53 Tamsulosin Hydrochloride 0.4MG Oral Capsule 419532 0.4 MILLIGRAMS DAILY ORAL 08/15/2013 15:53 Medications Administered Unknown. Encounters Unknown. Social History Smoking Status Code Start Date End Date Never smoker [id number] Patient Decision Aids Unknown. Instructions You were admitted to [facility] on 09/17/2013. You had the following tests done: WBC RBC HGB HCT MCV MCH MCHC RDW SD RDW CV MPV PLT NRBC# NRBC% %NEUT %LYMP %MONO %EOS %BASO #NEUT #LYMP #MONO #EOS #BASO MANUAL DIFF GLUCOSE SODIUM POTASSIUM CHLORIDE CO2 BUN CREATININE SGOT/AST SGPT/ALT ALK PHOS TOTAL PROTEIN ALBUMIN TOTAL BILI CALCIUM AGE GFR NonAA GFR AA eGFR eGFR AA* TROPONIN-I AD COLOR APPEARANCE SPEC GRAV pH PROTEIN GLUCOSE KETONE BILIRUBIN BLOOD NITRITE LEUK SCREEN WBC/HPF RBC/HPF CASTS/LPF CRYSTALS MUCOUS THRDS BACTERIA EPITH CELLS TRICHOMONAS YEAST CULT SET UP? Cannabinoids (THC) Phencyclidine (PCP) Cocaine Methamphetamine Opiates Amphetamine Benzodiazepines Tricyclic Antidepres Methadone Barbiturates Oxycodone Propoxyphene (PPX) You were discharged from [facility] on 09/18/2013. Should you have any questions prior to discharge, please contact a member of your healthcare team. If you have left the hospital and have any questions, please contact your primary care physician. Chief Complaint and Reason For Visit Chief Complaint Date of Onset DIZZINESS,NEAR SYNCOPE Function Status Unknown. Plan of Care Unknown. Referral/Transition of Care Unknown.
--- OUTSIDE RECORDS SUMMARY | 2019-03-20 10:43 | XMS REPORT | Continuity of Care Document ---
Author Organization Unknown Address Unknown Allergies Active Description Code Type Severity Reaction Onset Reported/Identified Relationship to Patient Clinical Status Yes No Allergy Information Available [id number] Drug Allergy Unknown N/A 11/28/2018 Yes hydrocodone [id number] Drug Allergy Unknown Hives 03/13/2019 Yes meperidine [id number] Drug Allergy Unknown Hives 03/13/2019 Medications There is no data. Problems Date Dx Coded Attending Type Code Diagnosis Diagnosed By 11/19/2018 MALIKA MACHUCA ELECTRICAL ASSISTANT Ot G47.9 SLEEP DISORDER, UNSPECIFIED 11/19/2018 CATA MACHUCAINE Shane ELECTRICAL ASSISTANT Ot G47.9 SLEEP DISORDER, UNSPECIFIED 11/19/2018 CATA MACHUCAINE E ELECTRICAL ASSISTANT Ot G47.9 SLEEP DISORDER, UNSPECIFIED 11/19/2018 CATA MACHUCAINE E ELECTRICAL ASSISTANT Ot G47.9 SLEEP DISORDER, UNSPECIFIED 11/19/2018 CATA MACHUCAINE E ELECTRICAL ASSISTANT Ot G47.9 SLEEP DISORDER, UNSPECIFIED 11/20/2018 MALIKA MACHUCA ELECTRICAL ASSISTANT Ot G47.10 HYPERSOMNIA, UNSPECIFIED 11/20/2018 CATA MACHUCAINE Shane ELECTRICAL ASSISTANT Ot M79.606 PAIN IN LEG, UNSPECIFIED 11/20/2018 MALIKA MACHUCA ELECTRICAL ASSISTANT Ot R06.00 DYSPNEA, UNSPECIFIED 11/20/2018 CATA MACHUCAINE E ELECTRICAL ASSISTANT Ot R09.02 HYPOXEMIA 11/21/2018 CATA MACHUCAINE Shane ELECTRICAL ASSISTANT Ot G47.10 HYPERSOMNIA, UNSPECIFIED 11/21/2018 CATA MACHUCAINE Shane ELECTRICAL ASSISTANT Ot M79.606 PAIN IN LEG, UNSPECIFIED 11/21/2018 MALIKA MACHUCA ELECTRICAL ASSISTANT Ot R06.00 DYSPNEA, UNSPECIFIED 11/21/2018 CATA MACHUCAINE E ELECTRICAL ASSISTANT Ot R09.02 HYPOXEMIA 11/29/2018 CATA MACHUCAINE Shane ELECTRICAL ASSISTANT Ot G47.10 HYPERSOMNIA, UNSPECIFIED 11/29/2018 CATA MACHUCAINE E ELECTRICAL ASSISTANT Ot I51.7 CARDIOMEGALY 11/29/2018 BRIGETTECATA IVORYINE Shane ELECTRICAL ASSISTANT Ot M79.606 PAIN IN LEG, UNSPECIFIED 11/29/2018 BRIGETTECATA IVORYINE E ELECTRICAL ASSISTANT Ot R06.02 SHORTNESS OF BREATH 11/29/2018 BRIGETTECATA IVORYINE E ELECTRICAL ASSISTANT Ot R09.02 HYPOXEMIA 11/29/2018 BRIGETTECATA IVORYINE E ELECTRICAL ASSISTANT Ot Z95.0 PRESENCE OF CARDIAC PACEMAKER 12/09/2018 BRIGETTECATAMALIKA E ELECTRICAL ASSISTANT Ot G47.10 HYPERSOMNIA, UNSPECIFIED 12/09/2018 BRIGETTE, MALIKA E ELECTRICAL ASSISTANT Ot I51.7 CARDIOMEGALY 12/09/2018 BRIGETTECATA IVORYINE E ELECTRICAL ASSISTANT Ot M79.606 PAIN IN LEG, UNSPECIFIED 12/09/2018 MALIKA MACHUCA ELECTRICAL ASSISTANT Ot R06.02 SHORTNESS OF BREATH 12/09/2018 MALIKA MACHUCA ELECTRICAL ASSISTANT Ot R09.02 HYPOXEMIA 12/09/2018 MALIKA MACHUCA ELECTRICAL ASSISTANT Ot Z95.0 PRESENCE OF CARDIAC PACEMAKER 12/09/2018 CATA MACHUCAINE E ELECTRICAL ASSISTANT Ot G47.10 HYPERSOMNIA, UNSPECIFIED 12/09/2018 BRIGETTECATAMALIKA Shane ELECTRICAL ASSISTANT Ot I51.7 CARDIOMEGALY 12/09/2018 BRIGETTECATAMALIKA E ELECTRICAL ASSISTANT Ot M79.606 PAIN IN LEG, UNSPECIFIED 12/09/2018 BRIGETTECATAMALIKA E ELECTRICAL ASSISTANT Ot R06.02 SHORTNESS OF BREATH 12/09/2018 MALIKA MACHUCA ELECTRICAL ASSISTANT Ot R09.02 HYPOXEMIA 12/09/2018 BRIGETTE MALIKA E ELECTRICAL ASSISTANT Ot Z95.0 PRESENCE OF CARDIAC PACEMAKER 12/09/2018 BRIGETTECATAMALIKA E ELECTRICAL ASSISTANT Ot G47.10 HYPERSOMNIA, UNSPECIFIED 12/09/2018 BRIGETTECATAMALIKA E ELECTRICAL ASSISTANT Ot I51.7 CARDIOMEGALY 12/09/2018 BRIGETTECATAMALIKA E ELECTRICAL ASSISTANT Ot M79.606 PAIN IN LEG, UNSPECIFIED 12/09/2018 BRIGETTE MALIKA E ELECTRICAL ASSISTANT Ot R06.02 SHORTNESS OF BREATH 12/09/2018 CATA MACHUCAINE E ELECTRICAL ASSISTANT Ot R09.02 HYPOXEMIA 12/09/2018 CATA MACHUCAINE E ELECTRICAL ASSISTANT Ot Z95.0 PRESENCE OF CARDIAC PACEMAKER 12/09/2018 MALIKA MACHUCA ELECTRICAL ASSISTANT Ot G47.10 HYPERSOMNIA, UNSPECIFIED 12/09/2018 CATA MACHUCAINE E ELECTRICAL ASSISTANT Ot I51.7 CARDIOMEGALY 12/09/2018 CATA MACHUCAINE Shane ELECTRICAL ASSISTANT Ot M79.606 PAIN IN LEG, UNSPECIFIED 12/09/2018 MALIKA MACHUCA ELECTRICAL ASSISTANT Ot R06.02 SHORTNESS OF BREATH 12/09/2018 MALIKA MACHUCA E ELECTRICAL ASSISTANT Ot R09.02 HYPOXEMIA 12/09/2018 MALIKA MACHUCA ELECTRICAL ASSISTANT Ot Z95.0 PRESENCE OF CARDIAC PACEMAKER 12/22/2018 MALIKA MACHUCA ELECTRICAL ASSISTANT Ot G47.10 HYPERSOMNIA, UNSPECIFIED 12/22/2018 MALIKA MACHUCA ELECTRICAL ASSISTANT Ot I51.7 CARDIOMEGALY 12/22/2018 MALIKA MACHUCA ELECTRICAL ASSISTANT Ot M79.606 PAIN IN LEG, UNSPECIFIED 12/22/2018 MALIKA MACHUCA ELECTRICAL ASSISTANT Ot R06.02 SHORTNESS OF BREATH 12/22/2018 MALIKA MACHUCA ELECTRICAL ASSISTANT Ot R09.02 HYPOXEMIA 12/22/2018 MALIKA MACHUCA ELECTRICAL ASSISTANT Ot Z95.0 PRESENCE OF CARDIAC PACEMAKER 01/06/2019 MALIKA MACHUCA ELECTRICAL ASSISTANT Ot G47.10 HYPERSOMNIA, UNSPECIFIED 01/06/2019 MALIKA MACHUCA ELECTRICAL ASSISTANT Ot I51.7 CARDIOMEGALY 01/06/2019 MALIKA MACHUCA ELECTRICAL ASSISTANT Ot M79.606 PAIN IN LEG, UNSPECIFIED 01/06/2019 MALIKA MACHUCA ELECTRICAL ASSISTANT Ot R06.02 SHORTNESS OF BREATH 01/06/2019 MALIKA MACHUCA ELECTRICAL ASSISTANT Ot R09.02 HYPOXEMIA 01/06/2019 MALIKA MACHUCA ELECTRICAL ASSISTANT Ot Z95.0 PRESENCE OF CARDIAC PACEMAKER 01/17/2019 CATA MACHUCAINE Shane ELECTRICAL ASSISTANT Ot G47.10 HYPERSOMNIA, UNSPECIFIED 01/17/2019 MALIKA MACHUCA ELECTRICAL ASSISTANT Ot M79.606 PAIN IN LEG, UNSPECIFIED 01/17/2019 MALIKA MACHUCA ELECTRICAL ASSISTANT Ot R06.00 DYSPNEA, UNSPECIFIED 01/17/2019 MALIKA MACHUCA ELECTRICAL ASSISTANT Ot R09.02 HYPOXEMIA 02/02/2019 MALIKA MACHUCA ELECTRICAL ASSISTANT Ot G47.10 HYPERSOMNIA, UNSPECIFIED 02/02/2019 MALIKA MACHUCA APRN Ot M79.606 PAIN IN LEG, UNSPECIFIED 02/02/2019 MALIKA MACHUCA APRN Ot R06.00 DYSPNEA, UNSPECIFIED 02/02/2019 MALIKA MACHUCA ELECTRICAL ASSISTANT Ot R09.02 HYPOXEMIA 03/15/2019 MALIKA MACHUCA ELECTRICAL ASSISTANT Ot G47.10 HYPERSOMNIA, UNSPECIFIED 03/15/2019 MALIKA MACHUCA ELECTRICAL ASSISTANT Ot M79.606 PAIN IN LEG, UNSPECIFIED 03/15/2019 MALIKA MACHUCA APRN Ot R06.00 DYSPNEA, UNSPECIFIED 03/15/2019 MALIKA MACHUCA APRN Ot R09.02 HYPOXEMIA Procedures There is no data. Results Test Result Range Arterial blood gas measurement - 11/28/18 14:36 Blood pCO2 44 mm[Hg] 35-45 Blood pO2 84 mm[Hg] 79-93 Arterial blood bicarbonate measurement (moles/volume) 27 mmol/L 23-27 Arterial blood base excess by calculation 2.6 mmol/L -2.5-2.5 Arterial blood oxygen saturation measurement 98 % 94-100 * Inhaled oxygen flow rate 2L NRG Arterial blood pH measurement with patient temperature correction 7.40 7.37-7.43 Arterial blood carbon dioxide, total measurement (moles/volume) 28.6 mmol/L 21.0-31.0 Body site R BRACH NRG Assessment of wrist artery patency prior to arterial puncture YES-POS NRG Setting of ventilation mode NO NRG Measurement of body temperature 96.8 NRG Complete blood count (CBC) with automated white blood cell (WBC) differential - 03/13/19 11:50 Blood leukocytes automated count (number/volume) 5.1 10*3/uL 4.3-11.0 Blood erythrocytes automated count (number/volume) 4.17 10*6/uL 4.35-5.85 Venous blood hemoglobin measurement (mass/volume) 13.3 g/dL 13.3-17.7 Blood hematocrit (volume fraction) 38 % 40-54 Automated erythrocyte mean corpuscular volume 92 [foz_us] 80-99 Automated erythrocyte mean corpuscular hemoglobin (mass per erythrocyte) 32 pg 25-34 Automated erythrocyte mean corpuscular hemoglobin concentration measurement (mass/volume) 35 g/dL 32-36 Automated erythrocyte distribution width ratio 13.8 % 10.0- 14.5 Automated blood platelet count (count/volume) 115 10*3/uL 130-400 Automated blood platelet mean volume measurement 11.3 [foz_us] 7.4-10.4 Automated blood neutrophils/100 leukocytes 59 % 42-75 Automated blood lymphocytes/100 leukocytes 28 % 12-44 Blood monocytes/100 leukocytes 12 % 0-12 Automated blood eosinophils/100 leukocytes 2 % 0-10 Automated blood basophils/100 leukocytes 0 % 0-10 Blood neutrophils automated count (number/volume) 3.0 10*3 1.8-7.8 Blood lymphocytes automated count (number/volume) 1.4 10*3 1.0-4.0 Blood monocytes automated count (number/volume) 0.6 10*3 0.0- 1.0 Automated eosinophil count 0.1 10*3/uL 0.0-0.3 Automated blood basophil count (count/volume) 0.0 10*3/uL 0.0-0.1 Comprehensive metabolic panel - 03/13/19 11:50 Serum or plasma sodium measurement (moles/volume) 144 mmol/L 135-145 Serum or plasma potassium measurement (moles/volume) 3.9 mmol/L 3.6-5.0 Serum or plasma chloride measurement (moles/volume) 107 mmol/L 98-107 Carbon dioxide 28 mmol/L 21-32 Serum or plasma anion gap determination (moles/volume) 9 mmol/L 5-14 Serum or plasma urea nitrogen measurement (mass/volume) 15 mg/dL 7-18 Serum or plasma creatinine measurement (mass/volume) 1.41 mg/dL 0.60-1.30 Serum or plasma urea nitrogen/creatinine mass ratio 11 NRG Serum or plasma creatinine measurement with calculation of estimated glomerular filtration rate 49 NRG Serum or plasma glucose measurement (mass/volume) 85 mg/dL 70-105 Serum or plasma calcium measurement (mass/volume) 8.9 mg/dL 8.5-10.1 Serum or plasma total bilirubin measurement (mass/volume) 0.9 mg/dL 0.1-1.0 Serum or plasma alkaline phosphatase measurement (enzymatic activity/volume) 62 U/L 40-136 Serum or plasma aspartate aminotransferase measurement (enzymatic activity/volume) 14 U/L 5-34 Serum or plasma alanine aminotransferase measurement (enzymatic activity/volume) 9 U/L 0-55 Serum or plasma protein measurement (mass/volume) 5.8 g/dL 6.4-8.2 Serum or plasma albumin measurement (mass/volume) 3.5 g/dL 3.2-4.5 CALCIUM CORRECTED 9.3 mg/dL 8.5-10.1 Blood type T Indirect antibody screen panel - 03/13/19 11:50 ABO+Rh group AP NRG Blood group antibody screen NEGATIVE NRG Methicillin resistant Staphylococcus aureus (MRSA) screening culture - 03/13/19 11:50 Methicillin resistant Staphylococcus aureus (MRSA) screening culture NEG NRG Encounters ACCT No. Visit Date/Time Discharge Status Pt. Type Provider Facility Loc./Unit Complaint [id number] 03/03/2019 11:19:20 03/03/2019 23:59:59 [facility] Outpatient Hernandez Arroyo [id number] 02/06/2019 10:42:27 02/06/2019 23:59:59 [facility] Outpatient Hernandez Arroyo [id number] 12/01/2018 11:32:52 12/01/2018 23:59:59 [facility] Outpatient Hernandez Arroyo [id number] 08/17/2018 11:01:35 08/17/2018 23:59:59 [facility] Outpatient Hernandez Arroyo [id number] 05/28/2018 12:30:47 05/28/2018 23:59:59 CLS Outpatient Melia Franco [id number] 05/24/2018 14:17:28 05/24/2018 23:59:59 [facility] Outpatient Hernandez Arroyo [id number] 03/23/2018 10:22:30 03/23/2018 23:59:59 [facility] Outpatient Hernandez Arroyo [id number] 03/14/2018 11:25:27 03/14/2018 23:59:59 [facility] Outpatient Hernandez Arroyo [id number] 03/07/2018 15:23:18 03/07/2018 23:59:59 [facility] Outpatient Hernandez Arroyo [id number] 01/07/2018 11:43:42 01/07/2018 23:59:59 [facility] Outpatient Hernandez Arroyo [id number] 01/07/2018 11:42:21 01/07/2018 23:59:59 [facility] Outpatient Hernandez Arroyo [id number] 12/20/2017 11:01:57 12/20/2017 23:59:59 CLS Outpatient HetlingerHernandez [id number] 12/15/2017 10:41:23 12/15/2017 23:59:59 CLS Outpatient Hetlinger, Hernandez [id number] 11/16/2017 15:06:50 11/16/2017 23:59:59 CLS Outpatient HetlingerHernandez [id number] 11/03/2017 11:24:15 11/03/2017 23:59:59 CLS Outpatient HetlingerHernandez [id number] 09/13/2017 10:33:07 09/13/2017 23:59:59 CLS Outpatient HetlingerHernandez [id number] 09/02/2017 11:47:52 09/02/2017 23:59:59 CLS Outpatient HetlingerHernandez [id number] 08/18/2017 12:43:02 08/18/2017 23:59:59 CLS Outpatient Jo Paris [id number] 08/05/2017 11:20:04 08/05/2017 23:59:59 CLS Outpatient HetlingerHernandez [id number] 07/23/2017 09:34:17 07/23/2017 23:59:59 CLS Outpatient Luis Mcgovern [id number] 07/21/2017 10:52:06 07/21/2017 23:59:59 CLS Outpatient HetlingHernandez ivory [id number] 07/08/2017 10:50:45 07/08/2017 23:59:59 CLS Outpatient HetlingerHernandez [id number] 07/05/2017 15:53:33 07/05/2017 23:59:59 CLS Outpatient QuemadoRefugio zee [id number] 05/20/2017 11:18:56 05/20/2017 23:59:59 CLS Outpatient HetlingerHernandez [id number] 05/04/2017 11:00:57 05/04/2017 23:59:59 CLS Outpatient HetlingerHernandez [id number] 04/27/2017 10:54:02 04/27/2017 23:59:59 CLS Outpatient HetlingerHernandez [id number] 02/18/2017 11:33:31 02/18/2017 23:59:59 CLS Outpatient HetlingerHernandez [id number] 12/10/2016 11:34:30 12/10/2016 23:59:59 CLS Outpatient HetlingerHernandez [id number] 12/01/2016 13:46:17 12/01/2016 23:59:59 CLS Outpatient Hetlinger, Hernandez [id number] 10/26/2016 10:54:54 10/26/2016 23:59:59 CLS Outpatient Hetlinger, Hernandez [id number] 10/05/2016 10:16:45 10/05/2016 23:59:59 CLS Outpatient Hetlinger, Hernandez [id number] 08/10/2016 12:05:00 08/10/2016 23:59:59 CLS Outpatient Quemado, Refugio [id number] 08/04/2016 11:16:52 08/04/2016 23:59:59 CLS Outpatient Hetlinger, Hernandez [id number] 07/23/2016 11:17:22 07/23/2016 23:59:59 CLS Outpatient Hetlinger, Hernandez [id number] 07/06/2016 11:04:39 07/06/2016 23:59:59 CLS Outpatient Hetlinger, Hernandez [id number] 06/26/2016 11:12:04 06/26/2016 23:59:59 CLS Outpatient Hetlinger, Hernandez [id number] 04/06/2016 14:35:03 04/06/2016 23:59:59 CLS Outpatient Hetlinger, Hernandez [id number] 04/01/2016 10:25:28 04/01/2016 23:59:59 CLS Outpatient Jo Paris [id number] 03/05/2016 11:50:28 03/05/2016 23:59:59 CLS Outpatient HetlingerHernandez [id number] 03/03/2016 10:56:05 03/03/2016 23:59:59 CLS Outpatient Hetlinger, Hernandez [id number] 11/05/2015 15:40:50 11/05/2015 23:59:59 CLS Outpatient Hetlinger, Hernandez [id number] 10/21/2015 11:52:54 10/21/2015 23:59:59 CLS Outpatient Quemado, Refugio [id number] 10/17/2015 13:49:08 10/17/2015 23:59:59 CLS Outpatient Quemado, Refugio [id number] 10/16/2015 11:17:07 10/16/2015 23:59:59 CLS Outpatient Hetlinger, Hernandez [id number] 10/08/2015 11:10:00 10/08/2015 23:59:59 CLS Outpatient QuemadoRefugio [id number] 10/07/2015 11:19:16 10/07/2015 23:59:59 CLS Outpatient HetlingerHernandez [id number] 09/25/2015 11:09:19 09/25/2015 23:59:59 CLS Outpatient HetlingerHernandez [id number] 09/10/2015 14:02:16 09/10/2015 23:59:59 CLS Outpatient HetlingerHernandez [id number] 08/07/2015 11:23:19 08/07/2015 23:59:59 CLS Outpatient HetlingerHernandez [id number] 08/06/2015 16:11:40 08/06/2015 23:59:59 CLS Outpatient Camryn Del Rosario [id number] 07/01/2015 10:45:14 07/01/2015 23:59:59 CLS Outpatient Camryn Del Rosario [id number] 06/24/2015 11:29:32 06/24/2015 23:59:59 CLS Outpatient HetlingHernandez ivory [id number] 06/14/2015 18:00:40 06/14/2015 23:59:59 CLS Outpatient Salinas Gamble [id number] 06/10/2015 14:30:22 06/10/2015 23:59:59 CLS Outpatient Hetlingcachorro Hernandez [id number] 05/07/2015 10:30:49 05/07/2015 23:59:59 CLS Outpatient Camryn Del Rosario [id number] 04/15/2015 22:22:35 04/15/2015 23:59:59 CLS Outpatient Camryn Del Rosario [id number] 12/31/2014 10:32:58 12/31/2014 23:59:59 CLS Outpatient HetlingerHernandez [id number] 12/24/2014 14:18:10 12/24/2014 23:59:59 CLS Outpatient Camryn Del Rosario [id number] 12/12/2014 09:02:29 12/12/2014 23:59:59 CLS Outpatient HettomHernandez ivory [id number] 12/10/2014 13:52:06 12/10/2014 23:59:59 CLS Outpatient Camryn Del Rosario [id number] 10/17/2014 11:00:12 10/17/2014 23:59:59 CLS Outpatient Hetlingcachorro Hernandez [id number] 10/15/2014 11:56:19 10/15/2014 23:59:59 CLS Outpatient Camryn Del Rosario [id number] 10/03/2014 11:27:58 10/03/2014 23:59:59 CLS Outpatient AdolfotomHernandez ivory [id number] 10/01/2014 16:21:44 10/01/2014 23:59:59 CLS Outpatient Miguel ÁngelCamryn [id number] 08/23/2014 10:17:14 08/23/2014 23:59:59 CLS Outpatient Miguel ÁngelCamryn [id number] 07/27/2014 10:21:17 07/27/2014 23:59:59 CLS Outpatient Miguel ÁngelCamryn [id number] 07/16/2014 10:55:08 07/16/2014 23:59:59 CLS Outpatient HetlingHernandez ivory [id number] 06/25/2014 11:14:05 06/25/2014 23:59:59 CLS Outpatient AdolfotomHernandez ivory [id number] 05/29/2014 10:50:22 05/29/2014 23:59:59 CLS Outpatient AdolfotomHernandez ivory [id number] 04/23/2014 11:46:11 04/23/2014 23:59:59 CLS Outpatient Camryn Del Rosario [id number] 03/26/2014 16:54:08 03/26/2014 23:59:59 CLS Outpatient Camryn Del Rosario [id number] 03/06/2014 11:56:24 03/06/2014 23:59:59 CLS Outpatient Camryn Del Rosario [id number] 02/06/2014 11:23:38 02/06/2014 23:59:59 CLS Outpatient Camryn Del Rosario [id number] 01/08/2014 14:52:59 01/08/2014 23:59:59 CLS Outpatient Camryn Del Rosario [id number] 12/18/2013 10:20:35 12/18/2013 23:59:59 CLS Outpatient Hernandez Arroyo [id number] 10/30/2013 09:05:10 10/30/2013 23:59:59 CLS Outpatient TESSARAJ [id number] 10/23/2013 09:44:08 10/23/2013 23:59:59 CLS Outpatient HetlingHernandez ivory [id number] 10/05/2013 15:49:37 10/05/2013 23:59:59 CLS Outpatient AdolfotomHernandez ivory [id number] 03/13/2019 10:25:00 03/13/2019 11:55:00 DIS Outpatient BRETT MATUTE DO [facility] PREOP STENOSIS [id number] 01/13/2019 12:24:00 01/13/2019 23:59:59 CLS Outpatient MALIKA MACHUCA APRN [facility] RT DYSPNEA [id number] 11/28/2018 13:54:00 11/28/2018 23:59:59 CLS Outpatient MALIAK MACHUCA APRN [facility] RAD LEG PAIN,DYSPNEA [id number] 11/19/2018 20:01:00 11/20/2018 07:32:00 DIS Outpatient MALIKA MACHUCA APRN [facility] SLEEP SUSPECTED SLEEP APNEA [id number] 03/20/2019 11:15:00 ACT Preadmit BRETT MATUET DO [facility] SDC STENOSIS
[2019-03-20] MEDS ORDERED: DEXMEDETOMIDINE 200 MCG/2 ML (PRECEDEX) VIAL IV ONE ×2 (11:31→13:23)
[2019-03-20] MEDS: LACTATED RINGERS 1,000 ML IV PRN ×2 (12:00→13:36)
[2019-03-20] MEDS: BUP/EPI 0.5% 1:200,000 (SENSORCAINE) 30 ML VIAL ONE ×2 (12:11→14:23)
[2019-03-20] MEDS ORDERED: NS IV 1000 ML 1,000 ML IV ONE (13:15)
[2019-03-20] MEDS ORDERED: PHENYLEPHRINE 100 MCG/ML 10 ML (ANESTHESIA) SYR ONE (13:48)
[2019-03-20] MEDS: NS IV 1000 ML 1,000 ML IV SCH ×2 (14:05→20:25)
--- NOTE | 2019-03-20 14:17 | Diagnostic Imaging Report ---
INDICATION: Fluoroscopy during lumbar spine surgery. FINDINGS: Fluoroscopy was provided in the OR during lumbar spine TLIF at the L5-S1 level. 41 seconds of fluoroscopy was utilized. Images demonstrate posterior instrumented fusion with stabilization rods and pedicle screws transfixing the L5-S1 level. IMPRESSION: Fluoroscopy during lumbar spine surgery. Dictated by: Dictated on workstation # [id number]
[2019-03-20] MEDS: BACITRACIN 100,000 UNIT/NS 1000 ML POUR BOTTLE IR ONE ×2 (14:23)
[2019-03-20] MEDS ORDERED: FUROSEMIDE 40 MG/4 ML INJ (LASIX) ONE (14:27)
[2019-03-20] MEDS ORDERED: oxyCODONE/APAP 5/325MG (PERCOCET 5) TABLET PO PRN (14:45)
[2019-03-20] MEDS ORDERED: ONDANSETRON 4 MG/2 ML (SDV) Z0FRAN IV PRN (14:45)
[2019-03-20] MEDS ORDERED: NON-FORMULARY MEDICATION 1 EA EA (Fluticasone Propionate (Flonase Allergy Relief) 1 SPRAY) NS PRN (14:45)
[2019-03-20] MEDS ORDERED: HYDROmorphone 2 MG/ML VIAL (DILAUDID) IV ONE (15:00)
[2019-03-20] MEDS ORDERED: ONDANSETRON 4 MG/2 ML (SDV) Z0FRAN IVP PRN (15:00)
[2019-03-20] MEDS ORDERED: morphine INJ 10 MG/ML 1ML (SYR OR VIAL) IVP ONE (15:00)
[2019-03-20 15:31] LABS: HEMOGLOBIN 11.9 G/DL (13.3-17.7)
--- NOTE | 2019-03-20 16:05 | NUR ---
Patient on floor at this time, report received from Cathie LAGUNA. Will continue to monitor.
[2019-03-20] MEDS ORDERED: NS (IVPB) 500 ML IV ONE (16:45)
[2019-03-20] MEDS ORDERED: FLUTICASONE NASAL SPRAY (FLONASE) 16 GM BTL NS PRN (17:15)
[2019-03-20] MEDS ORDERED: NS IV 500 ML 500 ML IV SCH (17:15)
--- NOTE | 2019-03-20 18:25 | Diagnostic Imaging Report ---
INDICATION: Central line placement COMPARISON: None. FINDINGS: There is a single view of the chest demonstrates a left IJ central venous catheter with the tip in the SVC. There is no pneumothorax. Small effusion is seen in the left base. IMPRESSION: 1. No post procedure pneumothorax. 2. Small effusion, left base. Dictated by: Dictated on workstation # [id number]
[2019-03-20] MEDS: ceFAZolin INJECTION 1,000 MG in WATER (STERILE) FOR INJECTION 10 ML IV SCH (18:50)
[2019-03-20] MEDS: KCL 20 MEQ TAB (K-DUR) PO SCH (18:50)
[2019-03-20] MEDS: CARVEDILOL 6.25 MG (COREG) TAB PO SCH (20:04)
[2019-03-20] MEDS: DOCUSATE SODIUM 100 MG (COLACE) CAP PO SCH ×2 (20:04→20:32)
[2019-03-20] MEDS: BACLOFEN 10 MG (LIORESAL) TAB PO SCH ×2 (20:04→20:32)
[2019-03-20] MEDS: GABAPENTIN 300 MG (NEURONTIN) CAP PO SCH ×2 (20:04→20:33)
[2019-03-20] MEDS: SENNOSIDES 8.6 MG (SENOKOT) TAB PO SCH ×2 (20:05→20:32)
[2019-03-20] MEDS: METOCLOPRAMIDE 5 MG (REGLAN) TAB PO SCH ×2 (20:05→20:33)
[2019-03-20] MEDS ORDERED: NON-FORMULARY MEDICATION 1 EA EA (Potassium Chloride 20 MEQ) PO SCH (21:00)
[2019-03-20] MEDS ORDERED: METOCLOPRAMIDE HCL 5 MG PO SCH (21:00)
--- NOTE | 2019-03-20 21:44 | OPERATIVE REPORT ---
DATE OF SERVICE: 03/20/2019 SURGEON: Brett Richmond DO. ASSISTANT PROFESSOR OF BIOLOGY: BECKY Dorsey. This is a medically necessary procedure. Program Scheduler was necessary for retraction of vital neurovascular structures. Without an assistant finance manager, the procedure would not be possible. PREOPERATIVE DIAGNOSES: 1. Lumbar radiculopathy. 2. Lumbar stenosis (bony, foraminal). 3. Neurogenic claudication. POSTOPERATIVE DIAGNOSES: 1. Lumbar radiculopathy. 2. Lumbar stenosis (bony, foraminal). 3. Neurogenic claudication. PROCEDURE PERFORMED: 1. Right L2-L3 laminectomy. 2. L5-S1 transforaminal lumbar interbody fusion. 3. Application of titanium interbody cage, L5-S1. 4. Application of posterior instrumentation, L5-S1. 5. Posterior spinal fusion, L5-S1. 6. Use of human Allograft for spine. 7. Use of local bone autograft. COMPLICATIONS: None. SPECIMEN SENT: None. DRAINS PLACED: Hemovac. ANESTHESIA: General endotracheal tube anesthesia with local anesthetic. ESTIMATED BLOOD LOSS: See anesthesia records. HISTORY OF PRESENT ILLNESS: The patient is a very pleasant 78-year-old gentleman with a history of severe bilateral lumbar radiculopathy with the right leg being worse than the left. He failed all conservative measures and did wish to proceed with surgery due to his intractable pain. DESCRIPTION OF PROCEDURE: The patient was identified by name on wrist band in the preoperative holding area. His operative site was signed, consent was signed. SCDs were placed. Neuro monitoring was hooked up and antibiotics were started. He was taken to the operating room theater and placed under general endotracheal tube anesthesia and then transferred to the operating room table in the prone position. He was prepped and draped in the usual sterile fashion. Formal timeout was conducted. I then brought in lateral x-ray. I localized my incision, which I made from the spinous process of L2 to spinous process of S1. I performed bilateral subperiosteal paraspinal muscular approach exposing the posterior elements. I started at L2-L3 where I performed a laminectomy which enabled me to do a thorough right foraminotomy. Once finished with that decompression, I turned my attention to the L5-S1 level. I placed pedicle screws bilaterally in L5 and bilaterally in S1. I tested them with EMG neuro monitoring. I obtained an AP and lateral x-ray and the screws were in good position. At this point, I performed bilateral laminectomy at L5-S1 with complete facetectomy on the left side at L5-S1. I retracted the thecal sac medially, exposing the disk. I performed an annulotomy followed by complete diskectomy. I sized and chose the appropriate titanium interbody cage packed with human allograft and local bone autograft and I seated it in the midline position. I then obtained a jessica, placed a jessica on the left and a jessica on the right. I placed set screws, finally tightened the set screws. Final AP and lateral x-ray demonstrated good position of the TLIF cage and my screws. At this point, I irrigated the wound with 2 liters of antibiotic enhanced irrigation. I decorticated remaining posterior bony elements. I packed human allograft and local bone autograft in the left and the right gutters to promote posterior spinal fusion. I placed a deep subfascial Hemovac drain and I closed the wound utilizing #0 Vicryls followed by 2-0 Vicryls followed by running 3-0 subcuticular stitch. I applied dressings and took the patient in the supine position to the PACU where he awoke without incident. He tolerated the procedure well. The plan at this time is to admit the patient for IV antibiotics, IV pain control and postoperative monitoring. I will have the patient out of bed on postop day #1, discontinue his drain and Austin catheter per my protocol. Please note that instrumentation utilized was NuVasive for everything. Job ID: [id number] DocumentID: [id number] Dictated Date: 03/20/2019 14:19:11 Paper Hanger Date: 03/20/2019 21:43:21 Dictated By: BRETT RICHMOND DO
[2019-03-21 00:08] VITALS: BP 120/67
[2019-03-21] MEDS: ceFAZolin INJECTION 1,000 MG in WATER (STERILE) FOR INJECTION 10 ML IV SCH (02:39)
[2019-03-21] MEDS: NS IV 1000 ML 1,000 ML IV SCH ×3 (02:40→23:22)
[2019-03-21] MEDS ORDERED: HYDROcodone/APAP 5 MG/325 MG (LORTAB) TAB ONE (02:44)
[2019-03-21] MEDS: HYDROcodone/APAP 5 MG/325 MG (LORTAB) TAB PO PRN ×2 (02:52→08:24)
--- NOTE | 2019-03-21 02:58 | OPERATIVE REPORT ---
DATE OF SERVICE: PREOPERATIVE DIAGNOSES: 1. Venous insufficiency. 2. Hypotension. POSTOPERATIVE DIAGNOSES: 1. Venous insufficiency. 2. Hypotension. PROCEDURE: Insertion of triple lumen catheter, left IJ with ultrasound guidance. SURGEON: Pepe Vora, DO TOURING PRODUCTION MANAGER: None. ANESTHESIA: Just local lidocaine. BLOOD LOSS: Scant. FLUIDS: None. POSTOPERATIVE CONDITION: Stable. INDICATION FOR PROCEDURE: The patient is a 78-year-old male who had a laminectomy performed. He was hypotensive, got a liter of fluid through peripheral IV, still hypotensive, needed a better central line if he needed any pressors. FINDINGS: The patient had an IJ placed in the left side with ultrasound guidance. PROCEDURE NOTE: After informed consent was obtained, the patient was in his bed. He was placed in Trendelenburg position, sterilely prepped and draped in normal fashion, had a sterile probe cover on the ultrasound machine, found the IJ, it was actually very decompressed probably confirming his diagnosis of being needed some more fluids. Once he was sterilely prepped and draped in normal fashion, then infiltrated left neck with local lidocaine and then with the ultrasound probe, advanced the 18-gauge fine needle watched to enter the vein, got a flash of blood, but then had a very tough time could not thread it. I believe just because the vein kept decompressing. I had removed it. Finally, able to get this on the second attempt and then able to place a guidewire using Seldinger technique, it went in easily, checked with the ultrasound and ultrasound showed that the guidewire was in the IJ. At this point, removed the needle and then made a stab incision at the guidewire with a #11 blade. Then, over the guidewire, placed a dilator using Seldinger technique, it went in easily, then removed this and then over the guidewire, placed the triple lumen catheter, went in easily, removed the guidewire and then easily placed locking ports on the 3 triple lumen ports and then easily aspirated and flushed, got a good flash of blood, then easily flushed with saline, then sutured this in place with 3-0 silk suture, placed the Biopatch, cleaned the area and the nurse then placed a sterile dressing. The patient tolerated the procedure. Job ID: [id number] DocumentID: [id number] Dictated Date: 03/20/2019 19:19:27 Probation Worker Date: 03/21/2019 02:57:31 Dictated By: DO SANDRA BALES
[2019-03-21 04:43] VITALS: BP 107/61
[2019-03-21 05:19] LABS: HEMOGLOBIN 10.4 G/DL (13.3-17.7); MEAN PLATELET VOLUME 11.8 FL (7.4-10.4); WHITE BLOOD COUNT 7.3 10^3/uL (4.3-11.0)
[2019-03-21 05:38] LABS: ALBUMIN 2.5 GM/DL (3.2-4.5); BILIRUBIN,TOTAL 0.8 MG/DL (0.1-1.0); CALCIUM 7.5 MG/DL (8.5-10.1); CREATININE SERUM 1.2 MG/DL (0.60-1.30); POTASSIUM 3.9 MMOL/L (3.6-5.0); TOTAL PROTEIN 3.9 GM/DL (6.4-8.2)
[2019-03-21] MEDS: FUROSEMIDE 40 MG (LASIX) TAB PO SCH (06:28)
[2019-03-21] MEDS: KCL 20 MEQ TAB (K-DUR) PO SCH ×2 (06:28→17:47)
[2019-03-21] MEDS: PANTOPRAZOLE 40 MG (PROTONIX) TAB PO SCH (06:28)
--- NOTE | 2019-03-21 07:22 | Anesthesia-General Post-Op ---
General Patient Condition Mental Status/LOC: Same as Preop Cardiovascular: Satisfactory Nausea/Vomiting: Absent Respiratory: Satisfactory Pain: Controlled Complications: Absent Post Op Complications Complications None Follow Up Care/Instructions Patient Instructions None needed. Anesthesia/Patient Condition Patient Condition Patient is doing well, no complaints, stable vital signs, no apparent adverse anesthesia problems. No complications reported per nursing. D/C home per [facility] Criteria: CHARMAINE Cordova CRNA Mar 21, 2019 07:22
--- NOTE | 2019-03-21 07:35 | Progress Note ---
Subjective Date Seen by a Provider: Mar 21, 2019 Time Seen by a Provider: 07:33 Subjective/Events-last exam BABAK. DOing well. Denies leg pain. Denies SOB/CP. Has not been OOB yet. Would like to go home today if possible. He has no pain. Objective Exam Vital Signs Date Time Temp Pulse Resp B/P (MAP) Pulse Ox O2 Delivery O2 Flow Rate FiO2 03/21/19 04:43 98.1 59 16 107/61 (76) 98 Nasal Cannula 2.00 03/21/19 00:08 96.8 59 16 120/67 (84) 100 Nasal Cannula 2.00 03/20/19 20:39 Nasal Cannula 2.00 03/20/19 19:38 96.2 60 18 106/64 (78) 98 Nasal Cannula 2.00 03/20/19 19:30 60 106/67 (80) 100 Nasal Cannula 2.00 03/20/19 19:15 61 105/68 (80) 100 Nasal Cannula 2.00 03/20/19 19:00 60 99/63 (75) 97 Nasal Cannula 2.00 03/20/19 18:16 62 111/63 (79) 100 Nasal Cannula 2.00 03/20/19 18:00 60 99/61 (74) 98 Nasal Cannula 2.00 03/20/19 17:45 58 90/56 (67) 100 Nasal Cannula 2.00 03/20/19 17:30 60 99/63 (75) 100 Nasal Cannula 2.00 03/20/19 17:15 59 96/60 (72) 98 Nasal Cannula 2.00 03/20/19 17:10 Nasal Cannula 2.00 03/20/19 17:00 60 108/67 (81) 100 Nasal Cannula 2.00 03/20/19 16:45 60 101/64 (76) 100 Nasal Cannula 2.00 03/20/19 16:30 60 85/51 (62) 98 Nasal Cannula 2.00 03/20/19 16:05 Nasal Cannula 2 03/20/19 16:05 97.4 18 96 Nasal Cannula 2 03/20/19 16:05 96.0 61 16 85/49 (61) 98 Nasal Cannula 2.00 03/20/19 15:55 18 96 Nasal Cannula 2 03/20/19 15:55 Nasal Cannula 2 03/20/19 15:50 18 97 Nasal Cannula 2 03/20/19 15:40 Nasal Cannula 2 03/20/19 15:40 18 97 Nasal Cannula 2 03/20/19 15:35 OxyMask 3 03/20/19 15:30 18 99 OxyMask 3 03/20/19 15:22 OxyMask 6 03/20/19 15:22 18 100 OxyMask 6 03/20/19 15:15 18 100 OxyMask 6 03/20/19 15:10 OxyMask 6 03/20/19 15:10 18 100 OxyMask 6 03/20/19 15:00 18 100 OxyMask 6 03/20/19 14:55 OxyMask 6 03/20/19 14:50 18 100 OxyMask 6 03/20/19 14:39 97.2 16 99 OxyMask 6 03/20/19 14:39 OxyMask 6 03/20/19 09:44 97.4 88 16 95 Room Air 03/20/19 08:45 97.4 88 16 147/68 (94) 95 Room Air 03/20/19 08:45 95 Room Air I & O 03/21/19 07:00 Intake Total 4780 ml Output Total 5455 ml Balance -675 ml Capillary Refill : General Appearance: No Apparent Distress Extremity: Other (Wound CDI, 5/ motor tono LE, NVSI) Results Lab Laboratory Tests 03/20/19 15:11: Hemoglobin 11.9L, Hematocrit 35L 03/21/19 05:10: Hemoglobin 10.4L, Hematocrit 30L, White Blood Count 7.3, Red Blood Count 3.30L, Mean Corpuscular Volume 91, Mean Corpuscular Hemoglobin 32, Mean Corpuscular Hemoglobin Concent 35, Red Cell Distribution Width 14.0, Platelet Count 75L, Mean Platelet Volume 11.8H, Sodium Level 143, Potassium Level 3.9, Chloride Level 111H, Carbon Dioxide Level 23, Anion Gap 9, Blood Urea Nitrogen 15, Creatinine 1.20, Estimat Glomerular Filtration Rate 59, BUN/Creatinine Ratio 13, Glucose Level 134H, Calcium Level 7.5L, Corrected Calcium 8.7, Total Bilirubin 0.8, Aspartate Amino Transf (AST/SGOT) 18, Alanine Aminotransferase (ALT/SGPT) 8, Alkaline Phosphatase 48, Total Protein 3.9L, Albumin 2.5L Assessment/Plan Assessment/Plan Assess & Plan/Chief Complaint ASSESSMENT: POD 1 s/p TLIF PLAN: possible dc home today follow Hg pain control d/c hemovac BRETT MATUTE DO Mar 21, 2019 07:35
[2019-03-21 08:00] VITALS: BP 114/64
[2019-03-21] MEDS: BACLOFEN 10 MG (LIORESAL) TAB PO SCH ×2 (08:23→20:32)
[2019-03-21] MEDS: FINASTERIDE (PROSCAR) 5 MG TAB PO SCH (08:23)
[2019-03-21] MEDS: DOCUSATE SODIUM 100 MG (COLACE) CAP PO SCH ×2 (08:23→20:32)
[2019-03-21] MEDS: SENNOSIDES 8.6 MG (SENOKOT) TAB PO SCH ×2 (08:24→20:32)
[2019-03-21] MEDS: CARVEDILOL 6.25 MG (COREG) TAB PO SCH ×2 (08:27→20:32)
[2019-03-21] MEDS ORDERED: NON-FORMULARY MEDICATION 1 EA EA (Furosemide 80 MG) PO SCH (09:00)
--- NOTE | 2019-03-21 09:53 | Diagnostic Imaging Report ---
INDICATION: Post operative lumbar spine fusion. TECHNIQUE: AP, Lateral imaging of the lumbar spine. CORRELATION STUDY: None. FINDINGS: Posterior fusion hardware, transpedicular screws, and interconnecting rods at the L5-S1 level along with intervertebral disc spacer device are present. The intervertebral disc spacer device has an oblique orientation. Decompressive L5 laminectomy. Additional laminectomies at the L2-L3 level. Very mild leftward curvature apex at the L3-L4 level. Nonfused segments appearing unremarkable. Overlying drainage tubing. IMPRESSION: Posterior fusion at the L5-S1 level. It is noted that the intervertebral disc spacer device does have an oblique orientation on the AP projection. Dictated by: Dictated on workstation # [id number]
--- NOTE | 2019-03-21 10:02 | Physical Therapy Evaluation ---
PT Evaluation-General Medical Diagnosis Admission Date Mar 20, 2019 at 08:33 Medical Diagnosis: stenosis Onset Date: Mar 20, 2019 Therapy Diagnosis Therapy Diagnosis: debility Height/Weight Height (Feet): 5 Height (Inches): 8.00 Weight (Pounds): 193 Weight (Ounces): 0.0 Precautions Precautions/Isolations: Fall Prevention, Standard Precautions Weight Bear Status Right Lower Extremity: Right Full Weight Bearing Left Lower Extremity: Left Full Weight Bearing Referral Physician: Basilio Reason for Referral: Evaluation/Treatment Medical History Current History s/p TLIF Reviewed History: Yes Social History Home: Single Level Entry Into Home: Stairs With Railing PT Steps Into Home: 3 Prior/Core FIM Prior Level of Function Therapy Code Descriptions/Definitions Functional Hinds Measure: 0=Not Assessed/NA 4=Minimal Assistance 1=Total Assistance 5=Supervision or Setup 2=Maximal Assistance 6=Modified Hinds 3=Moderate Assistance 7=Complete Hinds Therapy Quality Codes: 6 Independent with activity with or without an assistive device 5 Patient requires set up or clean up by helper. Patient completes activity by themselves 4 Supervision or touching assist (CGA). [place] provide cues , steadying assist 3 The helper provides less than half the effort to complete the activity 2 The helper provides more than half the effort to complete the activity 1 Dependent. The helper does all the effort to complete an activity 7 Patient refused to complete or attempt activity 9 The patient did not perform the activity before the current illness or injury 88 Not attempted due to Medical conditions or safety concerns Functional Abilities and Goals: Independent: Patient completed the activities by him/herself, with or without an assistive device, with no assistance from a helper. Needed Some Help: Patient needed partial assistance from another person to complete activities. Dependent: A helper completed the activities for the patient. Unknown: Not Applicable: Bed Mobility: 6 Transfers (B,C,W/C) (FIM): 6 Gait: 6 Stairs: 6 Indoor Mobility (Ambulation): Independent Stairs: Independent Prior Devices Use: Walker (PRN per patient report) PT Evaluation-Current Subjective Patient agrees to PT. No c/o Pain Numeric Pain Scale: 3 Location: Medial, Lower Location Body Site: Back Pain Description: Acute Objective Patient Orientation: Normal For Age Problem Solving: Fair Attachments: Oxygen, IV back brace ROM/Strength ROM Lower Extremities bilateral LE WFL Strength Lower Extremities 4-/5 grossly bilateral LE Integumentary/Posture Integumentary refer to nursing notes Bowel Incontinence: No Bladder Incontinence: Yes Posture trunk flexed posture in stand with FWW Neuromuscular (Tone, Coordination, Reflexes) grossly intact Sensory Vision: Functional Hearing: Functional Sensation Right Lower Extremit: Impaired Sensation Left Lower Extremity: Impaired Transfers Therapy Code Descriptions/Definitions Functional Hinds Measure: 0=Not Assessed/NA 4=Minimal Assistance 1=Total Assistance 5=Supervision or Setup 2=Maximal Assistance 6=Modified Hinds 3=Moderate Assistance 7=Complete Hinds Transfers (B, C, W/C) (FIM): 6 Scootin Rollin Supine to/from Sit: 6 Sit to/from Stand: 6 patient dons back brace independently due to prior use Gait Mode of Locomotion: Walk Anticipated Mode of Locomotion: Walk Gait (FIM): 6 Distance (FIM): 3=150 ft Distance: 300' Gait Level of Assist: 6 Gait Assistive Device: FWW Comments/Gait Description functional gait sequence with no deviation Balance Sitting Static: Normal Sitting Dynamic: Normal Standing Static: Normal Standing Dynamic: Normal Assessment/Needs 78 y.o. male, will be seen short term by skilled PT to address functional mobility to ensure safe return to home at maximum LOF. Rehab Potential: Fair PT Short Term Goals Short Term Goals Time Frame: Mar 24, 2019 Transfers (B,C,W/C) (FIM): 6 Gait (FIM): 6 Distance (FIM): 3=150 ft Gait Level of Assist: 6 PT Plan Treatment/Plan Treatment Plan: Continue Plan of Care Treatment Plan: Bed Mobility, Education, Functional Activity Ronald, Functional Strength, Gait, Safety, Therapeutic Exercise, Transfers Treatment Duration: Mar 24, 2019 Frequency: 4 times per week Estimated Hrs Per Day: .25 hour per day Patient and/or Family Agrees t: Yes Discharge Recommendations Therapy D/C Recommendations: Home w/ Family Support, Home Independently Time/GCodes Time In: 820 Time Out: 835 Total Billed Treatment Time: 15 Total Billed Treatment 1 visit EVLow 15 min SUZE NOLAND PT Mar 21, 2019 10:02
[2019-03-21] MEDS ORDERED: ceFAZolin INJECTION 1,000 MG in WATER (STERILE) FOR INJECTION 10 ML IV SCH (10:54)
--- NOTE | 2019-03-21 11:22 | Occupational Therapy Eval ---
OT Evaluation-General/PLF Medical Diagnosis Admission Date Mar 20, 2019 at 08:33 Medical Diagnosis: stenosis Onset Date: Mar 20, 2019 Therapy Diagnosis Therapy Diagnosis: decreased self care skills Height/Weight Height (Feet): 5 Height (Inches): 8.00 Weight (Pounds): 193 Weight (Ounces): 0.0 Precautions Precautions/Isolations: Fall Prevention, Standard Precautions Safety Interventions: Bed Exit Alarm Comments back brace Referral Physician: Basilio Medical History Current History Pt s/p L5-S1 TLIF, L2-3 laminectomy Social History Home: Multilevel Current Living Status: Alone Entry Into Home: Stairs With Railing Steps Into Home: 3 ADL-Prior Level of Function Therapy Code Descriptions/Definitions Functional [place] Measure: 0=Not Assessed/NA 4=Minimal Assistance 1=Total Assistance 5=Supervision or Setup 2=Maximal Assistance 6=Modified [place] 3=Moderate Assistance 7=Complete [place] Therapy Quality Codes: 6 Independent with activity with or without an assistive device 5 Patient requires set up or clean up by helper. Patient completes activity by themselves 4 Supervision or touching assist (CGA). [place] provide cues , steadying assist 3 The helper provides less than half the effort to complete the activity 2 The helper provides more than half the effort to complete the activity 1 Dependent. The helper does all the effort to complete an activity 7 Patient refused to complete or attempt activity 9 The patient did not perform the activity before the current illness or injury 88 Not attempted due to Medical conditions or safety concerns Functional Abilities and Goals: Independent: Patient completed the activities by him/herself, with or without an assistive device, with no assistance from a helper. Needed Some Help: Patient needed partial assistance from another person to complete activities. Dependent: A helper completed the activities for the patient. Unknown: Not Applicable: ADL PLOF Comments Pt reports being independent with self care and mobility. Has a walker, but states he doesn't use very often. Self Care: Independent DME/Equipment: Bath Chair, Tub/Shower Drive Self: Yes OT Current Status Subjective Pt sitting in chair, agrees to therapy. Pt reports 1/10 back pain. Mental Status/Objective Patient Orientation: Person, Place, Situation Attachments: Drains, IV Current Glasses/Contacts: Yes (reading) Dentures/Partials: Yes Upper Extremity ROM Grossly functional Upper Extremity Coordination Intact ADL-Treatment ADL-Current Pt sitting in chair, requests to change Depends. Pt sit to stand with modified independence, moves slowly. Pt able to doff Depends and complete hygiene with SBA while standing with FWW for balance. Assist required to thread bilateral LE into Depends. Stood with supervision for balance during pant hike. Changed hospital gown with minimal assistance secondary to IV. Pt was instructed in use of adaptive equipment for LE dressing. Doffed socks with SBA using dressing stick. Donned sock with SBA using sock aid. Pt sitting in chair with needs met after session. Therapy Code Descriptions/Definitions Functional [place] Measure: 0=Not Assessed/NA 4=Minimal Assistance 1=Total Assistance 5=Supervision or Setup 2=Maximal Assistance 6=Modified [place] 3=Moderate Assistance 7=Complete [place] Therapy Quality Codes: 6 Independent with activity with or without an assistive device 5 Patient requires set up or clean up by helper. Patient completes activity by themselves 4 Supervision or touching assist (CGA). [place] provide cues , steadying assist 3 The helper provides less than half the effort to complete the activity 2 The helper provides more than half the effort to complete the activity 1 Dependent. The helper does all the effort to complete an activity 7 Patient refused to complete or attempt activity 9 The patient did not perform the activity before the current illness or injury 88 Not attempted due to Medical conditions or safety concerns Education OT Patient Education: Modified ADL techniques, Rehab process Teaching Recipient: Patient Teaching Methods: Discussion Response to Teaching: Verbalize Understanding OT Short Term Goals Short Term Goals Transfers (B,C,W/C) (FIM): 6 1=Demonstrate adherence to instructed precautions during ADL tasks. 2=Patient will verbalize/demonstrate understanding of assistive devices/modifications for ADL. 3=Patient will improve strength/tolerance for activity to enable patient to perform ADL's. OT Registration Coordinator Goals Penitentiary Goals Time Frame: Mar 28, 2019 Grooming(FIM): 6 Bathing(FIM): 5 Upper Body Dressing(FIM): 6 Lower Body Dressing(FIM): 6 Toileting(FIM): 6 Toilet/Commode Transfer(FIM): 6 Additional Goals: 1-Demonstrate ADL Tasks, 2-Verbalize Understanding, 3- ImproveStrength/Ronald 1=Demonstrate adherence to instructed precautions during ADL tasks. 2=Patient will verbalize/demonstrate understanding of assistive devices/modifications for ADL. 3=Patient will improve strength/tolerance for activity to enable patient to perform ADL's. OT Education/Plan Problem List/Assessment Assessment: Dependent Transfers, Impaired Self-Care Skills Pt s/p lumbar surgery. Would benefit from skilled OT intervention while hospitalized for ADL training, transfers, and adaptive equipment training to increase functional independence and allow safe discharge. Discharge Recommendations Plan/Recommendations: Continue POC Treatment Plan/Plan of Care Treatment,Training & Education: Yes Patient would benefit from OT for education, treatment and training to promote independence in ADL's, mobility, safety and/or upper extremity function for ADL's. Plan of Care: ADL Retraining, Functional Mobility, UE Funct Exercise/Act Treatment Duration: Mar 28, 2019 Frequency: 5 times per week Estimated Hrs Per Day: .25 hour per day Agreement: Yes Rehab Potential: Fair Time/GCodes Start Time: 10:10 Stop Time: 10:35 Total Time Billed (hr/min): 25 Billed Treatment Time 1 visit, EVL(10minutes), ADL(15minutes) YRN VELARDE OT Mar 21, 2019 11:22
--- NOTE | 2019-03-21 11:50 | Consultation - Hospitalist ---
HPI History of Present Illness: HPI/Chief Complaint Pt is a 78yoCM with a PMH sick sinus syndrome s/p pacemaker who was admitted for laminectomy with Dr Richmond yesterday. I am consulted for medical management. He states that he is doing well and his pain is only a 3-4. He has no other complaints for me today. Reviewed event from yesterday with hypotension. Responded to fluids and now normotensive. Source: patient Date Seen 03/21/19 Attending Physician David Richmond DO PCP Hernandez Arroyo MD Referring Physician Date of Admission Mar 20, 2019 at 8:33 am Home Medications & Allergies Home Medications Reviewed patient Home Medication Reconciliation performed by pharmacy medication reconciliations feed research technician and/or nursing. Patients Allergies have been reviewed. Allergies Allergies Coded Allergies hydrocodone (Verified Allergy, Unknown, Hives, 03/13/19) meperidine (Verified Allergy, Unknown, Hives, 03/13/19) Past Srpfywk-Oumopf-Jvkmby Hx Past Med/Social Hx: Reviewed Nursing Past Med/Soc Hx Patient Social History Alcohol Use: Denies Use Recreational Drug Use: No Physical Abuse Screen: No Sexual Abuse: No Recent Foreign Travel: No Contact w/other who traveled: No Recent Hopitalizations: No Recent Infectious Disease Expo: No Seasonal Allergies Seasonal Allergies: No Past Medical History Surgeries: Pacemaker pacemaker Musculoskeletal: Arthritis, Chronic Back Pain, Fractures Skin/Integumentary: Pruritis 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) Family History Reviewed Nursing Family Hx Cardiovascular disease 19 MOTHER Hypertension 19 MOTHER Respiratory disorder G8 BROTHER (lung cancer) Review of Systems Constitutional: no symptoms reported EENTM: no symptoms reported Respiratory: no symptoms reported Cardiovascular: no symptoms reported Gastrointestinal: no symptoms reported Musculoskeletal: back pain Skin: no symptoms reported Psychiatric/Neurological: Denies Numbness, Denies Paresthesia, Denies Weakness Physical Exam Physical Exam Vital Signs Vital Signs - First Documented 03/20/19 08:45 Temp 97.4 Pulse 88 Resp 16 B/P (MAP) 147/68 (94) Pulse Ox 95 O2 Delivery Room Air Capillary Refill : Height, Weight, BMI Height: 5'8.00" Weight: 193lbs. 0.0oz. 87.728025wv; 28.6 BMI Method: General Appearance: No Apparent Distress, WD/WN HEENT: Normal ENT Inspection, Moist Mucous Membranes Neck: Other (central line in place) Respiratory: Lungs Clear, No Accessory Muscle Use, No Respiratory Distress Cardiovascular: Regular Rate, Rhythm, No Murmur Gastrointestinal: Normal Bowel Sounds, Non Tender, Soft Extremity: No Calf Tenderness, No Pedal Edema Neurologic/Psychiatric: Alert, Oriented x3, Normal Mood/Affect; No Sensory Deficit Skin: Warm/Dry, Other (flaking skin) Results Results/Procedures Labs Laboratory Tests 03/20/19 15:11 03/21/19 05:10 03/22/19 07:00 Patient resulted labs reviewed. Imaging: Reviewed Imaging Report Assessment/Plan Assessment and Plan Assess & Plan/Chief Complaint lumbar stenosis Diagnosis/Problems Diagnosis/Problems (1) STENOSIS WITH CLAUDICATION Assessment & Plan: PT/OT Management per primary Continue pain regimen will round prn (2) Sick sinus syndrome Assessment & Plan: s/p pacemaker resume coreg when BP improved (3) Hypotension Assessment & Plan: Resolved now with IVF likely due to hypovolemia Qualifiers: Hypotension type: hypotension due to hypovolemia Qualified Codes: I95.89 - Other hypotension; E86.1 - Hypovolemia JEF ADAMSON MD Mar 21, 2019 11:50
[2019-03-21 12:00] VITALS: BP 100/53
[2019-03-21 16:00] VITALS: BP 120/55
[2019-03-21] MEDS: ACETAMINOPHEN 325 MG TABLET PO PRN (16:04)
[2019-03-21 20:00] VITALS: BP 125/63
[2019-03-21] MEDS: METOCLOPRAMIDE 5 MG (REGLAN) TAB PO SCH (20:32)
[2019-03-21] MEDS: GABAPENTIN 300 MG (NEURONTIN) CAP PO SCH (20:32)
[2019-03-22] VITALS (7 sets, daily range): BP systolic 119–152; BP diastolic 53–68
[2019-03-22] MEDS: PANTOPRAZOLE 40 MG (PROTONIX) TAB PO SCH (06:23)
[2019-03-22] MEDS: FUROSEMIDE 40 MG (LASIX) TAB PO SCH (06:23)
[2019-03-22] MEDS: KCL 20 MEQ TAB (K-DUR) PO SCH ×2 (06:23→16:59)
--- NOTE | 2019-03-22 06:56 | Progress Note ---
Subjective Date Seen by a Provider: Mar 22, 2019 Time Seen by a Provider: 06:53 Subjective/Events-last exam POD #2 s/p L5-s1 tlif, right l2-3 foraminotomy. patient sitting in chair watching tv, pain is controlled. does admit to back pain and some rle pain. Denies any new symptoms today. Has been up with pt. Review of Systems General: No Chills HEENT: No Head Aches Pulmonary: No Dyspnea Gastrointestinal: No: Nausea Musculoskeletal: back pain Neurological: No: Weakness, Numbness, Change in speech, Confusion Objective Exam Vital Signs Date Time Temp Pulse Resp B/P (MAP) Pulse Ox O2 Delivery O2 Flow Rate FiO2 03/22/19 04:27 99.4 60 18 130/66 (87) 98 Nasal Cannula 2.00 03/22/19 00:10 99.8 62 18 119/63 (81) 98 Nasal Cannula 2.00 03/21/19 20:00 Nasal Cannula 2.00 03/21/19 20:00 100.0 66 18 125/63 (83) 98 Nasal Cannula 2.00 03/21/19 16:40 100.0 03/21/19 16:04 102.4 03/21/19 16:00 102.4 70 16 120/55 (76) 97 Nasal Cannula 2.00 03/21/19 12:00 97.4 65 18 100/53 (69) 95 Nasal Cannula 2.00 03/21/19 09:52 Nasal Cannula 2.00 03/21/19 08:00 99.0 60 18 114/64 (81) 98 Nasal Cannula 2.00 03/21/19 07:45 Nasal Cannula 2.00 I & O 03/22/19 07:00 Intake Total 2080 ml Output Total 945 ml Balance 1135 ml Capillary Refill : General Appearance: No Apparent Distress Neck: Full Range of Motion, Normal Inspection Respiratory: No Accessory Muscle Use, No Respiratory Distress Gastrointestinal: normal bowel sounds, non tender, soft Extremity: Non Tender Neurologic/Psychiatric: Alert, Oriented x3, No Motor/Sensory Deficits Results Lab Laboratory Tests 03/21/19 11:43: Lab Scanned Report Transfusion Reaction Form Assessment/Plan Assessment/Plan Assess & Plan/Chief Complaint POD #2 s/p TLIF abl anemia Plan back brace when oob continue drain monitor labs pain control consult case management for possible home health anticipate dismissal in 1-2 days JUANITA MARLEY Mar 22, 2019 06:56
[2019-03-22] MEDS ORDERED: HYDR-3820 PO (06:58)
[2019-03-22 07:09] LABS: BASOPHILS % (AUTO) 0 % (0-10); EOSINOPHILS # (AUTO) 0.1 10^3/uL (0.0-0.3); EOSINOPHILS % (AUTO) 1 % (0-10); HEMATOCRIT 27 % (40-54); HEMOGLOBIN 9.1 G/DL (13.3-17.7); LYMPHOCYTES # (AUTO) 1.2 X 10^3 (1.0-4.0); LYMPHOCYTES % (AUTO) 16 % (12-44); MEAN CORPUSCULAR HEMOGLOBIN 32 PG (25-34); MEAN CORPUSCULAR HGB CONC 34 G/DL (32-36); MEAN CORPUSCULAR VOLUME 93 FL (80-99); MONOCYTES % (AUTO) 13 % (0-12); NEUTROPHILS # (AUTO) 5.3 X 10^3 (1.8-7.8); NEUTROPHILS % (AUTO) 70 % (42-75); PLATELET COUNT 69 10^3/uL (130-400); RED CELL DISTRIBUTION WIDTH 13.8 % (10.0-14.5); WHITE BLOOD COUNT 7.6 10^3/uL (4.3-11.0)
[2019-03-22 07:29] LABS: CALCIUM 7.7 MG/DL (8.5-10.1); CREATININE SERUM 1.2 MG/DL (0.60-1.30); POTASSIUM 3.6 MMOL/L (3.6-5.0)
[2019-03-22 07:48] LABS: BAND NEUTROPHILS 0 %; BASOPHILS % (MANUAL) 0 %; EOSINOPHILS % (MANUAL) 0 %; LYMPHOCYTES % (MANUAL) 17 %; MONOCYTES % (MANUAL) 8 %; NEUTROPHILS % (MANUAL) 75 %; RBC MORPH NORMAL
[2019-03-22] MEDS: CARVEDILOL 6.25 MG (COREG) TAB PO SCH ×2 (08:20→20:30)
[2019-03-22] MEDS: SENNOSIDES 8.6 MG (SENOKOT) TAB PO SCH ×2 (08:20→20:30)
[2019-03-22] MEDS: FINASTERIDE (PROSCAR) 5 MG TAB PO SCH (08:20)
[2019-03-22] MEDS: DOCUSATE SODIUM 100 MG (COLACE) CAP PO SCH ×2 (08:20→20:29)
[2019-03-22] MEDS: BACLOFEN 10 MG (LIORESAL) TAB PO SCH ×2 (08:20→20:30)
[2019-03-22] MEDS: NS IV 1000 ML 1,000 ML IV SCH ×2 (08:22→19:35)
--- NOTE | 2019-03-22 13:08 | Occupational Ther Daily Note ---
OT Current Status-Daily Note Subjective Attempted to see pt earlier, unable to wake pt enough to participate in therapy. On 2nd attempt, nrsg in room and pt had been incontinent. Pt agrees to therapy. No c/o pain at this time. Mental Status/Objective Patient Orientation: Person Therapy Code Descriptions/Definitions Functional [place] Measure: 0=Not Assessed/NA 4=Minimal Assistance 1=Total Assistance 5=Supervision or Setup 2=Maximal Assistance 6=Modified [place] 3=Moderate Assistance 7=Complete [place] Attachments: Drains, IV ADL-Treatment Assist to cleanse self and change brief after incontinence. Assist x1 supine to sitting. Donned back brace by self. Assist with tubing and CGA while ambulating using FWW to toilet. Pt requested to sit on toilet to have BM. Pt given call light to use when finished. Nrsg notified. All needs met in room. OT Short Term Goals Short Term Goals Transfers (B,C,W/C) (FIM): 6 1=Demonstrate adherence to instructed precautions during ADL tasks. 2=Patient will verbalize/demonstrate understanding of assistive devices/modifications for ADL. 3=Patient will improve strength/tolerance for activity to enable patient to perform ADL's. OT Supply Controller Goals Supply Controller Goals Time Frame: Mar 28, 2019 Grooming(FIM): 6 Bathing(FIM): 5 Upper Body Dressing(FIM): 6 Lower Body Dressing(FIM): 6 Toileting(FIM): 6 Toilet/Commode Transfer(FIM): 6 Additional Goals: 1-Demonstrate ADL Tasks, 2-Verbalize Understanding, 3-ImproveStrength/Ronald 1=Demonstrate adherence to instructed precautions during ADL tasks. 2=Patient will verbalize/demonstrate understanding of assistive devices/modifications for ADL. 3=Patient will improve strength/tolerance for activity to enable patient to perform ADL's. OT Education/Plan Problem List/Assessment Assessment: Decreased Activ Tolerance, Impaired Self-Care Skills Pt s/p lumbar surgery. Would benefit from skilled OT intervention while hospitalized for ADL training, transfers, and adaptive equipment training to increase functional independence and allow safe discharge. Discharge Recommendations Plan/Recommendations: Continue POC Treatment Plan/Plan of Care Patient would benefit from OT for education, treatment and training to promote independence in ADL's, mobility, safety and/or upper extremity function for ADL's. Plan of Care: ADL Retraining, Functional Mobility, UE Funct Exercise/Act Treatment Duration: Mar 28, 2019 Frequency: 5 times per week Estimated Hrs Per Day: .25 hour per day Agreement: Yes Rehab Potential: Fair Time/GCodes Start Time: 12:50 Stop Time: 13:10 Total Time Billed (hr/min): 20 Billed Treatment Time 1 visit-ADL 1 (20 min) CIRO SOUSA Mar 22, 2019 13:08
--- NOTE | 2019-03-22 14:37 | Physical Therapy Daily Note ---
PT Daily Note-Current Subjective Patient in bed pre tx, agrees to PT, has no complaints of pain at rest. Appearance Patient in bed post tx with nurse call, phone, tray, all needs met. Mental Status Patient Orientation: Person, Place, Situation Attachments: Oxygen, IV back brace, patient is able to don it himself Transfers Therapy Code Descriptions/Definitions Functional [place] Measure: 0=Not Assessed/NA 4=Minimal Assistance 1=Total Assistance 5=Supervision or Setup 2=Maximal Assistance 6=Modified [place] 3=Moderate Assistance 7=Complete [place] Therapy Quality Codes: 6 Independent with activity with or without an assistive device 5 Patient requires set up or clean up by helper. Patient completes activity by themselves 4 Supervision or touching assist (CGA). [place] provide cues , steadying assist 3 The helper provides less than half the effort to complete the activity 2 The helper provides more than half the effort to complete the activity 1 Dependent. The helper does all the effort to complete an activity 7 Patient refused to complete or attempt activity 9 The patient did not perform the activity before the current illness or injury 88 Not attempted due to Medical conditions or safety concerns Transfers (B, C, W/C) (FIM): 4 Scootin Rollin Supine to/from Sit: 4 Sit to/from Stand: 5 Bed to/from Chair: 5 Patient needs min assist for supine <-> sit, he is impulsive and performs sit to stand and transfers quickly and needs cues to slow down so he does not get tangled in his lines. Weight Bearing Right Lower Extremity: Right Full Weight Bearing Left Lower Extremity: Left Full Weight Bearing Gait Training Gait (FIM): 4 Distance: 300' Gait Level of Assist: 4 Gait Persons Needed: 1 Gait Assistive Device: FWW CGA, brisk steady ambulation Treatments bed mobility and transfers, ambulation Assessment Current Status: Fair Progress improving endurance PT Short Term Goals Short Term Goals Time Frame: Mar 24, 2019 Transfers (B,C,W/C) (FIM): 6 Gait (FIM): 6 Distance (FIM): 3=150 ft Gait Level of Assist: 6 PT Plan Problem List Problem List: Activity Tolerance, Functional Strength, Safety, Balance, Gait, Transfer, Bed Mobility, ROM Treatment/Plan Treatment Plan: Continue Plan of Care Treatment Plan: Bed Mobility, Education, Functional Activity Ronald, Functional Strength, Gait, Safety, Therapeutic Exercise, Transfers Treatment Duration: Mar 24, 2019 Frequency: 4 times per week Estimated Hrs Per Day: .25 hour per day Patient and/or Family Agrees t: Yes Safety Risks/Education Patient Education: Gait Training, Transfer Techniques, Correct Positioning, Reviewed Don/Doff Brace, Safety Issues Teaching Recipient: Patient Teaching Methods: Demonstration, Discussion Response to Teaching: Reinforcement Needed Time/GCodes Time In: 1416 Time Out: 1432 Total Billed Treatment Time: 16 Total Billed Treatment 1 visit GT 16' ANA FRIAS PT Mar 22, 2019 14:37
--- NOTE | 2019-03-22 15:43 | NUR ---
CM/SS, respond to consult. PLAN: Referral completed with [facility], await their confirmation of acceptance. Patient stay will be short term, rehab to home. CARE Assessment pending if [place] requires for anticipated < 30 day stay. SUMMARY: Patient resides home alone, he was driving and was preparing 3 meals per day for himself. He has 5 inside cats he cares for, he left 3 large bowls of food and a self watering system for them while he was here. Patient is from [facility]. His mother wanted to move back here so he did that with her 6-7 years ago, she 3-4 years ago. He indicates it is too difficult for him to return to his children in [place] and also that he did not like the taxes and expenses there. He has son Triston Cazares Jr in [facility] and daughter Claire Wright in [place]. He has nieces Marlyn and Shraddha Christy in the [place] area, but they do not provide support and he does not have anyone to routinely check in or assist. Discussed two options, HHC and short term SNF stay for recovery. Encouraged SNF so that all needs could be met without difficulty since patient is alone at this time. 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 Referral completed as noted. Updated daughter Claire of propose plan, she was in full agreement as she was concerned about him returning home directly from the hospital. Followup in a.m. Claire Wright, Daughter [facility] [facility] [place] [address] Triston Cazares Jr, Son [place], [place] [phone]
[2019-03-22] MEDS: GABAPENTIN 300 MG (NEURONTIN) CAP PO SCH (20:30)
[2019-03-22] MEDS: METOCLOPRAMIDE 5 MG (REGLAN) TAB PO SCH (20:30)
[2019-03-23] MEDS: ACETAMINOPHEN 325 MG TABLET PO PRN (03:30)
[2019-03-23 03:54] VITALS: BP 131/64
[2019-03-23] MEDS: KCL 20 MEQ TAB (K-DUR) PO SCH (05:26)
[2019-03-23] MEDS: PANTOPRAZOLE 40 MG (PROTONIX) TAB PO SCH (05:26)
[2019-03-23] MEDS: NS IV 1000 ML 1,000 ML IV SCH (05:26)
[2019-03-23] MEDS: FUROSEMIDE 40 MG (LASIX) TAB PO SCH (05:26)
[2019-03-23 08:00] VITALS: BP 135/63
[2019-03-23] MEDS: SENNOSIDES 8.6 MG (SENOKOT) TAB PO SCH (08:18)
[2019-03-23] MEDS: BACLOFEN 10 MG (LIORESAL) TAB PO SCH (08:18)
[2019-03-23] MEDS: CARVEDILOL 6.25 MG (COREG) TAB PO SCH (08:18)
[2019-03-23] MEDS: FINASTERIDE (PROSCAR) 5 MG TAB PO SCH (08:18)
[2019-03-23] MEDS: DOCUSATE SODIUM 100 MG (COLACE) CAP PO SCH (08:18)
--- NOTE | 2019-03-23 09:10 | Discharge Inst-Skilled Nursing ---
Discharge Inst-Skilled NF Patient Instructions Patient Problems: lumbar stenosis, s/p L5-s1 tlif lamienctomy and psif, l2-3 laminectomy acute blood loss anemia Goal: ambulate with walker transitions Patient Instructions: avoid bending from standing postion do not lift twist push or pull 10 lb weight restriction keep incision covered clean and dry Consult/Follow Up/Orders Follow Up Appt.: in office in 2 weeks Skilled NF Admit to: [place] Certification (SNF) I certify that SNF services are required to be given on an inpatient basis because of the above named patient's need for intermediate care on a continuing basis for the conditions(s) for which he/she was receiving inpatient hospital services prior to his/her transfer to the SNF. Detention Facility Order: Res Counselor-Evaluate & Treat, Physical Therapy-Evaluate & Treat, Wound Care-Eval/Treat Oxygen Delivery Method: Nasal Cannula Discharge Diet: No Restrictions Daily Activity as Tolerated: No New & Resume Previous Orders New & Resume Previous Orders back brace on when ambulating may remove when seated or in bed Other Instructions keep incisions covered clean and dry, change q 48 hours or prn saturation or soil Juanita Marley Mar 23, 2019 09:05 JUANITA MARLEY Mar 23, 2019 09:10
--- NOTE | 2019-03-23 10:00 | NUR ---
Important Message from Medicare presented, reviewed, signed and charted. Patient voiced no intention to appeal and deny any needs or further questions at this time
--- NOTE | 2019-03-23 11:37 | Physical Therapy Daily Note ---
PT Daily Note-Current Subjective Patient agrees to PT. No c/o. He states he is going to an NH today. Pain Numeric Pain Scale: 0-No Pain Location: No Pain Reported Mental Status Patient Orientation: Person, Time, Situation Attachments: Oxygen Transfers Therapy Code Descriptions/Definitions Functional [place] Measure: 0=Not Assessed/NA 4=Minimal Assistance 1=Total Assistance 5=Supervision or Setup 2=Maximal Assistance 6=Modified [place] 3=Moderate Assistance 7=Complete [place] Therapy Quality Codes: 6 Independent with activity with or without an assistive device 5 Patient requires set up or clean up by helper. Patient completes activity by themselves 4 Supervision or touching assist (CGA). [place] provide cues , steadying assist 3 The helper provides less than half the effort to complete the activity 2 The helper provides more than half the effort to complete the activity 1 Dependent. The helper does all the effort to complete an activity 7 Patient refused to complete or attempt activity 9 The patient did not perform the activity before the current illness or injury 88 Not attempted due to Medical conditions or safety concerns Transfers (B, C, W/C) (FIM): 6 Scootin Sit to/from Stand: 6 Weight Bearing Right Lower Extremity: Right Full Weight Bearing Left Lower Extremity: Left Full Weight Bearing Gait Training Gait (FIM): 6 Distance (FIM): 3=150 ft Distance: 450' Gait Level of Assist: 6 Gait Assistive Device: FWW fast pace/functional gait sequence Assessment Patient tolerated treatment well and will transfer to [place] on this date. PT Short Term Goals Short Term Goals Time Frame: Mar 24, 2019 Transfers (B,C,W/C) (FIM): 6 Gait (FIM): 6 Distance (FIM): 3=150 ft Gait Level of Assist: 6 PT Plan Treatment/Plan Treatment Plan: Discontinue PT, goals met Treatment Plan: Bed Mobility, Education, Functional Activity Ronald, Functional Strength, Gait, Safety, Therapeutic Exercise, Transfers Treatment Duration: Mar 24, 2019 Frequency: 4 times per week Estimated Hrs Per Day: .25 hour per day Patient and/or Family Agrees t: Yes Time/GCodes Time In: 1020 Time Out: 1028 Total Billed Treatment Time: 8 Total Billed Treatment 1 visit FA 8 min SUZE NOLAND PT Mar 23, 2019 11:37
[2019-03-23 12:00] VITALS: BP 128/62
--- NOTE | 2019-03-23 12:34 | NUR ---
REPORT CALLED TO LUZ ELENA SHARMA AT [facility].
--- NOTE | 2019-03-23 12:42 | NUR ---
CM/SS. Patient discharged to new Medicare skilled [facility] with [facility] via their transport scheduled for 1300. CARE was not completed, patient stay anticipated < 30 days. Faxed orders, including requested ICD 10 codes, prepared packet to accompany patient. Updated daughter Claire by phone and provided here with [facility] contact information. She is going to contact her local cousin to see if they will help with patient's 5 house cats until he can return home. Unit RN fully aware of arrangements.
[2019-03-23 13:42] VITALS: BP 128/62
== END 2019-03-23 13:40 | DRG 454 ==
LOC: 4TH 08:33 → SURG 08:34 → EDSTATUS 11:15 → 4TH 16:05
PROVIDERS: ADMIT Orthopaedic Surgery; ATTEND Orthopaedic Surgery
PROC: 0SG3071 Fusion of Lumbosacral Joint with Autologous Tissue Substitute, Posterior Approach, Posterior Column, Open Approach (ICD-10-PCS; 2019-03-20)
PROC: 00NY0ZZ Release Lumbar Spinal Cord, Open Approach (ICD-10-PCS; 2019-03-20)
PROC: 0ST40ZZ Resection of Lumbosacral Disc, Open Approach (ICD-10-PCS; 2019-03-20)
PROC: 0SG30AJ Fusion of Lumbosacral Joint with Interbody Fusion Device, Posterior Approach, Anterior Column, Open Approach (ICD-10-PCS; principal; 2019-03-20 11:25)
DX: M48.062 Spinal stenosis, lumbar region with neurogenic claudication (principal); M54.16 Radiculopathy, lumbar region; D62 Acute posthemorrhagic anemia; I95.89 Other hypotension; E86.1 Hypovolemia; I11.0 Hypertensive heart disease with heart failure; I50.9 Heart failure, unspecified; I49.5 Sick sinus syndrome; J44.9 Chronic obstructive pulmonary disease, unspecified; G25.0 Essential tremor; M19.90 Unspecified osteoarthritis, unspecified site; R16.0 Hepatomegaly, not elsewhere classified; K21.9 Gastro-esophageal reflux disease without esophagitis; I87.2 Venous insufficiency (chronic) (peripheral); G43.909 Migraine, unspecified, not intractable, without status migrainosus; Z99.81 Dependence on supplemental oxygen; Z95.0 Presence of cardiac pacemaker
CPT/HCPCS: 36415; 71045; 72100; 80048; 80053; 85007; 85014; 85018; 85027; 86850; 86900; 86901; 86920; 94664